=== PATIENT | male | born 1960 | race Caucasian/White ===

== ENCOUNTER 2019-08-24 12:34 | Outpatient (CLI) | payer OTHER, SELFPAY ==
--- NOTE | 2019-08-24 12:30 | XRR_ITS ---
PROCEDURE INFORMATION: Exam: XR Abdomen, 1 View Exam date and time: 08/24/2019 1:02 PM Age: 58 years old Clinical indication: History of urolithiasis TECHNIQUE: Imaging protocol: XR of the abdomen. Views: Frontal supine view of the abdomen. 1 View. COMPARISON: XR ABDOMEN 08/24/2018 12:43 PM XR ABDOMEN 1:58 PM FINDINGS: Gastrointestinal tract: No dilated gas-filled loops of bowel. Organs: No definite radiopaque renal or ureteral calculi. Vasculature: There is a phlebolith in the deep left paramidline pelvis. Atherosclerotic plaque in the iliac arteries bilaterally. Bones/joints: No acute osseous abnormality. XR/XR KUB [id number] IMPRESSION: No radiopaque renal or ureteral calculus.
== END 2019-08-24 12:35 | disposition home or self-care (01) ==
LOC: RAD 12:41
PROVIDERS: Family Provider Internal Medicine; Visit Provider Urology
DX: N20.9 Urinary calculus, unspecified (principal)
CPT/HCPCS: 74018; 81001

== ENCOUNTER 2019-09-22 11:11 | Outpatient (CLI) | payer OTHER, SELFPAY ==
--- NOTE | 2019-09-22 11:18 | CT_ITS ---
WS: [id number] CT scan of the chest with IV contrast, additional two-dimensional coronal and sagittal reconstruction was performed. 09/22/2019 Clinical Data: REQUESTED BY PULMONARY Comparison: CT pulmonary embolus, 04/06/2018. DLP: 922.[address] scans at [facility] use at least one of these dose optimization techniques: automat ed exposure control; mA and/or kV adjustment per patient size (includes targeted exams where dose is matched to clinical indication); or iterative reconstruction. Findings: No nodules, masses or effusions are seen. No pneumonia or pneumothorax is present. The heart size is normal with no pericardial effusion. Coronary artery calcification is present. The pulmonary arterial system and thoracic aorta demonstrate no abnormalities or dilatations. The trachea bifurcates into t he bronchi. There is moderate anterior and middle mediastinal adenopathy unchanged. The upper abdomen shows no abnormalities. Midline sternotomy sutures are seen. CT/CT chest w con* [id number] Impression: Negative for acute cardiopulmonary disease.
[2019-09-22] MEDS: iohexol 300 mg/mL 100 mL Btl IV (11:35)
== END 2019-09-22 11:12 | disposition home or self-care (01) ==
LOC: RADWPI 11:16
PROVIDERS: Family Provider Internal Medicine; PCP Internal Medicine; Visit Provider Internal Medicine
DX: Z01.89 Encounter for other specified special examinations (principal); I25.10 Atherosclerotic heart disease of native coronary artery without angina pectoris; R59.0 Localized enlarged lymph nodes; Z86.711 Personal history of pulmonary embolism
CPT/HCPCS: 71260; Q9967

== ENCOUNTER 2019-11-08 06:24 | Day surgery (SDC) | payer OTHER, SELFPAY ==
[2019-11-04 10:05] VITALS: BMI 26.9
[2019-11-08 06:47] VITALS: BP 108/72; PULSE 97; RESP 20; TEMP 36.6; O2SAT 92
--- NOTE | 2019-11-08 07:00 | P.HP_ITS ---
Same Day Surgery H&P Indication for Procedure/HPI DATE OF PROCEDURE: November 08, 2019 CHIEF COMPLAINT/INDICATIONFOR SURGICAL PROCEDURE: history of colon polyps PREOP DIAGNOSIS: History of colon polyps PLANNED PROCEDRUE: Operation Date: 11/08/19 08:05 Proposed Procedures p Colonoscopy 81228 Z86.010(Not Applicable) - Narciso Christianson MD Medications/Allergies* Home Medications Medication Instructions Recorded Confirmed Type albuterol sulfate 90 mcg/actuation 1 inh INHALATION Q4H 08/24/19 11/04/19 History breath activated powder inhaler,sensor aspirin 81 mg tablet,delayed 81 mg PO DAILY 08/24/19 11/08/19 History release atorvastatin 80 mg tablet 80 mg PO DAILY 08/24/19 11/04/19 History cyclobenzaprine 10 mg tablet 10 mg PO DAILY 08/24/19 11/08/19 History furosemide 20 mg tablet 20 mg PO QAM 08/24/19 11/04/19 History hydrocodone 5 mg-acetaminophen 325 1 tab PO QID PRN 08/24/19 11/04/19 History mg tablet montelukast 10 mg tablet 10 mg PO DAILY 08/24/19 11/08/19 History potassium chloride 10 mEq 10 meq PO DAILY 08/24/19 11/04/19 History capsule,extended release ropinirole 1 mg tablet 1 mg PO DAILY 08/24/19 11/08/19 History sertraline 100 mg tablet 100 mg PO DAILY 08/24/19 11/04/19 History tamsulosin 0.4 mg capsule 0.4 mg PO BID 08/24/19 11/04/19 History tiotropium 2.5 mcg-olodaterol 2.5 2 puff INHALATION DAILY 08/24/19 11/04/19 History mcg/actuation mist for inhalation warfarin 5 mg tablet 5 mg PO DAILY 08/24/19 11/04/19 History pantoprazole 20 mg PO DAILY 11/08/19 11/08/19 History Allergies/Adverse Reactions Allergy/AdvReac Type Severity Reaction Status Date / Time No Known Allergies Allergy Verified 09/13/19 14:51 Pertinent History/Comorbid Conditions* Medical History (Updated 09/14/19 @ 13:00 by Narciso Christianson MD) History of colon polyps HTN (hypertension), benign Hyperlipidemia Hypogonadism in male Lower urinary tract symptoms (LUTS) Peyronie disease Urolithiasis Surgical History (Updated 09/13/19 @ 15:05 by Narciso Christianson MD) H/O decompression of ulnar nerve H/O knee surgery H/O neck surgery H/O vasectomy History of back surgery History of coronary artery stent placement History of surgery on arm Hx of CABG Status post colonoscopy with polypectomy Family History (Updated 08/19/19 @ 08:55 by Destiny Hernandez RN) Father, 66 Mother, 64 Diabetes Mother Father CAD (coronary artery disease) Mother Father Hypertension Mother Father Social History Smoking and tobacco status: current every day smoker Alcohol intake: never Marital status: Current occupational status: retired and disabled History of recent travel: No Pertinent Exam Findings alert and oriented x 3 Recommendations Surgery/Procedure today Coding Level of Care Code Acute Stock 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
[2019-11-08] MEDS: sodium chloride 0.9% 1,000 ML 30 ML IV (07:08)
[2019-11-08 07:23] LABS: INR 1.08 (0.8-1.2)
--- NOTE | 2019-11-08 07:58 | ANES.PREANE2 ---
Pre-Anesthetic Assessment Pre-Anesthetic Assessment: Height/Weight: Height 1.8 m Weight 87.543 kg Temp Pulse Resp BP Pulse Ox 97.8 F 97 20 H 108/72 92 11/08/19 06:47 11/08/19 06:47 11/08/19 06:47 11/08/19 06:47 11/08/19 06:47 Preop Diagnosis: History of colon polyps Proposed Procedure: Operation Date: 11/08/19 08:05 Proposed Procedures p Colonoscopy 93167 Z86.010(Not Applicable) - Narciso Christianson MD Last intake: Intake Last Liquid Date 11/07/19 Last Liquid Time 23:59 Last Solid Date 11/06/19 Last Solid Time 23:59 Social: Social History: Tobacco and No alcohol Exam: Pre-Anes Outpt Exam: alert, oriented x 3, clear to auscultation bilaterally and regular rate & rhythm Airway: Submandibular: WNL Cervical ROM: Other (limited) MP: 2 Dentition: Other (poor dentation) History/ROS: No significant history except as noted Pulmonary: Pulmonary: COPD, HODGE and Sleep apnea CV/HEM: CV/HEM: CAD and HTN Comments: MVR 2019 : : None reported Hepatic: Hepatic: None reported GI: GI: GERD (occ) Metabolic: Metabolic: Hyperlipidemia Musc/skel: Musc/skel: OA/DJD Neuropsych: Neuropsych: Neuropathy (arms and legs) Anesthetic Plan: ASA status: 3 Anesthesia: Anesthesia Evaluation and MAC Risk of > 500 ml blood loss (7ml/kg in children): No Meds/Allergies Current Medications: Current Medications Generic Name Dose Route Start Last Admin Trade Name Freq PRN Reason Stop Dose Admin Sodium Chloride 1,000 mls @ 30 ml s/hr 11/08/19 06:45 11/08/19 07:08 Sodium Chloride 0.9% IV 30 mls/hr .Q24H EUGENE Administration PFSH Anesthesia PFSH: Medical History History of colon polyps HTN (hypertension), benign Hyperlipidemia Hypogonadism in male Lower urinary tract symptoms (LUTS) Peyronie disease Urolithiasis Surgical History H/O decompression of ulnar nerve H/O knee surgery H/O neck surgery H/O vasectomy History of back surgery History of coronary artery stent placement History of surgery on arm Hx of CABG Status post colonoscopy with polypectomy Family History Mother , 64 CAD (coronary artery disease) Diabetes Hypertension Father , 66 Diabetes Hypertension CAD (coronary artery disease) Social History Smoking and tobacco status: current every day smoker Alcohol intake: never Marital status: Current occupational status: retired and disabled History of recent travel: No Data Anesthesia Other Labs: Laboratory Results - last 48 hr 11/08/19 07:04 PT 14.30 H INR 1.08 Cardiac Studies: No Data to Display
[2019-11-08 10:42] VITALS: BP 101/58; PULSE 73; RESP 16; TEMP 36.3; O2SAT 94
[2019-11-08 11:03] VITALS: BP 115/73; PULSE 75; RESP 18; O2SAT 92
== END 2019-11-08 11:16 | disposition home or self-care (01) ==
PROVIDERS: Visit Provider Surgery
PROC: 0DJD8ZZ Inspection of Lower Intestinal Tract, Via Natural or Artificial Opening Endoscopic (ICD-10-PCS; CPT 45378; principal; 2019-11-08 08:00)
DX: Z86.010 Personal history of colon polyps (principal); K64.8 Other hemorrhoids; D12.2 Benign neoplasm of ascending colon; D12.3 Benign neoplasm of transverse colon; D12.5 Benign neoplasm of sigmoid colon; J44.9 Chronic obstructive pulmonary disease, unspecified; I10 Essential (primary) hypertension; K21.9 Gastro-esophageal reflux disease without esophagitis; M19.90 Unspecified osteoarthritis, unspecified site; E78.5 Hyperlipidemia, unspecified; F17.210 Nicotine dependence, cigarettes, uncomplicated; Z82.49 Family history of ischemic heart disease and other diseases of the circulatory system
CPT/HCPCS: 12345; 45380; 45385; 85610; 88305; J2704; J7030

== ENCOUNTER 2020-01-20 14:25 | Outpatient (CLI) | payer OTHER, SELFPAY ==
--- NOTE | 2020-01-20 14:34 | USCV_ITS ---
Kyung Queen Age: 59 Gender: M : 1960 Exam Date: 01/20/2020 14:52 Ordering Phys: Carol Cesar MD Technologist: Santo Steele [place] [facility] [place]: PAD CAD Risk Factors: Smoker Previous Vascular Surgery: CABG RIGHT LEFT BP: 130.0 / 80.00 BP: 130.0/ 80.00 0 0 Waveform Velocity (cm/s) Velocity (cm/s) Waveform Triphasic 92.7 Iliac Prox 119.6 Triphasic Triphasic 123.0 Iliac Mid 107.5 Triphasic Triphasic 105.1 Iliac Distal 80.1 Triphasic Triphasic 94.3 AUTOMOTIVE TIRE TESTING SUPERVISOR 94.0 Triphasic Triphasic 102.7 SFA Prox 101.0 Triphasic Triphasic 107.1 SFA Mid 101.0 Triphasic Triphasic 72.7 SFA Dist 95.2 Triphasic Triphasic 52.7 POP 50.4 Triphasic Triphasic 75.8 DIRECTOR OF MUSIC 66.4 Triphasic Triphasic 75.0 DPA 60.0 N/A SHILA 1.0 1.0 FINDINGS Mild diffuse plaques in the iliac and femoral arteries bilaterally Normal Doppler waveforms and velocities bilaterally Normal resting ABIs bilaterally CONCLUSIONS Mild diffuse plaques in the iliac and femoral arteries bilaterally No significant arterial obstruction based on the above findings Dr Riky Whipple MD [facility] (Electronically Signed) Final Date: 22 January 2020 20:37 S
== END 2020-01-20 14:26 | disposition home or self-care (01) ==
LOC: RAD 14:28
PROVIDERS: Visit Provider Family Medicine
DX: I73.9 Peripheral vascular disease, unspecified (principal); I70.8 Atherosclerosis of other arteries
CPT/HCPCS: 93925

== ENCOUNTER 2020-03-26 09:58 | Outpatient (CLI) | payer OTHER, SELFPAY ==
--- NOTE | 2020-03-26 10:12 | MM_ITS ---
WS: [id number] BILATERAL DIGITAL DIAGNOSTIC MAMMOGRAM MAMMOGRAPHY WITH CAD CLINICAL INFORMATION: LUMP IN BREAST UNDER LEFT NIPPLE COMPARISON: None. TECHNIQUE: Bilateral CC, MLO, and ML views. FINDINGS: Scattered fibroglandular densities bilaterally. Palpable marker upper outer left breast near the areo la. Asymmetric subareolar parenchymal tissue left compared to right likely due to gynecomastia. Ultra sound is pending. ULTRASOUND BREAST LEFT TECHNIQUE: Ultrasound left breast focused area of concern. CLINICAL INFORMATION: LUMP IN BREAST UNDER LEFT NIPPLE COMPARISON: None. FINDINGS: Dense subareolar breast tissue deep to the left nipple in the area of palpable concern. No cystic or solid mass. No lesions to target for biopsy. Similar-appearing subareolar breast tissue right breast. Findings most compatible with gynecomastia. MM/[place] [id number] IMPRESSION: BI-RADS: 2-Benign FOLLOW UP: See Report Additional management of the palpable abnormality should be based on clinical g rounds..
== END 2020-03-26 09:59 | disposition home or self-care (01) ==
LOC: RADSHAW 10:02
PROVIDERS: PCP Family Medicine; Visit Provider Family Medicine
DX: N63.42 Unspecified lump in left breast, subareolar (principal)
CPT/HCPCS: 76642; 77066

== ENCOUNTER → 2020-04-12 08:31 | Outpatient (BNVA) | payer OTHER, SELFPAY | PROVIDERS: PCP Family Medicine; Referring Provider Family Medicine; Visit Provider Anesthesiology Pain Medicine | DX: G89.29 Other chronic pain (principal); M50.20 Other cervical disc displacement, unspecified cervical region; F17.210 Nicotine dependence, cigarettes, uncomplicated; Z79.899 Other long term (current) drug therapy | CPT/HCPCS: 99205 ==

== ENCOUNTER → 2020-04-23 13:40 | Outpatient (BNVA) | payer OTHER, SELFPAY | PROVIDERS: PCP Family Medicine; Visit Provider Anesthesiology Pain Medicine | DX: M54.2 Cervicalgia; F17.210 Nicotine dependence, cigarettes, uncomplicated; Z79.01 Long term (current) use of anticoagulants | CPT/HCPCS: 62321; 85610; J1100 ==

== ENCOUNTER → 2020-05-09 09:54 | Outpatient (BNVA) | payer OTHER, SELFPAY | PROVIDERS: PCP Family Medicine; Visit Provider Surgery | DX: Z11.59 Encounter for screening for other viral diseases (principal); R10.12 Left upper quadrant pain | CPT/HCPCS: 87635 ==

== ENCOUNTER 2020-05-15 09:22 | Day surgery (SDC) | payer OTHER, SELFPAY ==
[2020-05-11 13:27] VITALS: BMI 26.2
--- NOTE | 2020-05-15 07:01 | W.PM.OPSUD ---
Surgery/Procedure H&P Update DATE OF PROCEDURE: May 15, 2020 DATE H&P PERFORMED: 05/01/20 H&P UPDATE INFORMATION: I have reviewed H&P completed within last 30 days, I have examined patient prior to procedure and No changes to prior documentation PREOP DIAGNOSIS: History of colon polyps PLANNED PROCEDURE: Operation Date: 05/15/20 10:30 Proposed Procedures p EGD 69983 R10.12(Not Applicable) - Narciso Christianson MD
[2020-05-15 09:50] VITALS: BP 123/70; PULSE 73; RESP 18; TEMP 36.3; O2SAT 95
--- NOTE | 2020-05-15 10:05 | P.ANESASSM_ITS ---
Pre-Anesthetic Assessment Pre-Anesthetic Assessment: Height/Weight: Height 1.8 m Weight 85.275 kg Temp Pulse Resp BP Pulse Ox 97.4 F L 73 18 123/70 95 05/15/20 09:50 05/15/20 09:50 05/15/20 09:50 05/15/20 09:50 05/15/20 09:50 Preop Diagnosis: LUQ pain Proposed Procedure: Operation Date: 05/15/20 10:30 Proposed Procedures p EGD 57696 R10.12(Not Applicable) - Narciso Christianson MD Familial anesthetic complications: Difficulty waking up after vasectomy in 1991- no problems since Was Beta Guero taken within 24 hours: N/A Last intake: Intake Last Liquid Date 05/14/20 Last Liquid Time 21:00 Last Solid Date 05/14/20 Last Solid Time 21:00 Social: Social History: Tobacco Exam: Pre-Anes Outpt Exam: alert, oriented x 3, clear to auscultation bilaterally and regular rate & rhythm Airway: Cervical ROM: WNL (cervical fusion) MP: 3 Dentition: Other (poor dentition) Additional comments: full dalton Pulmonary: Pulmonary: Asthma, COPD and Sleep apnea (doesn't wear cpap) CV/HEM: CV/HEM: CAD (5 stents (last placed may 08 2018)) Comments: Mitral valve replaced and main aorta re-routed - december 2018 doing ok, still have SOB d/t COPD\ off warfarin for procedure GI: GI: GERD Metabolic: Metabolic: Hyperlipidemia Anesthetic Plan: ASA status: 4 Anesthesia: MAC Risk of > 500 ml blood lo ss (7ml/kg in children): No PFSH Anesthesia PFSH: Medical History Cervical disc disease Cervical disc displacement Gastroesophageal reflux disease History of colon polyps Repeat colonoscopy in 3 years HTN (hypertension), benign Hyperlipidemia Hypogonadism in male Lower urinary tract symptoms (LUTS) Peyronie disease Urolithiasis Surgical History H/O decompression of ulnar nerve H/O knee surgery H/O neck surgery H/O vasectomy History of back surgery History of coronary artery stent placement History of surgery on arm Hx of CABG Status post colonoscopy with polypectomy (11/08/19) Family History Mother , 64 CAD (coronary artery disease) Diabetes Hypertension Father , 66 Diabetes Hypertension CAD (coronary artery disease) Social History Smoking and tobacco status: current every day smoker cigarettes Packs smoked per day: 1.5 Alcohol intake: former Lives independently: Yes Marital status: Current occupational status: retired and disabled History of recent travel: No Data Anesthesia Cardiac Studies: No Data to Display
--- NOTE | 2020-05-15 10:11 | ECG_ITS ---
[facility] Test Date: 2020-05-15 Pat Name: Kyung Queen Department: Room: Gender: Male French Translator: : 1960 Requested By: Tania France Order Number: [id number] Rosalie MD: Alexandria Mederos M.D. Measurements Intervals [place] Rate: 70 P: 65 TX: 216 QRS: 98 QRSD: 99 T: 41 QT: 457 QTc: 493 Interpretive Statements SINUS RHYTHM WITH FIRST DEGREE AV BLOCK BORDERLINE RIGHT AXIS DEVIATION [QRS AXIS > 90] PROLONGED QT INTERVAL Compared to ECG 05/11/2018 05:41:49 First degree AV block now present Prolonged QT interval now present Sinus tachycardia no longer present T-wave abnormality no longer present Electronically Signed On 05-15-2020 21:51:46 [employer] PERSONALITY by Alexandria Mederos M.D. [id number]
[2020-05-15] MEDS: sodium chloride 0.9% 1,000 ML 30 ML IV (11:15)
[2020-05-15 12:11] VITALS: BP 85/52; PULSE 63; RESP 18; TEMP 36.2; O2SAT 95
[2020-05-15 12:27] VITALS: BP 105/58; PULSE 64; RESP 20
--- NOTE | 2020-05-15 14:28 | ANE.PACU2 ---
Inpatient post-anesthesia follow up: Airway intact: Yes Vital signs: Temperature 97.2 F Pulse Rate 64 Respiratory Rate 20 Blood Pressure 105/58 Pulse Oximetry 95 Oxygen Delivery Me thod Nasal Cannula Oxygen Flow Rate 4 Fraction of Inspir ed Oxygen Hydration adequate: Yes Nausea and vomiting: No Pain level: 1 Mental status: Baseline
== END 2020-05-15 12:35 | disposition home or self-care (01) ==
PROVIDERS: PCP Family Medicine; Visit Provider Surgery
PROC: 0DJ08ZZ Inspection of Upper Intestinal Tract, Via Natural or Artificial Opening Endoscopic (ICD-10-PCS; CPT 43235; principal; 2020-05-15 10:30)
DX: R10.12 Left upper quadrant pain (principal); C15.5 Malignant neoplasm of lower third of esophagus; K31.9 Disease of stomach and duodenum, unspecified; F17.210 Nicotine dependence, cigarettes, uncomplicated; J44.9 Chronic obstructive pulmonary disease, unspecified; G47.30 Sleep apnea, unspecified; I25.10 Atherosclerotic heart disease of native coronary artery without angina pectoris; E78.5 Hyperlipidemia, unspecified; Z79.82 Long term (current) use of aspirin; Z79.891 Long term (current) use of opiate analgesic; Z86.010 Personal history of colon polyps; Z95.5 Presence of coronary angioplasty implant and graft; K21.9 Gastro-esophageal reflux disease without esophagitis; I10 Essential (primary) hypertension; Z79.01 Long term (current) use of anticoagulants; Z95.2 Presence of prosthetic heart valve; Z95.1 Presence of aortocoronary bypass graft
CPT/HCPCS: 12345; 43239; 88305; 93005; J2704; J7030

== ENCOUNTER → 2020-05-17 12:41 | Outpatient (BNVA) | payer OTHER, SELFPAY | PROVIDERS: PCP Family Medicine; Visit Provider Anesthesiology Pain Medicine | DX: M50.20 Other cervical disc displacement, unspecified cervical region (principal); M54.12 Radiculopathy, cervical region; M79.604 Pain in right leg; M79.605 Pain in left leg; Z98.1 Arthrodesis status; F17.210 Nicotine dependence, cigarettes, uncomplicated; Z79.891 Long term (current) use of opiate analgesic | CPT/HCPCS: 99214 ==

== ENCOUNTER 2020-06-11 09:26 | Outpatient (CLI) | payer OTHER, SELFPAY ==
[2020-06-11] MEDS: iohexol 300 mg/mL 50 mL Btl PO (10:56)
--- NOTE | 2020-06-11 11:00 | CT_ITS ---
WS: [id number] CT scan of the chest With IV contrast, CT scan of the abdomen and pelvis with IV contrast and oral contrast. Additional two-dimensional coronal and sagittal reconstruction was performed. 06/11/2020 Clinical Data: K22.8 - Other specified diseases of esophagus Comparison: CT chest, 09/22/2019. DLP: 2496.[address] scans at [facility] use at least one of these dose optimization techniques: automat ed exposure control; mA and/or kV adjustment per patient size (includes targeted exams where dose is matched to clinical indication); or iterative reconstruction. Findings: Chest: No nodules, masses or effusions are seen. There is a fine reticular pattern throughout both lungs whi ch has developed since the prior CT scan. This may be related to chronic esophageal disease. The jovan ent has had cardiac surgery with mitral valve replacement. Midline sternotomy sutures are seen. The heart size is normal with no pericardial effusion. The trachea bifurcates normally into the bronc hi. There are coronary artery calcifications. The pulmonary arterial system and thoracic aorta demonstrate no abnormalities or dilatations. There is subcarinal adenopathy. Minimal degenerative change of the thoracic vertebral bodies is seen. Abdomen/pelvis: . The liver, gallbladder, spleen, adrenal glands and pancreas are normal. The kidneys show equal bilateral contrast excretion with no cyst or masses. No hydronephrosis or spencer l calculi are noted. The abdominal aorta is normal in size with moderate calcification in the wall. No appendicitis or diverticulitis is seen. Oral contrast is in the stomach and small bowel and there is no bowel dilatation. No abscess, adenopathy, ascites, mass, obstruction or free air is seen. The bladder is unremarkable. The prostate has calcification within. There is a fat-containing left in guinal hernia. The lumbar spine, pelvis and hips are unremarkable. CT/CT chest abd pel w con* Impression: 1. Development of fine reticular pattern throughout the lungs which could repre sent chronic interstitial lung disease. 2. Cardiac surgery. 3. Subcarinal adenopathy. 4. Negative for acute intra-abdominal or pelvic abnormalities.
[2020-06-11] MEDS: iohexol 300 mg/mL 100 mL Btl IV (11:08)
== END 2020-06-11 09:27 | disposition home or self-care (01) ==
PROVIDERS: PCP Family Medicine; Visit Provider Surgery
DX: K22.8 Other specified diseases of esophagus (principal); R59.0 Localized enlarged lymph nodes; I25.10 Atherosclerotic heart disease of native coronary artery without angina pectoris; Z95.2 Presence of prosthetic heart valve
CPT/HCPCS: 71260; 74177; Q9967

== ENCOUNTER → 2020-06-14 08:23 | Outpatient (BNVA) | payer OTHER, SELFPAY | PROVIDERS: PCP Family Medicine; Visit Provider Anesthesiology Pain Medicine | DX: M54.41 Lumbago with sciatica, right side (principal); M54.12 Radiculopathy, cervical region; M50.20 Other cervical disc displacement, unspecified cervical region; M54.9 Dorsalgia, unspecified; Z98.1 Arthrodesis status; F17.210 Nicotine dependence, cigarettes, uncomplicated | CPT/HCPCS: 99214 ==

== ENCOUNTER 2020-06-19 10:06 | Outpatient (CLI) | payer OTHER, SELFPAY ==
--- NOTE | 2020-06-19 14:56 | ONC CON_ITS ---
Dr. Ryan New Patient Note Patient: Kyung Queen Unit #: [id number]: 1960 Dicatated By: Primitivo Ryan M.D.Date of Visit: Jun 19, 2020 Onc MED New Patient/Consult Referring Physician: Carol Cesar History of Present Illness: Mr. Kyung Queen, is a 59-year-old gentleman with progressive longstanding history of left upper quadrant pain was referred to surgery for evaluation and on May 15, 2020 he underwent EGD which showed couple of areas of suspected Parker's patches with small 1 cm nodule mass which is firm and was biopsied and there was another soft polypoid mass at Z-line which was also biopsied, stomach showed nonerosive gastritis in the antrum and small hiatal hernia seen on retroflexion. Duodenal exam was unremarkable and his pathology report came back distal esophageal mass biopsy confirmed moderately differentiated adenocarcinoma, tumor was CK20 positive and Tyrone-EP4 positive. Patient underwent CT scan of chest abdomen pelvis on June 11, 2020 which showed chronic esophageal disease, fine reticular pattern throughout both lungs., Mild subcarinal lymphadenopathy, mitral valve replacement, no intra-abdominal abnormality. Patient denies any history of dysphagia, denies any history of hemoptysis or hematemesis, denies any history of weight loss, denies any history of jaundice, denies any history of abdominal pain except off and on left epigastric pain. History of 40+ year smoking and still active, about pack a day occasionally alcohol intake. Patient has history of sleep apnea but noncompliant with CPAP machine., History of coronary artery disease status post CABG, underwent colonoscopy in October 2019 with polypectomy. Past Medical History: Mr. Queen's medical history consists of cervical disc disease, cervical disc displacement, gastroesophageal reflux disease, history of colon polyps, hyperlipidemia, hypertension, hypogonadism, Peyronie disease, and Urolithiasis. Past Surgical History: Mr. Queen's surgical/procedural history consists of back surgery, coronary artery bypass, coronary artery stent placement, decompression of ulnar nerve, knee surgery, neck surgery, vasectomy, and colonoscopy in 2020. Medications: Amiodarone HCl 1 Tablet (of 200 mg) Oral b.i.d., Aspirin 1 Tablet (of 81 mg) Tablet, chewable Oral daily, Atorvastatin Calcium 1 Tablet (of 40 mg) Oral daily, Coumadin 1 Tablet (of 2.5 mg) Oral daily on Every Other Day, Cyclobenzaprine HCl 1 Tablet (of 10 mg) Oral b.i.d., dilTIAZem CD 1 Capsule (of 300 mg) Capsule SR 24 HR Oral daily, Ferrous Sulfate 1 Tablet (of 325 (65 fe) mg) Oral daily, Furosemide 1 Tablet (of 40 mg) Oral daily, Gabapentin 1 Capsule (of 300 mg) Oral t.i.d., HYDROcodone-Acetaminophen 1 Tablet (of 5-325 mg) Oral four times a day, Montelukast Sodium 1 Tablet (of 10 mg) Oral daily, Pantoprazole Sodium 1 Tablet (of 40 mg) Tablet, enteric coated Oral daily, Potassium Chloride ER 1 Tablet (of 20 meq) Tablet, controlled release Oral daily, Respaire-30 Capsule Oral, Sertraline HCl 1 Tablet (of 100 mg) Oral daily, Sildenafil Citrate 1 Tablet (of 20 mg) Oral t.i.d., Tamsulosin HCl 1 Capsule (of 0.4 mg) Oral b.i.d. Allergies: No Known Allergies. Social History: Mr. Queen is . He is an occasional smoker who smokes 1.5 packs/day. He is a former drinker. He has indicated exposure to the following products: cigarettes. Pt is a recovering alcoholic. Family History: Mr. Queen's mother at age 64: coronary artery disease, and type II diabetes, and hypertension. Mr. Queen's father at age 66: coronary artery disease, and type II diabetes, and hypertension. Review Of Symptoms: Constitutional - Appetite is good and weight is stable. No fever, night sweats, or hot flashes. Energy is fair, Eyes - , ENMT - No sinus congestion/drainage. No mouth sores. Positive for sore throat and difficulty swallowing, Endocrine - , Hematologic/Lymphatic - No abnormal bruising or bleeding, Respiratory - Positive for shortness of breath. No cough. No pleuritic pain or hemoptysis, Cardiovascular - No angina pain. No palpitations, Gastrointestinal - No nausea or vomiting. No heartburn or acid reflux. No diarrhea or constipation. No blood in the stool or black stools, Genitourinary (M) - No dysuria or hematuria. No urinary frequency. No urgency or incontinence, Musculoskeletal - No joint or bone pain, Neurologic - No headache or dizziness. No numbness or tingling. No other focal neurologic symptoms, Psychiatric - No anxiety or depression. Posiive for insomnia. Vital Signs: Performed on Jun 19, 2020 10:45: 7, 28.15, 2.12 sq.m, 71 in, 94 % (LOW), 89 /min, 16 /min, 101/60 mm(hg), 97.4 F (LOW), and 201.8 lbs (HIGH). Performance Status: 0 - Fully active, able to carry on all predisease activities without restrictions. (ECOG) Physical Examination: ENMT - No mouth sores, no thrush, no jaundice, Respiratory - Poor air entry, mild wheezing bilaterally No supraclavicular lymphadenopathy, Cardiovascular - Regular rate and rhythm of heart, Abdomen - Soft, bowel sounds present, Extremities - No visible edema or rash. Lab/Imaging: Most recent lab results are not available for this patient. Impression: Moderately differentiated adenocarcinoma per EGD done on May 15, 2020 CT scan of chest abdomen pelvis done on June 11, 2020 showed fine reticular and patent throughout lungs could represent chronic interstitial lung disease. Cardiac surgery/mitral valve replacement, mild subcarinal lymphadenopathy No other abnormality seen Coronary artery disease status post CABG status post stenting COPD Sleep apnea, noncompliant with CPAP Longstanding history of smoking, still active e.g. 1 pack/day Plan: Discussed with patient regarding his disease status and treatment options, patient has no history of dysphagia or weight loss and small esophageal nodular lesion was an incidental finding, as EGD was done for history of off and on left upper quadrant pain and indigestion and CT scan of chest abdomen pelvis done on June 11, 2020 did not showed obvious esophageal abnormality except chronic esophageal disease but concern was mild subcarinal lymphadenopathy. As mentioned earlier patient is not symptomatic from newly diagnosed distal esophageal adenocarcinoma,so he may have very early disease but only concern was subcarinal lymphadenopathy with ? Significance, at this point, will consider EUS to assess extent of esophageal lesions depth and local extent and also obtain surgical evaluation regarding the timing of surgery. And if EUS shows significant disease then will consider CT PET scan to complete staging work-up. Patient will return to clinic after EUS and surgical evaluation in [facility]. Patient was advised to quit smoking and was offered any assistance he may need Signed By: Primitivo Ryan M.D. <<Signature on File>>
== END 2020-06-19 10:07 | disposition home or self-care (01) ==
PROVIDERS: PCP Family Medicine; Visit Provider Internal Medicine Hematology & Oncology
DX: C15.5 Malignant neoplasm of lower third of esophagus (principal); F17.210 Nicotine dependence, cigarettes, uncomplicated; F10.21 Alcohol dependence, in remission; J44.9 Chronic obstructive pulmonary disease, unspecified; I25.10 Atherosclerotic heart disease of native coronary artery without angina pectoris; G47.30 Sleep apnea, unspecified; Z95.5 Presence of coronary angioplasty implant and graft; Z91.19 Patient's noncompliance with other medical treatment and regimen
CPT/HCPCS: 99203

== ENCOUNTER → 2020-07-12 10:24 | Outpatient (BNVA) | payer OTHER, SELFPAY | PROVIDERS: PCP Family Medicine; Visit Provider Anesthesiology Pain Medicine | DX: M54.12 Radiculopathy, cervical region (principal); M50.20 Other cervical disc displacement, unspecified cervical region; M54.9 Dorsalgia, unspecified; M25.559 Pain in unspecified hip; M62.830 Muscle spasm of back; F17.210 Nicotine dependence, cigarettes, uncomplicated; Z98.1 Arthrodesis status; Z79.899 Other long term (current) drug therapy | CPT/HCPCS: 99213; 99214 ==

== ENCOUNTER → 2020-08-21 09:41 | Outpatient (BNVA) | payer OTHER, SELFPAY | PROVIDERS: PCP Family Medicine; Visit Provider Anesthesiology Pain Medicine | DX: M54.12 Radiculopathy, cervical region (principal); M50.20 Other cervical disc displacement, unspecified cervical region; M54.9 Dorsalgia, unspecified; M62.830 Muscle spasm of back; F17.210 Nicotine dependence, cigarettes, uncomplicated; Z79.899 Other long term (current) drug therapy; Z98.1 Arthrodesis status; Z79.891 Long term (current) use of opiate analgesic | CPT/HCPCS: 99214 ==

== ENCOUNTER → 2020-09-03 14:19 | Outpatient (BNVA) | payer OTHER, SELFPAY | PROVIDERS: PCP Family Medicine; Visit Provider Surgery | DX: Z01.812 Encounter for preprocedural laboratory examination (principal); Z20.828 Contact with and (suspected) exposure to other viral communicable diseases | CPT/HCPCS: 87635 ==

== ENCOUNTER 2020-09-11 12:20 | Outpatient (CLI) | payer OTHER, SELFPAY ==
--- NOTE | 2020-09-11 17:04 | ONC FU_ITS ---
Dr. Ryan follow up note Patient: Kyung Queen Unit #: [id number]: 1960 Dicatated By: Primitivo Ryan M.D.Date of Visit:Sep 11, 2020 Onc Med Follow-up/Prog Note History of Present Illness: Mr. Kyung Queen, is a 59-year-old gentleman with progressive longstanding history of left upper quadrant pain was referred to surgery for evaluation and on May 15, 2020 he underwent EGD which showed couple of areas of suspected Parker's patches with small 1 cm nodule mass which is firm and was biopsied and there was another soft polypoid mass at Z-line which was also biopsied, stomach showed nonerosive gastritis in the antrum and small hiatal hernia seen on retroflexion. Duodenal exam was unremarkable and his pathology report came back distal esophageal mass biopsy confirmed moderately differentiated adenocarcinoma, tumor was CK20 positive and Tyrone-EP4 positive. Patient underwent CT scan of chest abdomen pelvis on June 11, 2020 which showed chronic esophageal disease, fine reticular pattern throughout both lungs., Mild subcarinal lymphadenopathy, mitral valve replacement, no intra-abdominal abnormality. Patient denies any history of dysphagia, denies any history of hemoptysis or hematemesis, denies any history of weight loss, denies any history of jaundice, denies any history of abdominal pain except off and on left epigastric pain. History of 40+ year smoking and still active, about pack a day occasionally alcohol intake. Patient has history of sleep apnea but noncompliant with CPAP machine., History of coronary artery disease status post CABG, underwent colonoscopy in October 2019 with polypectomy. Patient was referred to Dr. Turk for surgical evaluation, as per patient [facility] took long time to approve his visit to Dr. Turk and then he was referred to Dr. Waller for EUS which was eventually done on August 28, 2020 which confirmed ulcerative mass lesion at the distal esophagus extending from 36 to 39 cm noncircumferential., Periesophageal lymph nodes were noted at 31 cm and 34 cm from incisors and they measured 2.3 cm diameter were malignant in appearance. Esophageal mass itself did not infiltrate beyond the muscularis propria layer. Multiple subcentimeter lymph nodes were noted around the area of celiac trunk. No focal left lobe of liver lesion identified. EUS staging T2 N1 MX 1.2 cm polypoid lesion in the second portion of duodenum atypical appearing major papilla or true polyp. Hiatal hernia. Came for follow-up, patient denies any specific complaints, last time he was seen in May 2020 and it took almost 3 months for him to get surgical evaluation and EUS done, as per patient it took a long to get approval from [place] [employer] systems., Medications: Amiodarone HCl 1 Tablet (of 200 mg) Oral b.i.d., Aspirin 1 Tablet (of 81 mg) Tablet, chewable Oral daily, Atorvastatin Calcium 1 Tablet (of 40 mg) Oral daily, Coumadin 1 Tablet (of 2.5 mg) Oral daily on Every Other Day, Cyclobenzaprine HCl 1 Tablet (of 10 mg) Oral b.i.d., dilTIAZem CD 1 Capsule (of 300 mg) Capsule SR 24 HR Oral daily, Ferrous Sulfate 1 Tablet (of 325 (65 fe) mg) Oral daily, Furosemide 1 Tablet (of 40 mg) Oral daily, Gabapentin 1 Capsule (of 300 mg) Oral t.i.d., HYDROcodone-Acetaminophen 1 Tablet (of 5-325 mg) Oral four times a day, Montelukast Sodium 1 Tablet (of 10 mg) Oral daily, Pantoprazole Sodium 1 Tablet (of 40 mg) Tablet, enteric coated Oral daily, Potassium Chloride ER 1 Tablet (of 20 meq) Tablet, controlled release Oral daily, Respaire-30 Capsule Oral, Sertraline HCl 1 Tablet (of 100 mg) Oral daily, Sildenafil Citrate 1 Tablet (of 20 mg) Oral t.i.d., Tamsulosin HCl 1 Capsule (of 0.4 mg) Oral b.i.d. Allergies: No Known Allergies. Review of Systems: Review of Systems is not available for this patient. Vital Signs: Performed on Sep 11, 2020 12:31 Height - 71.00 in Weight - 198.2 lbs (LOW) BSA - 2.10 sq.m BMI - 27.64 Temperature - 97.8 F (LOW) Pulse - 83 /min Respiration - 17 /min BP - 107/61 mm(hg) O2 Sat - 90 % (LOW) Pain - 0 Performance Status: 0 - Fully active, able to carry on all predisease activities without restrictions. (ECOG) Physical Examination: ENMT - No mouth sores, no thrush, no jaundice, Respiratory - Lungs are clear to auscultation, Cardiovascular - Regular rate and rhythm of heart, Abdomen - Soft, bowel sounds present, Extremities - No visible edema or rash. Lab/Imaging: Most recent lab results are not available for this patient. Impression: Moderately differentiated adenocarcinoma per EGD done on May 15, 2020 CT scan of chest abdomen pelvis done on June 11, 2020 showed fine reticular and patent throughout lungs could represent chronic interstitial lung disease. Cardiac surgery/mitral valve replacement, mild subcarinal lymphadenopathy No other abnormality seen EUS done on August 28, 2020 showed ulcerating mass lesion in the distal esophagus extending from 36 to 39 cm. None circumferential. Also seen periesophageal lymph nodes at 31 cm and 34 cm from the incisors, measuring 2.3 cm diameter. Malignant in appearance. Esophageal mass itself did not infiltrate beyond muscularis propria layer. Multiple subcentimeter lymph nodes were noted around the area of celiac trunk. No focal left lower liver lesion seen. EUS staging T2 N1 MX Coronary artery disease status post CABG status post stenting COPD Sleep apnea, noncompliant with CPAP Longstanding history of smoking, still active e.g. 1 pack/day Plan: EUS findings were discussed with patient and concern was multiple subcentimeter lymph nodes around the area of celiac trunk could be reactive or malignant. So we will consider CT PET scan if it shows involvement, will discuss with radiation oncology regarding extended field radiation therapy concurrent with chemotherapy We will also refer him to radiation oncology for evaluation and if PET scan shows no evidence of regional or distant mets, will consider combined chemoradiation with weekly carboplatin AUC 2 Taxol 50 mg/m??? concurrent with radiation therapy followed by surgical evaluation. Patient already has Port-A-Cath placement, as per patient Dr. Turk suggested him to proceed with combined chemoradiation and he will reevaluate him probably in October 2020. Patient will return to clinic after CT PET scan for further discussion Signed By: Primitivo Ryan M.D. <<Signature on File>>
== END 2020-09-11 12:21 | disposition home or self-care (01) ==
LOC: ONCMED 12:21
PROVIDERS: PCP Family Medicine; Visit Provider Internal Medicine Hematology & Oncology
DX: C15.5 Malignant neoplasm of lower third of esophagus (principal); I25.10 Atherosclerotic heart disease of native coronary artery without angina pectoris; Z95.5 Presence of coronary angioplasty implant and graft; J44.9 Chronic obstructive pulmonary disease, unspecified; G47.33 Obstructive sleep apnea (adult) (pediatric); F17.210 Nicotine dependence, cigarettes, uncomplicated; Z79.899 Other long term (current) drug therapy
CPT/HCPCS: 99215

== ENCOUNTER → 2020-09-18 10:38 | Outpatient (BNVA) | payer OTHER, SELFPAY | PROVIDERS: PCP Family Medicine; Visit Provider Anesthesiology Pain Medicine | DX: M54.12 Radiculopathy, cervical region (principal); M50.90 Cervical disc disorder, unspecified, unspecified cervical region; M50.20 Other cervical disc displacement, unspecified cervical region; M54.9 Dorsalgia, unspecified; M25.511 Pain in right shoulder; M25.512 Pain in left shoulder; M62.830 Muscle spasm of back; F17.210 Nicotine dependence, cigarettes, uncomplicated; Z79.891 Long term (current) use of opiate analgesic; Z98.1 Arthrodesis status | CPT/HCPCS: 99214 ==

== ENCOUNTER 2020-09-20 05:44 | Outpatient (RCR) | payer OTHER, SELFPAY ==
--- NOTE | 2020-09-19 09:50 | N.ONRAD NP_ITS ---
Radiation Oncology Consultation Patient Name: Kyung Queen Date of : 1960 Date of Service: 09/19/2020 Attending Physician: Colt Aldana M.D. Kyung Queen was seen in consultation this morning at the request of Alyssa Ryan M.D. for consideration of esophageal radiotherapy for the management of recently diagnosed distal esophageal carcinoma. He initially medical care for worsening left upper quadrant pain. No other symptoms were present (i.e. emesis, hematemesis, melena, weight loss). An upper endoscopy completed by Narciso Christianson M.D. on May 15, 2020 revealed within the esophagus a 1 cm nodular mass and a polypoid mass at the Z-line in addition to nonerosive gastritis in the antrum. The biopsy from the distal esophageal mass diagnosed a moderately differentiated adenocarcinoma (positive for Tyrone-EP4, CK7, CK20, and p53, negative for CK 5/6 and p63). A thoracoabdominopelvic CT ordered on 2019 identified subcarinal adenopathy. An endoscopic ultrasonography performed by Renato Carlton M.D. at [facility] in [place], [place] on August 28, 2020 (requested from outside hospital and personally reviewed) demonstrated an esophageal mass (36 cm - 39 cm from the central incisors) with infiltration into the muscularis propria, a 2.3 cm periesophageal lymph node (31 cm to 34 cm from the central incisors), and multiple subcentimeter celiac lymph nodes. A referral was made to Piero Turk M.D., also associated with [facility], for surgical evaluation. Neoadjuvant chemoradiotherapy was recommended. A PET/CT obtained on September 15, 2020 (independently visualized in [facility]) revealed the previously described distal thoracic esophageal mass (SUV 4.2), multiple hypermetabolic mediastinal lymph nodes (prevascular, paratracheal, and subcarinal), a retrocrural node characterize and celiac/gastrohepatic lymphadenopathy (less than 6 mm and FDG negative). The patient was evaluated concerning neoadjuvant radiation treatment. I discussed the patient's AJCC stage IIII (T2N2) esophageal cancer and the National Comprehensive Cancer Network Guidelines endorsing preoperative chemoradiation. Recommendations are based upon the CROSS study which compared surgery alone to preoperative chemoradiotherapy significantly improved overall survival (5-year 47% versus 34%) and disease-free survival compared to surgery alone in patients with resectable esophageal or esophagogastric junction cancers. Long-term results of this trial confirmed significant improvement in median overall survival (43 months versus 27 months for patients with adenocarcinoma). The patient's medical treatment was discussed with Alyssa Ryan M.D. I would recommend a 5-week course of radiotherapy. Prior to beginning treatment, I will order labs and a planning CT scan with contrast will be requested to delineate the gross tumor volumes. Potential toxicities of radiation treatment have been reviewed. The patient has verbalized understanding would like to proceed as recommended. Signed by: Dr. Colt Aldana 09/20/2020 10:03:08 AM
[2020-09-19 10:59] LABS: Basophils # 0.1 10^3/uL (0.0-0.1); Basophils % 0.4 %; Eosinophils # 0.1 10^3/uL (0.0-0.8); Eosinophils % 0.7 %; Hematocrit 46.6 % (42.0-52.0); Lymphocytes # 0.9 10^3/uL (0.8-4.8); Mean Corpuscular HGB Conc 32.2 g/dL (30.0-36.0); Mean Corpuscular Hemoglobin 31.7 pg (28.0-34.0); Mean Corpuscular Volume 98.5 fL (80-94); Monocytes # 0.6 10^3/uL (0.2-0.9); Monocytes % 4.9 %; Neutrophils # 10.57 10^3/uL (1.8-7.7); Neutrophils % 86.4 %; Nucleated Red Blood Cells % 0 %; Platelet Count 227 10^3/cmm (130-400); Red Blood Count 4.73 10^6/uL (4.1-5.3); Red Cell Distribution Width 14.3 % (12.1-15.1); White Blood Count 12.2 10^3/uL (4.0-10.0)
[2020-09-19 11:20] LABS: Partial Thromboplastin Time 36.7 SECONDS (23.9-36.7)
[2020-09-19 11:30] LABS: Alanine Aminotransferase 12 U/L (0-41); Albumin Level 3.8 g/dL (3.5-5.2); Alkaline Phosphatase 116 IU/L (40-130); Anion Gap 14.6 (5-19); Aspartate Amino Transferase 17 U/L (0-40); Blood Urea Nitrogen 9 mg/dL (6-20); Calcium 8.7 mg/dL (8.5-10.5); Carbon Dioxide 26 mmol/L (22-29); Chloride 101 mmol/L (98-107); Globulin 4.1 g/dL (1.3-4.6); Glomerular Filtration Rate 98.9 mL/min (90-130); Glucose 97 mg/dL (65-115); Osmolality Calculated 285 mOsm/kg (285-295); Potassium 3.6 mmol/L (3.5-5.1); Sodium 138 mmol/L (136-145); Total Bilirubin 0.4 mg/dL (0.15-1.2); Total Protein 7.9 g/dL (6.6-8.7)
[2020-09-19 11:53] LABS: INR 1.64 (0.8-1.2)
--- NOTE | 2020-09-20 | CT_ITS ---
Radiation Therapy Planning CT images; total exam DLP: 877.89 mGy-cm MTDD
== END 2020-09-26 23:59 | disposition home or self-care (01) ==
LOC: ONCMED 05:44
PROVIDERS: PCP Family Medicine; Visit Provider Radiology Radiation Oncology
DX: Z51.0 Encounter for antineoplastic radiation therapy (principal); C15.5 Malignant neoplasm of lower third of esophagus; Z01.812 Encounter for preprocedural laboratory examination; R59.0 Localized enlarged lymph nodes
CPT/HCPCS: 77300; 77301; 77334; 77338; 77470; 80053; 85025; 85610; 85730; 99215; Q9967

== ENCOUNTER 2020-10-26 05:41 | Outpatient (RCR) | payer OTHER, SELFPAY ==
[2020-09-27 12:57] LABS: Basophils % 0.1 %; Hemoglobin 15.3 g/dL (11.7-16.6); Lymphocytes # 0.4 10^3/uL (0.8-4.8); Lymphocytes % 4.6 %; Mean Corpuscular HGB Conc 32.6 g/dL (30.0-36.0); Mean Corpuscular Hemoglobin 31.5 pg (28.0-34.0); Mean Corpuscular Volume 96.9 fL (80-94); Monocytes % 0.3 %; Neutrophils # 7.26 10^3/uL (1.8-7.7); Neutrophils % 93.7 %; Nucleated Red Blood Cells % 0 %; Platelet Count 227 10^3/cmm (130-400); Red Blood Count 4.85 10^6/uL (4.1-5.3); Red Cell Distribution Width 14.1 % (12.1-15.1); White Blood Count 7.8 10^3/uL (4.0-10.0)
[2020-09-27 13:11] LABS: Alanine Aminotransferase 15 U/L (0-41); Albumin Level 3.9 g/dL (3.5-5.2); Alkaline Phosphatase 116 IU/L (40-130); Anion Gap 18.2 (5-19); Aspartate Amino Transferase 18 U/L (0-40); Blood Urea Nitrogen 19 mg/dL (6-20); Calcium 8.9 mg/dL (8.5-10.5); Carbon Dioxide 20 mmol/L (22-29); Chloride 95 mmol/L (98-107); Globulin 3.6 g/dL (1.3-4.6); Glomerular Filtration Rate 86.4 mL/min (90-130); Glucose 387 mg/dL (65-115); Osmolality Calculated 286 mOsm/kg (285-295); Potassium 4.2 mmol/L (3.5-5.1); Sodium 129 mmol/L (136-145); Total Bilirubin 0.4 mg/dL (0.15-1.2); Total Protein 7.5 g/dL (6.6-8.7)
[2020-09-27] MEDS: famotidine 20 mg/2 mL INJ IVP (14:08)
[2020-09-27] MEDS: diphenhydrAMINE 50 mg/mL SDV 1mL 25 MG IVP (14:10)
[2020-09-27] MEDS: sodium chloride 0.9% 250 ML 75 ML IV (14:10)
[2020-09-27] MEDS: palonosetron 0.25 mg/5 mL SDV IVP (14:12)
--- NOTE | 2020-10-02 14:35 | ONCRAD TMN_ITS ---
Radiation Oncology Treatment Management Note Patient Name: Kyung Queen Date of : 1960 Date of Service: 10/02/2020 Attending Physician: Colt Aldana M.D. 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 39cm from the central incisors). The patient has received 8 Gy of a prescribed 50 Doan with an intensity modulated radiotherapy plan utilizing a step and shoot treatment technique. He has been prescribed carboplatin (AUC 2) and paclitaxel (50 mg/m2) weekly during radiotherapy. Upon review of systems, he denied any complaints related to radiotherapy. On physical examination, the patient weighed 200 lbs. His temperature was 99 ???F with a blood pressure of 108/64 mmHg. His pulse was 84 bpm and the respiratory rate was 20. No erythema within the treatment paredes. Continue esophageal radiotherapy as prescribed. Signed by: Dr. Colt Aldana 10/02/2020 2:34:29 PM
[2020-10-03 14:38] LABS: Basophils # 0.1 10^3/uL (0.0-0.1); Eosinophils # 0.1 10^3/uL (0.0-0.8); Eosinophils % 1.9 %; Hematocrit 43.2 % (42.0-52.0); Hemoglobin 14.2 g/dL (11.7-16.6); Lymphocytes # 0.6 10^3/uL (0.8-4.8); Lymphocytes % 8.4 %; Mean Corpuscular HGB Conc 32.9 g/dL (30.0-36.0); Mean Corpuscular Volume 97.3 fL (80-94); Mean Platelet Volume 10.6 fL (7.4-10.4); Monocytes # 0.2 10^3/uL (0.2-0.9); Monocytes % 2.7 %; Neutrophils # 6.01 10^3/uL (1.8-7.7); Neutrophils % 82.4 %; Nucleated Red Blood Cells % 0 %; Platelet Count 183 10^3/cmm (130-400); Red Blood Count 4.44 10^6/uL (4.1-5.3); Red Cell Distribution Width 14.3 % (12.1-15.1); White Blood Count 7.3 10^3/uL (4.0-10.0)
[2020-10-03 15:14] LABS: Alanine Aminotransferase 22 U/L (0-41); Albumin Level 3.7 g/dL (3.5-5.2); Alkaline Phosphatase 100 IU/L (40-130); Anion Gap 13.7 (5-19); Aspartate Amino Transferase 15 U/L (0-40); Blood Urea Nitrogen 16 mg/dL (6-20); Calcium 8.6 mg/dL (8.5-10.5); Carbon Dioxide 25 mmol/L (22-29); Chloride 99 mmol/L (98-107); Globulin 3.1 g/dL (1.3-4.6); Glomerular Filtration Rate 86.4 mL/min (90-130); Glucose 111 mg/dL (65-115); Osmolality Calculated 280 mOsm/kg (285-295); Potassium 3.7 mmol/L (3.5-5.1); Sodium 134 mmol/L (136-145); Total Bilirubin 0.6 mg/dL (0.15-1.2); Total Protein 6.8 g/dL (6.6-8.7)
[2020-10-04] MEDS: sodium chloride 0.9% 250 ML 75 ML IV (10:30)
[2020-10-04] MEDS: famotidine 20 mg/2 mL INJ IVP (10:35)
[2020-10-04] MEDS: diphenhydrAMINE 50 mg/mL SDV 1mL 25 MG IVP (10:36)
[2020-10-04] MEDS: palonosetron 0.25 mg/5 mL SDV IVP (10:42)
--- NOTE | 2020-10-09 14:33 | ONCRAD TMN_ITS ---
Radiation Oncology Treatment Management Note Patient Name: Kyung Queen Date of : 1960 Date of Service: 10/09/2020 Attending Physician: Colt Aldana M.D. 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 39cm from the central incisors). The patient has received 18 Gy of a prescribed 50 Doan with an intensity modulated radiotherapy plan utilizing a step and shoot treatment technique. He has been prescribed carboplatin (AUC 2) and paclitaxel (50 mg/m2) weekly during radiotherapy. Upon review of systems, he denied any complaints related to radiotherapy. On physical examination, the patient weighed 198 lbs. His temperature was 98.4 ???F with a blood pressure of 101/60 mmHg. His pulse was 86 bpm and the respiratory rate was 18. There was no erythema within the treatment paredes. Continue esophageal radiotherapy as planned. Signed by: Dr. Colt Aldana 10/09/2020 2:32:11 PM
[2020-10-10 14:56] LABS: Basophils % 0.5 %; Eosinophils # 0.1 10^3/uL (0.0-0.8); Eosinophils % 2.3 %; Hemoglobin 13.4 g/dL (11.7-16.6); Lymphocytes # 0.2 10^3/uL (0.8-4.8); Lymphocytes % 10.3 %; Mean Corpuscular HGB Conc 33.5 g/dL (30.0-36.0); Mean Corpuscular Volume 95.5 fL (80-94); Mean Platelet Volume 10.7 fL (7.4-10.4); Monocytes # 0.2 10^3/uL (0.2-0.9); Monocytes % 9.9 %; Neutrophils # 1.59 10^3/uL (1.8-7.7); Neutrophils % 74.7 %; Nucleated Red Blood Cells % 0 %; Platelet Count 146 10^3/cmm (130-400); Red Blood Count 4.19 10^6/uL (4.1-5.3); Red Cell Distribution Width 14.6 % (12.1-15.1); White Blood Count 2.1 10^3/uL (4.0-10.0)
[2020-10-10 15:05] LABS: INR 1.83 (0.8-1.2)
[2020-10-10 15:21] LABS: Alanine Aminotransferase 14 U/L (0-41); Albumin Level 3.3 g/dL (3.5-5.2); Alkaline Phosphatase 73 IU/L (40-130); Anion Gap 12.4 (5-19); Aspartate Amino Transferase 8 U/L (0-40); Blood Urea Nitrogen 15 mg/dL (6-20); Calcium 7.8 mg/dL (8.5-10.5); Carbon Dioxide 26 mmol/L (22-29); Chloride 101 mmol/L (98-107); Globulin 2.5 g/dL (1.3-4.6); Glomerular Filtration Rate 115.4 mL/min (90-130); Glucose 165 mg/dL (65-115); Osmolality Calculated 287 mOsm/kg (285-295); Potassium 3.4 mmol/L (3.5-5.1); Sodium 136 mmol/L (136-145); Total Bilirubin 0.6 mg/dL (0.15-1.2); Total Protein 5.8 g/dL (6.6-8.7)
[2020-10-10 17:04] LABS: Slide Review Slide Review Perform
--- NOTE | 2020-10-11 01:31 | ONC FU_ITS ---
[facility] Patient Note Patient: Kyung Queen Unit #: [id number]: 1960 Dictated By: Jd LynneDate of Visit: Oct 04, 2020 Onc MED Follow-Up/Prog Note Chief Complaint: Esophageal cancer History of Present Illness: Mr. Queen is a 59-year-old gentleman with progressive longstanding history of left upper quadrant pain. He was referred to surgery for evaluation and on May 15, 2020 he underwent an EGD. The EGD showed a couple of areas of suspected Parker's patches with small 1 cm nodule/mass which was firm. The mass was biopsied and there was another soft polypoid mass at Z-line which was also biopsied. The stomach showed nonerosive gastritis in the antrum and small hiatal hernia seen on retroflexion. Duodenal exam was unremarkable. His pathology report on the distal esophageal mass biopsy confirmed moderately differentiated adenocarcinoma. The tumor was CK20 positive and Tyrone-EP4 positive. Mr Queen underwent a CT scan of chest/abdomen/pelvis on June 11, 2020 which showed chronic esophageal disease; fine reticular pattern throughout both lungs; Mild subcarinal lymphadenopathy; mitral valve replacement but no intra-abdominal abnormality. He denies any history of dysphagia, hemoptysis or hematemesis. He denies any history of weight loss, jaundice, or abdominal pain except off and on left epigastric pain. History of 40+ year smoking and still active, about pack a day; occasionally alcohol intake. Patient has history of sleep apnea but noncompliant with CPAP machine. History of coronary artery disease status post CABG, underwent colonoscopy in October 2019 with polypectomy. Mr Queen was referred to Dr. Turk for surgical evaluation, as per patient [facility] took a long time to approve his visit to Dr. Turk. He was referred to Dr. Waller for EUS which was eventually done on August 28, 2020 which confirmed ulcerative mass lesion at the distal esophagus extending from 36 to 39 cm noncircumferential. Periesophageal lymph nodes were noted at 31 cm and 34 cm from incisors and they measured 2.3 cm diameter were malignant in appearance. Esophageal mass itself did not infiltrate beyond the muscularis propria layer. Multiple subcentimeter lymph nodes were noted around the area of celiac trunk. No focal left lobe of liver lesion identified. EUS staging T2 N1 MX 1.2 cm polypoid lesion in the second portion of duodenum atypical appearing major papilla or true polyp. Hiatal hernia. Dr. Ryan did see him back and discussed the EUS findings. There was concern as multiple subcentimeter lymph nodes around the area of the celiac trunk were identified which could be reactive or malignant. A PET CT was requested which was performed on 09/15/2020. At the distal thoracic esophagus there was a 2.7 cm diameter region of activity with an SUV of 4.2, consistent with the known adenocarcinoma at that level. Multiple FDG positive mediastinal nodes represent local metastatic disease. These were noted in the prevascular, subcarinal, right paratracheal (4R and 2R) and subaortic territories. An index prevascular node measured 1.8 x 3.0 cm with an SUV of 5.4. A right retrocrural node measures 7 mm is too small to characterize. Other celiac and gastrohepatic nodes are less than 6 cm in size and are FDG negative. There was no significant head and neck adenopathy. With the PET/CT findings Mr. Queen was referred to [facility] oncology for concurrent therapy with weekly carboplatin AUC two and paclitaxel 50 mg per metered squared. Again his first cycle of chemotherapy on September 27, 2020. He has tolerated it well thus far. He is here today for follow-up. He is due for week two carboplatin paclitaxel. He states he is doing well. He has no new concerns today. He would like to get up and do more activity but is still weak in general. He is able to do his ADLs without assistance. He states that he never did cardiac rehab after he had his bypass surgery and wished that he had a. We discussed extensively the possibility of cancer rehab as that program is available. He is agreeable to that and a referral was made. Is uncertain if the [place] will cover it but we can make the referral and proceed accordingly from there. He denies any nausea or vomiting. He has had no fever or chills. He denies any mouth sores, sore throat or difficulty swallowing. He denies any peripheral neuropathy symptoms. He does have little insomnia occasionally with the premed steroids but states he is tolerating that well. He is eating better. His energy is slowly improving. He denies any lower extremity edema. He is had no new shortness of breath. He denies any orthopnea, chest pain or palpitations. His ECOG is two. Past Medical History: Cervical disc disease Cervical disc displacement Gastroesophageal reflux disease History of colon polyps Hyperlipidemia Hypertension Hypogonadism Peyronie disease Urolithiasis Past Surgical History: Back surgery Coronary artery bypass Coronary artery stent placement Decompression of ulnar nerve Knee surgery Neck surgery Vasectomy Port Placement in 2020 Colonoscopy in 2019 Allergies: No Known Allergies. Medications: Amiodarone HCl 1 Tablet (of 200 mg) Oral b.i.d. Aspirin 1 Tablet (of 81 mg) Tablet, chewable Oral daily Atorvastatin Calcium 1 Tablet (of 40 mg) Oral daily Coumadin 1 Tablet (of 2.5 mg) Oral daily on Every Other Day Cyclobenzaprine HCl 1 Tablet (of 10 mg) Oral b.i.d. dilTIAZem CD 1 Capsule (of 300 mg) Capsule SR 24 HR Oral daily Ferrous Sulfate 1 Tablet (of 325 (65 fe) mg) Oral daily Furosemide 1 Tablet (of 40 mg) Oral daily Gabapentin 1 Capsule (of 300 mg) Oral t.i.d. HYDROcodone-Acetaminophen 1 Tablet (of 5-325 mg) Oral four times a day Montelukast Sodium 1 Tablet (of 10 mg) Oral daily Pantoprazole Sodium 1 Tablet (of 40 mg) Tablet, enteric coated Oral daily Potassium Chloride ER 1 Tablet (of 20 meq) Tablet, controlled release Oral daily Respaire-30 Capsule Oral Sertraline HCl 1 Tablet (of 100 mg) Oral daily Sildenafil Citrate 1 Tablet (of 20 mg) Oral t.i.d. Tamsulosin HCl 1 Capsule (of 0.4 mg) Oral b.i.d. Family History: Mr. Queen's mother at age 64: coronary artery disease, and type II diabetes, and hypertension. Mr. Queen's father at age 66: coronary artery disease, and hypertension, and type II diabetes. Social History: Mr. Queen is . He is an occasional smoker who has smoked 1.5 packs/day for 47 years. He quit drinking 24 years ago. He has indicated exposure to the following products: cigarettes. Drank 1 pint of [place] a day for 21 years. Quit drinking in 1996. Pt is a recovering alcoholic. Review Of Symptoms: see above Vital Signs: Performed on Oct 04, 2020 13:20 Height - 71.00 in Temperature - 98.2 F (LOW) Pulse - 76 /min Respiration - 18 /min BP - 101/51 mm(hg) O2 Sat - 90 % (LOW) Performed on Oct 04, 2020 09:28 Height - 71.00 in Weight - 201 lbs (HIGH) BSA - 2.11 sq.m BMI - 28.03 Temperature - 97.9 F (LOW) Pulse - 90 /min Respiration - 18 /min BP - 102/65 mm(hg) O2 Sat - 91 % (LOW) Pain - 0 Fatigue - 0,1 - No physically strenuous activity, but ambulatory and able to carry out light or sedentary work (e.g. office work, light house work). (ECOG) Physical Examination: Constitutional Alert, oriented, no acute distress. Skin pink, warm and dry. Head Normocephalic; atraumatic. Eyes Conjunctivae and sclerae are clear and without icterus. Pupils are reactive and equal. ENMT No oral exudates, ulcers, masses, thrush or mucositis. Oropharynx clear. Tongue normal. Neck Supple without masses or thyromegaly. No jugular venous distension. Hematologic/Lymphatic No petechiae or purpura. No tender or palpable lymph nodes in the cervical or supraclavicular areas. Respiratory Lungs are clear to auscultation without rhonchi or wheezing. Cardiovascular Regular rate and rhythm of heart without murmurs,clicks, gallops or rubs. Chest Chest is symmetric without chest wall deformities. Back/Spine Non-tender to palpation. Extremities No visible deformities, no cyanosis, clubbing or edema. Musculoskeletal No tenderness or swelling, normal range of motion without obvious weakness. Integumentary No rashes or lesions. Neurologic No sensory or motor deficits, normal cerebellar function, normal gait. Psychiatric Alert and oriented times three. Coherent speech. Verbalizes understanding of our discussions today. Laboratory:Test performed on Oct 04, 2020 09:52 Creatinine 0.9 mg/dL Cr Clearance (Est) 114.87 mL/min Test performed on Sep 27, 2020 12:25 Sodium 129 mmol/L Potassium 4.2 mmol/L Chloride 95 mmol/L CO2 20 mmol/L Anion Gap 18.2 BUN 19 mg/dL eGFR 86.4 mL/min Glucose 387 mg/dL Osmolality - Calculated 286 mOsm/kg Calcium 8.9 mg/dL Protein, Total 7.5 g/dL Albumin 3.9 g/dL Globulin 3.6 g/dL Bilirubin, Total 0.4 mg/dL ALT (SGPT) 15 U/L AST (SGOT) 18 U/L Alkaline Phosphatase 116 IU/L WBC 7.8 10 3/uL RBC 4.85 10 6/uL HGB 15.3 g/dL HCT 47.0 % MCV 96.9 fL MCH 31.5 pg MCHC 32.6 g/dL RDW 14.1 % Platelet Count 227 10 3/cmm MPV 10.0 fL Neutrophils 7.26 10 3/uL Lymphocytes 0.4 10 3/uL Monocytes 0.0 10 3/uL Eosinophils 0.0 10 3/uL Basophils 0.0 10 3/uL Neutrophil % 93.7 % Lymphocyte % 4.6 % Monocyte % 0.3 % Eosinophil % 0.0 % Basophils % 0.1 % NRBC % 0 % Impression: Moderately differentiated adenocarcinoma per EGD done on May 15, 2020 CT scan of chest abdomen pelvis done on June 11, 2020 showed fine reticular and patent throughout lungs could represent chronic interstitial lung disease. Cardiac surgery/mitral valve replacement, mild subcarinal lymphadenopathy No other abnormality seen EUS done on August 28, 2020 showed ulcerating mass lesion in the distal esophagus extending from 36 to 39 cm. None circumferential. Also seen periesophageal lymph nodes at 31 cm and 34 cm from the incisors, measuring 2.3 cm diameter. Malignant in appearance. Esophageal mass itself did not infiltrate beyond muscularis propria layer. Multiple subcentimeter lymph nodes were noted around the area of celiac trunk. No focal left lower liver lesion seen. EUS staging T2 N1 MX Coronary artery disease status post CABG status post stenting COPD Sleep apnea, noncompliant with CPAP Longstanding history of smoking, still active e.g. 1 pack/day Plan: PROBLEMS ADDRESSED TODAY 1. Moderately differentiated adenocarcinoma of the esophagus Dr. Ryan discussed the EUS findings. There was concern as multiple subcentimeter lymph nodes around the area of the celiac trunk were identified which could be reactive or malignant. A PET CT was requested which was performed on 09/15/2020. At the distal thoracic esophagus there was a 2.7 cm diameter region of activity with an SUV of 4.2, consistent with the known adenocarcinoma at that level. Multiple FDG positive mediastinal nodes represent local metastatic disease. These were noted in the prevascular, subcarinal, right paratracheal (4R and 2R) and subaortic territories. An index prevascular node measured 1.8 x 3.0 cm with an SUV of 5.4. A right retrocrural node measures 7 mm is too small to characterize. Other celiac and gastrohepatic nodes are less than 6 cm in size and are FDG negative. There was no significant head and neck adenopathy. With the PET/CT findings Mr. [facility] with weekly carboplatin AUC two and paclitaxel 50 mg per metered squared. Again his first cycle of chemotherapy on September 27, 2020. He has tolerated it well thus far. A. Proceed with week two carboplatin AUC of 2 and paclitaxel at same dosing at 50 mg per metered squared. B. Premed steroid compliance confirmed. C. Labs from October 03, 2020 reviewed in detail and discussed with Mr. Queen and a copy was given to him. WBC 7.3, hemoglobin 14.2, platelets are 83,000 ANC is 6010. Potassium 3.7 creatinine 0.9 random glucose 111 and LFTs are normal. His weight is stable at 201. 2. Follow-up plan A. We will plan to see him back in 1 week with CBC CMP the day before for consideration of week three carboplatin paclitaxel in combination with daily radiation. B. He was reminded to take his premed steroids. C. Mr. Melendez was instructed to contact us in the interim should questions or problems arise. Total time spent in regards to this patient's visit today and review of records and plan of care prior to visit, discussion and reeducation of the plan of care and chemotherapy side effect identification and management as well as answering questions and post visit documentation was 55 minutes. Signed By: Jd Lynne-JJ, AOVIK Ryan MD <<Signature on File>>
[2020-10-11] MEDS: palonosetron 0.25 mg/5 mL SDV IVP (09:34)
[2020-10-11] MEDS: sodium chloride 0.9% 250 ML 75 ML IV (09:34)
[2020-10-11] MEDS: famotidine 20 mg/2 mL INJ IVP (09:35)
[2020-10-11] MEDS: diphenhydrAMINE 50 mg/mL SDV 1mL 25 MG IV (09:37)
[2020-10-13 11:05] VITALS: BP 94/55; PULSE 88; RESP 18; TEMP 36.2; O2SAT 96
[2020-10-15 14:45] LABS: Basophils # 0.1 10^3/uL (0.0-0.1); Basophils % 2.1 %; Eosinophils # 0.1 10^3/uL (0.0-0.8); Eosinophils % 2.4 %; Hematocrit 40.6 % (42.0-52.0); Hemoglobin 13.6 g/dL (11.7-16.6); Lymphocytes # 0.2 10^3/uL (0.8-4.8); Lymphocytes % 7.3 %; Mean Corpuscular HGB Conc 33.5 g/dL (30.0-36.0); Mean Corpuscular Hemoglobin 31.8 pg (28.0-34.0); Mean Corpuscular Volume 94.9 fL (80-94); Mean Platelet Volume 10.7 fL (7.4-10.4); Monocytes # 0.1 10^3/uL (0.2-0.9); Monocytes % 4.5 %; Neutrophils # 2.33 10^3/uL (1.8-7.7); Neutrophils % 81.6 %; Nucleated Red Blood Cells % 0 %; Platelet Count 117 10^3/cmm (130-400); Red Blood Count 4.28 10^6/uL (4.1-5.3); Red Cell Distribution Width 14.8 % (12.1-15.1); White Blood Count 2.9 10^3/uL (4.0-10.0)
[2020-10-15 15:08] LABS: Alanine Aminotransferase 12 U/L (0-41); Albumin Level 3.2 g/dL (3.5-5.2); Alkaline Phosphatase 76 IU/L (40-130); Anion Gap 13.8 (5-19); Aspartate Amino Transferase 8 U/L (0-40); Blood Urea Nitrogen 14 mg/dL (6-20); Calcium 7.8 mg/dL (8.5-10.5); Carbon Dioxide 27 mmol/L (22-29); Chloride 100 mmol/L (98-107); Globulin 2.2 g/dL (1.3-4.6); Glomerular Filtration Rate 137.9 mL/min (90-130); Glucose 149 mg/dL (65-115); Osmolality Calculated 287 mOsm/kg (285-295); Potassium 3.8 mmol/L (3.5-5.1); Sodium 137 mmol/L (136-145); Total Bilirubin 0.6 mg/dL (0.15-1.2); Total Protein 5.4 g/dL (6.6-8.7)
[2020-10-15 16:16] LABS: Slide Review Slide Review Perform
--- NOTE | 2020-10-16 14:38 | ONCRAD TMN_ITS ---
Radiation Oncology Treatment Management Note Patient Name: Kyung Queen Date of : 1960 Date of Service: 10/16/2020 Attending Physician: Colt Aldana M.D. 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 39cm from the central incisors). The patient has received 28 Gy of a prescribed 50 Doan with an intensity modulated radiotherapy plan utilizing a step and shoot treatment technique. He has been prescribed carboplatin (AUC 2) and paclitaxel (50 mg/m2) weekly during radiotherapy. Upon review of systems, he denied any complaints related to radiotherapy. On physical examination, the patient weighed 195 lbs. His temperature was 97.2 ???F with a blood pressure of 94/59 mmHg. His pulse was 90 bpm and the respiratory rate was 18. There was no erythema within the treatment paredes. Mucositis was present upon the palatine arch. Continue esophageal radiotherapy as prescribed. I will prescribe Diflucan for the candidiasis. Signed by: Dr. Colt Aldana 10/16/2020 2:37:30 PM
[2020-10-17] MEDS: famotidine 20 mg/2 mL INJ IVP (09:26)
[2020-10-17] MEDS: diphenhydrAMINE 50 mg/mL SDV 1mL 25 MG IV (09:28)
[2020-10-17] MEDS: sodium chloride 0.9% 500 ML 999 ML IV (09:30)
[2020-10-17] MEDS: palonosetron 0.25 mg/5 mL SDV IV (09:32)
[2020-10-17 09:38] LABS: Hematocrit 40.3 % (42.0-52.0); Hemoglobin 13.6 g/dL (11.7-16.6); Lymphocytes # 0.1 10^3/uL (0.8-4.8); Lymphocytes % 4.6 %; Mean Corpuscular HGB Conc 33.7 g/dL (30.0-36.0); Mean Corpuscular Hemoglobin 31.9 pg (28.0-34.0); Mean Corpuscular Volume 94.4 fL (80-94); Mean Platelet Volume 10.8 fL (7.4-10.4); Monocytes # 0.1 10^3/uL (0.2-0.9); Monocytes % 3.6 %; Neutrophils # 1.74 10^3/uL (1.8-7.7); Neutrophils % 88.8 %; Nucleated Red Blood Cells % 0 %; Platelet Count 135 10^3/cmm (130-400); Red Blood Count 4.27 10^6/uL (4.1-5.3); Red Cell Distribution Width 14.6 % (12.1-15.1)
[2020-10-17 09:48] LABS: INR 1.72 (0.8-1.2)
[2020-10-17 09:59] LABS: Alanine Aminotransferase 16 U/L (0-41); Albumin Level 3.1 g/dL (3.5-5.2); Alkaline Phosphatase 75 IU/L (40-130); Anion Gap 15.3 (5-19); Aspartate Amino Transferase 9 U/L (0-40); Blood Urea Nitrogen 14 mg/dL (6-20); Calcium 8.2 mg/dL (8.5-10.5); Carbon Dioxide 22 mmol/L (22-29); Chloride 96 mmol/L (98-107); Globulin 2.5 g/dL (1.3-4.6); Glomerular Filtration Rate 115.4 mL/min (90-130); Glucose 408 mg/dL (65-115); Osmolality Calculated 286 mOsm/kg (285-295); Potassium 4.3 mmol/L (3.5-5.1); Sodium 129 mmol/L (136-145); Total Bilirubin 0.7 mg/dL (0.15-1.2); Total Protein 5.6 g/dL (6.6-8.7)
[2020-10-17] MEDS: fluconazole premix 100 MG/50 ML PREMIX 50 MG IV (12:03)
[2020-10-19] MEDS: sodium chloride 0.9% 500 ML 999 ML IV (11:00)
--- NOTE | 2020-10-23 14:40 | ONCRAD TMN_ITS ---
Radiation Oncology Treatment Management Note Patient Name: Kyung Queen Date of : 1960 Date of Service: 10/23/2020 Attending Physician: Colt Aldana M.D. 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 39cm from the central incisors). The patient has received 38 Gy of a prescribed 50 Doan with an intensity modulated radiotherapy plan utilizing a step and shoot treatment technique. He has been prescribed carboplatin (AUC 2) and paclitaxel (50 mg/m2) weekly during radiotherapy. Upon review of systems, he denied any complaints related to radiotherapy. On physical examination, the patient weighed 195 lbs. His temperature was 98.4 ???F with a blood pressure of 92/58 mmHg. His pulse was 93 bpm and the respiratory rate was 18. There was no erythema within the treatment paredes. Mucositis has improved. Continue esophageal radiotherapy as planned. He remains on Diflucan as per medical oncology. Signed by: Dr. Colt Aldana 10/23/2020 2:39:51 PM
[2020-10-23 15:28] LABS: Basophils % 0.7 %; Eosinophils % 2.1 %; Hematocrit 34.3 % (42.0-52.0); Hemoglobin 11.6 g/dL (11.7-16.6); Lymphocytes # 0.1 10^3/uL (0.8-4.8); Lymphocytes % 9.2 %; Mean Corpuscular HGB Conc 33.8 g/dL (30.0-36.0); Mean Corpuscular Hemoglobin 31.9 pg (28.0-34.0); Mean Corpuscular Volume 94.2 fL (80-94); Mean Platelet Volume 10.5 fL (7.4-10.4); Monocytes # 0.2 10^3/uL (0.2-0.9); Neutrophils % 69.6 %; Nucleated Red Blood Cells % 0 %; Platelet Count 110 10^3/cmm (130-400); Red Blood Count 3.64 10^6/uL (4.1-5.3); Red Cell Distribution Width 15.1 % (12.1-15.1); White Blood Count 1.4 10^3/uL (4.0-10.0)
[2020-10-23 15:34] LABS: INR 2.84 (0.8-1.2)
[2020-10-23 15:52] LABS: Neutrophils # 0.98 10^3/uL (1.8-7.7)
[2020-10-23 15:53] LABS: Slide Review Slide Review Perform
[2020-10-23 16:27] LABS: Alanine Aminotransferase 14 U/L (0-41); Albumin Level 2.8 g/dL (3.5-5.2); Alkaline Phosphatase 50 IU/L (40-130); Anion Gap 11.9 (5-19); Aspartate Amino Transferase 9 U/L (0-40); Blood Urea Nitrogen 9 mg/dL (6-20); Calcium 7.5 mg/dL (8.5-10.5); Carbon Dioxide 21 mmol/L (22-29); Chloride 102 mmol/L (98-107); Globulin 2.1 g/dL (1.3-4.6); Glomerular Filtration Rate 137.9 mL/min (90-130); Glucose 175 mg/dL (65-115); Osmolality Calculated 275 mOsm/kg (285-295); Potassium 3.9 mmol/L (3.5-5.1); Sodium 131 mmol/L (136-145); Total Bilirubin 0.7 mg/dL (0.15-1.2); Total Protein 4.9 g/dL (6.6-8.7)
[2020-10-24] MEDS: sodium chloride 0.9% 1,000 ML 999 ML IV (14:15)
--- NOTE | 2020-10-25 00:30 | ONC FU_ITS ---
[facility] Patient Note Patient: Kyung Queen Unit #: [id number]: 1960 Dictated By: Jd LynneDate of Visit: Oct 11, 2020 Onc MED Follow-Up/Prog Note Chief Complaint: Esophageal cancer History of Present Illness: Mr. Queen is a 59-year-old gentleman with progressive longstanding history of left upper quadrant pain. He was referred to surgery for evaluation and on May 15, 2020 he underwent an EGD. The EGD showed a couple of areas of suspected Parker's patches with small 1 cm nodule/mass which was firm. The mass was biopsied and there was another soft polypoid mass at Z-line which was also biopsied. The stomach showed nonerosive gastritis in the antrum and small hiatal hernia seen on retroflexion. Duodenal exam was unremarkable. His pathology report on the distal esophageal mass biopsy confirmed moderately differentiated adenocarcinoma. The tumor was CK20 positive and Tyrone-EP4 positive. Mr Queen underwent a CT scan of chest/abdomen/pelvis on June 11, 2020 which showed chronic esophageal disease; fine reticular pattern throughout both lungs; Mild subcarinal lymphadenopathy; mitral valve replacement but no intra-abdominal abnormality. He denies any history of dysphagia, hemoptysis or hematemesis. He denies any history of weight loss, jaundice, or abdominal pain except off and on left epigastric pain. History of 40+ year smoking and still active, about pack a day; occasionally alcohol intake. Patient has history of sleep apnea but noncompliant with CPAP machine. History of coronary artery disease status post CABG, underwent colonoscopy in October 2019 with polypectomy. Mr Queen was referred to Dr. Turk for surgical evaluation, as per patient [facility] took a long time to approve his visit to Dr. Turk. He was referred to Dr. Waller for EUS which was eventually done on August 28, 2020 which confirmed ulcerative mass lesion at the distal esophagus extending from 36 to 39 cm noncircumferential. Periesophageal lymph nodes were noted at 31 cm and 34 cm from incisors and they measured 2.3 cm diameter were malignant in appearance. Esophageal mass itself did not infiltrate beyond the muscularis propria layer. Multiple subcentimeter lymph nodes were noted around the area of celiac trunk. No focal left lobe of liver lesion identified. EUS staging T2 N1 MX 1.2 cm polypoid lesion in the second portion of duodenum atypical appearing major papilla or true polyp. Hiatal hernia. Dr. Ryan did see him back and discussed the EUS findings. There was concern as multiple subcentimeter lymph nodes around the area of the celiac trunk were identified which could be reactive or malignant. A PET CT was requested which was performed on 09/15/2020. At the distal thoracic esophagus there was a 2.7 cm diameter region of activity with an SUV of 4.2, consistent with the known adenocarcinoma at that level. Multiple FDG positive mediastinal nodes represent local metastatic disease. These were noted in the prevascular, subcarinal, right paratracheal (4R and 2R) and subaortic territories. An index prevascular node measured 1.8 x 3.0 cm with an SUV of 5.4. A right retrocrural node measures 7 mm is too small to characterize. Other celiac and gastrohepatic nodes are less than 6 cm in size and are FDG negative. There was no significant head and neck adenopathy. With the PET/CT findings Mr. Queen was referred to [facility] for concurrent therapy with weekly carboplatin AUC two and paclitaxel 50 mg per metered squared. Again his first cycle of chemotherapy on September 27, 2020. He has tolerated it well thus far. He is here today for follow-up. He is due for week three carboplatin paclitaxel. He states he is doing well. He has no new concerns today. He is able to do his ADLs without assistance. He denies any nausea or vomiting. He has had no fever or chills. He denies any mouth sores, sore throat or difficulty swallowing. He denies any peripheral neuropathy symptoms. He denies any gastritis or heartburn. He does have little insomnia occasionally with the premed steroids but states he is otherwise tolerating them well. He is eating better. His energy is fair. He denies any lower extremity edema. He is had no new shortness of breath. He denies any orthopnea, chest pain or palpitations. His ECOG is 1. Past Medical History: Cervical disc disease Cervical disc displacement Gastroesophageal reflux disease History of colon polyps Hyperlipidemia Hypertension Hypogonadism Peyronie disease Urolithiasis Past Surgical History: Back surgery Coronary artery bypass Coronary artery stent placement Decompression of ulnar nerve Knee surgery Neck surgery Vasectomy Covid vaccine #1 in 2020 Port Placement in 2020 Colonoscopy in 2019 Allergies: No Known Allergies. Medications: Amiodarone HCl 1 Tablet (of 200 mg) Oral b.i.d. Aspirin 1 Tablet (of 81 mg) Tablet, chewable Oral daily Atorvastatin Calcium 1 Tablet (of 40 mg) Oral daily Coumadin 1 Tablet (of 2.5 mg) Oral daily on Every Other Day Cyclobenzaprine HCl 1 Tablet (of 10 mg) Oral b.i.d. dilTIAZem CD 1 Capsule (of 300 mg) Capsule SR 24 HR Oral daily Ferrous Sulfate 1 Tablet (of 325 (65 fe) mg) Oral daily Furosemide 1 Tablet (of 40 mg) Oral daily Gabapentin 1 Capsule (of 300 mg) Oral t.i.d. HYDROcodone-Acetaminophen 1 Tablet (of 5-325 mg) Oral four times a day Montelukast Sodium 1 Tablet (of 10 mg) Oral daily Pantoprazole Sodium 1 Tablet (of 40 mg) Tablet, enteric coated Oral daily Potassium Chloride ER 1 Tablet (of 20 meq) Tablet, controlled release Oral daily Respaire-30 Capsule Oral Sertraline HCl 1 Tablet (of 100 mg) Oral daily Sildenafil Citrate 1 Tablet (of 20 mg) Oral t.i.d. Tamsulosin HCl 1 Capsule (of 0.4 mg) Oral b.i.d. Family History: Mr. Queen's mother at age 64: coronary artery disease, and type II diabetes, and hypertension. Mr. Queen's father at age 66: coronary artery disease, and hypertension, and type II diabetes. Social History: Mr. Queen is . He is an occasional smoker who has smoked 1.5 packs/day for 47 years. He quit drinking 24 years ago. He has indicated exposure to the following products: cigarettes. Drank 1 pint of [place] a day for 21 years. Quit drinking in 1996. Pt is a recovering alcoholic. Review Of Symptoms: Vital Signs: Performed on Oct 11, 2020 12:30 Height - 71.00 in Temperature - 97.4 F (LOW) Pulse - 79 /min Respiration - 18 /min BP - 106/66 mm(hg) O2 Sat - 93 % (LOW) Performed on Oct 11, 2020 08:28 Height - 71.00 in Weight - 198.6 lbs (HIGH) BSA - 2.10 sq.m BMI - 27.70 Temperature - 97.1 F (LOW) Pulse - 90 /min Respiration - 18 /min BP - 101/62 mm(hg) O2 Sat - 98 % Pain - 0 Fatigue - 6,1 - No physically strenuous activity, but ambulatory and able to carry out light or sedentary work (e.g. office work, light house work). (ECOG) Physical Examination: Constitutional Alert, oriented, no acute distress. Skin pink, warm and dry. Head Normocephalic; atraumatic. Eyes Conjunctivae and sclerae are clear and without icterus. Pupils are reactive and equal. Neck Supple without masses or thyromegaly. No jugular venous distension. Hematologic/Lymphatic No petechiae or purpura. No tender or palpable lymph nodes in the cervical or supraclavicular areas. Respiratory Lungs are clear to auscultation without rhonchi or wheezing. Cardiovascular Regular rate and rhythm of heart without murmurs,clicks, gallops or rubs. Back/Spine Non-tender to palpation. Extremities No visible deformities, no cyanosis, clubbing or edema. Musculoskeletal No tenderness or swelling, normal range of motion without obvious weakness. Integumentary No rashes or lesions. Neurologic No sensory or motor deficits, normal cerebellar function, normal gait. Psychiatric Alert and oriented times three. Coherent speech. Verbalizes understanding of our discussions today. Laboratory:Test performed on Oct 15, 2020 08:48 Creatinine 0.6 mg/dL Cr Clearance (Est) 172.31 mL/min Test performed on Sep 27, 2020 12:25 Sodium 129 mmol/L Potassium 4.2 mmol/L Chloride 95 mmol/L CO2 20 mmol/L Anion Gap 18.2 BUN 19 mg/dL eGFR 86.4 mL/min Glucose 387 mg/dL Osmolality - Calculated 286 mOsm/kg Calcium 8.9 mg/dL Protein, Total 7.5 g/dL Albumin 3.9 g/dL Globulin 3.6 g/dL Bilirubin, Total 0.4 mg/dL ALT (SGPT) 15 U/L AST (SGOT) 18 U/L Alkaline Phosphatase 116 IU/L WBC 7.8 10 3/uL RBC 4.85 10 6/uL HGB 15.3 g/dL HCT 47.0 % MCV 96.9 fL MCH 31.5 pg MCHC 32.6 g/dL RDW 14.1 % Platelet Count 227 10 3/cmm MPV 10.0 fL Neutrophils 7.26 10 3/uL Lymphocytes 0.4 10 3/uL Monocytes 0.0 10 3/uL Eosinophils 0.0 10 3/uL Basophils 0.0 10 3/uL Neutrophil % 93.7 % Lymphocyte % 4.6 % Monocyte % 0.3 % Eosinophil % 0.0 % Basophils % 0.1 % NRBC % 0 % Impression: Moderately differentiated adenocarcinoma per EGD done on May 15, 2020 CT scan of chest abdomen pelvis done on June 11, 2020 showed fine reticular and patent throughout lungs could represent chronic interstitial lung disease. Cardiac surgery/mitral valve replacement, mild subcarinal lymphadenopathy No other abnormality seen EUS done on August 28, 2020 showed ulcerating mass lesion in the distal esophagus extending from 36 to 39 cm. None circumferential. Also seen periesophageal lymph nodes at 31 cm and 34 cm from the incisors, measuring 2.3 cm diameter. Malignant in appearance. Esophageal mass itself did not infiltrate beyond muscularis propria layer. Multiple subcentimeter lymph nodes were noted around the area of celiac trunk. No focal left lower liver lesion seen. EUS staging T2 N1 MX Coronary artery disease status post CABG status post stenting COPD Sleep apnea, noncompliant with CPAP Longstanding history of smoking, still active e.g. 1 pack/day Plan: PROBLEMS ADDRESSED TODAY 1. Moderately differentiated adenocarcinoma of the esophagus Dr. Ryan discussed the EUS findings. There was concern as multiple subcentimeter lymph nodes around the area of the celiac trunk were identified which could be reactive or malignant. A PET CT was requested which was performed on 09/15/2020. At the distal thoracic esophagus there was a 2.7 cm diameter region of activity with an SUV of 4.2, consistent with the known adenocarcinoma at that level. Multiple FDG positive mediastinal nodes represent local metastatic disease. These were noted in the prevascular, subcarinal, right paratracheal (4R and 2R) and subaortic territories. An index prevascular node measured 1.8 x 3.0 cm with an SUV of 5.4. A right retrocrural node measures 7 mm is too small to characterize. Other celiac and gastrohepatic nodes are less than 6 cm in size and are FDG negative. There was no significant head and neck adenopathy. With the PET/CT findings Mr. Queen was referred to [facility] for concurrent therapy with weekly carboplatin AUC two and paclitaxel 50 mg per metered squared. Again his first cycle of chemotherapy on September 27, 2020. He has tolerated it well thus far. A. Proceed with week 3 carboplatin AUC of 2 and paclitaxel at same dosing at 50 mg per metered squared. B. Premed steroid compliance confirmed. C. He will receive growth factor support for 3 days post chemotherapy. He has a neutrophil count of 1590 today. Last week his ANC was 6000. Due to his extensive disease it was felt that he need to be treated even with the slight risk of utilizing Neupogen while on daily radiation. I discussed this with Mr. Queen and at that he is willing to proceed at this time. D. Labs from October 10, 2020 reviewed in detail and discussed with Mr. Queen and a copy was given to him. WBC 2.1, hemoglobin 13.4, platelets 146,000, ANC is 1590. Potassium 3.4 random glucose 165 creatinine 0.7 and LFTs are normal. His INR to be sent to his Coumadin clinic at [facility] is 1.83. 2. Follow-up plan A. We will plan to see him back in 1 week with CBC CMP the day before for consideration of week 4 carboplatin paclitaxel in combination with daily radiation. B. He was reminded to take his premed steroids. C. Mr. Melendez was instructed to contact us in the interim should questions or problems arise. Signed By: Jd Lynne-, CNJey Ryan MD <<Signature on File>>
--- NOTE | 2020-10-25 00:31 | ONC FU_ITS ---
[facility] Patient Note Patient: Kyung Queen Unit #: [id number]: 1960 Dictated By: Jd LynneDate of Visit: Oct 17, 2020 Onc MED Follow-Up/Prog Note Chief Complaint: Esophageal cancer History of Present Illness: Mr. Queen is a 59-year-old gentleman with progressive longstanding history of left upper quadrant pain. He was referred to surgery for evaluation and on May 15, 2020 he underwent an EGD. The EGD showed a couple of areas of suspected Parker's patches with small 1 cm nodule/mass which was firm. The mass was biopsied and there was another soft polypoid mass at Z-line which was also biopsied. The stomach showed nonerosive gastritis in the antrum and small hiatal hernia seen on retroflexion. Duodenal exam was unremarkable. His pathology report on the distal esophageal mass biopsy confirmed moderately differentiated adenocarcinoma. The tumor was CK20 positive and Tyrone-EP4 positive. Mr Queen underwent a CT scan of chest/abdomen/pelvis on June 11, 2020 which showed chronic esophageal disease; fine reticular pattern throughout both lungs; Mild subcarinal lymphadenopathy; mitral valve replacement but no intra-abdominal abnormality. He denies any history of dysphagia, hemoptysis or hematemesis. He denies any history of weight loss, jaundice, or abdominal pain except off and on left epigastric pain. History of 40+ year smoking and still active, about pack a day; occasionally alcohol intake. Patient has history of sleep apnea but noncompliant with CPAP machine. History of coronary artery disease status post CABG, underwent colonoscopy in October 2019 with polypectomy. Mr Queen was referred to Dr. Turk for surgical evaluation, as per patient [facility] took a long time to approve his visit to Dr. Turk. He was referred to Dr. Waller for EUS which was eventually done on August 28, 2020 which confirmed ulcerative mass lesion at the distal esophagus extending from 36 to 39 cm noncircumferential. Periesophageal lymph nodes were noted at 31 cm and 34 cm from incisors and they measured 2.3 cm diameter were malignant in appearance. Esophageal mass itself did not infiltrate beyond the muscularis propria layer. Multiple subcentimeter lymph nodes were noted around the area of celiac trunk. No focal left lobe of liver lesion identified. EUS staging T2 N1 MX 1.2 cm polypoid lesion in the second portion of duodenum atypical appearing major papilla or true polyp. Hiatal hernia. Dr. Ryan did see him back and discussed the EUS findings. There was concern as multiple subcentimeter lymph nodes around the area of the celiac trunk were identified which could be reactive or malignant. A PET CT was requested which was performed on 09/15/2020. At the distal thoracic esophagus there was a 2.7 cm diameter region of activity with an SUV of 4.2, consistent with the known adenocarcinoma at that level. Multiple FDG positive mediastinal nodes represent local metastatic disease. These were noted in the prevascular, subcarinal, right paratracheal (4R and 2R) and subaortic territories. An index prevascular node measured 1.8 x 3.0 cm with an SUV of 5.4. A right retrocrural node measures 7 mm is too small to characterize. Other celiac and gastrohepatic nodes are less than 6 cm in size and are FDG negative. There was no significant head and neck adenopathy. With the PET/CT findings Mr. Queen was referred to radiation oncology for concurrent therapy with weekly carboplatin AUC two and paclitaxel 50 mg per metered squared. Again his first cycle of chemotherapy on September 27, 2020. He has tolerated it well thus far. He is here today for follow-up. He is due for week 4 carboplatin paclitaxel concurrent with radiation therapy. He has developed mucositis. Dr. Aldana did start some nystatin and Magic mouthwash with him last night. He is required growth factor support with Neupogen. He did receive 3 doses last week after his ANC the day before treatment was 1600 and was 6000 a week prior. He received 2 doses of Neupogen here in the clinic and 1 dose as outpatient in the hospital over the weekend. His ANC Thursday, October 15, 2020 was 2330. He states he has had some more trouble eating due to the mouth irritation. He is able to get liquids down and some foods that seem to be soft. He states overall he does not feel too bad but is having fatigue.. He denies any fever or chills. He has had no actual mouth sores just tenderness and his taste is off. He denies diarrhea or constipation. He denies any nausea or vomiting. He denies any new pain. He denies any neuropathy symptoms. He does verify that he did take his steroids last night. His ECOG is 1. Past Medical History: Cervical disc disease Cervical disc displacement Gastroesophageal reflux disease History of colon polyps Hyperlipidemia Hypertension Hypogonadism Peyronie disease Urolithiasis Past Surgical History: Back surgery Coronary artery bypass Coronary artery stent placement Decompression of ulnar nerve Knee surgery Neck surgery Vasectomy Covid vaccine #1 in 2020 Port Placement in 2020 Colonoscopy in 2019 Allergies: No Known Allergies. Medications: Amiodarone HCl 1 Tablet (of 200 mg) Oral b.i.d. Aspirin 1 Tablet (of 81 mg) Tablet, chewable Oral daily Atorvastatin Calcium 1 Tablet (of 40 mg) Oral daily Coumadin 1 Tablet (of 2.5 mg) Oral daily on Every Other Day Cyclobenzaprine HCl 1 Tablet (of 10 mg) Oral b.i.d. dilTIAZem CD 1 Capsule (of 300 mg) Capsule SR 24 HR Oral daily Ferrous Sulfate 1 Tablet (of 325 (65 fe) mg) Oral daily Furosemide 1 Tablet (of 40 mg) Oral daily Gabapentin 1 Capsule (of 300 mg) Oral t.i.d. HYDROcodone-Acetaminophen 1 Tablet (of 5-325 mg) Oral four times a day Montelukast Sodium 1 Tablet (of 10 mg) Oral daily Pantoprazole Sodium 1 Tablet (of 40 mg) Tablet, enteric coated Oral daily Potassium Chloride ER 1 Tablet (of 20 meq) Tablet, controlled release Oral daily Respaire-30 Capsule Oral Sertraline HCl 1 Tablet (of 100 mg) Oral daily Sildenafil Citrate 1 Tablet (of 20 mg) Oral t.i.d. Tamsulosin HCl 1 Capsule (of 0.4 mg) Oral b.i.d. Family History: Mr. Queen's mother at age 64: coronary artery disease, and type II diabetes, and hypertension. Mr. Queen's father at age 66: coronary artery disease, and hypertension, and type II diabetes. Social History: Mr. Queen is . He is an occasional smoker who has smoked 1.5 packs/day for 47 years. He quit drinking 24 years ago. He has indicated exposure to the following products: cigarettes. Drank 1 pint of Tian[place] a day for 21 years. Quit drinking in 1996. Pt is a recovering alcoholic. Review Of Symptoms: see above Vital Signs: Performed on Oct 17, 2020 13:30 Height - 71.00 in Temperature - 97.2 F (LOW) Pulse - 83 /min Respiration - 18 /min BP - 109/57 mm(hg) O2 Sat - 92 % (LOW) Performed on Oct 17, 2020 08:33 Height - 71.00 in Weight - 195.8 lbs (HIGH) BSA - 2.09 sq.m BMI - 27.31 Temperature - 97.3 F (LOW) Pulse - 95 /min Respiration - 18 /min BP - 92/53 mm(hg) O2 Sat - 95 % (LOW) Pain - 0 Fatigue - 8,1 - No physically strenuous activity, but ambulatory and able to carry out light or sedentary work (e.g. office work, light house work). (ECOG) Physical Examination: Constitutional Alert, oriented, no acute distress. Skin pink, warm and dry. Head Normocephalic; atraumatic. Eyes Conjunctivae and sclerae are clear and without icterus. Pupils are reactive and equal. ENMT No oral exudates, ulcers, masses. Oropharynx-white patchy areas no lesions. Tongue appears to be mostly coated with white exudate. Neck Supple without masses or thyromegaly. No jugular venous distension. Hematologic/Lymphatic No petechiae or purpura. No tender or palpable lymph nodes in the cervical or supraclavicular areas. Respiratory Lungs are clear to auscultation without rhonchi or wheezing. Cardiovascular Regular rate and rhythm of heart without murmurs,clicks, gallops or rubs. Back/Spine Non-tender to palpation. Extremities No visible deformities, no cyanosis, clubbing or edema. Musculoskeletal No tenderness or swelling, normal range of motion without obvious weakness. Integumentary No rashes or lesions. Neurologic No sensory or motor deficits, normal cerebellar function, normal gait. Psychiatric Alert and oriented times three. Coherent speech. Verbalizes understanding of our discussions today. Laboratory:see flow sheet] Impression: Moderately differentiated adenocarcinoma per EGD done on May 15, 2020 CT scan of chest abdomen pelvis done on June 11, 2020 showed fine reticular and patent throughout lungs could represent chronic interstitial lung disease. Cardiac surgery/mitral valve replacement, mild subcarinal lymphadenopathy No other abnormality seen EUS done on August 28, 2020 showed ulcerating mass lesion in the distal esophagus extending from 36 to 39 cm. None circumferential. Also seen periesophageal lymph nodes at 31 cm and 34 cm from the incisors, measuring 2.3 cm diameter. Malignant in appearance. Esophageal mass itself did not infiltrate beyond muscularis propria layer. Multiple subcentimeter lymph nodes were noted around the area of celiac trunk. No focal left lower liver lesion seen. EUS staging T2 N1 MX Coronary artery disease status post CABG status post stenting COPD Sleep apnea, noncompliant with CPAP Longstanding history of smoking, still active e.g. 1 pack/day Plan: PROBLEMS ADDRESSED TODAY 1. Moderately differentiated adenocarcinoma of the esophagus Dr. Ryan discussed the EUS findings. There was concern as multiple subcentimeter lymph nodes around the area of the celiac trunk were identified which could be reactive or malignant. A PET CT was requested which was performed on 09/15/2020. At the distal thoracic esophagus there was a 2.7 cm diameter region of activity with an SUV of 4.2, consistent with the known adenocarcinoma at that level. Multiple FDG positive mediastinal nodes represent local metastatic disease. These were noted in the prevascular, subcarinal, right paratracheal (4R and 2R) and subaortic territories. An index prevascular node measured 1.8 x 3.0 cm with an SUV of 5.4. A right retrocrural node measures 7 mm is too small to characterize. Other celiac and gastrohepatic nodes are less than 6 cm in size and are FDG negative. There was no significant head and neck adenopathy. With the PET/CT findings Mr. Queen was referred to ration oncology for concurrent therapy with weekly carboplatin AUC two and paclitaxel 50 mg per metered squared. Again his first cycle of chemotherapy on September 27, 2020. He has tolerated it well thus far. A. Proceed with week 4 carboplatin AUC of 2 and paclitaxel at same dosing at 50 mg per metered squared. He has extensive disease and needs to proceed with chemo as much as possible. B. Premed steroid compliance confirmed. C. He will receive growth factor support for 3 days post chemotherapy. He has a neutrophil count of 1740 today. Last week his ANC was 2330 24 hours after his 3rd dose of Neupogen. It is now been 4 days since his last dose. Due to his extensive disease it was felt that he need to be treated even with the slight risk of utilizing Neupogen while on daily radiation. I have previously discussed this with Mr. Hayes and we discussed the possibility of radiation pneumonitis which she is having no symptoms at this time. He is advised to let us know of any changes he may notice. D. Labs from October 15, 2020 reviewed in detail and discussed with Mr. Queen and a copy was given to him. WBC 2.9, hemoglobin 13.6, platelets 117,000, ANC is 2320. Potassium 3.8 random glucose 149 creatinine 0.6 and LFTs are normal. I did request a redraw of his CBC today just to know where he is in regards to how much Neupogen he may need after this treatment. His ANC is 1740. He did have repeat pro time/INR at the request of [facility] and this will be faxed to them. His INR was 1.72. His repeat CBC weekly includes a WBC of 2.0, hemoglobin 13.6, platelets 135,000, ANC is 1740. Potassium 4.3 creatinine 0.7 albumin is 3.1 LFTs are normal . 2. Mucositis A. We will give him fluconazole 100 mg IV today. He will then start 100 mg orally daily for 14 days. B. He will also have 500 NS for hydration. C. He can continue with Magic mouthwash. D. He may use baking soda salt water as tolerated. 4. Steroid-induced hyperglycemia A. His random glucose today is reported at 408. B. He will receive sliding scale insulin 12 units of regular Humulin. 5. Chemotherapy-induced neutropenia A. He is ANC today 1740 we will start him on Neupogen 480 mcg daily for 3 days. We will recheck his counts on Thursday to make sure he is recovering. If not he can continue with his injections over the weekend in the inpatient side B. We have talked about neutropenic precautions. He has verbalized information and ask appropriate questions to make me feel confident that he can handle neutropenia precautions and treatment if needed. 6. Follow-up plan A. We will plan to see him back in 1 week with CBC CMP the day before for consideration of week 5 carboplatin paclitaxel in combination with daily radiation. B. He was reminded to take his premed steroids. C. Stop daily Lasix of 40 mg daily unless he is having worsening shortness of breath or lower extremity edema. He is currently seems to be more dehydrated than over hydrated. We did discuss that he could take a Lasix if his feet start swelling or if he is noticing that he is having new shortness of breath especially when he is laying down. D. Continue supportive care with frequent hydrtion and antiemetics if needed. E. Mr. Queen was instructed to contact us in the interim should questions or problems arise. Signed By: Jd Lynne-, AOCNP Primitivo Ryan MD <<Signature on File>>
[2020-10-25] MEDS: sodium chloride 0.9% 1,000 ML 999 ML IV (14:38)
== END 2020-10-26 23:59 | disposition home or self-care (01) ==
LOC: ONCMED 05:41
PROVIDERS: Internal Medicine Hematology & Oncology; Internal Medicine Medical Oncology; Absent Provider Radiology Radiation Oncology; PCP Family Medicine; Visit Provider Nurse Practitioner
DX: Z51.0 Encounter for antineoplastic radiation therapy (principal); Z51.11 Encounter for antineoplastic chemotherapy; C15.5 Malignant neoplasm of lower third of esophagus; I25.10 Atherosclerotic heart disease of native coronary artery without angina pectoris; Z95.5 Presence of coronary angioplasty implant and graft; J44.9 Chronic obstructive pulmonary disease, unspecified; G47.33 Obstructive sleep apnea (adult) (pediatric); F17.210 Nicotine dependence, cigarettes, uncomplicated; Z79.899 Other long term (current) drug therapy
CPT/HCPCS: 36591; 77014; 77336; 77386; 80053; 85025; 85610; 96360; 96361; 96367; 96372; 96375; 96413; 96417; 99214; 99215; J1100; J1200; J1442; J1450; J1815; J2469; J3490; J7030; J7040; J7050; J9045; J9267

== ENCOUNTER 2020-11-06 05:27 | Outpatient (RCR) | payer OTHER, SELFPAY ==
[2020-10-29 11:55] LABS: Basophils % 0.8 %; Eosinophils % 0.2 %; Hemoglobin 11.7 g/dL (11.7-16.6); Lymphocytes # 0.6 10^3/uL (0.8-4.8); Lymphocytes % 13.2 %; Mean Corpuscular HGB Conc 33.4 g/dL (30.0-36.0); Mean Corpuscular Hemoglobin 32.1 pg (28.0-34.0); Mean Corpuscular Volume 96.2 fL (80-94); Mean Platelet Volume 9.9 fL (7.4-10.4); Monocytes # 0.6 10^3/uL (0.2-0.9); Monocytes % 11.7 %; Neutrophils # 3.12 10^3/uL (1.8-7.7); Neutrophils % 66.2 %; Nucleated Red Blood Cells % 0 %; Platelet Count 118 10^3/cmm (130-400); Red Blood Count 3.64 10^6/uL (4.1-5.3); White Blood Count 4.7 10^3/uL (4.0-10.0)
[2020-10-29 12:28] LABS: Alanine Aminotransferase 12 U/L (0-41); Albumin Level 2.6 g/dL (3.5-5.2); Alkaline Phosphatase 76 IU/L (40-130); Anion Gap 13.1 (5-19); Aspartate Amino Transferase 9 U/L (0-40); Blood Urea Nitrogen 7 mg/dL (6-20); Calcium 7.5 mg/dL (8.5-10.5); Carbon Dioxide 21 mmol/L (22-29); Chloride 104 mmol/L (98-107); Globulin 2.5 g/dL (1.3-4.6); Glomerular Filtration Rate 137.9 mL/min (90-130); Glucose 116 mg/dL (65-115); Osmolality Calculated 277 mOsm/kg (285-295); Potassium 4.1 mmol/L (3.5-5.1); Sodium 134 mmol/L (136-145); Total Bilirubin 0.6 mg/dL (0.15-1.2); Total Protein 5.1 g/dL (6.6-8.7)
[2020-10-29 12:46] LABS: Slide Review Slide Review Perform
[2020-10-30] MEDS: famotidine 20 mg/2 mL INJ IVP (10:49)
[2020-10-30] MEDS: sodium chloride 0.9% 250 ML 75 ML IV (10:49)
[2020-10-30] MEDS: diphenhydrAMINE 50 mg/mL SDV 1mL 25 MG IV (10:51)
[2020-10-30] MEDS: palonosetron 0.25 mg/5 mL SDV IV (11:01)
[2020-10-30] MEDS: fosaprepitant 150 MG in sodium chloride 0.9% 150 ML 300 MG IV (11:26)
--- NOTE | 2020-10-30 14:04 | ONCRAD TMN_ITS ---
Radiation Oncology Treatment Management Note Patient Name: Kyung Queen Date of : 1960 Date of Service: 10/30/2020 Attending Physician: Colt Aldana M.D. 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 39cm from the central incisors). The patient has received 48 Gy of a prescribed 50 Doan with an intensity modulated radiotherapy plan utilizing a step and shoot treatment technique. He has been prescribed carboplatin (AUC 2) and Abraxane (40 mg/m2 ??? began with cycle 4) weekly during radiotherapy. Upon review of systems, he described odynophagia. On physical examination, the patient weighed 193 lbs. His temperature was 97.2 ???F with a blood pressure of 109/73 mmHg. His pulse was 94 bpm and the respiratory rate was 18. There was no erythema within the treatment paredes. Continue esophageal radiotherapy as prescribed. Signed by: Dr. Colt Aldana 10/30/2020 2:03:06 PM
[2020-10-31] MEDS: sodium chloride 0.9% 1,000 ML 999 ML IV (13:30)
[2020-11-01] MEDS: sodium chloride 0.9% 1,000 ML 999 ML IV (14:17)
[2020-11-02] MEDS: sodium chloride 0.9% 1,000 ML 999 ML IV (10:07)
--- NOTE | 2020-11-06 01:04 | ONC FU_ITS ---
[facility] Patient Note Patient: Kyung Queen Unit #: [id number]: [id number] Dictated By: Jd LynneDate of Visit: October 29, 2020 Onc MED Follow-Up/Prog Note Chief Complaint: Esophageal cancer History of Present Illness: Mr. Queen is a 59-year-old gentleman with progressive longstanding history of left upper quadrant pain. He was referred to surgery for evaluation and on May 15, 2020 he underwent an EGD. The EGD showed a couple of areas of suspected Parker's patches with small 1 cm nodule/mass which was firm. The mass was biopsied and there was another soft polypoid mass at Z-line which was also biopsied. The stomach showed nonerosive gastritis in the antrum and small hiatal hernia seen on retroflexion. Duodenal exam was unremarkable. His pathology report on the distal esophageal mass biopsy confirmed moderately differentiated adenocarcinoma. The tumor was CK20 positive and Tyrone-EP4 positive. Mr Queen underwent a CT scan of chest/abdomen/pelvis on June 11, 2020 which showed chronic esophageal disease; fine reticular pattern throughout both lungs; Mild subcarinal lymphadenopathy; mitral valve replacement but no intra-abdominal abnormality. He denies any history of dysphagia, hemoptysis or hematemesis. He denies any history of weight loss, jaundice, or abdominal pain except off and on left epigastric pain. History of 40+ year smoking and still active, about pack a day; occasionally alcohol intake. Patient has history of sleep apnea but noncompliant with CPAP machine. History of coronary artery disease status post CABG, underwent colonoscopy in October 2019 with polypectomy. Mr Queen was referred to Dr. Turk for surgical evaluation, as per patient [facility] took a long time to approve his visit to Dr. Turk. He was referred to Dr. Waller for EUS which was eventually done on August 28, 2020 which confirmed ulcerative mass lesion at the distal esophagus extending from 36 to 39 cm noncircumferential. Periesophageal lymph nodes were noted at 31 cm and 34 cm from incisors and they measured 2.3 cm diameter were malignant in appearance. Esophageal mass itself did not infiltrate beyond the muscularis propria layer. Multiple subcentimeter lymph nodes were noted around the area of celiac trunk. No focal left lobe of liver lesion identified. EUS staging T2 N1 MX 1.2 cm polypoid lesion in the second portion of duodenum atypical appearing major papilla or true polyp. Hiatal hernia. Dr. Ryan did see him back and discussed the EUS findings. There was concern as multiple subcentimeter lymph nodes around the area of the celiac trunk were identified which could be reactive or malignant. A PET CT was requested which was performed on 09/15/2020. At the distal thoracic esophagus there was a 2.7 cm diameter region of activity with an SUV of 4.2, consistent with the known adenocarcinoma at that level. Multiple FDG positive mediastinal nodes represent local metastatic disease. These were noted in the prevascular, subcarinal, right paratracheal (4R and 2R) and subaortic territories. An index prevascular node measured 1.8 x 3.0 cm with an SUV of 5.4. A right retrocrural node measures 7 mm is too small to characterize. Other celiac and gastrohepatic nodes are less than 6 cm in size and are FDG negative. There was no significant head and neck adenopathy. With the PET/CT findings Mr. Queen was referred to radiation oncology for concurrent therapy with weekly carboplatin AUC two and paclitaxel 50 mg per metered squared. Again his first cycle of chemotherapy on September 27, 2020. He has tolerated it well thus far. He is here today for follow-up. He is due for week 5 carboplatin paclitaxel concurrent with radiation therapy. This will be1 week delayed as he did develop neutropenia and was held last week. He has developed mucositis. Dr. Aldana did start some nystatin and Magic mouthwash with him last week. He states he has had some more trouble eating due to the mouth irritation. He is able to get liquids down and some foods that seem to be soft. The oral treatment and intermittent IV hydation is helping . He states overall he does not feel too bad but is having worsening fatigue. He denies any fever or chills. He has had no actual mouth sores just tenderness and his taste is off. He denies diarrhea or constipation. He denies any nausea or vomiting. He denies any new pain. He denies any neuropathy symptoms. He does verify that he did take his steroids last night. His ECOG is 2. Past Medical History: Cervical disc disease Cervical disc displacement Gastroesophageal reflux disease History of colon polyps Hyperlipidemia Hypertension Hypogonadism Peyronie disease Urolithiasis Past Surgical History: Back surgery Coronary artery bypass Coronary artery stent placement Decompression of ulnar nerve Knee surgery Neck surgery Vasectomy Covid vaccine #1 in 2020 Port Placement in 2020 Colonoscopy in 2019 Allergies: No Known Allergies. Medications: Amiodarone HCl 1 Tablet (of 200 mg) Oral b.i.d. Aspirin 1 Tablet (of 81 mg) Tablet, chewable Oral daily Atorvastatin Calcium 1 Tablet (of 40 mg) Oral daily Coumadin 1 Tablet (of 2.5 mg) Oral daily on Every Other Day Cyclobenzaprine HCl 1 Tablet (of 10 mg) Oral b.i.d. dilTIAZem CD 1 Capsule (of 300 mg) Capsule SR 24 HR Oral daily Ferrous Sulfate 1 Tablet (of 325 (65 fe) mg) Oral daily Furosemide 1 Tablet (of 40 mg) Oral daily Gabapentin 1 Capsule (of 300 mg) Oral t.i.d. HYDROcodone-Acetaminophen 1 Tablet (of 5-325 mg) Oral four times a day Montelukast Sodium 1 Tablet (of 10 mg) Oral daily Pantoprazole Sodium 1 Tablet (of 40 mg) Tablet, enteric coated Oral daily Potassium Chloride ER 1 Tablet (of 20 meq) Tablet, controlled release Oral daily Respaire-30 Capsule Oral Sertraline HCl 1 Tablet (of 100 mg) Oral daily Sildenafil Citrate 1 Tablet (of 20 mg) Oral t.i.d. Tamsulosin HCl 1 Capsule (of 0.4 mg) Oral b.i.d. Family History: Mr. Queen's mother at age 64: coronary artery disease, and type II diabetes, and hypertension. Mr. Queen's father at age 66: coronary artery disease, and hypertension, and type II diabetes. Social History: Mr. Queen is . He is an occasional smoker who has smoked 1.5 packs/day for 47 years. He quit drinking 24 years ago. He has indicated exposure to the following products: cigarettes. Drank 1 pint of [place] a day for 21 years. Quit drinking in 1996. Pt is a recovering alcoholic. Review Of Symptoms: <See Above> Vital Signs: Performed on October 29, 2020 12:42 Height - 71.00 in Weight - 193.6 lbs (LOW) BSA - 2.08 sq.m BMI - 27.00 Temperature - 97.1 F (LOW) Pulse - 93 /min Respiration - 17 /min BP - 79/42 mm(hg) (LOW) O2 Sat - 93 % (LOW) Pain - 7,1 - No physically strenuous activity, but ambulatory and able to carry out light or sedentary work (e.g. office work, light house work). (ECOG) Physical Examination: Constitutional Alert, oriented, no acute distress. Skin pink, warm and dry. Head Normocephalic; atraumatic. Eyes Conjunctivae and sclerae are clear and without icterus. Pupils are reactive and equal. ENMT No oral exudates, ulcers, masses. Oropharynx-white patchy areas no lesions. Tongue appears to be mostly coated with white exudate. Neck Supple without masses or thyromegaly. No jugular venous distension. Hematologic/Lymphatic No petechiae or purpura. No tender or palpable lymph nodes in the cervical or supraclavicular areas. Respiratory Lungs are clear to auscultation without rhonchi or wheezing. Cardiovascular Regular rate and rhythm of heart without murmurs,clicks, gallops or rubs. Back/Spine Non-tender to palpation. Extremities No visible deformities, no cyanosis, clubbing or edema. Musculoskeletal No tenderness or swelling, normal range of motion without obvious weakness. Integumentary No rashes or lesions. Neurologic No sensory or motor deficits, normal cerebellar function, normal gait. Psychiatric Alert and oriented times three. Coherent speech. Verbalizes understanding of our discussions today. Laboratory:Test performed on October 29, 2020 14:03 Creatinine 0.6 mg/dL Cr Clearance (Est) 164.66 mL/min Test performed on October 29, 2020 11:13 Sodium 134 mmol/L Potassium 4.1 mmol/L Chloride 104 mmol/L CO2 21 mmol/L Anion Gap 13.1 BUN 7 mg/dL eGFR 137.9 mL/min Glucose 116 mg/dL Osmolality - Calculated 277 mOsm/kg Calcium 7.5 mg/dL Protein, Total 5.1 g/dL Albumin 2.6 g/dL Globulin 2.5 g/dL Bilirubin, Total 0.6 mg/dL ALT (SGPT) 12 U/L AST (SGOT) 9 U/L Alkaline Phosphatase 76 IU/L WBC 4.7 10 3/uL RBC 3.64 10 6/uL HGB 11.7 g/dL HCT 35.0 % MCV 96.2 fL MCH 32.1 pg MCHC 33.4 g/dL RDW 17.0 % Platelet Count 118 10 3/cmm MPV 9.9 fL Neutrophils 3.12 10 3/uL Lymphocytes 0.6 10 3/uL Monocytes 0.6 10 3/uL Eosinophils 0.0 10 3/uL Basophils 0.0 10 3/uL Neutrophil % 66.2 % Lymphocyte % 13.2 % Monocyte % 11.7 % Eosinophil % 0.2 % Basophils % 0.8 % NRBC % 0 % CBC Slide Review Slide Review Perform SLIDE REVIEW AGREES WITH AUTOMATED RESULTS Test performed on Oct 17, 2020 09:17 PT 20.80 SECONDS INR 1.72 Impression: Moderately differentiated adenocarcinoma per EGD done on May 15, 2020 CT scan of chest abdomen pelvis done on June 11, 2020 showed fine reticular and patent throughout lungs could represent chronic interstitial lung disease. Cardiac surgery/mitral valve replacement, mild subcarinal lymphadenopathy No other abnormality seen EUS done on August 28, 2020 showed ulcerating mass lesion in the distal esophagus extending from 36 to 39 cm. None circumferential. Also seen periesophageal lymph nodes at 31 cm and 34 cm from the incisors, measuring 2.3 cm diameter. Malignant in appearance. Esophageal mass itself did not infiltrate beyond muscularis propria layer. Multiple subcentimeter lymph nodes were noted around the area of celiac trunk. No focal left lower liver lesion seen. EUS staging T2 N1 MX Coronary artery disease status post CABG status post stenting COPD Sleep apnea, noncompliant with CPAP Longstanding history of smoking, still active e.g. 1 pack/day Plan/Problems Addressed at this Visit: PROBLEMS ADDRESSED TODAY 1. Moderately differentiated adenocarcinoma of the esophagus Dr. Ryan discussed the EUS findings. There was concern as multiple subcentimeter lymph nodes around the area of the celiac trunk were identified which could be reactive or malignant. A PET CT was requested which was performed on 09/15/2020. At the distal thoracic esophagus there was a 2.7 cm diameter region of activity with an SUV of 4.2, consistent with the known adenocarcinoma at that level. Multiple FDG positive mediastinal nodes represent local metastatic disease. These were noted in the prevascular, subcarinal, right paratracheal (4R and 2R) and subaortic territories. An index prevascular node measured 1.8 x 3.0 cm with an SUV of 5.4. A right retrocrural node measures 7 mm is too small to characterize. Other celiac and gastrohepatic nodes are less than 6 cm in size and are FDG negative. There was no significant head and neck adenopathy. With the PET/CT findings Mr. Queen was referred to ration oncology for concurrent therapy with weekly carboplatin AUC two and paclitaxel 50 mg per metered squared. Again his first cycle of chemotherapy on September 27, 2020. He has tolerated it well thus far. A. Proceed with planned week 5 carboplatin AUC of 2 and Abraxane on October 30, 2020. His paclitaxel will be changed to Abraxane as he has had significant steroid-induced hyperglycemia. I have requested a PA for the subsitution of Abraxane for paclitaxel. B. Steroid compliance was NOT confirmed as he did not take steroids last night. This was unintentional but gave us the opportunity to re evaluate his glucose which 116 today and was 408 on cycle 4 after he had taken steroid premed prior to the lab draw. C. Labs from today were reviewed in detail and discussed with Mr. Queen and a copy was given to him. WBC 4.7, hemoglobin 11.7, platelets 118,000, ANC is 3120. Creatinine 0.6, albumin 2.6 LFTs are normal. Potassium 4.1. His INR from last week was 2.84. D. He will proceed with hydration and supportive care daily as needed for at least the next 2 weeks as his oral intake is decreasing. 2. Mucositis A. We will give him fluconazole 100 mg IV today. He will continue 100 mg orally daily for 14 days. B. He will also have NS for hydration. C. He can continue with Magic mouthwash. D. He may use baking soda salt water as tolerated. 4. Follow-up plan A. We will plan to see him back in 1 week with CBC CMP the day before for consideration of week 6 carboplatin Abraxane l in combination with daily radiation. B. He was reminded to NOT take his premed steroids as his is changing to ABraxane. C. Stop daily Lasix of 40 mg daily unless he is having worsening shortness of breath or lower extremity edema. He is currently seems to be more dehydrated than over hydrated. We did discuss that he could take a Lasix if his feet start swelling or if he is noticing that he is having new shortness of breath especially when he is laying down. D. Continue supportive care with frequent hydrtion and antiemetics if needed. E. Mr. Queen was instructed to contact us in the interim should questions or problems arise. Signed By: Jd Lynne-, AOCNP Primitivo Ryan MD <<Signature on File>>
[2020-11-06 09:08] LABS: Basophils % 0.7 %; Eosinophils % 0.3 %; Hematocrit 27.6 % (42.0-52.0); Hemoglobin 9.3 g/dL (11.7-16.6); Lymphocytes # 0.3 10^3/uL (0.8-4.8); Lymphocytes % 11.3 %; Mean Corpuscular HGB Conc 33.7 g/dL (30.0-36.0); Mean Corpuscular Volume 94.8 fL (80-94); Mean Platelet Volume 9.6 fL (7.4-10.4); Monocytes # 0.2 10^3/uL (0.2-0.9); Monocytes % 6.3 %; Neutrophils # 2.43 10^3/uL (1.8-7.7); Neutrophils % 80.4 %; Nucleated Red Blood Cells % 0 %; Platelet Count 121 10^3/cmm (130-400); Red Blood Count 2.91 10^6/uL (4.1-5.3); Red Cell Distribution Width 16.7 % (12.1-15.1)
[2020-11-06 09:29] LABS: Alanine Aminotransferase 13 U/L (0-41); Alkaline Phosphatase 58 IU/L (40-130); Anion Gap 12.5 (5-19); Aspartate Amino Transferase 10 U/L (0-40); Blood Urea Nitrogen 9 mg/dL (6-20); Calcium 7.8 mg/dL (8.5-10.5); Carbon Dioxide 22 mmol/L (22-29); Chloride 102 mmol/L (98-107); Globulin 2.6 g/dL (1.3-4.6); Glomerular Filtration Rate 170.2 mL/min (90-130); Glucose 130 mg/dL (65-115); Osmolality Calculated 276 mOsm/kg (285-295); Potassium 3.5 mmol/L (3.5-5.1); Sodium 133 mmol/L (136-145); Total Bilirubin 0.9 mg/dL (0.15-1.2); Total Protein 5.6 g/dL (6.6-8.7)
[2020-11-06] MEDS: sodium chloride 0.9% 1,000 ML 999 ML IV (11:30)
[2020-11-06] MEDS: acetaminophen 325 mg Tablet 650 MG PO (13:20)
[2020-11-06] MEDS: diphenhydrAMINE 25 mg Capsule PO (13:20)
[2020-11-06 13:25] VITALS: BP 102/53; PULSE 82; RESP 18; TEMP 36.6; O2SAT 90
[2020-11-06 13:40] VITALS: BP 87/50; PULSE 82; PULSE 83; RESP 18; TEMP 36.6; O2SAT 93
[2020-11-06 13:55] VITALS: BP 79/43; PULSE 86; RESP 18; TEMP 36.4; TEMP 36.6; O2SAT 92
[2020-11-06 14:25] VITALS: BP 78/44; PULSE 84; RESP 18; TEMP 36.6; O2SAT 93
[2020-11-06 15:00] VITALS: BP 93/51; PULSE 88; RESP 18; TEMP 36.5; TEMP 36.6; O2SAT 89
--- NOTE | 2020-11-06 17:24 | ONC FU_ITS ---
Dr. Ryan follow up note Patient: Kyung Queen Unit #: [id number]: [id number] Dicatated By: Primitivo Ryan M.D.Date of Visit:November 06, 2020 Onc Med Follow-up/Prog Note History of Present Illness: Mr. Queen is a 59-year-old gentleman with progressive longstanding history of left upper quadrant pain. He was referred to surgery for evaluation and on May 15, 2020 he underwent an EGD. The EGD showed a couple of areas of suspected Parker's patches with small 1 cm nodule/mass which was firm. The mass was biopsied and there was another soft polypoid mass at Z-line which was also biopsied. The stomach showed nonerosive gastritis in the antrum and small hiatal hernia seen on retroflexion. Duodenal exam was unremarkable. His pathology report on the distal esophageal mass biopsy confirmed moderately differentiated adenocarcinoma. The tumor was CK20 positive and Tyrone-EP4 positive. Mr Queen underwent a CT scan of chest/abdomen/pelvis on June 11, 2020 which showed chronic esophageal disease; fine reticular pattern throughout both lungs; Mild subcarinal lymphadenopathy; mitral valve replacement but no intra-abdominal abnormality. He denies any history of dysphagia, hemoptysis or hematemesis. He denies any history of weight loss, jaundice, or abdominal pain except off and on left epigastric pain. History of 40+ year smoking and still active, about pack a day; occasionally alcohol intake. Patient has history of sleep apnea but noncompliant with CPAP machine. History of coronary artery disease status post CABG, underwent colonoscopy in October 2019 with polypectomy. Mr Queen was referred to Dr. Turk for surgical evaluation, as per patient [facility] took a long time to approve his visit to Dr. Turk. He was referred to Dr. Waller for EUS which was eventually done on August 28, 2020 which confirmed ulcerative mass lesion at the distal esophagus extending from 36 to 39 cm noncircumferential. Periesophageal lymph nodes were noted at 31 cm and 34 cm from incisors and they measured 2.3 cm diameter were malignant in appearance. Esophageal mass itself did not infiltrate beyond the muscularis propria layer. Multiple subcentimeter lymph nodes were noted around the area of celiac trunk. No focal left lobe of liver lesion identified. EUS staging T2 N1 MX 1.2 cm polypoid lesion in the second portion of duodenum atypical appearing major papilla or true polyp. Hiatal hernia. discussed the EUS findings. There was concern as multiple subcentimeter lymph nodes around the area of the celiac trunk were identified which could be reactive or malignant. A PET CT was requested which was performed on 09/15/2020. At the distal thoracic esophagus there was a 2.7 cm diameter region of activity with an SUV of 4.2, consistent with the known adenocarcinoma at that level. Multiple FDG positive mediastinal nodes represent local metastatic disease. These were noted in the prevascular, subcarinal, right paratracheal (4R and 2R) and subaortic territories. An index prevascular node measured 1.8 x 3.0 cm with an SUV of 5.4. A right retrocrural node measures 7 mm is too small to characterize. Other celiac and gastrohepatic nodes are less than 6 cm in size and are FDG negative. There was no significant head and neck adenopathy. With the PET/CT findings Mr. Queen was referred to radiation oncology for concurrent therapy with weekly carboplatin AUC two and paclitaxel 50 mg per metered squared. Again his first cycle of chemotherapy on September 27, 2020. And completed on October 30, 2020, during his last weekly dose of chemotherapy concurrent with radiation therapy patient received dose of Abraxane instead of Taxol as he could not tolerate oral steroids. And patient completed radiation therapy on October 31, 2020 Came for follow-up, As per patient since then he had bright red per rectum x2 and the last time was this morning, it was a large amount and since this morning he has been feeling weak and tired at times lightheaded dizzy. As per patient he has history of diverticulosis observed on colonoscopy done last year by Dr. Christianson, so it could be bleeding from there he also has hemorrhoids. And also complaining of off and on indigestion. No abdominal pain, no jaundice, Medications: Amiodarone HCl 1 Tablet (of 200 mg) Oral b.i.d., Aspirin 1 Tablet (of 81 mg) Tablet, chewable Oral daily, Atorvastatin Calcium 1 Tablet (of 40 mg) Oral daily, Coumadin 1 Tablet (of 2.5 mg) Oral daily on Every Other Day, Cyclobenzaprine HCl 1 Tablet (of 10 mg) Oral b.i.d., dilTIAZem CD 1 Capsule (of 300 mg) Capsule SR 24 HR Oral daily, Ferrous Sulfate 1 Tablet (of 325 (65 fe) mg) Oral daily, Furosemide 1 Tablet (of 40 mg) Oral daily, Gabapentin 1 Capsule (of 300 mg) Oral t.i.d., HYDROcodone-Acetaminophen 1 Tablet (of 5-325 mg) Oral four times a day, Montelukast Sodium 1 Tablet (of 10 mg) Oral daily, Pantoprazole Sodium 1 Tablet (of 40 mg) Tablet, enteric coated Oral daily, Potassium Chloride ER 1 Tablet (of 20 meq) Tablet, controlled release Oral daily, Respaire-30 Capsule Oral, Sertraline HCl 1 Tablet (of 100 mg) Oral daily, Sildenafil Citrate 1 Tablet (of 20 mg) Oral t.i.d., Tamsulosin HCl 1 Capsule (of 0.4 mg) Oral b.i.d. Allergies: No Known Allergies. Review of Systems: Review of Systems is not available for this patient. Vital Signs: Performed on November 06, 2020 10:52 Height - 71.00 in Weight - 190.4 lbs (LOW) BSA - 2.07 sq.m BMI - 26.56 Temperature - 96.9 F (LOW) Pulse - 97 /min Respiration - 18 /min BP - 93/60 mm(hg) O2 Sat - 99 % Pain - 7 Fatigue - 9 Performance Status: 2 - Ambulatory/capable of all self-care, unable to perform any work activities. Up and about more than 50% of waking hours. (ECOG) Physical Examination: ENMT - No mouth sores, no thrush, no jaundice, Respiratory - Lungs are clear to auscultation, Cardiovascular - Regular rate and rhythm of heart, Abdomen - Soft, bowel sounds present, Extremities - No visible edema or rash. Lab/Imaging: Test performed on October 29, 2020 14:03 Creatinine 0.6 mg/dL Cr Clearance (Est) 164.66 mL/min Test performed on October 29, 2020 11:13 Sodium 134 mmol/L Potassium 4.1 mmol/L Chloride 104 mmol/L CO2 21 mmol/L Anion Gap 13.1 BUN 7 mg/dL eGFR 137.9 mL/min Glucose 116 mg/dL Osmolality - Calculated 277 mOsm/kg Calcium 7.5 mg/dL Protein, Total 5.1 g/dL Albumin 2.6 g/dL Globulin 2.5 g/dL Bilirubin, Total 0.6 mg/dL ALT (SGPT) 12 U/L AST (SGOT) 9 U/L Alkaline Phosphatase 76 IU/L WBC 4.7 10 3/uL RBC 3.64 10 6/uL HGB 11.7 g/dL HCT 35.0 % MCV 96.2 fL MCH 32.1 pg MCHC 33.4 g/dL RDW 17.0 % Platelet Count 118 10 3/cmm MPV 9.9 fL Neutrophils 3.12 10 3/uL Lymphocytes 0.6 10 3/uL Monocytes 0.6 10 3/uL Eosinophils 0.0 10 3/uL Basophils 0.0 10 3/uL Neutrophil % 66.2 % Lymphocyte % 13.2 % Monocyte % 11.7 % Eosinophil % 0.2 % Basophils % 0.8 % NRBC % 0 % CBC Slide Review Slide Review Perform SLIDE REVIEW AGREES WITH AUTOMATED RESULTS Test performed on Oct 17, 2020 09:17 PT 20.80 SECONDS INR 1.72 Impression: Moderately differentiated adenocarcinoma per EGD done on May 15, 2020 CT scan of chest abdomen pelvis done on June 11, 2020 showed fine reticular and patent throughout lungs could represent chronic interstitial lung disease. Cardiac surgery/mitral valve replacement, mild subcarinal lymphadenopathy No other abnormality seen EUS done on August 28, 2020 showed ulcerating mass lesion in the distal esophagus extending from 36 to 39 cm. None circumferential. Also seen periesophageal lymph nodes at 31 cm and 34 cm from the incisors, measuring 2.3 cm diameter. Malignant in appearance. Esophageal mass itself did not infiltrate beyond muscularis propria layer. Multiple subcentimeter lymph nodes were noted around the area of celiac trunk. No focal left lower liver lesion seen. EUS staging T2 N1 MX Status post combined chemoradiation with a weekly carboplatin/Taxol except last weekly dose of Taxol was substituted with Abraxane due to intolerance to steroids. Completed on October 31, 2020 Coronary artery disease status post CABG status post stenting COPD Sleep apnea, noncompliant with CPAP Longstanding history of smoking, still active e.g. 1 pack/day Plan: Discussed with patient regarding his labs white blood count 3 hemoglobin 9.3 g compared to 11.7 g on October 29, 2020 hematocrit 27.6, platelets 121,000 ANC 2430 CMP within normal limit except sodium 133 Clinically, patient is in mild to moderate distress due to generalized weakness and fatigue and off-and-on lightheadedness probably due to large per rectum bleeding as his follow-up CBC shows significant drop in his hemoglobin now 9.3 g compared to 11.7 g on October 29, 2020, at this point will consider gentle hydration along with 1 unit of packed RBC, planning was to refer him to Dr. Christianson for evaluation but patient said he has follow-up appointment with Dr. Turk in [place] on Thursday, he will discuss with him for possible evaluation if bleeding recurred. And then patient return to clinic in 1 week with CBC to ensure no more worsening of anemia or episode of bleeding. Patient was advised in case he has another episode of large bleeding per rectum, he need to go to hospital for evaluation. Signed By: Primitivo Ryan M.D. <<Signature on File>>
== END 2020-11-08 11:00 | disposition home or self-care (01) ==
LOC: ONCMED 05:27
PROVIDERS: Internal Medicine Hematology & Oncology; Absent Provider Radiology Radiation Oncology; PCP Family Medicine; Visit Provider Nurse Practitioner
DX: Z51.0 Encounter for antineoplastic radiation therapy (principal); Z51.11 Encounter for antineoplastic chemotherapy; C15.5 Malignant neoplasm of lower third of esophagus; F17.210 Nicotine dependence, cigarettes, uncomplicated; G47.33 Obstructive sleep apnea (adult) (pediatric); I25.10 Atherosclerotic heart disease of native coronary artery without angina pectoris; Z95.5 Presence of coronary angioplasty implant and graft; J44.9 Chronic obstructive pulmonary disease, unspecified; Z79.899 Other long term (current) drug therapy
CPT/HCPCS: 36430; 36591; 77336; 77386; 80053; 85025; 86850; 86900; 86920; 96360; 96367; 96375; 96413; 96417; 99215; J1100; J1200; J1453; J2469; J3490; J7030; J7050; J9045; J9264; P9016

== ENCOUNTER 2020-11-08 11:29 | Emergency (ER) | payer OTHER, SELFPAY ==
[2020-11-08 11:57] VITALS: BP 102/64; PULSE 101; RESP 18; TEMP 36.7; O2SAT 98; BMI 26.4
--- NOTE | 2020-11-08 12:46 | XR_ITS ---
WS: [id number] Portable AP upright chest, 11/08/2020 Clinical Data: dyspnea/cough Comparison: Portable chest, 04/06/2018. Findings: No nodules, masses or effusions are seen. There is a probable bulla at the left lateral michael g base. The heart is normal. The pulmonary vascularity is not increased. No pneumonia or pneumothorax is seen. Midline sternotomy sutures are present. The diaphragms are flattened. There is a right inte rnal jugular venous catheter which ends in the superior vena cava. XR/XR chest 1V portable [id number] Impression: Hyperinflation.
[2020-11-08 13:07] VITALS: BP 101/63; PULSE 97; RESP 16; O2SAT 98
--- NOTE | 2020-11-08 13:58 | W.ED.DIZZY ---
HPI - Dizziness General: Chief Complaint: Dizziness Stated Complaint: Low BP for about a week Time Seen by Provider: 11/08/20 13:41 History of Present Illness: HPI Narrative: 59-year-old male who presents emergency room complaining of lightheadedness and dizziness and low blood pressure at home. Is a history of esophageal CA received his last chemo and radiation within the past week. Radiation was last week last chemo was just 2 days ago. He states he actually feels somewhat better today but is not taken any of his medications. Is a history of atrial fibrillation is on amiodarone diltiazem and warfarin. He also has a history of pulmonary hypertension he takes sildenafil. Blood pressure is 105 systolic when he arrives here however as noted above he has not taken any medications today. MD elicited complaint: dizziness and lightheadedness Onset (ago): hour(s) Severity: mild Context: change in medication History of similar symptoms: Yes Exacerbating factors: nothing Relieving factors: nothing Associated symptoms: Denies chest pain, chills, malaise or nasal congestion Associated neuro symptoms: Deny confusion, difficulty speaking, dysphagia, diplopia, extremity weakness, facial numbness, facial weakness, gait changes, numbness in extremities or visual changes Review of Systems Const: Denies: fever(s), chills, body aches, change in appetite, fatigue or malaise ENMT: Denies: throat pain, ear or mastoid pain, nasal discharge or nasal congestion Card: Denies: chest pain, edema, dyspnea on exertion or orthopnea Resp: Denies: dyspnea, productive cough or non-productive cough GI: Denies: dysphagia : Denies: flank pain, dysuria, urinary frequency or urinary urgency Skin/Breast: Denies: rash or pruritus Neuro: Denies: numbness in extremities or confusion PFS ED PFSH: Medical History Adenocarcinoma of esophagus Cervical disc disease Cervical disc displacement Gastroesophageal reflux disease History of colon polyps Repeat colonoscopy in 3 years HTN (hypertension), benign Hyperlipidemia Hypogonadism in male Lower urinary tract symptoms (LUTS) Peyronie disease Urolithiasis Surgical History H/O decompression of ulnar nerve H/O esophagogastroduodenoscopy (05/15/20) H/O knee surgery H/O neck surgery H/O vasectomy History of back surgery History of coronary artery stent placement History of surgery on arm Hx of CABG Status post colonoscopy with polypectomy (11/08/19) Family History Mother , 64 CAD (coronary artery disease) Diabetes Hypertension Father , 66 Diabetes Hypertension CAD (coronary artery disease) Social History Smoking and tobacco status: current every day smoker cigarettes Packs smoked per day: 1.5 Alcohol intake: former Lives independently: Yes Marital status: Current occupational status: retired and disabled History of recent travel: No Physical Exam Const: COMMON NORMALS: no acute distress GENERAL APPEARANCE: cooperative and comfortable ORIENTATION/CONSCIOUSNESS: Yes awake, Yes oriented to person, Yes oriented to place and Yes oriented to time HENMT: COMMON NORMALS: normocephalic, atraumatic and hearing grossly normal bilaterally HEAD & SCALP: normocephalic and atraumatic Neck/C-Spine: COMMON NORMALS: no JVD Lymph: LYMPHATIC: no lymphadenopathy noted and no lymphedema noted Resp: COMMON NORMALS: normal respiratory effort, No retractions, No use of accessory muscles and clear to auscultation bilaterally AUSCULTATION: clear to auscultation bilaterally Cardio: COMMON NORMALS: no JVD, regular rate, regular rhythm and No murmurs present (Cardio) RATE: regular rate RHYTHM: regular rhythm GI: COMMON NORMALS: Soft to palpation and No hepatosplenomegaly present AUSCULTATION: Yes normoactive bowel sounds PALPATION: Yes Soft to palpation, No Tenderness to palpation present (GI), No Guarding due to palpation present (GI) and Yes No hepatosplenomegaly present Extremity: COMMON NORMALS: normal to inspection, capillary refill normal, no clubbing, cyanosis or edema, no calf tenderness and no pedal edema Neuro: SENSORIUM/ORIENTATION: Yes oriented to person, Yes oriented to place and Yes oriented to time Skin: COMMON NORMALS: no rashes or lesions noted GENERAL SKIN EXAM: no rashes or lesions noted Course Vital Signs: Vital signs: Vital Signs Temperature 98.1 F 11/08/20 11:57 Pulse Rate 94 11/08/20 16:34 Respiratory Rate 16 11/08/20 13:07 Blood Pressure 108/67 11/08/20 16:34 Pulse Oximetry 95 11/08/20 16:34 MDM - Dizziness MDM Narrative: Medical decision making narrative: His blood pressure seems to be dropping too low at times. He will need to continue the amiodarone for rate control we will decrease his diltiazem to 180 daily gave him a new prescription and asked him to follow-up with his primary care doctor within 1 week. Lab Data: Labs: Lab Results 11/08/20 11/08/20 11/08/20 Range/Units 14:58 14:58 15:43 WBC 2.6 L (4.0-10.0) 10^3/ uL RBC 3.43 L (4.1-5.3) 10^6/u L Hgb 10.8 L (11.7-16.6) g/dL Hct 32.4 L (42.0-52.0) % MCV 94.5 H (80-94) fL MCH 31.5 (28.0-34.0) pg MCHC 33.3 (30.0-36.0) g/dL RDW 17.5 H (12.1-15.1) % Plt Count 105 L (130-400) 10^3/c mm MPV 9.6 (7.4-10.4) fL Neut % (Auto) 69.4 % Lymph % (Auto) 17.0 % [place] % (Auto) 11.7 % Eos % (Auto) 0.4 % Baso % (Auto) 0.4 % Neut # (Auto) 1.83 (1.8-7.7) 10^3/u L Lymph # (Auto) 0.5 L (0.8-4.8) 10^3/u L [place] # (Auto) 0.3 (0.2-0.9) 10^3/u L Eos # (Auto) 0.0 (0.0-0.8) 10^3/u L Baso # (Auto) 0.0 (0.0-0.1) 10^3/u L Nucleated RBC % (a uto) 0 % Nucleated RBCs # 0.0 /100WBC PT 29.00 H (12.1-14.9) SECO NDS INR 2.68 H (0.8-1.2) Sodium 132 L (136-145) mmol/L Potassium 3.4 L (3.5-5.1) mmol/L Chloride 97 L (98-107) mmol/L Carbon Dioxide 25 (22-29) mmol/L Anion Gap 13.4 (5-19) BUN 7 (6-20) mg/dL Creatinine 0.6 L (0.7-1.2) mg/dL GFR Calculation 137.9 H (90-130) mL/min Glucose 103 (65-115) mg/dL Calculated Osmolal ity 272 L (285-295) mOsm/k g Calcium 8.2 L (8.5-10.5) mg/dL Total Bilirubin 1.3 H (0.15-1.2) mg/dL AST 12 (0-40) U/L ALT 15 (0-41) U/L Alkaline Phosphata se 67 (40-130) IU/L Total Protein 6.2 L (6.6-8.7) g/dL Albumin 3.1 L (3.5-5.2) g/dL Globulin 3.1 (1.3-4.6) g/dL Discharge Plan Discharge Patient Disposition: Home Clinical Impression: Orthostasis, A-fib, Adenocarcinoma of esophagus Condition: Stable Prescriptions: New diltiazem HCl 180 mg capsule,extended release 24 hr 180 mg PO DAILY Qty: 30 RF: 0 Discontinued diltiazem HCl 300 mg capsule,extended release 24 hr 300 mg PO DAILY@0600 RF: 0 No Action tamsulosin 0.4 mg capsule 0.4 mg PO BID@0600,2200 RF: 0 albuterol sulfate 90 mcg/actuation aero powdr breath act w/sensor 1 inh INHALATION Q4H RF: 0 aspirin [Adult Low Dose Aspirin] 81 mg tablet,delayed release (DR/EC) 81 mg PO DAILY@0600 RF: 0 Stiolto Respimat 2.5-2.5 mcg/actuation mist 2 puff INHALATION DAILY@0600 RF: 0 atorvastatin 80 mg tablet 40 mg PO DAILY RF: 0 montelukast 10 mg tablet 10 mg PO DAILY@0600 RF: 0 potassium chloride 10 mEq capsule, extended release 20 meq PO DAILY@0600 RF: 0 furosemide 20 mg tablet 40 mg PO DAILY@0600 RF: 0 sildenafil (pulm.hypertension) 20 mg tablet 20 mg PO TID@,, RF: 0 ferrous sulfate 325 mg (65 mg iron) tablet 325 mg PO DAILY@0600 RF: 0 amiodarone 200 mg tablet 200 mg PO BID@0600,2200 RF: 0 pantoprazole [Protonix] 40 mg tablet,delayed release (DR/EC) 40 mg PO BIDWMEAL 42 Days Qty: 84 RF: 3 sertraline 100 mg Tablet 100 mg PO DAILY@0600 RF: 0 warfarin 5 mg tablet See Rx Instructions .ROUTE .COMPLEX RF: 0 cyclobenzaprine 10 mg tablet 10 mg PO BID@0600,2200 PRN (Reason: muscle spasm) RF: 0 hydrocodone-acetaminophen 5-325 mg tablet 1 tab PO Q6H PRN (Reason: pain) RF: 0 gabapentin 300 mg capsule 300 mg PO TID@,, RF: 0 Discharge Orders: Discharge ED (Routine); Ordered 11/08/20 Ordered By: Chang Solomon Referrals: Carol Cesar MD [Primary Care Provider] - Patient Instructions: Opioid Safety Coding Level of Care Code ED 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
[2020-11-08] MEDS: amiodarone 200 mg Tablet PO (14:49)
[2020-11-08 15:05] LABS: Basophils % 0.4 %; Eosinophils % 0.4 %; Hematocrit 32.4 % (42.0-52.0); Hemoglobin 10.8 g/dL (11.7-16.6); Lymphocytes # 0.5 10^3/uL (0.8-4.8); Mean Corpuscular HGB Conc 33.3 g/dL (30.0-36.0); Mean Corpuscular Hemoglobin 31.5 pg (28.0-34.0); Mean Corpuscular Volume 94.5 fL (80-94); Mean Platelet Volume 9.6 fL (7.4-10.4); Monocytes # 0.3 10^3/uL (0.2-0.9); Monocytes % 11.7 %; Neutrophils # 1.83 10^3/uL (1.8-7.7); Neutrophils % 69.4 %; Nucleated Red Blood Cells % 0 %; Platelet Count 105 10^3/cmm (130-400); Red Blood Count 3.43 10^6/uL (4.1-5.3); Red Cell Distribution Width 17.5 % (12.1-15.1); White Blood Count 2.6 10^3/uL (4.0-10.0)
[2020-11-08 15:24] LABS: Alanine Aminotransferase 15 U/L (0-41); Albumin Level 3.1 g/dL (3.5-5.2); Alkaline Phosphatase 67 IU/L (40-130); Anion Gap 13.4 (5-19); Aspartate Amino Transferase 12 U/L (0-40); Blood Urea Nitrogen 7 mg/dL (6-20); Calcium 8.2 mg/dL (8.5-10.5); Carbon Dioxide 25 mmol/L (22-29); Chloride 97 mmol/L (98-107); Globulin 3.1 g/dL (1.3-4.6); Glomerular Filtration Rate 137.9 mL/min (90-130); Glucose 103 mg/dL (65-115); Osmolality Calculated 272 mOsm/kg (285-295); Potassium 3.4 mmol/L (3.5-5.1); Sodium 132 mmol/L (136-145); Total Bilirubin 1.3 mg/dL (0.15-1.2); Total Protein 6.2 g/dL (6.6-8.7)
[2020-11-08 15:28] VITALS: BP 117/69; BP 58/40; BP 89/63; PULSE 101; PULSE 96
[2020-11-08 15:30] VITALS: BP 117/69; PULSE 96; O2SAT 94
[2020-11-08 15:32] LABS: Creatinine Clr Calc Pharmacy 149.3498
[2020-11-08 16:00] VITALS: BP 99/60; PULSE 96; O2SAT 95
[2020-11-08 16:34] VITALS: BP 108/67; PULSE 94; O2SAT 95
[2020-11-08 16:51] LABS: INR 2.68 (0.8-1.2)
== END 2020-11-08 16:34 | disposition home or self-care (01) ==
PROVIDERS: Emergency Provider Family Medicine; PCP Family Medicine
DX: I95.1 Orthostatic hypotension (principal); I48.91 Unspecified atrial fibrillation; C15.9 Malignant neoplasm of esophagus, unspecified; Z79.82 Long term (current) use of aspirin; Z79.01 Long term (current) use of anticoagulants; I10 Essential (primary) hypertension; E78.5 Hyperlipidemia, unspecified; Z95.1 Presence of aortocoronary bypass graft; F17.210 Nicotine dependence, cigarettes, uncomplicated
CPT/HCPCS: 36415; 71045; 80053; 85025; 85610; 99283

== ENCOUNTER 2020-11-10 18:58 | Inpatient (IN) | payer OTHER, MEDICARE, SELFPAY ==
[2020-11-10] VITALS (9 sets, daily range): BP systolic 53–117; BP diastolic 35–63; PULSE 92–102; RESP 12–23; TEMP 36.8–37.6; O2SAT 90–97; BMI 26.4
--- NOTE | 2020-11-10 19:14 | XRR_ITS ---
PROCEDURE INFORMATION: Exam: XR Chest Exam date and time: 11/10/2020 7:17 PM Age: 59 years old Clinical indication: Other: Syncope TECHNIQUE: Imaging protocol: XR of the chest. Views: 1 view. COMPARISON: CR XR chest 1V portable [id number] 11/08/2020 1:39 PM FINDINGS: No focal pulmonary consolidation is demonstrated on this single frontal image. No significant obscuration of the lateral costophrenic angles is demonstrated. No significant vascular congestion is demonstrated. Visualized cardiac silhouette size appears within normal limits. There are changes from median sternotomy. Similar position of right central venous port. Partly demonstrated is metallic hardware projecting over visualized cervical spine. XR/XR chest 1V portable [id number] IMPRESSION: No acute pulmonary process is demonstrated.
--- NOTE | 2020-11-10 19:14 | CTR_ITS ---
PROCEDURE INFORMATION: Exam: CT Head Without Contrast Exam date and time: 11/10/2020 7:50 PM Age: 59 years old Clinical indication: Syncope and collapse; Patient HX: Syncope w fall hitting back of head; Additional info: Syncope, hit head TECHNIQUE: Imaging protocol: Computed tomography of the head without contrast. Radiation optimization: All CT scans at this facility use at least one of these dose optimization techniques: automated exposure control; mA and/or kV adjustment per patient size (includes targeted exams where dose is matched to clinical indication); or iterative reconstruction. ADDITIONAL STUDY INFORMATION: Total DLP (mGy-cm): 858.44 COMPARISON: No relevant prior studies available. FINDINGS: Examination is limited by artifacts from patient motion. There are moderate intracranial arterial calcifications. Evaluation of the brain demonstrates no other convincing areas of abnormal density when allowing for artifacts from patient motion. There is mild cerebral cortical atrophy. Ventricles do not appear significantly dilated. No definite depressed calvarial fracture is demonstrated. Visualized paranasal sinuses and mastoid air cells demonstrate no significant opacification. CT/CT head wo con* 90544 IMPRESSION: No definite acute intracranial process is demonstrated when allowing for artifacts from patient motion. Radiation Dose CTDIVOL = (mGy): DLP = 858.44 (mGy-cm)
--- NOTE | 2020-11-10 19:15 | ECG_ITS ---
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 Measurements Intervals [place] Rate: 92 P: 73 NV: 192 QRS: 111 QRSD: 110 T: 52 QT: 428 QTc: 530 Interpretive Statements SINUS RHYTHM Compared to ECG 05/15/2020 10:29:19 First degree AV block no longer present Prolonged QT interval no longer present Electronically Signed On 11-11-2020 20:44:17 CDT by Riky Whipple M.D. [email or web address]
[2020-11-10 19:41] LABS: Basophils % 0.4 %; Eosinophils % 0.8 %; Hematocrit 37.1 % (42.0-52.0); Hemoglobin 12.3 g/dL (11.7-16.6); Lymphocytes # 0.4 10^3/uL (0.8-4.8); Lymphocytes % 16.1 %; Mean Corpuscular HGB Conc 33.2 g/dL (30.0-36.0); Mean Corpuscular Hemoglobin 31.4 pg (28.0-34.0); Mean Corpuscular Volume 94.6 fL (80-94); Mean Platelet Volume 9.3 fL (7.4-10.4); Monocytes # 0.3 10^3/uL (0.2-0.9); Neutrophils # 1.79 10^3/uL (1.8-7.7); Neutrophils % 68.6 %; Nucleated Red Blood Cells % 0 %; Platelet Count 116 10^3/cmm (130-400); Red Blood Count 3.92 10^6/uL (4.1-5.3); White Blood Count 2.6 10^3/uL (4.0-10.0)
[2020-11-10] MEDS: sodium chloride 0.9% 1,000 ML 999 ML IV ×2 (19:41→22:13)
--- NOTE | 2020-11-10 19:49 | ED_ITS ---
HPI - Syncope General: Chief Complaint: Syncope Stated Complaint: low bp/fainting Time Seen by Provider: 11/10/20 19:22 History of Present Illness: HPI narrative: 59-year-old patient with a history of esophageal cancer. He presents after 2 episodes of syncope today. He was seen on for similar complaints, and had a low blood pressure at that time he notes that changes were made to his medication, but that his blood pressure has remained low at home. His first episode was 3 or 4:00 this morning, sitting in a chair. He woke up on the floor. His second episode was at 5 PM, when he was walking in the kitchen, passed out, struck his head, likely on the stove, and fell on the floor. He states he was down about 5 to 7 minutes before getting back up. He states he was only unconscious for a short period. He never had any chest pain. He has a history of atrial fibrillation. MD complaint: loss of consciousness and collapsed Onset (ago): hour(s) -: second(s) Prodromal symptoms: none Context: other (While standing) Injuries sustained associated with event: head Associated symptoms: Reports headache(s); Deny abdominal pain, chest pain, fever(s), nausea, short of breath, vertigo or weakness Treatments prior to arrival: none Review of Systems Const: Denies: fever(s) Eyes: Denies: change in vision ENMT: Denies: odynophagia or sinus pain Card: Denies: chest pain Resp: Denies: dyspnea, productive cough, non-productive cough or wheezing GI: Denies: abdominal pain or nausea : Denies: difficulty urinating or dysuria Musc: Reports: back pain Skin/Breast: Denies: rash or erythema Neuro: Reports: headache(s); Denies: vertigo Psych: Denies: anxiety PFSH ED PFSH: Medical History Adenocarcinoma of esophagus Cervical disc disease Cervical disc displacement Gastroesophageal reflux disease History of colon polyps Repeat colonoscopy in 3 years HTN (hypertension), benign Hyperlipidemia Hypogonadism in male Lower urinary tract symptoms (LUTS) Peyronie disease Urolithiasis Surgical History H/O decompression of ulnar nerve H/O esophagogastroduodenoscopy (05/15/20) H/O knee surgery H/O neck surgery H/O vasectomy History of back surgery History of coronary artery stent placement History of surgery on arm Hx of CABG Status post colonoscopy with polypectomy (11/08/19) Family History Mother , 64 CAD (coronary artery disease) Diabetes Hypertension Father , 66 Diabetes Hypertension CAD (coronary artery disease) Social History Smoking and tobacco status: current every day smoker cigarettes Packs smoked per day: 1.5 Alcohol intake: former Lives independently: Yes Marital status: Current occupational status: retired and disabled History of recent travel: No Physical Exam Const: GENERAL APPEARANCE: frail appearing; not ill appearing ORIENTATION/CONSCIOUSNESS: Yes oriented to person, Yes oriented to place and Yes oriented to time HENMT: COMMON NORMALS: normocephalic, external ears normal and Normal external nose present HEAD & SCALP: normocephalic; no scalp tenderness FACE & SINUS: normal facial exam NOSE: Normal external nose present and No nasal discharge present EXTERNAL EAR: Yes external ears normal Eye: COMMON NORMALS: Equal, round and reactive pupils present, EOMs intact bilaterally and conjunctivae normal EYELID: eyelids normal CONJUNCTIVA: Yes conjunctivae normal PUPIL: Yes Equal, round and reactive pupils present Neck/C-Spine: GENERAL: No tracheal deviation Chest: COMMONS NORMALS: normal inspection of the chest CHEST: No tenderness Resp: COMMON NORMALS: clear to auscultation bilaterally EFFORT & INSPECTION: No tachypneic, No respiratory distress, No retractions, No uses accessory muscles and No tracheal deviation AUSCULTATION: clear to auscultation bilaterally, no rhonchi, no wheezes and lung sounds not diminished Cardio: COMMON NORMALS: regular rate and regular rhythm RATE: regular rate RHYTHM: regular rhythm HEART SOUNDS: no murmurs PERIPHERAL PULSES: radial pulses present GI: INSPECTION: No abdominal distension AUSCULTATION: No Hyperactive bowel sounds present and No Hypoactive bowel sounds present PALPATION: No Guarding due to palpation present (GI) and No Rigid due to palpation PERCUSSION: no dullness to percussion and no tympanic to percussion Neuro: SENSORIUM/ORIENTATION: Yes oriented to person, Yes oriented to place and Yes oriented to time Psych: COMMON NORMALS: mental status grossly normal Skin: COMMON NORMALS: no rashes or lesions noted GENERAL SKIN EXAM: no rashes or lesions noted Course Consultations: Consultation #1: Kayla Time: 21:51 Vital Signs: Vital signs: Vital Signs Temperature 99.8 F H 11/11/20 00:00 Pulse Rate 91 11/11/20 00:40 Respiratory Rate 16 11/11/20 00:40 Blood Pressure 95/57 11/11/20 00:00 Pulse Oximetry 93 11/11/20 00:40 MDM - Syncope 2 MDM Narrative: Medical decision making narrative: White blood cell count 2.6. Hemoglobin 12.3. Potassium 3.4. Sodium 133. The patient's received a liter of fluid even after that liter, orthostatics were completed. Beginning blood pressure 95 systolic lying, sitting 78 systolic, standing 53 systolic. Obviously positive orthostasis. He will be observed for orthostatic hypotension with syncope. His head CT is negative despite his INR being 3.8. His chest x- ray is negative Lab Data: Labs: Lab Results 11/10/20 11/10/20 11/10/20 Range/Units 19:31 19:31 19:31 WBC 2.6 L (4.0-10.0) 10^3/ uL RBC 3.92 L (4.1-5.3) 10^6/u L Hgb 12.3 (11.7-16.6) g/dL Hct 37.1 L (42.0-52.0) % MCV 94.6 H (80-94) fL MCH 31.4 (28.0-34.0) pg MCHC 33.2 (30.0-36.0) g/dL RDW 19.0 H (12.1-15.1) % Plt Count 116 L (130-400) 10^3/c mm MPV 9.3 (7.4-10.4) fL Neut % (Auto) 68.6 % Lymph % (Auto) 16.1 % [place] % (Auto) 13.0 % Eos % (Auto) 0.8 % Baso % (Auto) 0.4 % Neut # (Auto) 1.79 L (1.8-7.7) 10^3/u L Lymph # (Auto) 0.4 L (0.8-4.8) 10^3/u L [place] # (Auto) 0.3 (0.2-0.9) 10^3/u L Eos # (Auto) 0.0 (0.0-0.8) 10^3/u L Baso # (Auto) 0.0 (0.0-0.1) 10^3/u L Nucleated RBC % (a uto) 0 % Nucleated RBCs # 0.0 /100WBC PT 38.40 H (12.1-14.9) SECO NDS INR 3.85 H (0.8-1.2) Sodium 133 L (136-145) mmol/L Potassium 3.4 L (3.5-5.1) mmol/L Chloride 96 L (98-107) mmol/L Carbon Dioxide 24 (22-29) mmol/L Anion Gap 16.4 (5-19) BUN 9 (6-20) mg/dL Creatinine 0.9 (0.7-1.2) mg/dL GFR Calculation 86.4 L (90-130) mL/min Glucose 133 H (65-115) mg/dL Calculated Osmolal ity 277 L (285-295) mOsm/k g Lactate (0.5-2.2) mmol/L Calcium 8.2 L (8.5-10.5) mg/dL Total Bilirubin 0.8 (0.15-1.2) mg/dL AST 15 (0-40) U/L ALT 21 (0-41) U/L Alkaline Phosphata se 74 (40-130) IU/L Troponin T Baselin e (0-15) ng/L Troponin T 120 Min kaushal (0-15) ng/L Delta Troponin T (0-10) ABS# C-Reactive Protein 59.0 H (0.0-4.9) mg/L Total Protein 6.4 L (6.6-8.7) g/dL Albumin 3.2 L (3.5-5.2) g/dL Globulin 3.2 (1.3-4.6) g/dL 11/10/20 11/10/20 11/10/20 Range/Units 19:31 19:31 21:20 WBC (4.0-10.0) 10^3/ uL RBC (4.1-5.3) 10^6/u L Hgb (11.7-16.6) g/dL Hct (42.0-52.0) % MCV (80-94) fL MCH (28.0-34.0) pg MCHC (30.0-36.0) g/dL RDW (12.1-15.1) % Plt Count (130-400) 10^3/c mm MPV (7.4-10.4) fL Neut % (Auto) % Lymph % (Auto) % [place] % (Auto) % Eos % (Auto) % Baso % (Auto) % Neut # (Auto) (1.8-7.7) 10^3/u L Lymph # (Auto) (0.8-4.8) 10^3/u L [place] # (Auto) (0.2-0.9) 10^3/u L Eos # (Auto) (0.0-0.8) 10^3/u L Baso # (Auto) (0.0-0.1) 10^3/u L Nucleated RBC % (a uto) % Nucleated RBCs # /100WBC PT (12.1-14.9) SECO NDS INR (0.8-1.2) Sodium (136-145) mmol/L Potassium (3.5-5.1) mmol/L Chloride (98-107) mmol/L Carbon Dioxide (22-29) mmol/L Anion Gap (5-19) BUN (6-20) mg/dL Creatinine (0.7-1.2) mg/dL GFR Calculation (90-130) mL/min Glucose (65-115) mg/dL Calculated Osmolal ity (285-295) mOsm/k g Lactate 1.2 (0.5-2.2) mmol/L Calcium (8.5-10.5) mg/dL Total Bilirubin (0.15-1.2) mg/dL AST (0-40) U/L ALT (0-41) U/L Alkaline Phosphata se (40-130) IU/L Troponin T Baselin e 16 H (0-15) ng/L Troponin T 120 Min kaushal 15.36 H (0-15) ng/L Delta Troponin T -0.64 L (0-10) ABS# C-Reactive Protein (0.0-4.9) mg/L Total Protein (6.6-8.7) g/dL Albumin (3.5-5.2) g/dL Globulin (1.3-4.6) g/dL Discharge Plan Discharge Patient Disposition: Placed in Observation Admit Provider: Burke Garza Clinical Impression: Syncope due to orthostatic hypotension Coding Level of Care Code ED 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
[2020-11-10 19:57] LABS: Lactate (Lactic Acid level) 1.2 mmol/L (0.5-2.2)
[2020-11-10 19:59] LABS: Troponin(5th) Baseline 16 ng/L (0-15)
[2020-11-10 20:00] LABS: Alanine Aminotransferase 21 U/L (0-41); Albumin Level 3.2 g/dL (3.5-5.2); Alkaline Phosphatase 74 IU/L (40-130); Anion Gap 16.4 (5-19); Aspartate Amino Transferase 15 U/L (0-40); Blood Urea Nitrogen 9 mg/dL (6-20); Calcium 8.2 mg/dL (8.5-10.5); Carbon Dioxide 24 mmol/L (22-29); Chloride 96 mmol/L (98-107); Globulin 3.2 g/dL (1.3-4.6); Glomerular Filtration Rate 86.4 mL/min (90-130); Glucose 133 mg/dL (65-115); Osmolality Calculated 277 mOsm/kg (285-295); Potassium 3.4 mmol/L (3.5-5.1); Sodium 133 mmol/L (136-145); Total Bilirubin 0.8 mg/dL (0.15-1.2); Total Protein 6.4 g/dL (6.6-8.7)
[2020-11-10 20:01] LABS: INR 3.85 (0.8-1.2)
--- NOTE | 2020-11-10 21:15 | ECG_ITS ---
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 Measurements Intervals [place] Rate: 94 P: 165 MT: 128 QRS: 106 QRSD: 104 T: 68 QT: 418 QTc: 524 Interpretive Statements ECTOPIC ATRIAL RHYTHM RIGHT AXIS DEVIATION [QRS AXIS > 100] PROLONGED QT INTERVAL Compared to ECG 11/10/2020 19:35:46 Ectopic atrial rhythm now present Right-axis deviation now present Prolonged QT interval now present Sinus rhythm no longer present Electronically Signed On 11-11-2020 20:50:08 CDT by Riky Whipple M.D. [id number]
[2020-11-10 21:41] LABS: Troponin 5 2HR 15.36 ng/L (0-15)
[2020-11-10 21:43] LABS: Troponin 5 2HR Delta -0.64 ABS# (0-10)
--- NOTE | 2020-11-10 23:24 | P.HP_ITS ---
Providers/Chief Complaint Admitting Physician: Burke Garza MD Primary Care Provider: Carol Cesar MD Chief Complaint: low bp/fainting History of Present Illness Kyung Queen is a 59 year old male with pmh of esophageal cancer presented to ER with 2 episodes of syncope. reports poor PO intake. He states eh has nausea. Recently had some diarrhea also. Reports fall with head trauma. Denies head or joint pain currently . In the ER he was noted to be hypotensive. Improved with fluids. K slightly low. He is on diuretics and takes K at home. denies fevers, chills, cp, or sob Review of Systems General: Reports: 10 or more systems reviewed and unremarkable except in HPI and below Const: Denies: fever(s) or chills Eyes: Denies: change in vision ENMT: Denies: throat pain Card: Denies: chest pain or palpitations Resp: Denies: dyspnea or productive cough GI: Reports: nausea; Denies: abdominal pain : Denies: flank pain Musc: Denies: neck pain Skin/Breast: Denies: rash Neuro: Denies: headache(s) or numbness in extremities Psych: Denies: anxiety Medications/Allergies Home Medications Medication Instructions Recorded Confirmed Last Taken Type albuterol sulfate 90 mcg/actuation 1 inh INHALATION Q4H 08/24/19 11/08/20 11/07/20 History breath activated powder inhaler,sensor aspirin 81 mg tablet,delayed 81 mg PO DAILY@0600 08/24/19 11/08/20 11/07/20 History release atorvastatin 80 mg tablet 40 mg PO DAILY 08/24/19 11/08/20 11/07/20 History montelukast 10 mg tablet 10 mg PO DAILY@0600 08/24/19 11/08/20 11/07/20 History tamsulosin 0.4 mg capsule 0.4 mg PO BID@0600,219908/24/19 11/08/20 11/07/20 History tiotropium 2.5 mcg-olodaterol 2.5 2 puff INHALATION DAILY@0600 08/24/19 11/08/20 11/07/20 History mcg/actuation mist for inhalation amiodarone 200 mg tablet 200 mg PO BID@0600,2200 04/12/20 11/08/20 11/07/20 History ferrous sulfate 325 mg (65 mg 325 mg PO DAILY@0600 04/12/20 11/08/20 11/07/20 History iron) tablet furosemide 20 mg tablet 40 mg PO DAILY@0600 tab 04/12/20 11/08/20 11/07/20 History potassium chloride 10 mEq 20 meq PO DAILY@0600 cap 04/12/20 11/08/20 11/07/20 History capsule,extended release sildenafil (pulm.hypertension) 20 20 mg PO TID@,,04/12/20 11/08/20 11/07/20 History mg tablet pantoprazole [Protonix] 40 mg PO BIDWMEAL 42 Days #84 tab 05/15/20 11/08/20 11/07/20 Rx cyclobenzaprine 10 mg PO BID@0600,2200 PRN 11/08/20 11/08/20 11/07/20 History diltiazem HCl 180 mg PO DAILY #30 cap 11/08/20 Unknown Rx gabapentin 300 mg PO TID@,,11/08/20 11/08/20 11/07/20 History hydrocodone-acetaminophen 1 tab PO Q6H PRN 11/08/20 11/08/20 11/07/20 History sertraline 100 mg PO DAILY@0600 11/08/20 11/08/20 11/07/20 History warfarin See Rx Instructions .ROUTE .COMPLEX 11/08/20 11/08/20 11/07/20 History Allergies Allergy/AdvReac Type Severity Reaction Status Date / Time No Known Allergies Allergy Verified 11/08/20 12:02 PFSH Acute PFSH: Medical History Adenocarcinoma of esophagus Cervical disc disease Cervical disc displacement Gastroesophageal reflux disease History of colon polyps Repeat colonoscopy in 3 years HTN (hypertension), benign Hyperlipidemia Hypogonadism in male Lower urinary tract symptoms (LUTS) Peyronie disease Urolithiasis Surgical History H/O decompression of ulnar nerve H/O esophagogastroduodenoscopy (05/15/20) H/O knee surgery H/O neck surgery H/O vasectomy History of back surgery History of coronary artery stent placement History of surgery on arm Hx of CABG Status post colonoscopy with polypectomy (11/08/19) Family History Mother , 64 CAD (coronary artery disease) Diabetes Hypertension Father , 66 Diabetes Hypertension CAD (coronary artery disease) Social History Smoking and tobacco status: current every day smoker cigarettes Packs smoked per day: 1.5 Alcohol intake: former Lives independently: Yes Marital status: Current occupational status: retired and disabled History of recent travel: No Vitals/I&O/Wt Last Vital Signs Temp 98.2 F 11/10/20 19:04 Pulse 92 11/10/20 23:03 Resp 17 11/10/20 23:03 BP 99/61 11/10/20 23:03 Pulse Ox 96 11/10/20 23:03 11/10/20 11/10/20 11/11/20 14:59 22:59 06:59 Intake Total 1000 / 1000 1000 / 2000 Balance 1000 / 1000 1000 / 2000 Weight last 48 hrs Weight 190 lb Physical Exam Const: COMMON NORMALS: no acute distress Resp: COMMON NORMALS: normal respiratory effort and No retractions Cardio: COMMON NORMALS: no JVD and regular rate GI: OTHER: distended, non tender Extremity: COMMON NORMALS: normal to inspection and full ROM Data : 11/10/20 19:31 11/10/20 19:31 Other data: Head CT IMPRESSION: No definite acute intracranial process is demonstrated when allowing for artifacts from patient motion. A&P Assessment and plan (1) Orthostasis: Status: Acute (2) Adenocarcinoma of esophagus: Status: Acute (3) Syncope due to orthostatic hypotension: Status: Acute (4) Hypokalemia: Status: Acute (5) A-fib: Status: Acute (6) Neutropenia: Status: Acute Additional A&P Information --admit for observation --IVF --repeat labs --replace K --check ECHO, Carotid US Attestations Medical Necessity Statement*: Kyung Queen is being changed to inpatient status as stay will now exceed 2 midnights. 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
[2020-11-10] MEDS: sodium chloride 0.9% 1,000 ML 75 ML IV (23:37)
[2020-11-11] VITALS (20 sets, daily range): BP systolic 65–106; BP diastolic 33–67; PULSE 81–98; RESP 15–20; TEMP 36.6–37.7; O2SAT 86–96
[2020-11-11] MEDS: albuterol 8 gm MDI 1 PUFF INHALATION ×6 (03:00→23:23)
[2020-11-11] MEDS: gabapentin 300 mg Capsule PO (05:26)
[2020-11-11] MEDS: amiodarone 200 mg Tablet PO ×2 (05:26→22:04)
[2020-11-11] MEDS: montelukast sodium 10 mg Tablet PO (05:26)
[2020-11-11] MEDS: tamsulosin 0.4 mg Capsule PO (05:26)
[2020-11-11] MEDS: sertraline 100 mg Tablet PO (05:26)
[2020-11-11] MEDS: potassium chloride ER 20 mEq Tablet PO (05:26)
[2020-11-11 05:54] LABS: Alanine Aminotransferase 13 U/L (0-41); Albumin Level 2.6 g/dL (3.5-5.2); Alkaline Phosphatase 55 IU/L (40-130); Anion Gap 11.3 (5-19); Aspartate Amino Transferase 9 U/L (0-40); Blood Urea Nitrogen 8 mg/dL (6-20); Calcium 7.4 mg/dL (8.5-10.5); Carbon Dioxide 23 mmol/L (22-29); Chloride 102 mmol/L (98-107); Creatinine Clr Calc Pharmacy 149.3498; Globulin 2.3 g/dL (1.3-4.6); Glomerular Filtration Rate 137.9 mL/min (90-130); Glucose 100 mg/dL (65-115); Osmolality Calculated 274 mOsm/kg (285-295); Potassium 3.3 mmol/L (3.5-5.1); Sodium 133 mmol/L (136-145); Total Bilirubin 0.8 mg/dL (0.15-1.2); Total Protein 4.9 g/dL (6.6-8.7)
[2020-11-11] MEDS: pantoprazole DR 40 mg Tablet PO ×2 (08:56→17:45)
[2020-11-11] MEDS: dilTIAZem ER (24HR) 180 mg Capsule PO (08:56)
[2020-11-11] MEDS: HYDROcodone-acetaminophen 5-325 mg Tablet 1 TAB PO ×2 (09:00→20:12)
[2020-11-11 09:01] LABS: Cortisol Random 22.92 ug/dL (2.47-19.5)
[2020-11-11] MEDS: sodium chloride 0.9% 1,000 ML 75 ML IV (12:16)
--- NOTE | 2020-11-11 14:07 | P.PN_ITS ---
Subjective Subjective: Interval history: Denies pain or discomfort. Overall feeling and getting up and made a short trip to the restroom. Did not get lightheaded/presyncopal, but came right back to bed. Appetite has not been good recently. Some burning when eating at times lower chest/epigastrium with radiation therapy. Denies pain in his mouth or on swallowing. No shortness of breath. No chest pain. No headache. No other complaints. Vitals/I&O/Wt Last Vital Signs Temp 98.7 F 11/11/20 12:00 Pulse 84 11/11/20 13:16 Resp 18 11/11/20 12:00 BP 91/54 11/11/20 13:16 Pulse Ox 92 11/11/20 12:00 11/10/20 11/11/20 11/11/20 22:59 06:59 14:59 Intake Total 1000 / 1000 1120 / 2120 1188.75 / 1188.75 Balance 1000 / 1000 1120 / 2120 1188.75 / 1188.75 Weight last 48 hrs Weight 86.183 kg Physical Exam Narrative: EXAM NARRATIVE: Accompanied in the room by his daughter. Const: COMMON NORMALS: no acute distress and patient oriented x3 GENERAL APPEARANCE: frail appearing HENMT: COMMON NORMALS: oropharynx normal Neck/C-Spine: COMMON NORMALS: no JVD Resp: COMMON NORMALS: normal respiratory effort and clear to auscultation bilaterally AUSCULTATION: clear to auscultation bilaterally Cardio: COMMON NORMALS: no JVD, regular rhythm, S1 normal heart sound present, S2 normal heart sound present and No murmurs present (Cardio) RHYTHM: regular rhythm HEART SOUNDS: S1 normal heart sound present and S2 normal heart sound present GI: COMMON NORMALS: Normal to inspection, nondistended, normoactive bowel sounds present, Soft to palpation and non-tender PALPATION: Yes Soft to palpation Extremity: COMMON NORMALS: no joint enlargement and no pedal edema Neuro: COMMON NORMALS: patient oriented x3 and moves all extremities Skin: COMMON NORMALS: no rashes or lesions noted GENERAL SKIN EXAM: no rashes or lesions noted Data : 11/10/20 19:31 11/11/20 05:19 A&P Assessment and plan (1) Orthostasis: Very significant orthostasis significant orthostasis with blood pressure that is already at rest. Yesterday afternoon noted blood pressure as low as 53/35 with standing. Today little bit better, and he made a short trip to the restroom, however, on reassessment still laying 95/54, sitting 73/42, and standing 65/33. Poor oral intake recently. Continue IV hydration. We are holding also his g abapentin, tamsulosin. For now he was continued on amiodarone, Cardizem, however, appears to be may have to cut back on the Cardizem dose. Added midodrine as well. Has a prosthetic valve. He is not aware that it is a mechanical valve. He is on warfarin, but believes it is a pig valve . He is not aware of other reason for being on warfarin. Does not remember having atrial fibrillation. Serum cortisol appears to show decent response. Assess TTE. Status: Acute (2) Adenocarcinoma of esophagus: Receiving chemotherapy, radiation. Follows with Dr. Ryan. Status: Acute (3) Syncope due to orthostatic hypotension: Fall at home. Orthostatic PT assessment. Encourage safety awareness. Carotid ultrasound with some plaque, not likely responsible for his symptoms. Status: Acute (4) Hypokalemia: Being replaced. Status: Acute (5) A-fib: Recorded in the chart, although he does not remember having it. Monitor on telemetry. Status: Acute (6) Neutropenia: Following chemotherapy. Afebrile. Or fever. Denies dysphagia. Status: Acute Additional A&P Information Prosthetic heart valve Chronic anticoagulation Pulmonary hypertension? COPD not in exacerbation, not using CPAP Longstanding smoking Attestations Medical Necessity Statement*: Admission of over 2 midnights is needed for asse ssment management of severe orthostatic hypotension, syncopal episode in a gentleman with prosthetic heart valve, requiring optimization of a number of medications which may contribute including his cardiac medications, with underlying cancer undergoing chemoradiotherapy, with neutropenia. 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
[2020-11-11 15:30] LABS: Add Urine Culture? No; Bacteria Urine TRACE /hpf; Bilirubin Urine 1+ (Negative); Blood Urine Neg (Negative); Glucose Urine UA Norm (Normal); Ketones Urine Negative (Negative); Leukocyte Esterase Urine Negative (Negative); Mucus Urine 1+ /hpf; Nitrate Urine Negative (Negative); Protein Urine Neg (Negative); Urine Appearance Clear (CLEAR); Urine Color Amber (Yellow); Urobilinogen Urine 4+ mg/dL (Negative); WBC Urine RARE /hpf (0-5); pH Urine 5 (5-7)
[2020-11-11] MEDS: midodrine 5 mg TABLET PO ×2 (16:37→20:12)
--- NOTE | 2020-11-11 23:31 | USR_ITS ---
Arterial ultrasound of the extracerebral carotid and vertebral arteries Clinical indication: Syncope Technique: Real-time ultrasound with cervantes scale, duplex Doppler, and color flow imaging was performed to evaluate the extracerebral carotid and vertebral arteries. No prior vascular imaging studies are available for correlation at the time of dictation. Findings: Asymmetric echogenic plaque formation is identified in the visualized carotid arteries, left greater than right. There is normal antegrade flow within the vertebral arteries bilaterally. The peak systolic velocity measurements within the right and left internal carotid arteries are 87 and 121 cm per second respectively. The right systolic velocity ratio is 1.46, while the left systolic velocity ratio is 1.55. These values are well within normal limits. When correlating with NASCET index criteria, no hemodynamically significant stenosis is present. US/CV carotid duplex BI* [id number] Impression: 1. Asymmetric echogenic plaque formation within the carotid arteries, without hemodynamically significant ICA stensosis. 2. Normal antegradew flow within the vertebral arteries.
--- NOTE | 2020-11-11 23:31 | USCV_ITS ---
Kyung Queen Age: 59 Gender: M : 1960 Exam Date: 11/11/2020 09:10 Ordering Phys: Burke Garza MD Technologist: Breanna Agarwal [place] [facility] [place]: SYNC[place] BP: 96 / 56 HR: 86 Rhythm: Sinus Technical Quality: Adequate MEASUREMENTS (Male / Female) Normal Values 2D ECHO LV Diastolic Diameter PLAX 4.7 cm 4.2 - 5.9 / 3.9 - 5.3 cm LV Systolic Diameter PLAX 3.0 cm LV Chamber Size 4.2 cm IVS Diastolic Thickness 1.4 cm 0.6 - 1.0 / 0.6 - 0.9 cm IVS Systolic Thickness 2.1 cm LVPW Diastolic Thickness 1.8 cm 0.6 - 1.0 / 0.6 - 0.9 cm LVPW Systolic Thickness 1.7 cm RV Chamber Size 2.8 cm LVOT Diameter 2.1 cm LV Ejection Fraction 2D Teich 66.9 % LV Ejection Fraction MOD 2C 50.6 % LV Ejection Fraction 2C AL 52.4 % LA Diameter 3.8 cm LA Width 4.3 cm LA Height 5.1 cm RA Width 2.9 cm RA Height 5.2 cm Aorta at Sinotubular Diameter 2.7 cm M-MODE LV Diastolic Diameter MM 5.3 cm 4.2 - 5.9 / 3.9 - 5.3 cm LV Systolic Diameter MM 3.6 cm LV Ejection Fraction MM Teich 59.2 % IVS Diastolic Thickness MM 1.4 cm 0.6 - 1.0 / 0.6 - 0.9 cm IVS Systolic Thickness MM 1.7 cm LVPW Diastolic Thickness MM 1.3 cm 0.6 - 1.0 / 0.6 - 0.9 cm LVPW Systolic Thickness MM 1.4 cm RV Diastolic Diameter MM 1.8 cm Aortic Annulus Diameter 3.4 cm LA Ao Ratio MM 1.3 DOPPLER AV Peak Velocity 151.0 cm/s LVOT Peak Velocity 142.0 cm/s AV Area Cont Eq vti 3.3 cm squared AV Area Cont Eq pk 3.3 cm squared MV Peak Velocity 161.0 cm/s MV Area PHT 3.5 cm squared Mitral E to A Ratio 1.2 MV E' Velocity 84.5 cm/s Mitral E to MV E' Ratio 13.7 Mitral E to LV E' Lateral Ratio 10.1 Mitral E to LV E' Septal Ratio 21.1 TV Peak E Velocity 72.0 cm/s Right Atrial Pressure 3.0 mmHg PV Peak Velocity 74.0 cm/s RV Acceleration Time 0.0 s RV Ejection Time 0.3 s RV AcT/ET 0.2 FINDINGS Left Ventricle Normal LV size with a slightly diminished ejection fraction of 50%. Mild diffuse hypokinesia of the septum and anteroseptal segments. Slightly dyskinetic basal inferior wall segment.Grade III/IV diastolic dysfunction (restrictive filling pattern), severely elevated filling pressures. Right Ventricle The right ventricle is normal in size and function. Right Atrium The right atrium is normal in size. Left Atrium Mildly increased left atrial size. Mitral Valve The bioprosthetic valve in the mitral position appears to be well-seated. The mitral leaflet appears to be somewhat thickened. The peak velocity across the mitral valve was 1.6 m/s with a peak gradient of 10 and a mean gradient of 5 mmHg. Mitral valve area ulated to be 3.53 cm squared, based on the pressure half-time Aortic Valve Thickened aortic valve. No significant stenosis Tricuspid Valve Normal no gross abnormalities noted Pulmonic Valve Trace pulmonary valve regurgitation. Pericardium Normal pericardium without effusion. Aorta Normal ascending aorta dimension. Normal aortic annulus size. CONCLUSIONS Normal LV size with a slightly diminished ejection fraction of 50%. Mild diffuse hypokinesia of the septum and anteroseptal segments. Slightly dyskinetic basal inferior wall segment.Grade III/IV diastolic dysfunction (restrictive filling pattern), severely elevated filling pressures. The bioprosthetic valve in the mitral position appears to be well-seated. The mitral leaflet appears to be somewhat thickened. The peak velocity across the mitral valve was 1.6 m/s with a peak gradient of 10 and a mean gradient of 5 mmHg. Mitral valve area ulated to be 3.53 cm squared, based on the pressure half-time Thickened aortic and mitral valves. Mildly increased left atrial size. Normal pericardium without effusion. Trace of pulmonic regurgitatioin Estimated pulmonaryartery peak systolic pressure was not calculated. Compared to the study from 04/07/2018, there is replacement of the mitral valve. Dr Riky Whipple MD FAC (Electronically Signed) Final Date: 11 Nov 2020 17:42 S
[2020-11-12] VITALS (16 sets, daily range): BP systolic 93–120; BP diastolic 57–70; PULSE 82–93; RESP 14–18; TEMP 36.4–36.9; O2SAT 82–94
[2020-11-12] MEDS: sodium chloride 0.9% 1,000 ML 75 ML IV (01:26)
[2020-11-12] MEDS: albuterol 8 gm MDI 1 PUFF INHALATION ×2 (03:34→07:52)
[2020-11-12] MEDS: sertraline 100 mg Tablet PO (05:32)
[2020-11-12] MEDS: potassium chloride ER 20 mEq Tablet PO (05:33)
[2020-11-12] MEDS: amiodarone 200 mg Tablet PO (05:33)
[2020-11-12] MEDS: montelukast sodium 10 mg Tablet PO (05:33)
[2020-11-12 06:03] LABS: Basophils % 0.6 %; Eosinophils % 1.7 %; Hemoglobin 9.4 g/dL (11.7-16.6); Lymphocytes # 0.3 10^3/uL (0.8-4.8); Lymphocytes % 18.4 %; Mean Corpuscular HGB Conc 32.4 g/dL (30.0-36.0); Mean Corpuscular Hemoglobin 31.3 pg (28.0-34.0); Mean Corpuscular Volume 96.7 fL (80-94); Mean Platelet Volume 9.8 fL (7.4-10.4); Monocytes # 0.3 10^3/uL (0.2-0.9); Monocytes % 15.6 %; Neutrophils # 1.12 10^3/uL (1.8-7.7); Neutrophils % 62.6 %; Nucleated Red Blood Cells % 0 %; Platelet Count 104 10^3/cmm (130-400); Red Cell Distribution Width 18.9 % (12.1-15.1); White Blood Count 1.8 10^3/uL (4.0-10.0)
[2020-11-12 06:08] LABS: Alanine Aminotransferase 12 U/L (0-41); Albumin Level 2.5 g/dL (3.5-5.2); Alkaline Phosphatase 60 IU/L (40-130); Anion Gap 10.4 (5-19); Aspartate Amino Transferase 9 U/L (0-40); Blood Urea Nitrogen 5 mg/dL (6-20); Calcium 7.5 mg/dL (8.5-10.5); Carbon Dioxide 23 mmol/L (22-29); Chloride 104 mmol/L (98-107); Globulin 2.5 g/dL (1.3-4.6); Glomerular Filtration Rate 220.2 mL/min (90-130); Glucose 90 mg/dL (65-115); Magnesium 1.6 mg/dL (1.7-2.3); Osmolality Calculated 275 mOsm/kg (285-295); Potassium 3.4 mmol/L (3.5-5.1); Sodium 134 mmol/L (136-145); Total Bilirubin 0.7 mg/dL (0.15-1.2)
[2020-11-12 06:19] LABS: Slide Review Slide Review Perform
[2020-11-12] MEDS: pantoprazole DR 40 mg Tablet PO (08:34)
[2020-11-12] MEDS: dilTIAZem ER (24HR) 120 mg Capsule PO (08:36)
[2020-11-12] MEDS: midodrine 5 mg TABLET PO ×2 (08:36→14:46)
[2020-11-12] MEDS: HYDROcodone-acetaminophen 5-325 mg Tablet 1 TAB PO (08:40)
--- NOTE | 2020-11-12 11:01 | PC.RESP ---
Smoking Cessation information sent to patient.
[2020-11-12] MEDS: albuterol 8 gm MDI 2 PUFF INHALATION ×2 (11:52→15:39)
--- NOTE | 2020-11-12 14:10 | PM.DCS ---
Discharge Providers Date of Admission: 11/11/20 08:24 Date of Discharge: November 12, 2020 Attending Provider at Admission: Burke Garza MD Attending Provider at Discharge: Prasanna Coon MD Primary Care Provider: Carol Cesar MD Diagnoses at Discharge Discharge Diagnosis (1) Orthostasis: Status: Acute (2) Adenocarcinoma of esophagus: Status: Acute (3) Syncope due to orthostatic hypotension: Status: Acute (4) Hypokalemia: Status: Acute (5) A-fib: Status: Acute (6) Neutropenia: Status: Acute Reason for Visit Reason for Visit: low bp/fainting Hospital Course Hospital Course Kyung Queen is a 59 year old male with pmh of esophageal cancer, hypertension, pulmonary hypertension, hyperlipidemia but has chemotherapy on October presents to the ER after having 2 episodes of syncope and blacking out while at home. During evaluation in the ER is found to be orthostatic positive. He was started on IV hydration. Patient continued to remain significantly orthostatic for which she was started on midodrine. He responded well to treatment and his symptoms resolved. Patient has been discharged hemodynamically stable condition and his dose of sildenafil which he takes for pulmonary hypertension have been decreased along with Lasix being changed to as needed. He is also started on midodrine 5 mg 3 times a day. Patient is to check his blood pressures at least twice daily at home for next 1 week and follow-up with his primary care provider. During hospitalization he was also found to be leukopenic/neutropenic though he did not have any fevers. Patient states he last received Neulasta post his chemotherapy on . Patient is to follow-up with his oncologist on coming Thursday(today is Thursday). The above plan has been discussed in detail with patient and her son at bedside and all the questions were answered. Physical Exam Narrative: EXAM NARRATIVE: Accompanied in the room by his son. Const: COMMON NORMALS: no acute distress and patient oriented x3 GENERAL APPEARANCE: frail appearing HENMT: COMMON NORMALS: oropharynx normal Neck/C-Spine: COMMON NORMALS: no JVD Resp: COMMON NORMALS: normal respiratory effort, No retractions and clear to auscultation bilaterally AUSCULTATION: clear to auscultation bilaterally Cardio: COMMON NORMALS: no JVD, regular rate, regular rhythm, S1 normal heart sound present, S2 normal heart sound present and No murmurs present (Cardio) RATE: regular rate RHYTHM: regular rhythm HEART SOUNDS: S1 normal heart sound present and S2 normal heart sound present GI: COMMON NORMALS: Normal to inspection, nondistended, normoactive bowel sounds present, Soft to palpation and non-tender PALPATION: Yes Soft to palpation OTHER: distended, non tender Extremity: COMMON NORMALS: normal to inspection, full ROM, no joint enlargement and no pedal edema Neuro: COMMON NORMALS: patient oriented x3 and moves all extremities Skin: COMMON NORMALS: no rashes or lesions noted GENERAL SKIN EXAM: no rashes or lesions noted Discharge Data Data Completed and Pending: Completed Studies During Hospitalization Category Date Time Status CT head wo con* [id number] Urgent Cat Scan 11/10/20 19:14 Completed XR chest 1V jassi ble [id number] Urgent Exams 11/10/20 19:14 Completed CV carotid duplex BI* [id number] Routine Ultrasound 11/11/20 23:31 Completed CV echo complete* [id number] Routine Ultrasound 11/11/20 23:31 Completed Pending at discharge Category Date Time Status Complete Blood Co unt w/Auto AM LABS Lab 11/13/20 04:00 Ordered Complete Blood Co unt w/Auto AM LABS Lab 11/14/20 04:00 Ordered Comprehensive Met abolic Panel AM LA BS Lab 11/13/20 04:00 Ordered Comprehensive Met abolic Panel AM LA BS Lab 11/14/20 04:00 Ordered Labs from last 24 hours 11/12/20 11/12/20 11/11/20 04:58 04:50 12:10 WBC 1.8 L RBC 3.00 L Hgb 9.4 L Hct 29.0 L MCV 96.7 H MCH 31.3 MCHC 32.4 RDW 18.9 H Plt Count 104 L MPV 9.8 Neut % (Auto) 62.6 Lymph % (Auto) 18.4 [place] % (Auto) 15.6 Eos % (Auto) 1.7 Baso % (Auto) 0.6 Neut # (Auto) 1.12 L Lymph # (Auto) 0.3 L [place] # (Auto) 0.3 Eos # (Auto) 0.0 Baso # (Auto) 0.0 Nucleated RBC % (a uto) 0 Nucleated RBCs # 0.0 Sodium 134 L Potassium 3.4 L Chloride 104 Carbon Dioxide 23 Anion Gap 10.4 BUN 5 L Creatinine 0.4 L GFR Calculation 220.2 H Glucose 90 Calculated Osmolal ity 275 L Calcium 7.5 L Magnesium 1.6 L Total Bilirubin 0.7 AST 9 ALT 12 Alkaline Phosphata se 60 Total Protein 5.0 L Albumin 2.5 L Globulin 2.5 Urine Color Abi Urine Appearance Clear Urine pH 5 Ur Specific Gravit y 1.020 Urine Protein Neg Urine Glucose (UA) Norm Urine Ketones Negative Urine Blood Neg Urine Nitrate Negative Urine Bilirubin 1+ H Urine Urobilinogen 4+ H Ur Leukocyte Leatha ase Negative Urine RBC None Urine WBC Rare Ur Squamous Epith Cells None Amorphous Sediment Not Reportable Urine Bacteria Trace Urine Mucus 1+ Addt'l Data from Hospital Stay: Laboratory Results WBC 1.8 10^3/uL (4.0- 10.0) L 11/12/20 04:58 RBC 3.00 10^6/uL (4.1 -5.3) L 11/12/20 04:58 Hgb 9.4 g/dL (11.7-16 .6) L 11/12/20 04:58 Hct 29.0 % (42.0-52.0 ) L 11/12/20 04:58 MCV 96.7 fL (80-94) H 11/12/20 04:58 MCH 31.3 pg (28.0-34. 0) 11/12/20 04:58 MCHC 32.4 g/dL (30.0-3 6.0) 11/12/20 04:58 RDW 18.9 % (12.1-15.1 ) H 11/12/20 04:58 Plt Count 104 10^3/cmm (130 -400) L 11/12/20 04:58 MPV 9.8 fL (7.4-10.4) 11/12/20 04:58 Neut % (Auto) 62.6 % 11/12/20 04:58 Lymph % (Auto) 18.4 % 11/12/20 04:58 [place] % (Auto) 15.6 % 11/12/20 04:58 Eos % (Auto) 1.7 % 11/12/20 04:58 Baso % (Auto) 0.6 % 11/12/20 04:58 Neut # (Auto) 1.12 10^3/uL (1.8 -7.7) L 11/12/20 04:58 Lymph # (Auto) 0.3 10^3/uL (0.8- 4.8) L 11/12/20 04:58 [place] # (Auto) 0.3 10^3/uL (0.2- 0.9) 11/12/20 04:58 Eos # (Auto) 0.0 10^3/uL (0.0- 0.8) 11/12/20 04:58 Baso # (Auto) 0.0 10^3/uL (0.0- 0.1) 11/12/20 04:58 Nucleated RBC % (a uto) 0 % 11/12/20 04:58 Nucleated RBCs # 0.0 /100WBC 11/12/20 04:58 PT 38.40 SECONDS (12 .1-14.9) H 11/10/20 19:31 INR 3.85 (0.8-1.2) H 11/10/20 19:31 Sodium 134 mmol/L (136-1 45) L 11/12/20 04:50 Potassium 3.4 mmol/L (3.5-5 .1) L 11/12/20 04:50 Chloride 104 mmol/L (98-10 7) 11/12/20 04:50 Carbon Dioxide 23 mmol/L (22-29) 11/12/20 04:50 Anion Gap 10.4 (5-19) 11/12/20 04:50 BUN 5 mg/dL (6-20) L 11/12/20 04:50 Creatinine 0.4 mg/dL (0.7-1. 2) L 11/12/20 04:50 GFR Calculation 220.2 mL/min (90- 130) H 11/12/20 04:50 Glucose 90 mg/dL (65-115) 11/12/20 04:50 Calculated Osmolal ity 275 mOsm/kg (285- 295) L 11/12/20 04:50 Lactate 1.2 mmol/L (0.5-2 .2) 11/10/20 19:31 Calcium 7.5 mg/dL (8.5-10 .5) L 11/12/20 04:50 Magnesium 1.6 mg/dL (1.7-2. 3) L 11/12/20 04:50 Total Bilirubin 0.7 mg/dL (0.15-1 .2) 11/12/20 04:50 AST 9 U/L (0-40) 11/12/20 04:50 ALT 12 U/L (0-41) 11/12/20 04:50 Alkaline Phosphata se 60 IU/L (40-130) 11/12/20 04:50 Troponin T Baselin e 16 ng/L (0-15) H 11/10/20 19:31 Troponin T 120 Min kaushal 15.36 ng/L (0-15) H 11/10/20 21:20 Delta Troponin T -0.64 ABS# (0-10) L 11/10/20 21:20 C-Reactive Protein 59.0 mg/L (0.0-4. 9) H 11/10/20 19:31 Total Protein 5.0 g/dL (6.6-8.7 ) L 11/12/20 04:50 Albumin 2.5 g/dL (3.5-5.2 ) L 11/12/20 04:50 Globulin 2.5 g/dL (1.3-4.6 ) 11/12/20 04:50 Random Cortisol 22.92 ug/dL (2.47 -19.5) H 11/10/20 19:31 Urine Color Abi (Yellow) 11/11/20 12:10 Urine Appearance Clear (CLEAR) 11/11/20 12:10 Urine pH 5 (5-7) 11/11/20 12:10 Ur Specific Gravit y 1.020 (1.005-1.0 30) 11/11/20 12:10 Urine Protein Neg (Negative) 11/11/20 12:10 Urine Glucose (UA) Norm (Normal) 11/11/20 12:10 Urine Ketones Negative (Negati ve) 11/11/20 12:10 Urine Blood Neg (Negative) 11/11/20 12:10 Urine Nitrate Negative (Negati ve) 11/11/20 12:10 Urine Bilirubin 1+ (Negative) H 11/11/20 12:10 Urine Urobilinogen 4+ mg/dL (Negativ e) H 11/11/20 12:10 Ur Leukocyte Leatha ase Negative (Negati ve) 11/11/20 12:10 Urine RBC None /hpf (0-2) 11/11/20 12:10 Urine WBC Rare /hpf (0-5) 11/11/20 12:10 Ur Squamous Epith Cells None /hpf (0-5) 11/11/20 12:10 Amorphous Sediment Not Reportable 11/11/20 12:10 Urine Bacteria Trace /hpf (NONE) 11/11/20 12:10 Urine Mucus 1+ /hpf 11/11/20 12:10 Impressions Chest X-Ray 11/10/20 19:14 IMPRESSION: No acute pulmonary process is demonstrated. Head CT 11/10/20 19:14 IMPRESSION: No definite acute intracranial process is demonstrated when allowing for artifacts from patient motion. Radiation Dose CTDIVOL = (mGy): DLP = 858.44 (mGy-cm) Carotid Doppler Study 11/11/20 23:31 Impression: 1. Asymmetric echogenic plaque formation within the carotid arteries, without hemodynamically significant ICA stensosis. 2. Normal antegradew flow within the vertebral arteries. Vitals: Last Vital Signs Temp 97.6 F 11/12/20 11:51 Pulse 85 11/12/20 11:55 Resp 18 11/12/20 11:52 BP 114/67 11/12/20 11:51 Pulse Ox 94 11/12/20 11:52 Discharge Plan Discharge Patient Disposition: Home Condition: Stable Prescriptions: New midodrine 5 mg Tablet 5 mg PO TID 30 Days Qty: 90 RF: 0 levofloxacin 500 mg tablet 500 mg PO DAILY 7 Days RF: 0 Continued tamsulosin 0.4 mg capsule 0.4 mg PO BID@0600,2200 RF: 0 albuterol sulfate 90 mcg/actuation aero powdr breath act w/sensor 1 inh INHALATION Q4H RF: 0 aspirin [Adult Low Dose Aspirin] 81 mg tablet,delayed release (DR/EC) 81 mg PO DAILY@0600 RF: 0 Stiolto Respimat 2.5-2.5 mcg/actuation mist 2 puff INHALATION DAILY@0600 RF: 0 atorvastatin 80 mg tablet 40 mg PO DAILY RF: 0 montelukast 10 mg tablet 10 mg PO DAILY@0600 RF: 0 potassium chloride 10 mEq capsule, extended release 20 meq PO DAILY@0600 RF: 0 ferrous sulfate 325 mg (65 mg iron) tablet 325 mg PO DAILY@0600 RF: 0 amiodarone 200 mg tablet 200 mg PO BID@0600,2200 RF: 0 pantoprazole [Protonix] 40 mg tablet,delayed release (DR/EC) 40 mg PO BIDWMEAL 42 Days Qty: 84 RF: 3 sertraline 100 mg Tablet 100 mg PO DAILY@0600 RF: 0 warfarin 5 mg tablet See Rx Instructions .ROUTE .COMPLEX RF: 0 cyclobenzaprine 10 mg tablet 10 mg PO BID@0600,2200 PRN (Reason: muscle spasm) RF: 0 hydrocodone-acetaminophen 5-325 mg tablet 1 tab PO Q6H PRN (Reason: pain) RF: 0 gabapentin 300 mg capsule 300 mg PO TID@,, RF: 0 diltiazem HCl 180 mg capsule,extended release 24 hr 180 mg PO DAILY Qty: 30 RF: 0 Changed sildenafil (pulm.hypertension) 20 mg tablet 10 mg PO TID@, Qty: 0 RF: 0 furosemide 20 mg tablet 20 mg PO DAILY@0600 PRN (Reason: swelling, weight gain of more than 5 lbs) Qty: 0 RF: 0 Discharge Orders: Discharge Order (Routine); Ordered 11/12/20 Ordered By: Prasanna Coon Referrals: Carol Cesar MD [Primary Care Provider] - 1 week Primitivo Ryan MD [Staff Physician] - 11/14/20 Discharge Diet: Regular Discharge Activity: Resume usual activity Patient Instructions: Opioid Safety Activity Restrictions/Additional Instructions: Please make sure that you maintain your hydration as discussed in detail. Please take 2 L of fluid every day. Continue wearing compression stockings at home. Your dose of sildenafil has been decreased to 10 mg 3 times a day. Take Lasix only if your body weight is increased by 5 pounds to your baseline. Please follow-up with your primary care provider within next 7 days with blood pressure chart. Check orthostatics once daily for next 7 days. Please change positions from lying down to sitting, sitting to standing gradually after waiting for 30 seconds in 1 position. Discharge Attestations Time Spent in Discharge Care*: greater than 30 min Specific Discharge Activities: educating patient, educating and/or supporting family/caregiver, discussing with pcp/other providers, discussing with case checker/social workers/dc planners, documenting/other paperwork and evaluating patient/reviewing data Status at Discharge: Cognitive status at discharge: cognitively intact, Behavioral status at discharge: cooperative, Functional status at discharge: independent ambulation Overall status at discharge: patient is back to baseline Quality Metrics Clinical Quality Measures During this hospital stay, did patient experience: None Coding Level of Care Code Acute g [facility] note Diagnoses Orthostasis I95.1 Adenocarcinoma of esophagus C15.9 Syncope due to orthostatic hypotension I95.1 Hypokalemia E87.6 A-fib I48.91 Neutropenia D70.9
--- NOTE | 2020-11-12 15:16 | PC.NURSE ---
patient refused IVF due to pending discharge
== END 2020-11-12 18:00 | disposition home or self-care (01) | DRG 312 ==
LOC: ER 22:19 → MEDSURG 23:01
PROVIDERS: Internal Medicine; Admitting Provider Internal Medicine; Emergency Provider Emergency Medicine; PCP Family Medicine; Visit Provider Student in an Organized Health Care Education/Training Program
DX: I95.1 Orthostatic hypotension (principal); C15.9 Malignant neoplasm of esophagus, unspecified; K21.9 Gastro-esophageal reflux disease without esophagitis; Z86.010 Personal history of colon polyps; I10 Essential (primary) hypertension; E78.5 Hyperlipidemia, unspecified; N48.6 Induration penis plastica; Z87.442 Personal history of urinary calculi; I25.10 Atherosclerotic heart disease of native coronary artery without angina pectoris; Z95.5 Presence of coronary angioplasty implant and graft; Z95.1 Presence of aortocoronary bypass graft; F17.210 Nicotine dependence, cigarettes, uncomplicated; E87.6 Hypokalemia; I48.91 Unspecified atrial fibrillation; D70.1 Agranulocytosis secondary to cancer chemotherapy; T45.1X5A Adverse effect of antineoplastic and immunosuppressive drugs, initial encounter; Z95.2 Presence of prosthetic heart valve; J44.9 Chronic obstructive pulmonary disease, unspecified; I27.20 Pulmonary hypertension, unspecified; Z79.01 Long term (current) use of anticoagulants; Z79.891 Long term (current) use of opiate analgesic; Z79.51 Long term (current) use of inhaled steroids; Z79.82 Long term (current) use of aspirin
CPT/HCPCS: 36415; 70450; 71045; 80053; 81001; 82533; 83605; 83735; 84484; 85025; 85610; 86140; 93005; 93306; 93880; 94640; 96360; 96361; 99291; G0378; J3535; J7030

== ENCOUNTER 2020-11-23 05:32 | Outpatient (RCR) | payer OTHER, SELFPAY ==
[2020-11-14] MEDS: sodium chloride 0.9% 1,000 ML 999 ML IV (14:10)
[2020-11-14 15:00] LABS: Basophils % 0.6 %; Eosinophils % 0.6 %; Hematocrit 30.3 % (42.0-52.0); Lymphocytes # 0.5 10^3/uL (0.8-4.8); Lymphocytes % 16.9 %; Mean Corpuscular Hemoglobin 32.2 pg (28.0-34.0); Mean Corpuscular Volume 97.4 fL (80-94); Mean Platelet Volume 9.7 fL (7.4-10.4); Monocytes # 0.3 10^3/uL (0.2-0.9); Monocytes % 9.7 %; Neutrophils # 2.27 10^3/uL (1.8-7.7); Neutrophils % 71.3 %; Nucleated Red Blood Cells % 0 %; Platelet Count 151 10^3/cmm (130-400); Red Blood Count 3.11 10^6/uL (4.1-5.3); Red Cell Distribution Width 19.6 % (12.1-15.1); White Blood Count 3.2 10^3/uL (4.0-10.0)
[2020-11-14 15:41] LABS: Slide Review Slide Review Perform
[2020-11-14 21:49] LABS: Iron 51 ug/dL (59-158); Percent Saturation 26.5 % (20-50); Total Iron Binding Capacity 192 mcg/dl; Unsaturated Iron Binding 141 ug/dL (112-347)
[2020-11-14 21:52] LABS: Ferritin > 1387 ng/mL (30-400)
[2020-11-15] MEDS: sodium chloride 0.9% 1,000 ML 999 ML IV (08:56)
--- NOTE | 2020-11-15 09:01 | ONC FU_ITS ---
Dr. Ryan follow up note Patient: Kyung Queen Unit #: [id number]: [id number] Dicatated By: Primitivo Ryan M.D.Date of Visit:November 15, 2020 Onc Med Follow-up/Prog Note History of Present Illness: Mr. Queen is a 59-year-old gentleman with progressive longstanding history of left upper quadrant pain. He was referred to surgery for evaluation and on May 15, 2020 he underwent an EGD. The EGD showed a couple of areas of suspected Parker's patches with small 1 cm nodule/mass which was firm. The mass was biopsied and there was another soft polypoid mass at Z-line which was also biopsied. The stomach showed nonerosive gastritis in the antrum and small hiatal hernia seen on retroflexion. Duodenal exam was unremarkable. His pathology report on the distal esophageal mass biopsy confirmed moderately differentiated adenocarcinoma. The tumor was CK20 positive and Tyrone-EP4 positive. Mr Queen underwent a CT scan of chest/abdomen/pelvis on June 11, 2020 which showed chronic esophageal disease; fine reticular pattern throughout both lungs; Mild subcarinal lymphadenopathy; mitral valve replacement but no intra-abdominal abnormality. He denies any history of dysphagia, hemoptysis or hematemesis. He denies any history of weight loss, jaundice, or abdominal pain except off and on left epigastric pain. History of 40+ year smoking and still active, about pack a day; occasionally alcohol intake. Patient has history of sleep apnea but noncompliant with CPAP machine. History of coronary artery disease status post CABG, underwent colonoscopy in October 2019 with polypectomy. Mr Queen was referred to Dr. Turk for surgical evaluation, as per patient [facility] took a long time to approve his visit to Dr. Turk. He was referred to Dr. Carlton for EUS which was eventually done on August 28, 2020 which confirmed ulcerative mass lesion at the distal esophagus extending from 36 to 39 cm noncircumferential. Periesophageal lymph nodes were noted at 31 cm and 34 cm from incisors and they measured 2.3 cm diameter were malignant in appearance. Esophageal mass itself did not infiltrate beyond the muscularis propria layer. Multiple subcentimeter lymph nodes were noted around the area of celiac trunk. No focal left lobe of liver lesion identified. EUS staging T2 N1 MX 1.2 cm polypoid lesion in the second portion of duodenum atypical appearing major papilla or true polyp. Hiatal hernia. discussed the EUS findings. There was concern as multiple subcentimeter lymph nodes around the area of the celiac trunk were identified which could be reactive or malignant. A PET CT was requested which was performed on 09/15/2020. At the distal thoracic esophagus there was a 2.7 cm diameter region of activity with an SUV of 4.2, consistent with the known adenocarcinoma at that level. Multiple FDG positive mediastinal nodes represent local metastatic disease. These were noted in the prevascular, subcarinal, right paratracheal (4R and 2R) and subaortic territories. An index prevascular node measured 1.8 x 3.0 cm with an SUV of 5.4. A right retrocrural node measures 7 mm is too small to characterize. Other celiac and gastrohepatic nodes are less than 6 cm in size and are FDG negative. There was no significant head and neck adenopathy. With the PET/CT findings Mr. Queen was referred to radiation oncology for concurrent therapy with weekly carboplatin AUC two and paclitaxel 50 mg per metered squared. Again his first cycle of chemotherapy on September 27, 2020. And completed on October 30, 2020, during his last weekly dose of chemotherapy concurrent with radiation therapy patient received dose of Abraxane instead of Taxol as he could not tolerate oral steroids. And patient completed radiation therapy on October 31, 2020 Came for follow-up, complaining of generalized weakness and fatigue as per patient he was admitted to the hospital on November 11, 2020 with near syncopal attack and diagnosed with orthostasis due to dehydration, patient was hydrated with that his symptoms improved and was discharged home on November 12, 2020 while in the hospital he had extensive work-up done including CT scan of the head which showed no acute intracranial process. Carotid Doppler study showed asymmetric echogenic plaque formation with the carotid arteries without hemodynamically significant ICA stenosis normal flow within the vertebral arteries. Chest x-ray showed no acute infiltrates and echocardiogram shows slightly diminished ejection fraction of 50% slightly dyskinetic basal inferior wall segment. Bio prosthetic valve in the mitral position appears to be well-seated Patient is complaining of poor oral intake because of discomfort and pain in the substernal area but denies any hematemesis denies any hemoptysis denies any more episode of rectal bleeding. Patient was supposed to see Dr. Turk for evaluation for esophagectomy on November 12, 2020 but because of being inpatient it was canceled and now patient will call in for follow-up appointment Medications: Amiodarone HCl 1 Tablet (of 200 mg) Oral b.i.d., Aspirin 1 Tablet (of 81 mg) Tablet, chewable Oral daily, Atorvastatin Calcium 1 Tablet (of 40 mg) Oral daily, Coumadin 1 Tablet (of 2.5 mg) Oral daily on Every Other Day, Cyclobenzaprine HCl 1 Tablet (of 10 mg) Oral b.i.d., dilTIAZem CD 1 Capsule (of 300 mg) Capsule SR 24 HR Oral daily, Ferrous Sulfate 1 Tablet (of 325 (65 fe) mg) Oral daily, Furosemide 1 Tablet (of 40 mg) Oral daily, Gabapentin 1 Capsule (of 300 mg) Oral t.i.d., HYDROcodone-Acetaminophen 1 Tablet (of 5-325 mg) Oral four times a day, Levaquin 1 Tablet (of 750 mg) Oral daily for 7 days, Midodrine HCl 1 Tablet (of 5 mg) Oral, Montelukast Sodium 1 Tablet (of 10 mg) Oral daily, Pantoprazole Sodium 1 Tablet (of 40 mg) Tablet, enteric coated Oral daily, Potassium Chloride ER 1 Tablet (of 20 meq) Tablet, controlled release Oral daily, Respaire-30 Capsule Oral, Sertraline HCl 1 Tablet (of 100 mg) Oral daily, Sildenafil Citrate 1 Tablet (of 20 mg) Oral t.i.d., Tamsulosin HCl 1 Capsule (of 0.4 mg) Oral b.i.d. Allergies: No Known Allergies. Review of Systems: Review of Systems is not available for this patient. Vital Signs: Performed on November 15, 2020 08:16 Height - 71.00 in Weight - 181.0 lbs (LOW) BSA - 2.02 sq.m BMI - 25.24 Temperature - 97.4 F (LOW) Pulse - 103 /min (HIGH) Respiration - 18 /min BP - 86/55 mm(hg) (LOW) O2 Sat - 96 % Pain - 6 Performance Status: 2 - Ambulatory/capable of all self-care, unable to perform any work activities. Up and about more than 50% of waking hours. (ECOG) Physical Examination: ENMT - No mouth sores, no thrush, no jaundice but dry oral mucosa, Respiratory - Lungs are clear to auscultation, Cardiovascular - Regular rate and rhythm of heart, Abdomen - Soft, bowel sounds present, Extremities - No visible edema. Lab/Imaging: Test performed on October 29, 2020 14:03 Creatinine 0.6 mg/dL Cr Clearance (Est) 164.66 mL/min Test performed on October 29, 2020 11:13 Sodium 134 mmol/L Potassium 4.1 mmol/L Chloride 104 mmol/L CO2 21 mmol/L Anion Gap 13.1 BUN 7 mg/dL eGFR 137.9 mL/min Glucose 116 mg/dL Osmolality - Calculated 277 mOsm/kg Calcium 7.5 mg/dL Protein, Total 5.1 g/dL Albumin 2.6 g/dL Globulin 2.5 g/dL Bilirubin, Total 0.6 mg/dL ALT (SGPT) 12 U/L AST (SGOT) 9 U/L Alkaline Phosphatase 76 IU/L WBC 4.7 10 3/uL RBC 3.64 10 6/uL HGB 11.7 g/dL HCT 35.0 % MCV 96.2 fL MCH 32.1 pg MCHC 33.4 g/dL RDW 17.0 % Platelet Count 118 10 3/cmm MPV 9.9 fL Neutrophils 3.12 10 3/uL Lymphocytes 0.6 10 3/uL Monocytes 0.6 10 3/uL Eosinophils 0.0 10 3/uL Basophils 0.0 10 3/uL Neutrophil % 66.2 % Lymphocyte % 13.2 % Monocyte % 11.7 % Eosinophil % 0.2 % Basophils % 0.8 % NRBC % 0 % CBC Slide Review Slide Review Perform SLIDE REVIEW AGREES WITH AUTOMATED RESULTS Test performed on Oct 17, 2020 09:17 PT 20.80 SECONDS INR 1.72 Impression: Moderately differentiated adenocarcinoma per EGD done on May 15, 2020 CT scan of chest abdomen pelvis done on June 11, 2020 showed fine reticular and patent throughout lungs could represent chronic interstitial lung disease. Cardiac surgery/mitral valve replacement, mild subcarinal lymphadenopathy No other abnormality seen EUS done on August 28, 2020 showed ulcerating mass lesion in the distal esophagus extending from 36 to 39 cm. None circumferential. Also seen periesophageal lymph nodes at 31 cm and 34 cm from the incisors, measuring 2.3 cm diameter. Malignant in appearance. Esophageal mass itself did not infiltrate beyond muscularis propria layer. Multiple subcentimeter lymph nodes were noted around the area of celiac trunk. No focal left lower liver lesion seen. EUS staging T2 N1 MX Status post combined chemoradiation with a weekly carboplatin/Taxol except last weekly dose of Taxol was substituted with Abraxane due to intolerance to steroids. Completed on October 31, 2020 Coronary artery disease status post CABG status post stenting COPD Sleep apnea, noncompliant with CPAP Longstanding history of smoking, still active e.g. 1 pack/day Plan: Discussed with patient regarding his labs white blood count 3.2 hemoglobin 10 g compared to 9.3 g previously since then patient received 1 unit of packed RBC, hematocrit 30.3 platelets 151,000 compared to 121,000 previously ANC 2270 Clinically, patient is doing reasonably well except generalized weakness and fatigue which is due to poor oral intake due to chemo radiation-induced esophagitis., Patient was admitted to hospital with severe dehydration responded well to IV fluids. At this point we will maintain his hydration as outpatient, will proceed with normal saline 1000 cc daily and then consider every other day until patient is chemo radiation-induced esophagitis improves and is oral intake improves. Patient was also advised to try Ensure for nutrition Patient was advised to talk to Dr. Turk's office for follow-up appointment for evaluation regarding possible esophagectomy. Patient return to clinic in 1 week with CBC CMP, as his follow-up CBC shows persistent anemia although there is no more episode of rectal bleeding and anemia work-up is inconclusive and mild leukopenia persist and still improving. Signed By: Primitivo Ryan M.D. <<Signature on File>>
[2020-11-19] MEDS: sodium chloride 0.9% 1,000 ML 999 ML IV (13:55)
[2020-11-21] MEDS: sodium chloride 0.9% 1,000 ML 999 ML IV (11:30)
[2020-11-21 12:10] LABS: Basophils % 0.2 %; Eosinophils % 0.2 %; Hemoglobin 9.2 g/dL (11.7-16.6); Lymphocytes # 0.7 10^3/uL (0.8-4.8); Lymphocytes % 15.8 %; Mean Corpuscular HGB Conc 32.9 g/dL (30.0-36.0); Mean Corpuscular Hemoglobin 32.5 pg (28.0-34.0); Mean Corpuscular Volume 98.9 fL (80-94); Mean Platelet Volume 9.1 fL (7.4-10.4); Monocytes # 0.4 10^3/uL (0.2-0.9); Monocytes % 8.3 %; Neutrophils # 3.18 10^3/uL (1.8-7.7); Nucleated Red Blood Cells % 0 %; Platelet Count 196 10^3/cmm (130-400); Red Blood Count 2.83 10^6/uL (4.1-5.3); Red Cell Distribution Width 20.5 % (12.1-15.1); White Blood Count 4.2 10^3/uL (4.0-10.0)
[2020-11-21 12:40] LABS: Alanine Aminotransferase 9 U/L (0-41); Alkaline Phosphatase 73 IU/L (40-130); Anion Gap 11.7 (5-19); Aspartate Amino Transferase 9 U/L (0-40); Blood Urea Nitrogen 8 mg/dL (6-20); Carbon Dioxide 24 mmol/L (22-29); Chloride 99 mmol/L (98-107); Globulin 3.1 g/dL (1.3-4.6); Glomerular Filtration Rate 170.2 mL/min (90-130); Glucose 125 mg/dL (65-115); Osmolality Calculated 272 mOsm/kg (285-295); Potassium 3.7 mmol/L (3.5-5.1); Sodium 131 mmol/L (136-145); Total Bilirubin 0.7 mg/dL (0.15-1.2); Total Protein 6.1 g/dL (6.6-8.7)
[2020-11-23] MEDS: sodium chloride 0.9% 1,000 ML 999 ML IV (09:00)
--- NOTE | 2020-11-23 10:50 | ONC FU_ITS ---
Dr. Ryan follow up note Patient: Kyung Queen Unit #: [id number]: [id number] Dicatated By: Primitivo Ryan M.D.Date of Visit:November 23, 2020 Onc Med Follow-up/Prog Note History of Present Illness: Mr. Queen is a 59-year-old gentleman with progressive longstanding history of left upper quadrant pain. He was referred to surgery for evaluation and on May 15, 2020 he underwent an EGD. The EGD showed a couple of areas of suspected Parker's patches with small 1 cm nodule/mass which was firm. The mass was biopsied and there was another soft polypoid mass at Z-line which was also biopsied. The stomach showed nonerosive gastritis in the antrum and small hiatal hernia seen on retroflexion. Duodenal exam was unremarkable. His pathology report on the distal esophageal mass biopsy confirmed moderately differentiated adenocarcinoma. The tumor was CK20 positive and Tyrone-EP4 positive. Mr Queen underwent a CT scan of chest/abdomen/pelvis on June 11, 2020 which showed chronic esophageal disease; fine reticular pattern throughout both lungs; Mild subcarinal lymphadenopathy; mitral valve replacement but no intra-abdominal abnormality. He denies any history of dysphagia, hemoptysis or hematemesis. He denies any history of weight loss, jaundice, or abdominal pain except off and on left epigastric pain. History of 40+ year smoking and still active, about pack a day; occasionally alcohol intake. Patient has history of sleep apnea but noncompliant with CPAP machine. History of coronary artery disease status post CABG, underwent colonoscopy in October 2019 with polypectomy. Mr Queen was referred to Dr. Turk for surgical evaluation, as per patient [facility] took a long time to approve his visit to Dr. Turk. He was referred to Dr. Carlton for EUS which was eventually done on August 28, 2020 which confirmed ulcerative mass lesion at the distal esophagus extending from 36 to 39 cm noncircumferential. Periesophageal lymph nodes were noted at 31 cm and 34 cm from incisors and they measured 2.3 cm diameter were malignant in appearance. Esophageal mass itself did not infiltrate beyond the muscularis propria layer. Multiple subcentimeter lymph nodes were noted around the area of celiac trunk. No focal left lobe of liver lesion identified. EUS staging T2 N1 MX 1.2 cm polypoid lesion in the second portion of duodenum atypical appearing major papilla or true polyp. Hiatal hernia. discussed the EUS findings. There was concern as multiple subcentimeter lymph nodes around the area of the celiac trunk were identified which could be reactive or malignant. A PET CT was requested which was performed on 09/15/2020. At the distal thoracic esophagus there was a 2.7 cm diameter region of activity with an SUV of 4.2, consistent with the known adenocarcinoma at that level. Multiple FDG positive mediastinal nodes represent local metastatic disease. These were noted in the prevascular, subcarinal, right paratracheal (4R and 2R) and subaortic territories. An index prevascular node measured 1.8 x 3.0 cm with an SUV of 5.4. A right retrocrural node measures 7 mm is too small to characterize. Other celiac and gastrohepatic nodes are less than 6 cm in size and are FDG negative. There was no significant head and neck adenopathy. With the PET/CT findings Mr. Queen was referred to radiation oncology for concurrent therapy with weekly carboplatin AUC two and paclitaxel 50 mg per metered squared. Again his first cycle of chemotherapy on September 27, 2020. And completed on October 30, 2020, during his last weekly dose of chemotherapy concurrent with radiation therapy patient received dose of Abraxane instead of Taxol as he could not tolerate oral steroids. And patient completed radiation therapy on October 31, 2020 t he was admitted to the hospital on November 11, 2020 with near syncopal attack and diagnosed with orthostasis due to dehydration, patient was hydrated with that his symptoms improved and was discharged home on November 12, 2020 while in the hospital he had extensive work-up done including CT scan of the head which showed no acute intracranial process. Carotid Doppler study showed asymmetric echogenic plaque formation with the carotid arteries without hemodynamically significant ICA stenosis normal flow within the vertebral arteries. Chest x-ray showed no acute infiltrates and echocardiogram shows slightly diminished ejection fraction of 50% slightly dyskinetic basal inferior wall segment. Bio prosthetic valve in the mitral position appears to be well-seated Came for follow-up, denies any specific complaint except generalized weakness and fatigue, as per patient he is scheduled see Dr. Turk on December 05, 2020, at that time, he will probably undergo a CT scan of chest and abdomen and possible EGD for preop evaluation, still complaining of mild to moderate dysphagia especially burning sensation in the lower esophagus patient completed combined chemoradiation the last week of October, denies any hemoptysis or hematemesis, denies any shortness of breath at rest, patient use home oxygen, denies any melena or hematochezia, denies any abdominal pain, denies any jaundice, Patient said scheduled IV hydration is helping him a lot and wants to continue until start tolerating orally, this way he will stay out of hospital. Medications: Amiodarone HCl 1 Tablet (of 200 mg) Oral b.i.d., Aspirin 1 Tablet (of 81 mg) Tablet, chewable Oral daily, Atorvastatin Calcium 1 Tablet (of 40 mg) Oral daily, Coumadin 1 Tablet (of 2.5 mg) Oral daily on Every Other Day, Cyclobenzaprine HCl 1 Tablet (of 10 mg) Oral b.i.d., dilTIAZem CD 1 Capsule (of 300 mg) Capsule SR 24 HR Oral daily, Ferrous Sulfate 1 Tablet (of 325 (65 fe) mg) Oral daily, Furosemide 1 Tablet (of 40 mg) Oral daily, Gabapentin 1 Capsule (of 300 mg) Oral t.i.d., HYDROcodone-Acetaminophen 1 Tablet (of 5-325 mg) Oral four times a day, Levaquin 1 Tablet (of 750 mg) Oral daily for 7 days, Midodrine HCl 1 Tablet (of 5 mg) Oral, Montelukast Sodium 1 Tablet (of 10 mg) Oral daily, Pantoprazole Sodium 1 Tablet (of 40 mg) Tablet, enteric coated Oral daily, Respaire-30 Capsule Oral, Sertraline HCl 1 Tablet (of 100 mg) Oral daily, Sildenafil Citrate 1 Tablet (of 20 mg) Oral t.i.d., Tamsulosin HCl 1 Capsule (of 0.4 mg) Oral b.i.d. Allergies: No Known Allergies. Review of Systems: Review of Systems is not available for this patient. Vital Signs: Performed on November 23, 2020 08:15 Height - 71.00 in Weight - 181.0 lbs BSA - 2.02 sq.m BMI - 25.24 Temperature - 97.7 F (LOW) Pulse - 93 /min Respiration - 18 /min BP - 86/56 mm(hg) (LOW) O2 Sat - 96 % Pain - 6 Performance Status: 1 - No physically strenuous activity, but ambulatory and able to carry out light or sedentary work (e.g. office work, light house work). (ECOG) Physical Examination: ENMT - Dry oral mucosa, no mouth sores, no jaundice, Respiratory - Lungs are clear to auscultation, Cardiovascular - Regular rate and rhythm of heart, Abdomen - Soft, bowel sounds present, Extremities - No visible edema or rash. Lab/Imaging: Test performed on October 29, 2020 14:03 Creatinine 0.6 mg/dL Cr Clearance (Est) 164.66 mL/min Test performed on October 29, 2020 11:13 Sodium 134 mmol/L Potassium 4.1 mmol/L Chloride 104 mmol/L CO2 21 mmol/L Anion Gap 13.1 BUN 7 mg/dL eGFR 137.9 mL/min Glucose 116 mg/dL Osmolality - Calculated 277 mOsm/kg Calcium 7.5 mg/dL Protein, Total 5.1 g/dL Albumin 2.6 g/dL Globulin 2.5 g/dL Bilirubin, Total 0.6 mg/dL ALT (SGPT) 12 U/L AST (SGOT) 9 U/L Alkaline Phosphatase 76 IU/L WBC 4.7 10 3/uL RBC 3.64 10 6/uL HGB 11.7 g/dL HCT 35.0 % MCV 96.2 fL MCH 32.1 pg MCHC 33.4 g/dL RDW 17.0 % Platelet Count 118 10 3/cmm MPV 9.9 fL Neutrophils 3.12 10 3/uL Lymphocytes 0.6 10 3/uL Monocytes 0.6 10 3/uL Eosinophils 0.0 10 3/uL Basophils 0.0 10 3/uL Neutrophil % 66.2 % Lymphocyte % 13.2 % Monocyte % 11.7 % Eosinophil % 0.2 % Basophils % 0.8 % NRBC % 0 % CBC Slide Review Slide Review Perform SLIDE REVIEW AGREES WITH AUTOMATED RESULTS Test performed on Oct 17, 2020 09:17 PT 20.80 SECONDS INR 1.72 Impression: Moderately differentiated adenocarcinoma per EGD done on May 15, 2020 CT scan of chest abdomen pelvis done on June 11, 2020 showed fine reticular and patent throughout lungs could represent chronic interstitial lung disease. Cardiac surgery/mitral valve replacement, mild subcarinal lymphadenopathy No other abnormality seen EUS done on August 28, 2020 showed ulcerating mass lesion in the distal esophagus extending from 36 to 39 cm. None circumferential. Also seen periesophageal lymph nodes at 31 cm and 34 cm from the incisors, measuring 2.3 cm diameter. Malignant in appearance. Esophageal mass itself did not infiltrate beyond muscularis propria layer. Multiple subcentimeter lymph nodes were noted around the area of celiac trunk. No focal left lower liver lesion seen. EUS staging T2 N1 MX Status post combined chemoradiation with a weekly carboplatin/Taxol except last weekly dose of Taxol was substituted with Abraxane due to intolerance to steroids. Completed on October 31, 2020 Coronary artery disease status post CABG status post stenting COPD Sleep apnea, noncompliant with CPAP Longstanding history of smoking, still active e.g. 1 pack/day Plan: Discussed with patient regarding his labs white blood count 4.1 hemoglobin 9.2 hematocrit 28 platelets 196,000 CMP within normal limits except sodium 131 Clinically, patient doing reasonably well with no new signs symptom except persistent distal esophageal discomfort and mild to moderate dysphagia probably due to combined chemoradiation induced esophagitis, patient is scheduled see Dr. Turk on December 05, 2020, as per patient he was told he will undergo a CT scan of chest and abdomen and probably EGD as preop work-up. In the meantime as patient is not tolerating orally well, will continue with IV hydration to keep him out of hospital because of dehydration so we will proceed with IV fluids today and then patient will return to clinic on Thursday or on as-needed basis in the meantime we will continue with monthly port maintenance As far as mild leukopenia is concerned, today's labs shows resolution and white blood count is in normal range but he has persistent moderate anemia and his anemia work-up was inconclusive so other possibility could be underlying myelodysplasia or anemia of chronic disease. We will monitor him and if there is no improvement may consider bone marrow evaluation. Patient return to clinic in 1 month with CBC CMP unless he undergo esophagectomy then we will see him 2 weeks after the surgery again with CBC and CMP. Signed By: Primitivo Ryan M.D. <<Signature on File>>
== END 2020-11-26 23:59 | disposition home or self-care (01) ==
LOC: ONCMED 05:32
PROVIDERS: Absent Provider Radiology Radiation Oncology; PCP Family Medicine; Visit Provider Internal Medicine Hematology & Oncology
DX: C15.5 Malignant neoplasm of lower third of esophagus (principal); D50.9 Iron deficiency anemia, unspecified; I25.10 Atherosclerotic heart disease of native coronary artery without angina pectoris; Z95.5 Presence of coronary angioplasty implant and graft; J44.9 Chronic obstructive pulmonary disease, unspecified; G47.33 Obstructive sleep apnea (adult) (pediatric); F17.210 Nicotine dependence, cigarettes, uncomplicated; Z79.899 Other long term (current) drug therapy
CPT/HCPCS: 80053; 82728; 83540; 83550; 85025; 96360; 99215; J7030

== ENCOUNTER → 2020-12-24 15:32 | Outpatient (BNVA) | payer OTHER, SELFPAY | PROVIDERS: PCP Family Medicine; Visit Provider Surgery | DX: Z01.812 Encounter for preprocedural laboratory examination (principal); Z20.822 Contact with and (suspected) exposure to COVID-19 | CPT/HCPCS: 87635 ==

== ENCOUNTER 2020-12-25 05:32 | Outpatient (RCR) | payer OTHER, SELFPAY ==
[2020-11-28] MEDS: sodium chloride 0.9% 1,000 ML 999 ML IV (08:13)
[2020-11-30] MEDS: sodium chloride 0.9% 1,000 ML 999 ML IV (08:10)
--- NOTE | 2020-11-30 10:03 | ONCRAD EPV_ITS ---
Radiation Oncology Follow-Up Note Patient Name: Kyung Queen Date of : 1960 Date of Service: 11/30/2020 Attending Physician: Colt Aldana M.D. Kyung Queen has completed esophageal radiotherapy for the management of a clinical stage IIIB (T2N2) moderately differentiated adenocarcinoma of the distal esophagus (36cm ??? 39cm from the central incisors). Daily radiotherapy was administered between the dates of September 27, 2020 through October 31, 2020. A prescribed dose of 50 Gy was delivered in 25 fractions encompassing 35 elapsed days. ???On review of systems, he described persistent odynophagia. On physical examination, the patient weighed 179 pounds. His temperature was 97.5 ???F with a blood pressure of 97/56 mmHg. The pulse was 91 bpm and his respiratory rate was 20 breaths per minute. In summary, Mr. Queen returned for a routine post radiotherapy follow-up. He has a surgical consultation next week. Signed by: Dr. Colt Aldana 11/30/2020 10:02:12 AM
[2020-12-03] MEDS: ondansetron 2 mg/ML SDV 2 mL 8 MG IVP (15:28)
[2020-12-03] MEDS: sodium chloride 0.9% 1,000 ML 999 ML IV (15:30)
[2020-12-07] MEDS: sodium chloride 0.9% 1,000 ML 999 ML IV (08:30)
[2020-12-13] MEDS: sodium chloride 0.9% 1,000 ML 999 ML IV (14:50)
[2020-12-13] MEDS: ondansetron 2 mg/ML SDV 2 mL 8 MG IVP (14:50)
[2020-12-18] MEDS: sodium chloride 0.9% 1,000 ML 999 ML IV (14:40)
[2020-12-20] MEDS: HYDROcodone-acetaminophen 10-325 mg Tablet 1 TAB PO (15:10)
[2020-12-20] MEDS: sodium chloride 0.9% 1,000 ML 999 ML IV (15:10)
[2020-12-20] MEDS: ondansetron 2 mg/ML SDV 2 mL 8 MG IVP (15:10)
[2020-12-25] MEDS: sodium chloride 0.9% 1,000 ML 999 ML IV (14:55)
[2020-12-25 15:05] LABS: Basophils % 0.2 %; Eosinophils % 0.5 %; Hematocrit 28.9 % (42.0-52.0); Hemoglobin 9.1 g/dL (11.7-16.6); Lymphocytes # 0.5 10^3/uL (0.8-4.8); Lymphocytes % 9.5 %; Mean Corpuscular HGB Conc 31.5 g/dL (30.0-36.0); Mean Corpuscular Hemoglobin 31.8 pg (28.0-34.0); Mean Platelet Volume 9.1 fL (7.4-10.4); Monocytes # 0.5 10^3/uL (0.2-0.9); Monocytes % 8.3 %; Neutrophils % 80.8 %; Nucleated Red Blood Cells % 0 %; Platelet Count 205 10^3/cmm (130-400); Red Blood Count 2.86 10^6/uL (4.1-5.3); Red Cell Distribution Width 16.4 % (12.1-15.1); White Blood Count 5.7 10^3/uL (4.0-10.0)
[2020-12-25 15:30] LABS: Alanine Aminotransferase 23 U/L (0-41); Albumin Level 2.6 g/dL (3.5-5.2); Alkaline Phosphatase 98 IU/L (40-130); Anion Gap 14.1 (5-19); Aspartate Amino Transferase 26 U/L (0-40); Blood Urea Nitrogen 7 mg/dL (8-23); Carbon Dioxide 24 mmol/L (22-29); Chloride 101 mmol/L (98-107); Globulin 3.1 g/dL (1.3-4.6); Glomerular Filtration Rate 219.4 mL/min (90-130); Glucose 108 mg/dL (65-115); Osmolality Calculated 281 mOsm/kg (285-295); Potassium 3.1 mmol/L (3.5-5.1); Sodium 136 mmol/L (136-145); Total Bilirubin 0.7 mg/dL (0.15-1.2); Total Protein 5.7 g/dL (6.6-8.7)
--- NOTE | 2020-12-25 16:32 | ONC FU_ITS ---
Dr. Ryan follow up note Patient: Kyung Queen Unit #: [id number]: 1960 Dicatated By: Primitivo Ryan M.D.Date of Visit:Dec 25, 2020 Onc Med Follow-up/Prog Note History of Present Illness: Mr. Queen is a 60 -year-old gentleman with progressive longstanding history of left upper quadrant pain. He was referred to surgery for evaluation and on May 15, 2020 he underwent an EGD. The EGD showed a couple of areas of suspected Parker's patches with small 1 cm nodule/mass which was firm. The mass was biopsied and there was another soft polypoid mass at Z-line which was also biopsied. The stomach showed nonerosive gastritis in the antrum and small hiatal hernia seen on retroflexion. Duodenal exam was unremarkable. His pathology report on the distal esophageal mass biopsy confirmed moderately differentiated adenocarcinoma. The tumor was CK20 positive and Tyrone-EP4 positive. Mr Queen underwent a CT scan of chest/abdomen/pelvis on June 11, 2020 which showed chronic esophageal disease; fine reticular pattern throughout both lungs; Mild subcarinal lymphadenopathy; mitral valve replacement but no intra-abdominal abnormality. He denies any history of dysphagia, hemoptysis or hematemesis. He denies any history of weight loss, jaundice, or abdominal pain except off and on left epigastric pain. History of 40+ year smoking and still active, about pack a day; occasionally alcohol intake. Patient has history of sleep apnea but noncompliant with CPAP machine. History of coronary artery disease status post CABG, underwent colonoscopy in October 2019 with polypectomy. Mr Queen was referred to Dr. Turk for surgical evaluation, as per patient [facility] took a long time to approve his visit to Dr. Turk. He was referred to Dr. Carlton for EUS which was eventually done on August 28, 2020 which confirmed ulcerative mass lesion at the distal esophagus extending from 36 to 39 cm noncircumferential. Periesophageal lymph nodes were noted at 31 cm and 34 cm from incisors and they measured 2.3 cm diameter were malignant in appearance. Esophageal mass itself did not infiltrate beyond the muscularis propria layer. Multiple subcentimeter lymph nodes were noted around the area of celiac trunk. No focal left lobe of liver lesion identified. EUS staging T2 N1 MX 1.2 cm polypoid lesion in the second portion of duodenum atypical appearing major papilla or true polyp. Hiatal hernia. discussed the EUS findings. There was concern as multiple subcentimeter lymph nodes around the area of the celiac trunk were identified which could be reactive or malignant. A PET CT was requested which was performed on 09/15/2020. At the distal thoracic esophagus there was a 2.7 cm diameter region of activity with an SUV of 4.2, consistent with the known adenocarcinoma at that level. Multiple FDG positive mediastinal nodes represent local metastatic disease. These were noted in the prevascular, subcarinal, right paratracheal (4R and 2R) and subaortic territories. An index prevascular node measured 1.8 x 3.0 cm with an SUV of 5.4. A right retrocrural node measures 7 mm is too small to characterize. Other celiac and gastrohepatic nodes are less than 6 cm in size and are FDG negative. There was no significant head and neck adenopathy. With the PET/CT findings Mr. Queen was referred to radiation oncology for concurrent therapy with weekly carboplatin AUC two and paclitaxel 50 mg per metered squared. Again his first cycle of chemotherapy on September 27, 2020. And completed on October 30, 2020, during his last weekly dose of chemotherapy concurrent with radiation therapy patient received dose of Abraxane instead of Taxol as he could not tolerate oral steroids. And patient completed radiation therapy on October 31, 2020 t he was admitted to the hospital on November 11, 2020 with near syncopal attack and diagnosed with orthostasis due to dehydration, patient was hydrated with that his symptoms improved and was discharged home on November 12, 2020 while in the hospital he had extensive work-up done including CT scan of the head which showed no acute intracranial process. Carotid Doppler study showed asymmetric echogenic plaque formation with the carotid arteries without hemodynamically significant ICA stenosis normal flow within the vertebral arteries. Chest x-ray showed no acute infiltrates and echocardiogram shows slightly diminished ejection fraction of 50% slightly dyskinetic basal inferior wall segment. Bio prosthetic valve in the mitral position appears to be well-seated Came for follow-up, complaining of generalized weakness and fatigue, painful swallowing, but no nausea or vomiting, no diarrhea or constipation, as per patient since his recent hospitalization in October 2020, his Lasix and potassium supplement were discontinued and he was also put on home oxygen, prior to that never used oxygen. He is still smoking about pack a day. Patient was recently seen by Dr. Turk in [place] for evaluation for esophagectomy but because of patient is on home oxygen, as per patient he was told that he is not a candidate for esophagectomy. Patient is scheduled for follow-up EGD on coming . As per patient he is having difficulty pulling oxygen tank with him and requesting if he can have portable oxygen, patient has never seen driving instructor Medications: Amiodarone HCl 1 Tablet (of 200 mg) Tablet Oral b.i.d., Aspirin 1 Tablet (of 81 mg) Tablet, chewable Oral daily, Atorvastatin Calcium 1 Tablet (of 40 mg) Oral daily, Coumadin 1 Tablet (of 2.5 mg) Oral daily on Every Other Day, Cyclobenzaprine HCl 1 Tablet (of 10 mg) Oral b.i.d., dilTIAZem CD 1 Capsule (of 300 mg) Capsule SR 24 HR Oral daily, Ferrous Sulfate 1 Tablet (of 325 (65 fe) mg) Oral daily, Furosemide 1 Tablet (of 40 mg) Oral daily, Gabapentin 1 Capsule (of 300 mg) Oral t.i.d., HYDROcodone-Acetaminophen 1 Tablet (of 5-325 mg) Oral four times a day, Midodrine HCl 1 Tablet (of 5 mg) Oral, Montelukast Sodium 1 Tablet (of 10 mg) Oral daily, Pantoprazole Sodium 1 Tablet (of 40 mg) Tablet, enteric coated Oral daily, Respaire-30 Capsule Oral, Sertraline HCl 1 Tablet (of 100 mg) Oral daily, Sildenafil Citrate 1 Tablet (of 20 mg) Oral t.i.d., Tamsulosin HCl 1 Capsule (of 0.4 mg) Oral b.i.d. Allergies: No Known Allergies. Review of Systems: Review of Systems is not available for this patient. Vital Signs: Performed on Dec 25, 2020 16:04 Height - 71.00 in Weight - 165.6 lbs (LOW) BSA - 1.95 sq.m BMI - 23.10 Temperature - 97.4 F (LOW) Pulse - 102 /min (HIGH) Respiration - 18 /min BP - 93/55 mm(hg) O2 Sat - 96 % Pain - 8 Fatigue - 4 Performance Status: 1 - No physically strenuous activity, but ambulatory and able to carry out light or sedentary work (e.g. office work, light house work). (ECOG) Physical Examination: ENMT - No mouth sores, no thrush, no jaundice, Respiratory - Poor air entry otherwise clear, Cardiovascular - Regular rate and rhythm of heart, Abdomen - Soft, bowel sounds present, Extremities - 1+ edema bilaterally. Lab/Imaging: Test performed on October 29, 2020 14:03 Creatinine 0.6 mg/dL Cr Clearance (Est) 164.66 mL/min Test performed on October 29, 2020 11:13 Sodium 134 mmol/L Potassium 4.1 mmol/L Chloride 104 mmol/L CO2 21 mmol/L Anion Gap 13.1 BUN 7 mg/dL eGFR 137.9 mL/min Glucose 116 mg/dL Osmolality - Calculated 277 mOsm/kg Calcium 7.5 mg/dL Protein, Total 5.1 g/dL Albumin 2.6 g/dL Globulin 2.5 g/dL Bilirubin, Total 0.6 mg/dL ALT (SGPT) 12 U/L AST (SGOT) 9 U/L Alkaline Phosphatase 76 IU/L WBC 4.7 10 3/uL RBC 3.64 10 6/uL HGB 11.7 g/dL HCT 35.0 % MCV 96.2 fL MCH 32.1 pg MCHC 33.4 g/dL RDW 17.0 % Platelet Count 118 10 3/cmm MPV 9.9 fL Neutrophils 3.12 10 3/uL Lymphocytes 0.6 10 3/uL Monocytes 0.6 10 3/uL Eosinophils 0.0 10 3/uL Basophils 0.0 10 3/uL Neutrophil % 66.2 % Lymphocyte % 13.2 % Monocyte % 11.7 % Eosinophil % 0.2 % Basophils % 0.8 % NRBC % 0 % CBC Slide Review Slide Review Perform SLIDE REVIEW AGREES WITH AUTOMATED RESULTS Test performed on Oct 17, 2020 09:17 PT 20.80 SECONDS INR 1.72 Impression: Moderately differentiated adenocarcinoma per EGD done on May 15, 2020 CT scan of chest abdomen pelvis done on June 11, 2020 showed fine reticular and patent throughout lungs could represent chronic interstitial lung disease. Cardiac surgery/mitral valve replacement, mild subcarinal lymphadenopathy No other abnormality seen EUS done on August 28, 2020 showed ulcerating mass lesion in the distal esophagus extending from 36 to 39 cm. None circumferential. Also seen periesophageal lymph nodes at 31 cm and 34 cm from the incisors, measuring 2.3 cm diameter. Malignant in appearance. Esophageal mass itself did not infiltrate beyond muscularis propria layer. Multiple subcentimeter lymph nodes were noted around the area of celiac trunk. No focal left lower liver lesion seen. EUS staging T2 N1 MX Status post combined chemoradiation with a weekly carboplatin/Taxol except last weekly dose of Taxol was substituted with Abraxane due to intolerance to steroids. Completed on October 31, 2020 Coronary artery disease status post CABG status post stenting COPD Sleep apnea, noncompliant with CPAP Longstanding history of smoking, still active e.g. 1 pack/day Anemia, macrocytic etiology unclear, probably multifactorial, anemia work-up inconclusive, on home oxygen since hospitalization in October 2020, etiology unclear questionable pneumonitis Plan: Discussed with patient regarding his labs white blood count 5.7 hemoglobin 9.1 hematocrit 28.9 platelets 205,000 CMP within normal limit except potassium 3.1, Clinically, patient doing reasonably well, now in mild to moderate distress due to home oxygen as well as due to heavy oxygen tank, requesting portable oxygen tank. His follow-up CBC shows persistent moderate anemia macrocytic but anemia work-up was unremarkable so it could be due to underlying myelodysplasia or anemia of chronic disease., We will continue to monitor if there is a further drop in his hemoglobin, will consider blood transfusion if is less than 8 g and also consider bone marrow evaluation once his pulmonary or esophageal issues are taken care of Dysphagia/odynophagia probably due to persistent esophagitis or disease or superimposed fungal infection, patient is scheduled for EGD on coming with Dr. Turk in [place]. As far as home oxygen concern, etiology unclear, patient has never seen driving instructor so we will refer him to pulmonology for evaluation, if patient has radiation-induced pneumonitis causing hypoxia, and if confirmed, he may benefit from steroid-based therapy, in the meantime, we will order portable oxygen tank for patient, Mild hypokalemia, patient has potassium supplements at home, he was advised to take 20 mg daily for 3 days then as needed Return to clinic in 1 month with CBC CMP Signed By: Primitivo Ryan M.D. <<Signature on File>>
== END 2020-12-26 23:59 | disposition home or self-care (01) ==
LOC: ONCMED 05:32
PROVIDERS: Absent Provider Radiology Radiation Oncology; PCP Family Medicine; Visit Provider Internal Medicine Hematology & Oncology
DX: C15.5 Malignant neoplasm of lower third of esophagus (principal); I25.10 Atherosclerotic heart disease of native coronary artery without angina pectoris; Z95.5 Presence of coronary angioplasty implant and graft; J44.9 Chronic obstructive pulmonary disease, unspecified; G47.33 Obstructive sleep apnea (adult) (pediatric); F17.210 Nicotine dependence, cigarettes, uncomplicated; D64.9 Anemia, unspecified; Z99.81 Dependence on supplemental oxygen; R13.10 Dysphagia, unspecified; K22.2 Esophageal obstruction; Z79.899 Other long term (current) drug therapy; Z92.21 Personal history of antineoplastic chemotherapy
CPT/HCPCS: 36415; 36591; 80053; 85025; 87635; 90471; 96360; 96361; 96374; 99024; 99214; 99215; J2405; J7030

== ENCOUNTER → 2021-01-01 10:02 | Outpatient (BNVA) | payer OTHER, SELFPAY | PROVIDERS: PCP Family Medicine; Visit Provider Anesthesiology Pain Medicine | DX: G89.29 Other chronic pain (principal); M50.20 Other cervical disc displacement, unspecified cervical region; M54.9 Dorsalgia, unspecified; C15.9 Malignant neoplasm of esophagus, unspecified; M62.830 Muscle spasm of back; F17.210 Nicotine dependence, cigarettes, uncomplicated; Z98.1 Arthrodesis status; Z79.891 Long term (current) use of opiate analgesic | CPT/HCPCS: 99214 ==

== ENCOUNTER 2021-01-16 16:11 | Emergency (ER) | payer OTHER, SELFPAY ==
[2021-01-16 16:24] VITALS: BP 115/68; PULSE 117; RESP 18; TEMP 37.6; O2SAT 90; BMI 20.9
[2021-01-16 16:52] VITALS: BP 109/58; PULSE 106; RESP 15; O2SAT 96
[2021-01-16 16:55] VITALS: O2SAT 94
--- NOTE | 2021-01-16 17:54 | CTR_ITS ---
PROCEDURE INFORMATION: Exam: CTA Chest With Contrast Exam date and time: 01/16/2021 5:54 PM Age: 60 years old Clinical indication: Other: Hemoptysis; Prior surgery; Surgery type: Port, cabg, egd, coronary stents; Additional info: Hemoptysis, esophageal cancer TECHNIQUE: Imaging protocol: Computed tomographic angiography of the chest with contrast. 3D rendering (Not supervised by radiologist): MIP and/or 3D reconstructed images were created by the technologist. Radiation optimization: All CT scans at this facility use at least one of these dose optimization techniques: automated exposure control; mA and/or kV adjustment per patient size (includes targeted exams where dose is matched to clinical indication); or iterative reconstruction. Contrast material: OMNI 350; Contrast volume: 95 ml; Contrast route: INTRAVENOUS (IV); COMPARISON: CTA Chest-Pulmonary Emb [id number] 04/06/2018 5:45 PM RADIATION DOSE METRICS: Total DLP (mGy-cm): 817.3 FINDINGS: Pulmonary arteries: Normal. No pulmonary emboli. Aorta: Unremarkable. No aortic aneurysm. No aortic dissection. Lungs: Severe emphysematous changes. Patchy bilateral dependent airspace opacities likely reflecting pneumonic infiltrates. Pleural spaces: Unremarkable. No pneumothorax. No pleural effusion. Heart: Unremarkable. No cardiomegaly. No pericardial effusion. Lymph nodes: Prominent mediastinal lymph nodes measuring up to 11 mm, nonspecific. Gallbladder and bile ducts: Biliary sludge versus vicarious secretion contrast in the gallbladder. Bones/joints: Sternotomy wires. Several chronic right rib fractures appear healed. L1 vertebral body compression fracture without retropulsion of bony fragments, new compared to prior exam. Soft tissues: Unremarkable. Right-sided Port-A-Cath. CT/CT angio chest [id number] IMPRESSION: 1. Negative for pulmonary embolus. 2. Prominent mediastinal lymph nodes measuring up to 11 mm, nonspecific. 3. Biliary sludge versus vicarious secretion contrast in the gallbladder. 4. Patchy bilateral dependent airspace opacities likely reflecting pneumonic infiltrates. 5. L1 vertebral body compression fracture without retropulsion of bony fragments, new compared to prior exam. Radiation Dose CTDIVOL = (mGy): DLP = 817.3 (mGy-cm)
--- NOTE | 2021-01-16 19:09 | PC.NURSE ---
Report from PAUL De Jesus
[2021-01-16] MEDS: iohexol 350 mg/mL 100 mL Btl IV (19:34)
[2021-01-16 19:35] LABS: Basophils % 0.3 %; Eosinophils % 0.1 %; Hematocrit 29.3 % (42.0-52.0); Hemoglobin 8.9 g/dL (11.7-16.6); Lymphocytes # 0.4 10^3/uL (0.8-4.8); Lymphocytes % 6.2 %; Mean Corpuscular HGB Conc 30.4 g/dL (30.0-36.0); Mean Corpuscular Hemoglobin 30.2 pg (28.0-34.0); Mean Corpuscular Volume 99.3 fL (80-94); Mean Platelet Volume 9.8 fL (7.4-10.4); Monocytes # 0.6 10^3/uL (0.2-0.9); Monocytes % 8.4 %; Neutrophils # 5.68 10^3/uL (1.8-7.7); Neutrophils % 84.1 %; Nucleated Red Blood Cells % 0 %; Platelet Count 193 10^3/cmm (130-400); Red Blood Count 2.95 10^6/uL (4.1-5.3); Red Cell Distribution Width 15.1 % (12.1-15.1); White Blood Count 6.8 10^3/uL (4.0-10.0)
[2021-01-16 20:25] LABS: Chloride 100 mmol/L (98-107); Lipase 34 U/L (13-60); Potassium 3.9 mmol/L (3.5-5.1)
[2021-01-16 20:31] LABS: Alanine Aminotransferase 40 U/L (0-41); Albumin Level 2.4 g/dL (3.5-5.2); Alkaline Phosphatase 199 IU/L (40-130); Anion Gap 13.9 (5-19); Aspartate Amino Transferase 67 U/L (0-40); Blood Urea Nitrogen 8 mg/dL (8-23); C Reactive Protein 94.7 mg/L (0.0-4.9); Calcium 7.3 mg/dL (8.5-10.5); Carbon Dioxide 24 mmol/L (22-29); Globulin 2.2 g/dL (1.3-4.6); Glomerular Filtration Rate 305.8 mL/min (90-130); Glucose 103 mg/dL (65-115); Osmolality Calculated 277 mOsm/kg (285-295); Sodium 134 mmol/L (136-145); Total Bilirubin 1.1 mg/dL (0.15-1.2); Total Protein 4.6 g/dL (6.6-8.7)
[2021-01-16 20:45] VITALS: BP 99/55; PULSE 103; RESP 20; O2SAT 99
--- NOTE | 2021-01-16 21:09 | W.ED.GIBLEED ---
HPI - GI Bleed General: Chief complaint: GI Bleed Stated complaint: Spitting Up Blood/Diarrhea/Cancer Pt Source: patient and RN notes reviewed Mode of arrival: ambulatory Limitations: no limitations History of Present Illness: HPI Narrative: Patient is a 60-year-old male with esophageal cancer status post chemotherapy and radiation therapy. He presents to the emergency department with a 5-day history of hemoptysis. He states that it started 5 days ago and it was bright red blood when he first started, right now it appears to be altered blood. He feels it is getting a little better but he wanted to be evaluated in the emergency department. He denies shortness of breath, abdominal pain, nausea or vomiting. He denies any fever. He denies any sick contacts. MD complaint: other (hemoptysis) Onset (ago): day(s) (5) Pain Consistency: intermittent Severity: mild Relieving factors: none Exacerbating factors: none Associated symptoms: Denies abdominal pain, chills, easy bruising, epistaxis, fever(s), headache(s), malaise, nausea, other bleeding, poor appetite, rash, syncope, vomiting or weakness Review of Systems General: Reports: 10 or more systems reviewed and unremarkable except in HPI and below Const: Denies: fever(s), chills or malaise ENMT: Denies: epistaxis Card: Denies: syncope GI: Denies: abdominal pain, nausea or vomiting Skin/Breast: Denies: rash Neuro: Denies: headache(s) Sampson/Lymph: Denies: easy bruising PFSH ED PFSH: Medical History Adenocarcinoma of esophagus Cervical disc disease Cervical disc displacement Gastroesophageal reflux disease History of colon polyps Repeat colonoscopy in 3 years HTN (hypertension), benign Hyperlipidemia Hypogonadism in male Lower urinary tract symptoms (LUTS) Peyronie disease Urolithiasis Surgical History H/O decompression of ulnar nerve H/O esophagogastroduodenoscopy (05/15/20) H/O knee surgery H/O neck surgery H/O vasectomy History of back surgery History of coronary artery stent placement History of surgery on arm Hx of CABG Status post colonoscopy with polypectomy (11/08/19) Family History Mother , 64 CAD (coronary artery disease) Diabetes Hypertension Father , 66 Diabetes Hypertension CAD (coronary artery disease) Social History Smoking and tobacco status: current every day smoker cigarettes Packs smoked per day: 1.5 Alcohol intake: former Lives independently: Yes Marital status: Current occupational status: retired and disabled History of recent travel: No Physical Exam Const: COMMON NORMALS: no acute distress, average body habitus, patient oriented x3, no limitations, healthy appearing, alert and well nourished HENMT: COMMON NORMALS: normocephalic, atraumatic and moist oral mucous membranes HEAD & SCALP: normocephalic and atraumatic Eye: COMMON NORMALS: Equal, round and reactive pupils present, EOMs intact bilaterally, conjunctivae normal and no scleral icterus CONJUNCTIVA: Yes conjunctivae normal PUPIL: Yes Equal, round and reactive pupils present Neck/C-Spine: COMMON NORMALS: no meningeal signs and no JVD Resp: COMMON NORMALS: normal respiratory effort, No retractions, No use of accessory muscles, clear to auscultation bilaterally and percussion normal AUSCULTATION: clear to auscultation bilaterally PERCUSSION: percussion normal Cardio: COMMON NORMALS: no JVD, regular rate, regular rhythm, S1 normal heart sound present, S2 normal heart sound present, No gallops present (Cardio), No clicks present (Cardio), No murmurs present (Cardio), No rub (Cardio) and Peripheral pulses 2+ throughout RATE: regular rate RHYTHM: regular rhythm HEART SOUNDS: S1 normal heart sound present and S2 normal heart sound present PERIPHERAL PULSES: Peripheral pulses 2+ throughout GI: COMMON NORMALS: Normal to inspection, nondistended, normoactive bowel sounds present, Soft to palpation, non-tender, No hepatosplenomegaly present, no masses and no bruits PALPATION: Yes Soft to palpation and Yes No hepatosplenomegaly present Extremity: COMMON NORMALS: normal to inspection, full ROM, capillary refill normal, no calf tenderness and no pedal edema Neuro: COMMON NORMALS: patient oriented x3 SENSORIUM/ORIENTATION: Yes alert MENINGEAL SIGNS: Yes no meningeal signs Skin: COMMON NORMALS: no rashes or lesions noted, no wounds, turgor normal, no jaundice, no petechiae and no mottling GENERAL SKIN EXAM: no rashes or lesions noted and turgor normal Course Reevaluation(s): Reevaluation #1: Discussed his lab and imaging findings with the patient and his son. Explained that CT scan shows pneumonia and no obvious cause for hemoptysis other than that. We will discharge him home with a prescription for antibiotics. He voiced understanding and is in agreement with the plan. Time: 21:09 Vital Signs: Vital signs: Vital Signs Temperature 99.6 F 01/16/21 16:24 Pulse Rate 101 H 01/16/21 21:28 Respiratory Rate 19 H 01/16/21 21:28 Blood Pressure 96/54 01/16/21 21:28 Pulse Oximetry 99 01/16/21 21:28 MDM - GI Bleed MDM Narrative: Medical decision making narrative: 60-year-old male with esophageal cancer who presents to the emergency department with hemoptysis. Evaluation in the emergency department shows anemia with a hemoglobin of 8.9 but no marked reduction in his hemoglobin when compared to 1 month ago which was 9.1. CTA was done to evaluate the source of his bleeding. CTA was only positive for bilateral pneumonia. He was given a dose of intravenous ceftriaxone in the emergency department and discharged home with a prescription for amoxicillin and azithromycin. He is to follow-up with his primary care provider. Medical Records: Attestation: I reviewed the patient's medical records. Lab Data: Attestation: I reviewed the patient's lab results. Labs: Lab Results 01/16/21 01/16/21 01/16/21 Range/Units 19:20 19:20 19:20 WBC 6.8 (4.0-10.0) 10^3/ uL RBC 2.95 L (4.1-5.3) 10^6/u L Hgb 8.9 L (11.7-16.6) g/dL Hct 29.3 L (42.0-52.0) % MCV 99.3 H (80-94) fL MCH 30.2 (28.0-34.0) pg MCHC 30.4 (30.0-36.0) g/dL RDW 15.1 (12.1-15.1) % Plt Count 193 (130-400) 10^3/c mm MPV 9.8 (7.4-10.4) fL Neut % (Auto) 84.1 % Lymph % (Auto) 6.2 % Davie % (Auto) 8.4 % Eos % (Auto) 0.1 % Baso % (Auto) 0.3 % Neut # (Auto) 5.68 (1.8-7.7) 10^3/u L Lymph # (Auto) 0.4 L (0.8-4.8) 10^3/u L Davie # (Auto) 0.6 (0.2-0.9) 10^3/u L Eos # (Auto) 0.0 (0.0-0.8) 10^3/u L Baso # (Auto) 0.0 (0.0-0.1) 10^3/u L Nucleated RBC % (a uto) 0 % Nucleated RBCs # 0.0 /100WBC Sodium 134 L (136-145) mmol/L Potassium 3.9 (3.5-5.1) mmol/L Chloride 100 (98-107) mmol/L Carbon Dioxide 24 (22-29) mmol/L Anion Gap 13.9 (5-19) BUN 8 (8-23) mg/dL Creatinine 0.3 L (0.7-1.2) mg/dL GFR Calculation 305.8 H (90-130) mL/min Glucose 103 (65-115) mg/dL Calculated Osmolal ity 277 L (285-295) mOsm/k g Lactate 1.0 (0.5-2.2) mmol/L Calcium 7.3 L (8.5-10.5) mg/dL Total Bilirubin 1.1 (0.15-1.2) mg/dL AST 67 H (0-40) U/L ALT 40 (0-41) U/L Alkaline Phosphata se 199 H (40-130) IU/L C-Reactive Protein 94.7 H (0.0-4.9) mg/L Total Protein 4.6 L (6.6-8.7) g/dL Albumin 2.4 L (3.5-5.2) g/dL Globulin 2.2 (1.3-4.6) g/dL Lipase 34 (13-60) U/L Blood Type Rho(D) Type Antibody Screen 01/16/21 Range/Units 19:20 WBC (4.0-10.0) 10^3/ uL RBC (4.1-5.3) 10^6/u L Hgb (11.7-16.6) g/dL Hct (42.0-52.0) % MCV (80-94) fL MCH (28.0-34.0) pg MCHC (30.0-36.0) g/dL RDW (12.1-15.1) % Plt Count (130-400) 10^3/c mm MPV (7.4-10.4) fL Neut % (Auto) % Lymph % (Auto) % Davie % (Auto) % Eos % (Auto) % Baso % (Auto) % Neut # (Auto) (1.8-7.7) 10^3/u L Lymph # (Auto) (0.8-4.8) 10^3/u L Davie # (Auto) (0.2-0.9) 10^3/u L Eos # (Auto) (0.0-0.8) 10^3/u L Baso # (Auto) (0.0-0.1) 10^3/u L Nucleated RBC % (a uto) % Nucleated RBCs # /100WBC Sodium (136-145) mmol/L Potassium (3.5-5.1) mmol/L Chloride (98-107) mmol/L Carbon Dioxide (22-29) mmol/L Anion Gap (5-19) BUN (8-23) mg/dL Creatinine (0.7-1.2) mg/dL GFR Calculation (90-130) mL/min Glucose (65-115) mg/dL Calculated Osmolal ity (285-295) mOsm/k g Lactate (0.5-2.2) mmol/L Calcium (8.5-10.5) mg/dL Total Bilirubin (0.15-1.2) mg/dL AST (0-40) U/L ALT (0-41) U/L Alkaline Phosphata se (40-130) IU/L C-Reactive Protein (0.0-4.9) mg/L Total Protein (6.6-8.7) g/dL Albumin (3.5-5.2) g/dL Globulin (1.3-4.6) g/dL Lipase (13-60) U/L Blood Type O Negative Rho(D) Type Negative / 0 Antibody Screen Negative Imaging Data^: CTA Chest: Attestation: I personally reviewed and interpreted this imaging study as follows: Radiologist's impression: [address] [id number] Scan ReportSigned Patient: Kyung Queenit #: [id number]: 1960cct#:[id number]/Sex: 60 / MADM Date: 01/16/21Loc: ERRoom/Bed:Attending Dr: Ordering Provider/Ordering MD: Lynda Trammell MD, [facility] [place] Date of Service: 01/16/21 Procedure(s): CT angio chest [id number] Accession Number(s): [id number] Report Number: [id number] PROCEDURE INFORMATION: Exam: CTA Chest With Contrast Exam date and time: 01/16/2021 5:54 PM Age: 60 years old Clinical indication: Other: Hemoptysis; Prior surgery; Surgery type: Port, cabg, egd, coronary stents; Additional info: Hemoptysis, esophageal cancer TECHNIQUE: Imaging protocol: Computed tomographic angiography of the chest with contrast. 3D rendering (Not supervised by radiologist): MIP and/or 3D reconstructed images were created by the technologist. Radiation optimization: All CT scans at this facility use at least one of these dose optimization techniques: automated exposure control; mA and/or kV adjustment per patient size (includes targeted exams where dose is matched to clinical indication); or iterative reconstruction. Contrast material: OMNI 350; Contrast volume: 95 ml; Contrast route: INTRAVENOUS (IV); COMPARISON: CTA Chest-Pulmonary Emb [id number] 04/06/2018 5:45 PM RADIATION DOSE METRICS: Total DLP (mGy-cm): 817.3 FINDINGS: Pulmonary arteries: Normal. No pulmonary emboli. Aorta: Unremarkable. No aortic aneurysm. No aortic dissection. Lungs: Severe emphysematous changes. Patchy bilateral dependent airspace opacities likely reflecting pneumonic infiltrates. Pleural spaces: Unremarkable. No pneumothorax. No pleural effusion. Heart: Unremarkable. No cardiomegaly. No pericardial effusion. Lymph nodes: Prominent mediastinal lymph nodes measuring up to 11 mm, nonspecific. Gallbladder and bile ducts: Biliary sludge versus vicarious secretion contrast in the gallbladder. Bones/joints: Sternotomy wires. Several chronic right rib fractures appear healed. L1 vertebral body compression fracture without retropulsion of bony fragments, new compared to prior exam. Soft tissues: Unremarkable. Right-sided Port-A-Cath. CT/CT angio chest [id number] IMPRESSION: 1. Negative for pulmonary embolus. 2. Prominent mediastinal lymph nodes measuring up to 11 mm, nonspecific. 3. Biliary sludge versus vicarious secretion contrast in the gallbladder. 4. Patchy bilateral dependent airspace opacities likely reflecting pneumonic infiltrates. 5. L1 vertebral body compression fracture without retropulsion of bony fragments, new compared to prior exam. Radiation Dose CTDIVOL = (mGy): DLP = 817.3 (mGy-cm) Dictated By:Brandyn Landry MDSigned By:Brandyn Landry MDSigned Date/Time:01/16/212013DD/ 11 Discharge Plan Discharge Patient Disposition: Home Clinical Impression: Hemoptysis Pneumonia Qualifiers: Pneumonia type: due to unspecified organism Laterality: bilateral Lung location: lower lobe of lung Qualified Code(s): J18.9 - Pneumonia, unspecified organism Anemia Qualifiers: Anemia type: unspecified type Qualified Code(s): D64.9 - Anemia, unspecified Closed compression fracture of L1 vertebra Qualifiers: Encounter type: initial encounter Qualified Code(s): S32.010A - Wedge compression fracture of first lumbar vertebra, initial encounter for closed fracture Condition: Stable Prescriptions: New azithromycin 250 mg tablet See Rx Instructions .ROUTE .COMPLEX Qty: 6 RF: 0 amoxicillin 500 mg tablet 1,000 mg PO Q8H 7 Days Qty: 42 RF: 0 Continued tamsulosin 0.4 mg capsule 0.4 mg PO BID@0600,2200 RF: 0 albuterol sulfate 90 mcg/actuation aero powdr breath act w/sensor 1 inh INHALATION Q4H RF: 0 aspirin [Adult Low Dose Aspirin] 81 mg tablet,delayed release (DR/EC) 81 mg PO DAILY@0600 RF: 0 Stiolto Respimat 2.5-2.5 mcg/actuation mist 2 puff INHALATION DAILY@0600 RF: 0 atorvastatin 80 mg tablet 40 mg PO DAILY RF: 0 montelukast 10 mg tablet 10 mg PO DAILY@0600 RF: 0 potassium chloride 10 mEq capsule, extended release 20 meq PO DAILY@0600 RF: 0 cyclobenzaprine 10 mg tablet 10 mg PO TID PRN (Reason: muscle spasm) Qty: 60 RF: 0 gabapentin 300 mg capsule 300 mg PO TID Qty: 90 RF: 0 duloxetine [Cymbalta] 30 mg capsule,delayed release(DR/EC) 30 mg PO DAILY Qty: 30 RF: 0 ferrous sulfate 325 mg (65 mg iron) tablet 325 mg PO DAILY@0600 RF: 0 amiodarone 200 mg tablet 200 mg PO BID@0600,2200 RF: 0 midodrine 5 mg tablet 5 mg PO TID RF: 0 hydrocodone-acetaminophen 10-325 mg tablet 1 tab PO Q6H PRN (Reason: pain) 30 Days Qty: 120 RF: 0 dronabinol [Marinol] 5 mg capsule 5 mg PO BID Qty: 90 RF: 0 pantoprazole [Protonix] 40 mg tablet,delayed release (DR/EC) 40 mg PO BIDWMEAL 42 Days Qty: 84 RF: 3 sertraline 100 mg Tablet 100 mg PO DAILY@0600 RF: 0 warfarin 5 mg tablet See Rx Instructions .ROUTE .COMPLEX RF: 0 cyclobenzaprine 10 mg tablet 10 mg PO BID@0600,2200 PRN (Reason: muscle spasm) RF: 0 hydrocodone-acetaminophen 5-325 mg tablet 1 tab PO Q6H PRN (Reason: pain) RF: 0 gabapentin 300 mg capsule 300 mg PO TID@,, RF: 0 diltiazem HCl 180 mg capsule,extended release 24 hr 180 mg PO DAILY Qty: 30 RF: 0 sildenafil (pulm.hypertension) 20 mg tablet 10 mg PO TID@,, Qty: 0 RF: 0 furosemide 20 mg tablet 20 mg PO DAILY@0600 PRN (Reason: swelling, weight gain of more than 5 lbs) Qty: 0 RF: 0 Discharge Orders: Discharge ED (Routine); Ordered 01/16/21 Ordered By: Lynda Trammell Referrals: Carol Cesar MD [Primary Care Provider] - 1-3 days Discharge Diet: Usual diet Discharge Activity: Increase activity as tolerated Patient Instructions: Acute Hemoptysis (ED), Community-acquired Pneumonia (ED), Anemia (ED) Activity Restrictions/Additional Instructions: Return for any new or worsening symptoms. Follow-up with your primary care provider within 3 days. Take the antibiotics as prescribed. 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
[2021-01-16] MEDS: cefTRIAXone 1,000 MG in sodium chloride 0.9% (plus) 50 ML 100 MG IV (21:25)
[2021-01-16 21:28] VITALS: BP 96/54; PULSE 101; RESP 19; O2SAT 99
== END 2021-01-16 21:52 | disposition home or self-care (01) ==
PROVIDERS: Emergency Provider Family Medicine; PCP Family Medicine
DX: J18.9 Pneumonia, unspecified organism (principal); R04.2 Hemoptysis; C15.9 Malignant neoplasm of esophagus, unspecified; I10 Essential (primary) hypertension; E78.5 Hyperlipidemia, unspecified; D64.9 Anemia, unspecified; S32.010A Wedge compression fracture of first lumbar vertebra, initial encounter for closed fracture; F17.210 Nicotine dependence, cigarettes, uncomplicated; X58.XXXA Exposure to other specified factors, initial encounter
CPT/HCPCS: 71275; 80053; 83605; 83690; 85025; 86140; 86850; 86900; 96365; 99284; J0696; Q9967

== ENCOUNTER 2021-01-23 07:55 | Outpatient (RCR) | payer OTHER, SELFPAY ==
[2021-01-22] MEDS: sodium chloride 0.9% 1,000 ML 999 ML IV (14:13)
[2021-01-22] MEDS: ondansetron 2 mg/ML SDV 2 mL 8 MG IVP (14:14)
[2021-01-22 14:53] LABS: Basophils % 0.3 %; Eosinophils % 0.1 %; Hematocrit 29.9 % (42.0-52.0); Hemoglobin 9.1 g/dL (11.7-16.6); Lymphocytes # 0.5 10^3/uL (0.8-4.8); Lymphocytes % 7.1 %; Mean Corpuscular HGB Conc 30.4 g/dL (30.0-36.0); Mean Corpuscular Hemoglobin 29.4 pg (28.0-34.0); Mean Corpuscular Volume 96.8 fL (80-94); Mean Platelet Volume 10.3 fL (7.4-10.4); Monocytes # 0.6 10^3/uL (0.2-0.9); Monocytes % 8.7 %; Neutrophils # 5.83 10^3/uL (1.8-7.7); Neutrophils % 82.9 %; Nucleated Red Blood Cells % 0.3 %; Platelet Count 238 10^3/cmm (130-400); Red Blood Count 3.09 10^6/uL (4.1-5.3); Red Cell Distribution Width 15.1 % (12.1-15.1)
[2021-01-22 15:14] LABS: Alanine Aminotransferase 28 U/L (0-41); Albumin Level 2.8 g/dL (3.5-5.2); Alkaline Phosphatase 170 IU/L (40-130); Anion Gap 16.8 (5-19); Aspartate Amino Transferase 40 U/L (0-40); Blood Urea Nitrogen 11 mg/dL (8-23); Calcium 8.2 mg/dL (8.5-10.5); Carbon Dioxide 25 mmol/L (22-29); Chloride 93 mmol/L (98-107); Globulin 2.9 g/dL (1.3-4.6); Glomerular Filtration Rate 305.8 mL/min (90-130); Glucose 142 mg/dL (65-115); Osmolality Calculated 274 mOsm/kg (285-295); Potassium 3.8 mmol/L (3.5-5.1); Sodium 131 mmol/L (136-145); Total Bilirubin 0.8 mg/dL (0.15-1.2); Total Protein 5.7 g/dL (6.6-8.7)
--- NOTE | 2021-01-22 17:03 | ONC FU_ITS ---
Dr. Ryan follow up note Patient: Kyung Queen Unit #: [id number]: 1960 Dicatated By: Primitivo Ryan M.D.Date of Visit:Jan 22, 2021 Onc Med Follow-up/Prog Note History of Present Illness: Mr. Queen is a 60 -year-old gentleman with progressive longstanding history of left upper quadrant pain. He was referred to surgery for evaluation and on May 15, 2020 he underwent an EGD. The EGD showed a couple of areas of suspected Parker's patches with small 1 cm nodule/mass which was firm. The mass was biopsied and there was another soft polypoid mass at Z-line which was also biopsied. The stomach showed nonerosive gastritis in the antrum and small hiatal hernia seen on retroflexion. Duodenal exam was unremarkable. His pathology report on the distal esophageal mass biopsy confirmed moderately differentiated adenocarcinoma. The tumor was CK20 positive and Tyrone-EP4 positive. Mr Queen underwent a CT scan of chest/abdomen/pelvis on June 11, 2020 which showed chronic esophageal disease; fine reticular pattern throughout both lungs; Mild subcarinal lymphadenopathy; mitral valve replacement but no intra-abdominal abnormality. He denies any history of dysphagia, hemoptysis or hematemesis. He denies any history of weight loss, jaundice, or abdominal pain except off and on left epigastric pain. History of 40+ year smoking and still active, about pack a day; occasionally alcohol intake. Patient has history of sleep apnea but noncompliant with CPAP machine. History of coronary artery disease status post CABG, underwent colonoscopy in October 2019 with polypectomy. Mr Queen was referred to Dr. Turk for surgical evaluation, as per patient [facility] took a long time to approve his visit to Dr. Turk. He was referred to Dr. Carlton for EUS which was eventually done on August 28, 2020 which confirmed ulcerative mass lesion at the distal esophagus extending from 36 to 39 cm noncircumferential. Periesophageal lymph nodes were noted at 31 cm and 34 cm from incisors and they measured 2.3 cm diameter were malignant in appearance. Esophageal mass itself did not infiltrate beyond the muscularis propria layer. Multiple subcentimeter lymph nodes were noted around the area of celiac trunk. No focal left lobe of liver lesion identified. EUS staging T2 N1 MX 1.2 cm polypoid lesion in the second portion of duodenum atypical appearing major papilla or true polyp. Hiatal hernia. discussed the EUS findings. There was concern as multiple subcentimeter lymph nodes around the area of the celiac trunk were identified which could be reactive or malignant. A PET CT was requested which was performed on 09/15/2020. At the distal thoracic esophagus there was a 2.7 cm diameter region of activity with an SUV of 4.2, consistent with the known adenocarcinoma at that level. Multiple FDG positive mediastinal nodes represent local metastatic disease. These were noted in the prevascular, subcarinal, right paratracheal (4R and 2R) and subaortic territories. An index prevascular node measured 1.8 x 3.0 cm with an SUV of 5.4. A right retrocrural node measures 7 mm is too small to characterize. Other celiac and gastrohepatic nodes are less than 6 cm in size and are FDG negative. There was no significant head and neck adenopathy. With the PET/CT findings Mr. Queen was referred to radiation oncology for concurrent therapy with weekly carboplatin AUC two and paclitaxel 50 mg per metered squared. Again his first cycle of chemotherapy on September 27, 2020. And completed on October 30, 2020, during his last weekly dose of chemotherapy concurrent with radiation therapy patient received dose of Abraxane instead of Taxol as he could not tolerate oral steroids. And patient completed radiation therapy on October 31, 2020 t he was admitted to the hospital on November 11, 2020 with near syncopal attack and diagnosed with orthostasis due to dehydration, patient was hydrated with that his symptoms improved and was discharged home on November 12, 2020 while in the hospital he had extensive work-up done including CT scan of the head which showed no acute intracranial process. Carotid Doppler study showed asymmetric echogenic plaque formation with the carotid arteries without hemodynamically significant ICA stenosis normal flow within the vertebral arteries. Chest x-ray showed no acute infiltrates and echocardiogram shows slightly diminished ejection fraction of 50% slightly dyskinetic basal inferior wall segment. Bio prosthetic valve in the mitral position appears to be well-seated Came for follow-up, complaining of poor oral intake due to progressive dysphagia and now with significant weight loss, as per patient he was recently admitted to hospital with bilateral pneumonia probably due to aspiration as per patient he was seen by Dr. Turk for possible esophagectomy and on December 27, 2020 he underwent EGD in [place], as per son they were told there is no evidence of recurrence of disease, esophagectomy was not considered because of declining overall performance status and patient was on home oxygen. Patient denies any fever chills but vomiting with oral intake and overall generalized weakness and significant weight loss and muscle wasting due to unable to eat due to progressive dysphagia Medications: Amiodarone HCl 1 Tablet (of 200 mg) Tablet Oral b.i.d., Aspirin 1 Tablet (of 81 mg) Tablet, chewable Oral daily, Atorvastatin Calcium 1 Tablet (of 40 mg) Oral daily, Coumadin 1 Tablet (of 2.5 mg) Oral daily on Every Other Day, Cyclobenzaprine HCl 1 Tablet (of 10 mg) Oral b.i.d., dilTIAZem CD 1 Capsule (of 300 mg) Capsule SR 24 HR Oral daily, Ferrous Sulfate 1 Tablet (of 325 (65 fe) mg) Oral daily, Furosemide 1 Tablet (of 40 mg) Oral daily, Gabapentin 1 Capsule (of 300 mg) Oral t.i.d., HYDROcodone-Acetaminophen 1 Tablet (of 5-325 mg) Oral four times a day, Midodrine HCl 1 Tablet (of 5 mg) Oral, Montelukast Sodium 1 Tablet (of 10 mg) Oral daily, Pantoprazole Sodium 1 Tablet (of 40 mg) Tablet, enteric coated Oral daily, Respaire-30 Capsule Oral, Sertraline HCl 1 Tablet (of 100 mg) Oral daily, Sildenafil Citrate 1 Tablet (of 20 mg) Oral t.i.d., Tamsulosin HCl 1 Capsule (of 0.4 mg) Oral b.i.d. Allergies: No Known Allergies. Review of Systems: Review of Systems is not available for this patient. Vital Signs: Performed on Jan 22, 2021 14:44 Height - 71.00 in Temperature - 97.1 F (LOW) Pulse - 109 /min (HIGH) Respiration - 18 /min BP - 74/46 mm(hg) (LOW) O2 Sat - 98 % Pain - 6 Fatigue - 10 Performance Status: 3 - Capable of only limited self-care, confined to bed or chair more than 50% of waking hours. (ECOG) Physical Examination: ENMT - No mouth sores, no thrush but dry oral mucosa, no jaundice, Respiratory - Lungs are clear to auscultation, Cardiovascular - Regular rate and rhythm of heart, Abdomen - Soft, bowel sounds present, Extremities - No visible edema but muscle wasting. Lab/Imaging: Test performed on October 29, 2020 14:03 Creatinine 0.6 mg/dL Cr Clearance (Est) 164.66 mL/min Test performed on October 29, 2020 11:13 Sodium 134 mmol/L Potassium 4.1 mmol/L Chloride 104 mmol/L CO2 21 mmol/L Anion Gap 13.1 BUN 7 mg/dL eGFR 137.9 mL/min Glucose 116 mg/dL Osmolality - Calculated 277 mOsm/kg Calcium 7.5 mg/dL Protein, Total 5.1 g/dL Albumin 2.6 g/dL Globulin 2.5 g/dL Bilirubin, Total 0.6 mg/dL ALT (SGPT) 12 U/L AST (SGOT) 9 U/L Alkaline Phosphatase 76 IU/L WBC 4.7 10 3/uL RBC 3.64 10 6/uL HGB 11.7 g/dL HCT 35.0 % MCV 96.2 fL MCH 32.1 pg MCHC 33.4 g/dL RDW 17.0 % Platelet Count 118 10 3/cmm MPV 9.9 fL Neutrophils 3.12 10 3/uL Lymphocytes 0.6 10 3/uL Monocytes 0.6 10 3/uL Eosinophils 0.0 10 3/uL Basophils 0.0 10 3/uL Neutrophil % 66.2 % Lymphocyte % 13.2 % Monocyte % 11.7 % Eosinophil % 0.2 % Basophils % 0.8 % NRBC % 0 % CBC Slide Review Slide Review Perform SLIDE REVIEW AGREES WITH AUTOMATED RESULTS Test performed on Oct 17, 2020 09:17 PT 20.80 SECONDS INR 1.72 Impression: Moderately differentiated adenocarcinoma per EGD done on May 15, 2020 CT scan of chest abdomen pelvis done on June 11, 2020 showed fine reticular and patent throughout lungs could represent chronic interstitial lung disease. Cardiac surgery/mitral valve replacement, mild subcarinal lymphadenopathy No other abnormality seen EUS done on August 28, 2020 showed ulcerating mass lesion in the distal esophagus extending from 36 to 39 cm. None circumferential. Also seen periesophageal lymph nodes at 31 cm and 34 cm from the incisors, measuring 2.3 cm diameter. Malignant in appearance. Esophageal mass itself did not infiltrate beyond muscularis propria layer. Multiple subcentimeter lymph nodes were noted around the area of celiac trunk. No focal left lower liver lesion seen. EUS staging T2 N1 MX Status post combined chemoradiation with a weekly carboplatin/Taxol except last weekly dose of Taxol was substituted with Abraxane due to intolerance to steroids. Completed on October 31, 2020 Coronary artery disease status post CABG status post stenting COPD Sleep apnea, noncompliant with CPAP Longstanding history of smoking, still active e.g. 1 pack/day Anemia, macrocytic etiology unclear, probably multifactorial, anemia work-up inconclusive, on home oxygen since hospitalization in October 2020, etiology unclear questionable pneumonitis Progressive dysphagia probably due to esophageal stricture as patient recently underwent EGD on December 27, [address] [facility], as per patient and his son they were told no evidence of recurrence of disease Plan: Discussed with patient regarding his labs white blood count 7 hemoglobin 9.1 hematocrit 29.9 platelets 238,000 Clinically, patient is not doing too well due to progressive dysphagia and unable to maintain oral intake, clinically appears dehydrated and emaciated due to progressive dysphagia, patient was seen by Dr. Turk for evaluation for esophagectomy but because of his declining performance status and being on home oxygen, esophagectomy was not considered, patient underwent EGD on December 27, 2020 in [place], as per patient and his son they were told there is no evidence of recurrence of disease. As per patient for the last couple of weeks he could not keep anything down because of progressive dysphagia and may have aspirated. He was treated with antibiotics. Due to progressive dysphagia, case was discussed with Dr. Slater, who will see him tomorrow for evaluation regarding possible esophageal dilation and J-tube placement. In the meantime we will continue hydration as outpatient and also check for Covid as preparation for possible EGD with esophageal dilation or J-tube placement Patient return to clinic in 1 week with CBC CMP, will continue to monitor his anemia and if there is a drop in hemoglobin below 8 g, will consider blood transfusion in the meantime we will consider anemia work-up. Signed By: Primitivo Ryan M.D. <<Signature on File>>
[2021-01-23] MEDS: ondansetron 2 mg/ML SDV 2 mL 8 MG IVP (08:20)
[2021-01-23] MEDS: sodium chloride 0.9% 1,000 ML 999 ML IV (08:25)
[2021-01-23 14:19] LABS: Coronavirus Test Green County Not Detected
== END 2021-01-26 23:59 | disposition home or self-care (01) ==
LOC: ONCMED 07:55
PROVIDERS: Absent Provider Radiology Radiation Oncology; PCP Family Medicine; Visit Provider Internal Medicine Hematology & Oncology
DX: C15.5 Malignant neoplasm of lower third of esophagus (principal); I25.10 Atherosclerotic heart disease of native coronary artery without angina pectoris; Z95.5 Presence of coronary angioplasty implant and graft; J44.9 Chronic obstructive pulmonary disease, unspecified; G47.33 Obstructive sleep apnea (adult) (pediatric); F17.210 Nicotine dependence, cigarettes, uncomplicated; D64.9 Anemia, unspecified; Z99.81 Dependence on supplemental oxygen; R13.10 Dysphagia, unspecified; K22.2 Esophageal obstruction; Z79.899 Other long term (current) drug therapy; Z79.2 Long term (current) use of antibiotics; Z92.21 Personal history of antineoplastic chemotherapy; Z92.3 Personal history of irradiation
CPT/HCPCS: 80053; 85025; 87635; 96361; 96374; 99215; J2405; J7030

== ENCOUNTER 2021-01-24 06:48 | Day surgery (SDC) | payer OTHER, MEDICARE, SELFPAY ==
[2021-01-24 07:10] VITALS: BMI 20.9
[2021-01-24 07:24] VITALS: BP 133/70; PULSE 100; RESP 18; TEMP 36.6; O2SAT 93
[2021-01-24] MEDS: sodium chloride 0.9% 1,000 ML 30 ML IV (07:35)
--- NOTE | 2021-01-24 07:37 | ANES.PREANE2 ---
Pre-Anesthetic Assessment Pre-Anesthetic Assessment: Height/Weight: Height 1.8 m Weight 68.039 kg Temp Pulse Resp BP Pulse Ox 97.8 F 100 18 133/70 93 01/24/21 07:24 01/24/21 07:24 01/24/21 07:24 01/24/21 07:24 01/24/21 07:24 Preop Diagnosis: Difficulty in Swallowing Proposed Procedure: Operation Date: 01/24/21 08:30 Proposed Procedures p EGD 22858 C50.9(Not Applicable) - Anton Slater MD Familial anesthetic complications: none Was Beta Guero taken within 24 hours: N/A Was Clonidine taken within 24 hours: N/A Last intake: Intake Last Liquid Date 01/24/21 Last Liquid Time 03:00 Last Solid Date 12/20/20 Last Solid Time 15:00 Last Intake: 03:00 Social: Social History: Tobacco and No alcohol (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) Packs per day: 1-2 Pack years: 46 Comment: quit a month ago Exam: Pre-Anes Outpt Exam: alert, oriented x 3, clear to auscultation bilaterally and regular rate & rhythm Additional Exam Findings (including area of procedure): BOUNDING HEART SOUNDS Airway: Submandibular: WNL Cervical ROM: WNL MP: 3 Dentition: Caps Pulmonary: Pulmonary: Asthma, COPD, Cough, HODGE, Sleep apnea and SOB Comments: home O2 2L per min continuously pneumonia currently prescribed CPAP, does not use CV/HEM: CV/HEM: CAD Comments: CABG 2019 ARTIFICIAL VALVE 5 STENTS 2018 : : None reported Hepatic: Hepatic: None reported GI: GI: GERD Comments: ESOPHAGEAL TUMOR HAD CHEMO AND RADIATION Metabolic: Metabolic: None reported Musc/skel: Musc/skel: OA/DJD and Weakness Neuropsych: Neuropsych: Anxiety and Depression Anesthetic Plan: ASA status: 4 Anesthesia: MAC Risk of > 500 ml blood loss (7ml/kg in children): No Meds/Allergies Current Medications: Current Medications Generic Name Dose Route Start Last Admin Trade Name Freq PRN Reason Stop Dose Admin Sodium Chloride 1,000 mls @ 30 ml s/hr 01/24/21 07:00 01/24/21 07:35 Sodium Chloride 0.9% IV 30 mls/hr .Q24H EUGENE Administration PFSH Anesthesia PFSH: Medical History Adenocarcinoma of esophagus Cervical disc disease Cervical disc displacement Gastroesophageal reflux disease History of colon polyps Repeat colonoscopy in 3 years HTN (hypertension), benign Hyperlipidemia Hypogonadism in male Lower urinary tract symptoms (LUTS) Peyronie disease Urolithiasis Surgical History H/O decompression of ulnar nerve H/O esophagogastroduodenoscopy (05/15/20) H/O knee surgery H/O neck surgery H/O vasectomy History of back surgery History of coronary artery stent placement History of surgery on arm Hx of CABG Status post colonoscopy with polypectomy (11/08/19) Family History Mother , 64 CAD (coronary artery disease) Diabetes Hypertension Father , 66 Diabetes Hypertension CAD (coronary artery disease) Social History Smoking and tobacco status: former smoker Alcohol intake: former Lives independently: Yes Marital status: Current occupational status: retired and disabled History of recent travel: No Data Anesthesia Cardiac Studies: No Data to Display
--- NOTE | 2021-01-24 08:17 | W.PM.OPSUD ---
Surgery/Procedure H&P Update DATE OF PROCEDURE: January 24, 2021 DATE H&P PERFORMED: 01/23/21 H&P UPDATE INFORMATION: I have reviewed H&P completed within last 30 days, I have examined patient prior to procedure and No changes to prior documentation PREOP DIAGNOSIS: Difficulty in Swallowing PRIMARY INDICATION FOR PROCEDURE: THE SAME PLANNED PROCEDURE: Operation Date: 01/24/21 08:30 Proposed Procedures p EGD 06141 C50.9(Not Applicable) - Anton Slater MD
[2021-01-24 08:37] VITALS: BP 87/43; PULSE 84; RESP 20; TEMP 36.3; O2SAT 100
[2021-01-24 08:56] VITALS: BP 103/56; PULSE 88; RESP 20; O2SAT 97
--- NOTE | 2021-01-24 14:58 | ANE.PACU2 ---
Inpatient post-anesthesia follow up: Airway intact: Yes Vital signs: Temperature 97.3 F Pulse Rate 88 Respiratory Rate 20 Blood Pressure 103/56 Pulse Oximetry 97 Oxygen Delivery Me thod Simple Mask Oxygen Flow Rate 2 Fraction of Inspir ed Oxygen Hydration adequate: Yes Nausea and vomiting: No Pain level: 1 Mental status: Baseline
== END 2021-01-24 09:19 | disposition home or self-care (01) ==
PROVIDERS: PCP Family Medicine; Visit Provider Surgery
PROC: 0DJ08ZZ Inspection of Upper Intestinal Tract, Via Natural or Artificial Opening Endoscopic (ICD-10-PCS; CPT 43235; principal; 2021-01-24 08:30)
DX: R13.10 Dysphagia, unspecified (principal); C15.9 Malignant neoplasm of esophagus, unspecified; K21.00 Gastro-esophageal reflux disease with esophagitis, without bleeding; K44.9 Diaphragmatic hernia without obstruction or gangrene; K29.70 Gastritis, unspecified, without bleeding; J44.9 Chronic obstructive pulmonary disease, unspecified; G47.30 Sleep apnea, unspecified; Z99.81 Dependence on supplemental oxygen; I25.10 Atherosclerotic heart disease of native coronary artery without angina pectoris; Z95.1 Presence of aortocoronary bypass graft; I10 Essential (primary) hypertension; E78.5 Hyperlipidemia, unspecified; Z83.3 Family history of diabetes mellitus; Z82.49 Family history of ischemic heart disease and other diseases of the circulatory system; Z87.891 Personal history of nicotine dependence
CPT/HCPCS: 43235; 96360; J2704; J7030

== ENCOUNTER 2021-01-28 12:08 | Inpatient (IN) | payer OTHER, SELFPAY ==
[2021-01-28] VITALS (37 sets, daily range): BP systolic 92–125; BP diastolic 45–61; PULSE 63–109; RESP 15–33; TEMP 36.4–37.3; O2SAT 15–100; BMI 20.9
--- NOTE | 2021-01-28 12:23 | XRR_ITS ---
PROCEDURE INFORMATION: Exam: XR Chest Exam date and time: 01/28/2021 12:23 PM Age: 60 years old Clinical indication: Cough and dyspnea; Additional info: Dyspnea/cough TECHNIQUE: Imaging protocol: XR of the chest. Views: 1 view. COMPARISON: CR XR chest 1V portable [id number] 11/10/2020 7:33 PM FINDINGS: Tubes, catheters and devices: Stable positioning of med port catheter. Lungs: COPD, interstitial disease, and newly developed airspace disease. Pleural spaces: No significant pleural effusion. Heart/Mediastinum: Epicardial fat accentuates the cardiac silhouette. Bones/joints: Median sternotomy. Cervical spine fusion. Degenerative change. XR/XR chest 1V portable [id number] IMPRESSION: COPD, interstitial disease, and newly developed airspace disease.
--- NOTE | 2021-01-28 12:24 | ECG_ITS ---
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 Measurements Intervals [place] Rate: 101 P: 86 IN: 175 QRS: 105 QRSD: 114 T: -16 QT: 430 QTc: 558 Interpretive Statements SINUS TACHYCARDIA MARKED RIGHT AXIS DEVIATION [QRS AXIS > 100] POSSIBLE INFERIOR MYOCARDIAL INFARCTION [30 ms Q WAVE IN II/aVF], OF INDETERMINATE AGE ST DEVIATION AND MARKED T-WAVE ABNORMALITY, CONSIDER ANTEROLATERAL ISCHEMIA [-0.5+ mV T WAVE IN I/aVL/V3-V6] Compared to ECG 11/10/2020 20:57:11 Myocardial infarct finding now present T-wave abnormality now present Possible ischemia now present Ectopic atrial rhythm no longer present Prolonged QT interval no longer present Electronically Signed On 01-31-2021 9:55:24 CDT by Alexandria Mederos M.D. [email or web address]
--- NOTE | 2021-01-28 13:09 | ED_ITS ---
HPI - Weakness General: Chief complaint: Weakness Stated complaint: GENERAL WEAKNESS, CANCER Time Seen by Provider: 01/28/21 12:13 History of Present Illness: HPI Narrative: 60-year-old male presents emergency room with complaints of generalized weakness. Patient is a known history of esophageal cancer is completed treatment he also has a history of heart disease. He has not had any chest pain or shortness of breath he just been progressively getting weaker to the point where he can barely stand or walk or do anything anymore he has been vaccinated for Covid. He denies any myalgias fever sweats or chills. No diarrhea, but he has had a lot of vomiting he has been able to eat or drink well. [facility] ED PFSH: Medical History Adenocarcinoma of esophagus Cervical disc disease Cervical disc displacement Gastroesophageal reflux disease History of colon polyps Repeat colonoscopy in 3 years HTN (hypertension), benign Hyperlipidemia Hypogonadism in male Lower urinary tract symptoms (LUTS) Peyronie disease Urolithiasis Surgical History H/O decompression of ulnar nerve H/O esophagogastroduodenoscopy (05/15/20) H/O knee surgery H/O neck surgery H/O vasectomy History of back surgery History of coronary artery stent placement History of surgery on arm Hx of CABG Status post colonoscopy with polypectomy (11/08/19) Family History Mother , 64 CAD (coronary artery disease) Diabetes Hypertension Father , 66 Diabetes Hypertension CAD (coronary artery disease) Social History Smoking and tobacco status: former smoker Alcohol intake: former Lives independently: Yes Marital status: Current occupational status: retired and disabled History of recent travel: No Physical Exam Const: ORIENTATION/CONSCIOUSNESS: Yes awake HENMT: COMMON NORMALS: normocephalic, atraumatic and hearing grossly normal bilaterally HEAD & SCALP: normocephalic and atraumatic Neck/C-Spine: COMMON NORMALS: no JVD Resp: COMMON NORMALS: normal respiratory effort, No retractions and No use of accessory muscles AUSCULTATION: crackles and wheezes Cardio: COMMON NORMALS: no JVD, regular rhythm and No murmurs present (Cardio) RATE: tachycardic RHYTHM: regular rhythm GI: COMMON NORMALS: Soft to palpation and No hepatosplenomegaly present AUSCULTATION: Yes normoactive bowel sounds PALPATION: Yes Soft to palpation, No Tenderness to palpation present (GI), No Guarding due to palpation present (GI) and Yes No hepatosplenomegaly present Extremity: COMMON NORMALS: normal to inspection, capillary refill normal, no clubbing, cyanosis or edema, no calf tenderness and no pedal edema Skin: COMMON NORMALS: no rashes or lesions noted GENERAL SKIN EXAM: no rashes or lesions noted Course Vital Signs: Vital signs: Vital Signs Temperature 97.9 F 01/30/21 11:30 Pulse Rate 88 01/30/21 13:45 Respiratory Rate 37 H 01/30/21 11:30 Blood Pressure 87/50 01/30/21 11:30 Pulse Oximetry 92 01/30/21 11:30 MDM - Weakness MDM Narrative: Medical decision making narrative: Acute anemia with respiratory failure. Over anticoagulation. We will go ahead and admit discussed with hospitalist orders written. Lab Data: Labs: Lab Results 01/28/21 01/28/21 01/28/21 Range/Units 13:10 13:10 13:10 WBC 7.8 (4.0-10.0) 10^3/ uL RBC 2.44 L (4.1-5.3) 10^6/u L Hgb 7.1 L (11.7-16.6) g/dL Hct 23.5 L (42.0-52.0) % MCV 96.3 H (80-94) fL MCH 29.1 (28.0-34.0) pg MCHC 30.2 (30.0-36.0) g/dL RDW 16.4 H (12.1-15.1) % Plt Count 191 (130-400) 10^3/c mm MPV 9.7 (7.4-10.4) fL Neut % (Auto) 88.2 % Lymph % (Auto) 2.2 % [place] % (Auto) 8.9 % Eos % (Auto) 0.0 % Baso % (Auto) 0.1 % Reticulocyte % (Au to) (0.5-2.0) % Neut # (Auto) 6.85 (1.8-7.7) 10^3/u L Lymph # (Auto) 0.2 L (0.8-4.8) 10^3/u L [place] # (Auto) 0.7 (0.2-0.9) 10^3/u L Eos # (Auto) 0.0 (0.0-0.8) 10^3/u L Baso # (Auto) 0.0 (0.0-0.1) 10^3/u L Nucleated RBC % (a uto) 0 % Nucleated RBCs # 0.0 /100WBC Retic Production I ndex Haptoglobin (30-200) mg/L PT (12.1-14.9) SECO NDS INR (0.8-1.2) Sodium 131 L (136-145) mmol/L Potassium 3.4 L (3.5-5.1) mmol/L Chloride 94 L (98-107) mmol/L Carbon Dioxide 24 (22-29) mmol/L Anion Gap 16.4 (5-19) BUN 12 (8-23) mg/dL Creatinine 0.3 L (0.7-1.2) mg/dL GFR Calculation 305.8 H (90-130) mL/min Glucose 104 (65-115) mg/dL Estimat Average Gl ucose Hemoglobin A1c (4.0-6.0) % Calculated Osmolal ity 272 L (285-295) mOsm/k g Lactic Acid 1.0 (0.5-2.2) mmol/L Calcium 8.0 L (8.5-10.5) mg/dL Iron (59-158) ug/dL TIBC mcg/dl % Saturation (20-50) % Unsat Iron Binding (112-347) ug/dL Ferritin (30-400) ng/mL Total Bilirubin 1.3 H (0.15-1.2) mg/dL Direct Bilirubin (0.00-0.30) mg/d L AST 25 (0-40) U/L ALT 17 (0-41) U/L Alkaline Phosphata se 126 (40-130) IU/L Lactate Dehydrogen ase (135-225) U/L Troponin T Baselin e (0-15) ng/L Troponin T 120 Min mechoopda (0-15) ng/L Delta Troponin T (0-10) ABS# Total Protein 5.0 L (6.6-8.7) g/dL Albumin 2.2 L (3.5-5.2) g/dL Globulin 2.8 (1.3-4.6) g/dL Vitamin B12 (232-1245) pg/mL Folate (4.5-32.2) ng/mL Nasal/Oral COVID-1 9 PCR SARS-CoV-2 Ag (Rap id) (Negative) Blood Type Rho(D) Type Antibody Screen Crossmatch 01/28/21 01/28/21 01/28/21 Range/Units 13:10 13:10 13:10 WBC (4.0-10.0) 10^3/ uL RBC (4.1-5.3) 10^6/u L Hgb (11.7-16.6) g/dL Hct (42.0-52.0) % MCV (80-94) fL MCH (28.0-34.0) pg MCHC (30.0-36.0) g/dL RDW (12.1-15.1) % Plt Count (130-400) 10^3/c mm MPV (7.4-10.4) fL Neut % (Auto) % Lymph % (Auto) % [place] % (Auto) % Eos % (Auto) % Baso % (Auto) % Reticulocyte % (Au to) (0.5-2.0) % Neut # (Auto) (1.8-7.7) 10^3/u L Lymph # (Auto) (0.8-4.8) 10^3/u L [place] # (Auto) (0.2-0.9) 10^3/u L Eos # (Auto) (0.0-0.8) 10^3/u L Baso # (Auto) (0.0-0.1) 10^3/u L Nucleated RBC % (a uto) % Nucleated RBCs # /100WBC Retic Production I ndex Haptoglobin (30-200) mg/L PT 60.70 H (12.1-14.9) SECO NDS INR 6.95 H* (0.8-1.2) Sodium (136-145) mmol/L Potassium (3.5-5.1) mmol/L Chloride (98-107) mmol/L Carbon Dioxide (22-29) mmol/L Anion Gap (5-19) BUN (8-23) mg/dL Creatinine (0.7-1.2) mg/dL GFR Calculation (90-130) mL/min Glucose (65-115) mg/dL Estimat Average Gl ucose Hemoglobin A1c (4.0-6.0) % Calculated Osmolal ity (285-295) mOsm/k g Lactic Acid (0.5-2.2) mmol/L Calcium (8.5-10.5) mg/dL Iron (59-158) ug/dL TIBC mcg/dl % Saturation (20-50) % Unsat Iron Binding (112-347) ug/dL Ferritin (30-400) ng/mL Total Bilirubin (0.15-1.2) mg/dL Direct Bilirubin (0.00-0.30) mg/d L AST (0-40) U/L ALT (0-41) U/L Alkaline Phosphata se (40-130) IU/L Lactate Dehydrogen ase (135-225) U/L Troponin T Baselin e 17 H (0-15) ng/L Troponin T 120 Min mechoopda (0-15) ng/L Delta Troponin T (0-10) ABS# Total Protein (6.6-8.7) g/dL Albumin (3.5-5.2) g/dL Globulin (1.3-4.6) g/dL Vitamin B12 (232-1245) pg/mL Folate (4.5-32.2) ng/mL Nasal/Oral COVID-1 9 PCR SARS-CoV-2 Ag (Rap id) (Negative) Blood Type O Negative Rho(D) Type Negative / 0 Antibody Screen Negative Crossmatch See Detail 01/28/21 01/28/21 01/28/21 Range/Units 13:10 13:10 13:10 WBC (4.0-10.0) 10^3/ uL RBC (4.1-5.3) 10^6/u L Hgb (11.7-16.6) g/dL Hct 24.0 L (42.0-52.0) % MCV (80-94) fL MCH (28.0-34.0) pg MCHC (30.0-36.0) g/dL RDW (12.1-15.1) % Plt Count (130-400) 10^3/c mm MPV (7.4-10.4) fL Neut % (Auto) % Lymph % (Auto) % [place] % (Auto) % Eos % (Auto) % Baso % (Auto) % Reticulocyte % (Au to) 6.2 H (0.5-2.0) % Neut # (Auto) (1.8-7.7) 10^3/u L Lymph # (Auto) (0.8-4.8) 10^3/u L [place] # (Auto) (0.2-0.9) 10^3/u L Eos # (Auto) (0.0-0.8) 10^3/u L Baso # (Auto) (0.0-0.1) 10^3/u L Nucleated RBC % (a uto) % Nucleated RBCs # /100WBC Retic Production I ndex 3.72 Haptoglobin (30-200) mg/L PT (12.1-14.9) SECO NDS INR (0.8-1.2) Sodium (136-145) mmol/L Potassium (3.5-5.1) mmol/L Chloride (98-107) mmol/L Carbon Dioxide (22-29) mmol/L Anion Gap (5-19) BUN (8-23) mg/dL Creatinine (0.7-1.2) mg/dL GFR Calculation (90-130) mL/min Glucose (65-115) mg/dL Estimat Average Gl ucose 91 Hemoglobin A1c 4.8 (4.0-6.0) % Calculated Osmolal ity (285-295) mOsm/k g Lactic Acid (0.5-2.2) mmol/L Calcium (8.5-10.5) mg/dL Iron (59-158) ug/dL TIBC mcg/dl % Saturation (20-50) % Unsat Iron Binding (112-347) ug/dL Ferritin (30-400) ng/mL Total Bilirubin (0.15-1.2) mg/dL Direct Bilirubin 0.90 H (0.00-0.30) mg/d L AST (0-40) U/L ALT (0-41) U/L Alkaline Phosphata se (40-130) IU/L Lactate Dehydrogen ase (135-225) U/L Troponin T Baselin e (0-15) ng/L Troponin T 120 Min mechoopda (0-15) ng/L Delta Troponin T (0-10) ABS# Total Protein (6.6-8.7) g/dL Albumin (3.5-5.2) g/dL Globulin (1.3-4.6) g/dL Vitamin B12 (232-1245) pg/mL Folate (4.5-32.2) ng/mL Nasal/Oral COVID-1 9 PCR SARS-CoV-2 Ag (Rap id) (Negative) Blood Type Rho(D) Type Antibody Screen Crossmatch 01/28/21 01/28/21 01/28/21 Range/Units 13:10 13:10 14:45 WBC (4.0-10.0) 10^3/ uL RBC (4.1-5.3) 10^6/u L Hgb (11.7-16.6) g/dL Hct (42.0-52.0) % MCV (80-94) fL MCH (28.0-34.0) pg MCHC (30.0-36.0) g/dL RDW (12.1-15.1) % Plt Count (130-400) 10^3/c mm MPV (7.4-10.4) fL Neut % (Auto) % Lymph % (Auto) % [place] % (Auto) % Eos % (Auto) % Baso % (Auto) % Reticulocyte % (Au to) (0.5-2.0) % Neut # (Auto) (1.8-7.7) 10^3/u L Lymph # (Auto) (0.8-4.8) 10^3/u L [place] # (Auto) (0.2-0.9) 10^3/u L Eos # (Auto) (0.0-0.8) 10^3/u L Baso # (Auto) (0.0-0.1) 10^3/u L Nucleated RBC % (a uto) % Nucleated RBCs # /100WBC Retic Production I ndex Haptoglobin 263.0 H (30-200) mg/L PT (12.1-14.9) SECO NDS INR (0.8-1.2) Sodium (136-145) mmol/L Potassium (3.5-5.1) mmol/L Chloride (98-107) mmol/L Carbon Dioxide (22-29) mmol/L Anion Gap (5-19) BUN (8-23) mg/dL Creatinine (0.7-1.2) mg/dL GFR Calculation (90-130) mL/min Glucose (65-115) mg/dL Estimat Average Gl ucose Hemoglobin A1c (4.0-6.0) % Calculated Osmolal ity (285-295) mOsm/k g Lactic Acid (0.5-2.2) mmol/L Calcium (8.5-10.5) mg/dL Iron 36 L (59-158) ug/dL TIBC 139 mcg/dl % Saturation 25.8 (20-50) % Unsat Iron Binding 103 L (112-347) ug/dL Ferritin 2365 H (30-400) ng/mL Total Bilirubin (0.15-1.2) mg/dL Direct Bilirubin (0.00-0.30) mg/d L AST (0-40) U/L ALT (0-41) U/L Alkaline Phosphata se (40-130) IU/L Lactate Dehydrogen ase 306 H (135-225) U/L Troponin T Baselin e (0-15) ng/L Troponin T 120 Min mechoopda 17.23 H (0-15) ng/L Delta Troponin T 0.23 (0-10) ABS# Total Protein (6.6-8.7) g/dL Albumin (3.5-5.2) g/dL Globulin (1.3-4.6) g/dL Vitamin B12 1218 (232-1245) pg/mL Folate 2.6 L (4.5-32.2) ng/mL Nasal/Oral COVID-1 9 PCR SARS-CoV-2 Ag (Rap id) (Negative) Blood Type Rho(D) Type Antibody Screen Crossmatch 01/28/21 01/28/21 Range/Units 14:45 15:20 WBC (4.0-10.0) 10^3/ uL RBC (4.1-5.3) 10^6/u L Hgb (11.7-16.6) g/dL Hct (42.0-52.0) % MCV (80-94) fL MCH (28.0-34.0) pg MCHC (30.0-36.0) g/dL RDW (12.1-15.1) % Plt Count (130-400) 10^3/c mm MPV (7.4-10.4) fL Neut % (Auto) % Lymph % (Auto) % [place] % (Auto) % Eos % (Auto) % Baso % (Auto) % Reticulocyte % (Au to) (0.5-2.0) % Neut # (Auto) (1.8-7.7) 10^3/u L Lymph # (Auto) (0.8-4.8) 10^3/u L [place] # (Auto) (0.2-0.9) 10^3/u L Eos # (Auto) (0.0-0.8) 10^3/u L Baso # (Auto) (0.0-0.1) 10^3/u L Nucleated RBC % (a uto) % Nucleated RBCs # /100WBC Retic Production I ndex Haptoglobin (30-200) mg/L PT (12.1-14.9) SECO NDS INR (0.8-1.2) Sodium (136-145) mmol/L Potassium (3.5-5.1) mmol/L Chloride (98-107) mmol/L Carbon Dioxide (22-29) mmol/L Anion Gap (5-19) BUN (8-23) mg/dL Creatinine (0.7-1.2) mg/dL GFR Calculation (90-130) mL/min Glucose (65-115) mg/dL Estimat Average Gl ucose Hemoglobin A1c (4.0-6.0) % Calculated Osmolal ity (285-295) mOsm/k g Lactic Acid (0.5-2.2) mmol/L Calcium (8.5-10.5) mg/dL Iron (59-158) ug/dL TIBC mcg/dl % Saturation (20-50) % Unsat Iron Binding (112-347) ug/dL Ferritin (30-400) ng/mL Total Bilirubin (0.15-1.2) mg/dL Direct Bilirubin (0.00-0.30) mg/d L AST (0-40) U/L ALT (0-41) U/L Alkaline Phosphata se (40-130) IU/L Lactate Dehydrogen ase (135-225) U/L Troponin T Baselin e (0-15) ng/L Troponin T 120 Min mechoopda (0-15) ng/L Delta Troponin T (0-10) ABS# Total Protein (6.6-8.7) g/dL Albumin (3.5-5.2) g/dL Globulin (1.3-4.6) g/dL Vitamin B12 (232-1245) pg/mL Folate (4.5-32.2) ng/mL Nasal/Oral COVID-1 9 PCR Not detected SARS-CoV-2 Ag (Rap id) Negative (Negative) Blood Type Rho(D) Type Antibody Screen Crossmatch Discharge Plan Discharge Patient Disposition: Admitted As Inpatient Admit Provider: Darrin Bertrand Clinical Impression: Acute anemia, Supratherapeutic INR, Acute exacerbation of chronic obstructive pulmonary disease, Adenosquamous carcinoma of esophagus Condition: Stable Coding Level of Care Code ED Gis Administrator for Agueda Lacey
[2021-01-28 13:29] LABS: Basophils % 0.1 %; Hematocrit 23.5 % (42.0-52.0); Hemoglobin 7.1 g/dL (11.7-16.6); Lymphocytes # 0.2 10^3/uL (0.8-4.8); Lymphocytes % 2.2 %; Mean Corpuscular HGB Conc 30.2 g/dL (30.0-36.0); Mean Corpuscular Hemoglobin 29.1 pg (28.0-34.0); Mean Corpuscular Volume 96.3 fL (80-94); Mean Platelet Volume 9.7 fL (7.4-10.4); Monocytes # 0.7 10^3/uL (0.2-0.9); Monocytes % 8.9 %; Neutrophils # 6.85 10^3/uL (1.8-7.7); Neutrophils % 88.2 %; Nucleated Red Blood Cells % 0 %; Platelet Count 191 10^3/cmm (130-400); Red Blood Count 2.44 10^6/uL (4.1-5.3); Red Cell Distribution Width 16.4 % (12.1-15.1); White Blood Count 7.8 10^3/uL (4.0-10.0)
--- NOTE | 2021-01-28 13:37 | PC.NURSE ---
ice chips given per patient request
[2021-01-28 13:48] LABS: Troponin(5th) Baseline 17 ng/L (0-15)
[2021-01-28 14:10] LABS: Alanine Aminotransferase 17 U/L (0-41); Albumin Level 2.2 g/dL (3.5-5.2); Alkaline Phosphatase 126 IU/L (40-130); Anion Gap 16.4 (5-19); Aspartate Amino Transferase 25 U/L (0-40); Blood Urea Nitrogen 12 mg/dL (8-23); Carbon Dioxide 24 mmol/L (22-29); Chloride 94 mmol/L (98-107); Globulin 2.8 g/dL (1.3-4.6); Glomerular Filtration Rate 305.8 mL/min (90-130); Glucose 104 mg/dL (65-115); Osmolality Calculated 272 mOsm/kg (285-295); Potassium 3.4 mmol/L (3.5-5.1); Sodium 131 mmol/L (136-145); Total Bilirubin 1.3 mg/dL (0.15-1.2)
--- NOTE | 2021-01-28 14:21 | CTR_ITS ---
PROCEDURE INFORMATION: Exam: CTA Chest With Contrast Exam date and time: 01/28/2021 2:21 PM Age: 60 years old Clinical indication: Abdominal pain; Chest pressure; Prior surgery; Additional info: Hypoxia/abd pain TECHNIQUE: Imaging protocol: Computed tomographic angiography of the chest with contrast. 3D rendering (Not supervised by radiologist): MIP and/or 3D reconstructed images were created by the technologist. Radiation optimization: All CT scans at this facility use at least one of these dose optimization techniques: automated exposure control; mA and/or kV adjustment per patient size (includes targeted exams where dose is matched to clinical indication); or iterative reconstruction. Contrast material: OMNI 350; Contrast volume: 95 ml; Contrast route: INTRAVENOUS (IV); COMPARISON: CT angio chest [id number] 01/16/2021 7:30 PM RADIATION DOSE METRICS: Total DLP (mGy-cm): 1192.8 FINDINGS: Tubes, catheters and devices: Termination of med port catheter at the cavoatrial junction. Pulmonary arteries: No pulmonary embolus in the opacified pulmonary arteries. Aorta: Atherosclerotic plaque and calcification in the ectatic thoracic aorta. Lungs: Severe COPD with bronchial dilatation. Interstitial disease, chronic granulomatous disease, and bilateral airspace disease. Pleural spaces: Mild pleural thickening. Heart: Coronary artery calcification. Mitral valve prosthesis. Mediastinal space: Mild wall thickening and fluid in the distal esophagus. Lymph nodes: Mildly enlarged lymph nodes including 2.0 by 1.2 by 1.1 cm AP window, 2.7 by 1.2 by 1.0 cm right paratracheal, and 2.3 by 1.8 by 3.0 cm subcarinal lymph nodes. Bones/joints: Osteopenia and chronic T12 compression fracture. Old rib fractures. Degenerative change. Soft tissues: Gynecomastia. IMPRESSION: 1. No pulmonary embolus in the opacified pulmonary arteries. 2. Severe COPD with bronchial dilatation. Interstitial disease, chronic granulomatous disease, and bilateral airspace disease. 3. Additional findings as described above. PROCEDURE INFORMATION: Exam: CT Abdomen And Pelvis With Contrast Exam date and time: 01/28/2021 2:21 PM Age: 60 years old Clinical indication: Abdominal pain; Chest pressure; Prior surgery; Additional info: Hypoxia/abd pain TECHNIQUE: Imaging protocol: Computed tomography of the abdomen and pelvis with contrast. Radiation optimization: All CT scans at this facility use at least one of these dose optimization techniques: automated exposure control; mA and/or kV adjustment per patient size (includes targeted exams where dose is matched to clinical indication); or iterative reconstruction. Contrast material: OMNI 350; Contrast volume: 95 ml; Contrast route: INTRAVENOUS (IV); COMPARISON: None RADIATION DOSE METRICS: Total DLP (mGy-cm): 1192.8 FINDINGS: Liver: No focal hepatic mass. Gallbladder and bile ducts: High attenuation bile in the gallbladder. No biliary ductal dilatation. Pancreas: No pancreatic mass or ductal dilatation. Spleen: Mildly enlarged spleen measuring 12.5 cm in length. Adrenal glands: Unremarkable adrenals. Kidneys and ureters: Normal renal morphology. No hydronephrosis. Stomach and bowel: Mild bowel dilatation without a transition zone. Prominent stool. Sigmoid colon wall thickening without infiltration of pericolonic fat. Scattered diverticula. Appendix: No acute appendicitis. Intraperitoneal space: No free fluid. No free fluid. Vasculature: Vascular calcification. No abdominal aortic aneurysm. Lymph nodes: Subcentimeter lymph nodes. Urinary bladder: Bladder dilatation. Reproductive: Prostate calcification. Bones/joints: Osteopenia. Old right lumbar spine transverse process fractures. Degenerative change. CT/CT angio chest w abd pel w con IMPRESSION: 1. No acute inflammatory process in the abdomen or pelvis. 2. Additional findings as described above. Radiation Dose CTDIVOL = (mGy): DLP = 1192.8~1192.8 (mGy-cm)
[2021-01-28] MEDS: iohexol 350 mg/mL 100 mL Btl IV (15:03)
[2021-01-28 15:26] LABS: Troponin 5 2HR 17.23 ng/L (0-15); Troponin 5 2HR Delta 0.23 ABS# (0-10)
[2021-01-28 15:38] LABS: SARS Covid-2 Antigen Negative (Negative)
[2021-01-28 15:46] LABS: INR 6.95 (0.8-1.2)
--- NOTE | 2021-01-28 16:17 | PC.NURSE ---
To ICU at 1640, AAOx4, no pain, VSS on 15L NRB. Patient transferred self from stretcher to bed. Oriented to room, policies, call light, visitor restrictions, and isolation.
--- NOTE | 2021-01-28 16:36 | PM.HP ---
Providers/Chief Complaint Admitting Physician: Darrin Bertrand Primary Care Provider: Carol Cesar MD Chief Complaint: GENERAL WEAKNESS, CANCER History of Present Illness Pleasant 60-year-old gentleman with history of esophageal cancer, following Dr. Ryan, history of mitral valve replacement with bioprosthetic valve in 2019, on chronic anticoagulation with warfarin which he states is due to that, history of pulmonary hypertension for which he takes sildenafil, and states has been diagnosed at the same time, also takes amiodarone since 2019, although is not entirely sure why, but relates it to surgery as well, recently with poor oral intake over the last month or so, with nausea, vomiting after eating. Had had a recent EGD with Dr. Slater, per report with findings of reflux esophagitis, prepyloric moderate gastritis, and has been continued on pantoprazole, sucralfate. Comes in for evaluation due to worsening generalized weakness, orthostatic symptoms, getting lightheaded with standing up, being unable to ambulate due to severity of symptoms. His son got him over to ER for evaluation. With history of pulmonary hypertension, emphysema, COPD, he usually uses 2 L of oxygen [id number]. In ER he is noted requiring 15 L by nonrebreather mask. Incidentally noted acutely anemic, hemoglobin down to 7.1 from prior 9.1. INR checked, supratherapeutic at 6.95. Noted mild elevation of T bili at 1.3. He denies chest pain, troponin XVII-XVII 0.23. Checked after EKG with some concern regarding possible ST depression in V3-V6. He denies any chest pain. CT angiogram chest without PE, noted severe COPD with bronchial dilation, interstitial disease, chronic granulomatous disease, bilateral airspace disease. Mildly enlarged paratracheal lymph nodes. No acute inflammatory process in abdomen or pelvis. Rapid COVID-19 antigen negative. PCR is requested. He reports he is currently on antibiotic on which she was recently discharged from ER due to concern for acute pneumonia. He states he has been bothered by diarrhea sometimes up to 12-14 times per day. Nonbloody, nonmelanotic. Denies any pain on swallowing. Review of Systems Const: Reports: change in appetite and fatigue; Denies: fever(s), chills, body aches or malaise Eyes: Denies: change in vision or eye redness ENMT: Denies: throat pain, oral sores or ear or mastoid pain Card: Denies: chest pain, edema, pre-syncope or dyspnea on exertion Resp: Reports: productive cough; Denies: dyspnea, change in phlegm color or hemoptysis GI: Reports: nausea and vomiting; Denies: abdominal pain, diarrhea, constipation, hematochezia or melena : Denies: flank pain, difficulty urinating, urinary frequency or hematuria Musc: Denies: back pain, joint swelling or joint redness Skin/Breast: Denies: rash, sores or new lesions Neuro: Denies: headache(s), numbness in extremities, weakness in extremities, dizziness, confusion or seizure-like activity Endo: Denies: polyuria or polydipsia Sampson/Lymph: Denies: easy bleeding or purpura All/Imm: Denies: urticaria, throat swelling or tongue swelling Medications/Allergies Home Medications Medication Instructions Recorded Confirmed Last Taken Type albuterol sulfate 90 mcg/actuation 1 inh INHALATION Q4H 08/24/19 01/28/21 01/23/21 History breath activated powder inhaler,sensor aspirin 81 mg tablet,delayed 81 mg PO DAILY@0600 08/24/19 01/28/21 01/27/21 History release atorvastatin 80 mg tablet 40 mg PO DAILY 08/24/19 01/28/21 01/27/21 History montelukast 10 mg tablet 10 mg PO DAILY@2100 08/24/19 01/28/21 01/27/21 History tamsulosin 0.4 mg capsule 0.4 mg PO BID@0600,2200 08/24/19 01/28/21 01/27/21 History tiotropium 2.5 mcg-olodaterol 2.5 2 puff INHALATION DAILY@0600 08/24/19 01/28/21 01/27/21 History mcg/actuation mist for inhalation amiodarone 200 mg tablet 200 mg PO BID@0600,2200 04/12/20 01/28/21 01/27/21 History ferrous sulfate 325 mg (65 mg 325 mg PO DAILY@0600 04/12/20 01/28/21 01/27/21 History iron) tablet diltiazem HCl 180 mg PO DAILY #30 cap 11/08/20 01/28/21 01/27/21 Rx gabapentin 300 mg PO TID@,,11/08/20 01/28/21 01/27/21 History warfarin See Rx Instructions .ROUTE .COMPLEX 11/08/20 01/28/21 01/27/21 History 5 mg sildenafil (pulm.hypertension) 10 mg PO TID@,, #0 tab 11/12/20 01/28/21 01/27/21 Rx cyclobenzaprine 10 mg tablet 10 mg PO TID PRN #60 tab 12/03/20 01/28/21 01/27/21 Rx duloxetine 30 mg capsule,delayed 30 mg PO DAILY #30 cap 12/03/20 01/28/21 01/27/21 Rx release midodrine 5 mg tablet 5 mg PO TID 01/01/21 01/28/21 01/27/21 History hydrocodone 10 mg-acetaminophen 1 tab PO Q6H PRN 30 Days #120 tab 01/03/21 01/28/21 01/23/21 Rx 325 mg tablet lidocaine HCl [Lidocaine Viscous] 1 applic MUCOUS MEMBRANE Q8H PRN 01/24/21 01/28/21 01/27/21 Rx #100 ml sucralfate 1 gram tablet 1 g PO TID 30 Days #90 tab 01/25/21 01/28/21 01/27/21 Rx amoxicillin 1,000 mg PO Q8H MDD see pharmacy 01/28/21 01/28/21 01/27/21 History comment 1000 mg bupropion HCl 150 mg PO DAILY 01/28/21 01/28/21 01/27/21 History pantoprazole 20 mg PO DAILY 01/28/21 01/28/21 01/27/21 History Allergies Allergy/AdvReac Type Severity Reaction Status Date / Time No Known Allergies Allergy Verified 01/24/21 07:19 PFSH Acute PFSH: Medical History Adenocarcinoma of esophagus Cervical disc disease Cervical disc displacement Gastroesophageal reflux disease History of colon polyps Repeat colonoscopy in 3 years HTN (hypertension), benign Hyperlipidemia Hypogonadism in male Lower urinary tract symptoms (LUTS) Peyronie disease Urolithiasis Surgical History H/O decompression of ulnar nerve H/O esophagogastroduodenoscopy (05/15/20) H/O knee surgery H/O neck surgery H/O vasectomy History of back surgery History of coronary artery stent placement History of surgery on arm Hx of CABG Status post colonoscopy with polypectomy (11/08/19) Family History Mother , 64 CAD (coronary artery disease) Diabetes Hypertension Father , 66 Diabetes Hypertension CAD (coronary artery disease) Social History Smoking and tobacco status: former smoker Alcohol intake: former Lives independently: Yes Marital status: Current occupational status: retired and disabled History of recent travel: No Vitals/I&O/Wt Last Vital Signs Temp 97.9 F 01/28/21 12:36 Pulse 103 H 01/28/21 16:22 Resp 33 H 01/28/21 16:22 BP 125/50 01/28/21 16:22 Pulse Ox 97 01/28/21 16:22 Weight last 48 hrs Weight 68.039 kg Physical Exam Const: COMMON NORMALS: no acute distress, patient oriented x3 and alert GENERAL APPEARANCE: cooperative and frail appearing NUTRITIONAL APPEARANCE: thin ORIENTATION/CONSCIOUSNESS: Yes awake HENMT: COMMON NORMALS: oropharynx normal Neck/C-Spine: COMMON NORMALS: no JVD Resp: COMMON NORMALS: normal respiratory effort AUSCULTATION: diminished lung sounds Cardio: COMMON NORMALS: no JVD, regular rhythm, S1 normal heart sound present, S2 normal heart sound present and No murmurs present (Cardio) RHYTHM: regular rhythm HEART SOUNDS: S1 normal heart sound present and S2 normal heart sound present GI: COMMON NORMALS: Normal to inspection, nondistended, normoactive bowel sounds present, Soft to palpation and non-tender PALPATION: Yes Soft to palpation Extremity: COMMON NORMALS: no joint enlargement and no pedal edema Neuro: COMMON NORMALS: patient oriented x3 and moves all extremities Skin: COMMON NORMALS: no rashes or lesions noted GENERAL SKIN EXAM: no rashes or lesions noted Data : 01/28/21 13:10 01/28/21 13:10 A&P Assessment and plan (1) Acute anemia: Supratherapeutic INR. Hold warfarin. Received vitamin K. Recheck INR in the morning. Symptomatic anemia with generalized weakness, orthostatic symptoms. 1 unit. BC transfusion. Check Hemoccult. Macrocytic anemia. Recurrent nausea, vomiting, poor oral intake. Check vitamin B12, folic acid. TSH. Iron studies. Is on iron supplement. T bili with elevation, check fractional bilirubin. LDH, haptoglobin, reticulocyte count. Status: Acute (2) Acute respiratory failure with hypoxia: Appears to be multifactorial, for 1 with COPD exacerbation with productive cough, dyspnea, fatigue on exertion. Appears also symptoms secondary to symptomatic anemia as above, hemoglobin acutely decreased to 7.1. Concern also for possible development or progression of interstitial lung disease. Findings may be secondary to multiple episodes of vomiting recently with pneumonitis related to that. Discussed with him possibility also of interstitial lung disease, possibly secondary to amiodarone. He is agreeable for now to hold the medication. Continue Cardizem. Follow-up with cardiology. For now empirically Levaquin, steroids, nebs for COPD exacerbation. Sputum culture requested. Urine bacterial antigens. Urine histoplasma antigen. PGP PCR. Fungitell. Rapid COVID-19 negative. PCR COVID-19 pending, but as discussed with him current doubt COVID-19 given multiple recent negative test, also history of vaccination. Status: Acute (3) Supratherapeutic INR: Hold warfarin. Recheck INR. Received vitamin K. Status: Acute (4) Total bilirubin, elevated: Check fractional bilirubin. No right upper quadrant pain. Suspect perhaps due to mild dehydration with poor oral intake. Unremarkable CT abdomen pelvis. Status: Acute (5) ST segment depression: Noted on EKG. No chest pain. Troponin without rise. Not suspecting acute AL, although may have underlying CAD, possibly symptomatic secondary to hypoxic respiratory failure with symptomatic anemia. PBC transfusion as above. Treat hypoxic respiratory failure as above. Limited TTE assessment. Would benefit from follow-up risk stratification with stress testing once more stable. Status: Acute (6) Interstitial lung disease: As above. Discussed with him consideration of possible ILD. Has history of emphysema, COPD. Used to follow with pulmonology in [place] at the time of diagnosis of pulmonary hypertension. This was diagnosed at the same time as valve replacement. Is on sildenafil. Says has not followed up since that time, however. As above possibility of pneumonitis secondary to multiple episodes of vomiting recently. Discussed with him possibility of amiodarone associated interstitial lung disease. Would benefit from PFT. He intends to also follow-up again with pulmonology. Status: Acute (7) Nausea, vomiting and diarrhea: Recurrent episodes of nausea, vomiting, also reports persistent diarrhea. Very poor oral intake in the last month. States food does not stay long in his stomach. Previously some pain after eating, but not recently. Had EGD with noted esophagitis, gastritis just recently on 01/24. Continue PPI, increase to twice daily. Continue sucralfate. He does report history of diabetes in the past, does report peripheral neuropathy as well. Check A1c. Consider additional assessment by gastric emptying study once he is more stable. Denies any odynophagia. Continues follow-up with Dr. Ryan for history of esophageal cancer. Status: Acute Additional A&P Information Reports history of diabetes, previously treated. Check A1c. Reports peripheral neuropathy. Esophageal cancer: Continue follow-up with Dr. Ryan Reported history of CAD with history of CABG, bioprosthetic mitral valve Chronic anticoagulation with warfarin Attestations Medical Necessity Statement*: Admission of over 2 midnights is going to be needed for assessment of management of acute hypoxic respiratory failure, COPD exacerbation, symptomatic anemia, in the setting of supratherapeutic INR with anticoagulation, and gentleman with possible ILD, with underlying CAD, bioprosthetic mitral valve, history of esophageal cancer. Coding Level of Care Code Acute [employer] Law Clerk for Chg Fwd Diagnoses Acute anemia D64.9 Acute respiratory failure with hypoxia J96.01 Supratherapeutic INR R79.1 Total bilirubin, elevated R17 ST segment depression R94.31 Interstitial lung disease J84.9 Nausea, vomiting and diarrhea R11.2; R19.7
[2021-01-28] MEDS: phytonadione (ADULT) 10 MG in sodium chloride 0.9% 50 ML 153 MG IV (18:30)
[2021-01-28] MEDS: pantoprazole 40 mg SDV IVP (18:31)
[2021-01-28] MEDS: metoclopramide 10 mg Tablet 5 MG PO ×2 (18:31→21:06)
[2021-01-28] MEDS: gabapentin 300 mg Capsule PO ×2 (18:32→21:05)
[2021-01-28 18:43] LABS: Retic Production Index 3.72; Reticulocyte % 6.2 % (0.5-2.0)
[2021-01-28 19:52] LABS: Folate Level 2.6 ng/mL (4.5-32.2)
[2021-01-28 19:57] LABS: Iron 36 ug/dL (59-158); Percent Saturation 25.8 % (20-50); Total Iron Binding Capacity 139 mcg/dl; Unsaturated Iron Binding 103 ug/dL (112-347); Vitamin B12 1218 pg/mL (232-1245)
[2021-01-28 20:02] LABS: Ferritin 2365 ng/mL (30-400); Lactate Dehydrogenase 306 U/L (135-225)
[2021-01-28] MEDS: HYDROcodone-acetaminophen 10-325 mg Tablet 1 TAB PO (20:15)
[2021-01-28 20:16] LABS: Estmated Average Glucose 91; Hemoglobin A1C 4.8 % (4.0-6.0)
[2021-01-28 20:38] LABS: Troponin 5 6HR 15.34 ng/L (0-15)
[2021-01-28 20:42] LABS: Troponin 5 6HR Delta -1.66 ng/L (0-12)
[2021-01-28] MEDS: midodrine 5 mg TABLET PO (21:05)
[2021-01-28] MEDS: montelukast sodium 10 mg Tablet PO (21:05)
[2021-01-28] MEDS: tamsulosin 0.4 mg Capsule PO (21:05)
[2021-01-28] MEDS: sucralfate 1 gm Tablet PO (21:05)
[2021-01-28] MEDS: ipratropium-albuterol 3 mL Neb INHALATION (21:43)
[2021-01-28] MEDS: sodium chloride 0.9% (100 ml) 100 ML 10 ML (21:43)
[2021-01-28] MEDS: NON-FORMULARY MEDICATION (Sildenafil (Pulm.Hypertension) 20 mg tablet) 10 EACH PO (23:56)
[2021-01-29] VITALS (77 sets, daily range): BP systolic 73–114; BP diastolic 44–63; PULSE 79–120; RESP 17–38; TEMP 36.2–36.7; O2SAT 71–100
[2021-01-29] MEDS: ipratropium-albuterol 3 mL Neb INHALATION ×3 (02:14→20:21)
[2021-01-29] MEDS: pantoprazole 40 mg SDV IVP ×2 (04:04→16:16)
[2021-01-29] MEDS: FUROsemide 10 mg/mL SDV 2mL 20 MG IVP (04:44)
[2021-01-29] MEDS: sodium chloride 0.9% (100 ml) 100 ML 10 ML (04:45)
[2021-01-29] MEDS: NON-FORMULARY MEDICATION (Sildenafil (Pulm.Hypertension) 20 mg tablet) 10 EACH PO ×3 (05:23→21:00)
[2021-01-29] MEDS: tamsulosin 0.4 mg Capsule PO ×2 (05:28→20:56)
[2021-01-29] MEDS: gabapentin 300 mg Capsule PO ×3 (05:28→20:56)
[2021-01-29] MEDS: levoFLOXacin 750 mg Tablet PO (05:28)
[2021-01-29] MEDS: aspirin 81 mg EC Tablet PO (05:28)
[2021-01-29] MEDS: ferrous sulfate EC 325 mg Tablet PO (05:28)
--- NOTE | 2021-01-29 06:00 | USCV_ITS ---
Bernice Kyung Age: 60 Gender: M : 1960 Exam Date: 01/29/2021 06:22 Ordering Phys: Darrin Bertrand MD Technologist: Koki Petty [place] [facility] [place]: Hypoxia BP: 106 / 59 HR: 91 Rhythm: Sinus Technical Quality: Adequate MEASUREMENTS (Male / Female) Normal Values 2D ECHO LV Diastolic Diameter PLAX 5.1 cm 4.2 - 5.9 / 3.9 - 5.3 cm LV Systolic Diameter PLAX 3.7 cm IVS Diastolic Thickness 1.2 cm 0.6 - 1.0 / 0.6 - 0.9 cm IVS Systolic Thickness 1.1 cm LVPW Diastolic Thickness 1.1 cm 0.6 - 1.0 / 0.6 - 0.9 cm LVPW Systolic Thickness 1.4 cm RV Chamber Size 3.6 cm LVOT Diameter 2.0 cm LV Ejection Fraction 2D Teich 52.3 % LV Ejection Fraction MOD 2C 53.5 % LV Ejection Fraction 2C AL 56.3 % LA Diameter 3.4 cm LA Width 3.5 cm LA Height 4.2 cm RA Width 3.6 cm RA Height 4.4 cm Aorta at Sinotubular Diameter 2.7 cm M-MODE Aortic Annulus Diameter 3.2 cm LA Ao Ratio MM 1.1 FINDINGS Left Ventricle Normal left ventricular cavity size and wall thickness. Low normal left ventricular systolic function. Left ventricular ejection fraction is estimated at 50-55 %. Mild hypokinesis of septum and basal inferior sandy. Right Ventricle Normal right ventricular size and systolic function. Right Atrium Normal right atrial size. Left Atrium Mildly increased left atrial size. Mitral Valve Bioprosthetic valve well-seated and normally functioning. Thickened mitral valve. Aortic Valve Mildly thickened trileaflet aortic valve. Tricuspid Valve Structurally normal tricuspid valve. Pulmonic Valve Structurally normal pulmonic valve. Pericardium No pericardial effusion. Aorta Normal-sized aortic root. CONCLUSIONS 1. This is a limited echocardiogram. 2. Normal left ventricular cavity size and wall thickness. Low normal left ventricular systolic function. Left ventricular ejection fraction is estimated at 50-55 %. Mild hypokinesis of septum and basal inferior sandy. 3. Normal right ventricular size and systolic function. 4. When compared to previous echocardiogram dated 11/11/2020, there may not have any significant change. Alexandria Mederos MD (Electronically Signed) Final Date: 29 January 2021 12:41 S
[2021-01-29] MEDS: metoclopramide 10 mg Tablet 5 MG PO ×4 (06:31→20:54)
[2021-01-29 08:22] LABS: Hematocrit 29.6 % (42.0-52.0); Hemoglobin 8.9 g/dL (11.7-16.6); Lymphocytes # 0.1 10^3/uL (0.8-4.8); Lymphocytes % 3.5 %; Mean Corpuscular HGB Conc 30.1 g/dL (30.0-36.0); Mean Corpuscular Hemoglobin 29.5 pg (28.0-34.0); Mean Platelet Volume 9.9 fL (7.4-10.4); Monocytes # 0.3 10^3/uL (0.2-0.9); Monocytes % 6.3 %; Neutrophils # 3.55 10^3/uL (1.8-7.7); Neutrophils % 89.4 %; Nucleated Red Blood Cells % 0 %; Platelet Count 187 10^3/cmm (130-400); Red Blood Count 3.02 10^6/uL (4.1-5.3); Red Cell Distribution Width 16.9 % (12.1-15.1)
[2021-01-29] MEDS: sucralfate 1 gm Tablet PO ×3 (08:34→20:55)
[2021-01-29] MEDS: buPROPion XL (24 HR) 150 mg Tablet PO (08:34)
[2021-01-29] MEDS: dilTIAZem ER (24HR) 180 mg Capsule PO (08:34)
[2021-01-29] MEDS: duloxetine 30 mg Capsule PO (08:34)
[2021-01-29] MEDS: midodrine 5 mg TABLET PO ×2 (08:34→15:09)
[2021-01-29 08:47] LABS: Alanine Aminotransferase 22 U/L (0-41); Albumin Level 2.7 g/dL (3.5-5.2); Alkaline Phosphatase 129 IU/L (40-130); Aspartate Amino Transferase 25 U/L (0-40); Blood Urea Nitrogen 14 mg/dL (8-23); Calcium 7.9 mg/dL (8.5-10.5); Carbon Dioxide 23 mmol/L (22-29); Chloride 91 mmol/L (98-107); Globulin 2.3 g/dL (1.3-4.6); Glomerular Filtration Rate 488.3 mL/min (90-130); Glucose 240 mg/dL (65-115); Osmolality Calculated 280 mOsm/kg (285-295); Sodium 131 mmol/L (136-145); Total Bilirubin 2.8 mg/dL (0.15-1.2)
[2021-01-29 08:55] LABS: Anion Gap 20.7 (5-19); Potassium 3.7 mmol/L (3.5-5.1); Thyroid Stimulating Hormone 0.01 uIU/mL (0.27-4.20)
--- NOTE | 2021-01-29 09:33 | PC.CHAP ---
Pastoral Care Encounter/Spiritual Assessment Type of Contact [] Declined web interface developer visit [] Patient/Family/Request visit [] Outpatient visit [] Follow-up visit [] Physician referral [] Code/Alert [x] Routine visit [] Staff referral [] Actively dying [] Patient sleeping [] Family support [] [] Out of room [] Palliative care [] [] Receiving care in room [] Pre-surgical visit [] Trauma [] Long length of stay [x] ICU visit [x] Other: setting up in chair... Relational/Emotional Strength [] Patient feels connected with others/family/visitors/staff [] Distress [] Loneliness/isolation [] Abandonment Spirituality of Patient [] Person of Tiffanie [] Attends Caodaism of their Tiffanie [] Believes in Prayer [] Reads Bible or Worship materials [] There are Spiritual issues to be addressed Explosive Ordnance Specialist Interventions [x] Prayer [] Active listening [] Non-anxious presence [] Spiritual/emotional support [] Crisis/trauma care [] Spiritual counseling [] Bereavement support [] Provided bereavement packet [] Provided Bible/devotional materials [] Provided toy/stuffed animal, coloring book to patient or family member [] Provided Communion [] Anointing/[place] [] Salvation [x] Completed spiritual assessment [] Other: Impact on Illness or Injury [] Angry [] Fearful [] Anxious [] Often cries [] Exhaustion [] Unable to work [] Unable to attend presybeterian [] Unable to walk/stand [] Unable to read [] Unable to drive [] Unable to eat/drink [] Unable to sleep [] Unable to be with family [] Patient intubated [] Other: Summary Time spent with patient
--- NOTE | 2021-01-29 10:54 | PC.NURSE ---
0700 Report received. Pt resting in bed with NRB in place. AAOx4, makes all needs known. Denies any pain or SOB. PRBC's infusing per order. Minimal amount of urine noted in urinal at bedside. 0800 Labs drawn after blood infused. Urine obtained for sample. Pt assisted to chair. Tolerates fair, requires moderate assist with movement. 1100 O2 at 6LNC in use. pt desatting slightly. Oximask put in place at 12L. Will monitor.
--- NOTE | 2021-01-29 11:56 | ECG_ITS ---
[facility] Test Date: 2021-01-29 Pat Name: Kyung Queen Department: Room: ICU01 Gender: Male Paper Supervisor: : 1960 Requested By: [employer] Vivian Order Number: [id number] Reading MD: PURA CORDERO Measurements Intervals Munith Rate: 104 P: 199 MA: 77 QRS: 103 QRSD: 120 T: 11 QT: 405 QTc: 533 Interpretive Statements SINUS TACHYCARDIA WITH SHORT MA INTERVAL MARKED RIGHT AXIS DEVIATION [QRS AXIS > 100] ST DEVIATION AND MARKED T-WAVE ABNORMALITY, CONSIDER ANTERIOR ISCHEMIA [-0.5+ mV T WAVE IN V3/V4] Compared to ECG 01/28/2021 13:00:54 Short MA interval now present Myocardial infarct finding no longer present T-wave abnormality still present Possible ischemia still present Electronically Signed On 01-29-2021 22:32:01 CDT by PURA CORDERO [email or web address]
[2021-01-29 12:46] LABS: Free T4 Free Thyroxine 7.44 ng/dL (0.82-1.77); T3 Free 3.4 PG/ML (2.0-4.4)
--- NOTE | 2021-01-29 12:47 | PM.CONSULT ---
Providers/Reason For Consult Consulting Physician/Specialty*: Pulmonary critical care medicine Reason for Consult*: Acute hypoxic respiratory failure Attending Physician: Darrin Bertrand Primary Care Provider: Carol Cesar MD History of Present Illness History of Present Illness Kyung Queen is a 60 year old male with an extensive past medical history. 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 As a part of staging work-up he underwent CT scan of the chest abdomen and pelvis in May 2020. The CT scan of the chest at this time revealed centrilobular emphysema predominantly in bilateral upper lobes. There is very minimal reticulation in bilateral lower lobes. After that the patient underwent endoscopic ultrasound evaluation of the esophageal mass and was diagnosed with T2N1 disease. A PET scan revealed FDG avidity in the known esophageal cancer. In addition, the patient also had subcarinal, right paratracheal and subaortic lymph nodes that were FDG avid. He was diagnosed with stage IIIb disease. The patient was not considered a surgical candidate. He was treated with chemo and radiation therapy. His first cycle was in September which she had completed in October. The patient received concurrent chemoradiation therapy. His radiation therapy started on September 27 and continue till October 31. The patient presented to the emergency department on January 16 with hemoptysis and underwent CT scan of his chest. The CT scan revealed bilateral reticulation in the lower lobes. And upper GI endoscopy on January 24 revealed grade 1 erosion in the distal third of the esophagus. There is no bleeding associated with esophagitis. The patient presented to the hospital yesterday with generalized weakness. During evaluation he was found to be coagulopathic with elevated PT/INR. He was anemic. He also underwent CT scan of the chest abdomen and pelvis. CT scan of the chest revealed no pulmonary embolism. The emphysema was redemonstrated and the patient had evidence of interstitial lung disease in bilateral lower lobes. The abdomen pelvis CT scan did not reveal any acute inflammatory processes. The patient has spleno megaly. No abnormalities in the bile duct. I do not have any previous pulmonary function tests available. The patient has a history of mitral valve replacement with a bioprosthetic valve. He likely also had atrial fibrillation and had been on amiodarone since 2018 when the surgery was performed. An echocardiogram in October 2020 revealed an ejection fraction of 50%. The patient had grade 3 diastolic dysfunction at that time. Mild diffuse hypokinesis of the septum and anteroseptal segments were noted. No significant valvular abnormalities in the mitral valve was noted. The patient had a limited echocardiogram today. It did not reveal any significant new abnormalities compared to the echocardiogram performed in October 2020. The patient was seen and examined in the ICU. He was resting comfortably in bed however he complained of shortness of breath with minimal exertion. He complains of chronic productive cough and severe exertional shortness of breath. Laboratory work-up showed anemia. The iron profile is consistent with anemia of chronic disease. The patient has mild elevation of the bilirubin. No significant LFT abnormalities. 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 Review of Systems Narrative: General: No fevers chills night sweats, the patient reports fatigue Skin: No rash HEENT: No nasal congestion, rhinitis, sinusitis, sneezing, hoarseness of voice Neck: There is no neck swelling, mass or swollen glands Respiratory: Please see my HPI. Cardiovascular: No chest pain, shortness of breath, orthopnea, paroxysmal nocturnal dyspnea, palpitation or lower extremity edema. Gastrointestinal: Significant diarrhea, nausea and vomiting Musculoskeletal: No joint pain or swelling Neurological: Patient is awake alert and oriented x3, no paralysis, gross motor function is normal. Psychiatric: No anxiety or depression. Meds/Allergies Home Medications and Allergies Home Medications Medication Instructions Recorded Confirmed Last Taken Type albuterol sulfate 90 mcg/actuation 1 inh INHALATION Q4H 08/24/19 01/28/21 01/23/21 History breath activated powder inhaler,sensor aspirin 81 mg tablet,delayed 81 mg PO DAILY@0600 08/24/19 01/28/21 01/27/21 History release atorvastatin 80 mg tablet 40 mg PO DAILY 08/24/19 01/28/21 01/27/21 History montelukast 10 mg tablet 10 mg PO DAILY@2100 08/24/19 01/28/21 01/27/21 History tamsulosin 0.4 mg capsule 0.4 mg PO BID@0600,2200 08/24/19 01/28/21 01/27/21 History tiotropium 2.5 mcg-olodaterol 2.5 2 puff INHALATION DAILY@0600 08/24/19 01/28/21 01/27/21 History mcg/actuation mist for inhalation amiodarone 200 mg tablet 200 mg PO BID@0600,2200 04/12/20 01/28/21 01/27/21 History ferrous sulfate 325 mg (65 mg 325 mg PO DAILY@0600 04/12/20 01/28/21 01/27/21 History iron) tablet diltiazem HCl 180 mg PO DAILY #30 cap 11/08/20 01/28/21 01/27/21 Rx gabapentin 300 mg PO TID@,,11/08/20 01/28/21 01/27/21 History warfarin See Rx Instructions .ROUTE .COMPLEX 11/08/20 01/28/21 01/27/21 History 5 mg sildenafil (pulm.hypertension) 10 mg PO TID@,, #0 tab 11/12/20 01/28/21 01/27/21 Rx cyclobenzaprine 10 mg tablet 10 mg PO TID PRN #60 tab 12/03/20 01/28/21 01/27/21 Rx duloxetine 30 mg capsule,delayed 30 mg PO DAILY #30 cap 12/03/20 01/28/21 01/27/21 Rx release midodrine 5 mg tablet 5 mg PO TID 01/01/21 01/28/21 01/27/21 History hydrocodone 10 mg-acetaminophen 1 tab PO Q6H PRN 30 Days #120 tab 01/03/21 01/28/21 01/23/21 Rx 325 mg tablet lidocaine HCl [Lidocaine Viscous] 1 applic MUCOUS MEMBRANE Q8H PRN 01/24/21 01/28/21 01/27/21 Rx #100 ml sucralfate 1 gram tablet 1 g PO TID 30 Days #90 tab 01/25/21 01/28/21 01/27/21 Rx amoxicillin 1,000 mg PO Q8H MDD see pharmacy 01/28/21 01/28/21 01/27/21 History comment 1000 mg bupropion HCl 150 mg PO DAILY 01/28/21 01/28/21 01/27/21 History pantoprazole 20 mg PO DAILY 01/28/21 01/28/21 01/27/21 History Allergies Allergy/AdvReac Type Severity Reaction Status Date / Time No Known Allergies Allergy Verified 01/24/21 07:19 Current Medications Current Medications Generic Name Dose Route Start Last Admin Trade Name Freq PRN Reason Stop Dose Admin Hydrocodone Bitart/Acetaminophen 1 tab 01/28/21 16:52 01/28/21 20:15 Hydrocodone-Acetaminophen 10-325 Mg Tablet PO 1 tab Q6H PRN Administration pain Albuterol/Ipratropium 3 ml 01/28/21 21:00 01/29/21 09:08 Ipratropium-Albuterol 3 Ml Neb INHALATION 3 ml Q6H.RESPIRATORY EUGENE Administration Aspirin 81 mg 01/29/21 06:00 01/29/21 05:28 Aspirin 81 Mg Ec Tablet PO 81 mg DAILY@0600 EUGENE Administration Bupropion HCl 150 mg 01/29/21 09:00 01/29/21 08:34 Bupropion Xl (24 Hr) 150 Mg Tablet PO 150 mg DAILY EUGENE Administration Diltiazem HCl 180 mg 01/29/21 09:00 01/29/21 08:34 Diltiazem Er (24hr) 180 Mg Capsule PO 180 mg DAILY EUGENE Administration Duloxetine HCl 30 mg 01/29/21 09:00 01/29/21 08:34 Duloxetine 30 Mg Capsule PO 30 mg DAILY EUGENE Administration Ferrous Sulfate 325 mg 01/29/21 06:00 01/29/21 05:28 Ferrous Sulfate Ec 325 Mg Tablet PO 325 mg DAILY@0600 EUGENE Administration Gabapentin 300 mg 01/28/21 17:00 01/29/21 05:28 Gabapentin 300 Mg Capsule PO 300 mg TID@ EUGENE Administration Levofloxacin 750 mg 01/29/21 06:00 01/29/21 05:28 Levofloxacin 750 Mg Tablet PO 750 mg DAILY@0600 EUGENE Administration Protocol Metoclopramide HCl 5 mg 01/28/21 17:00 01/29/21 10:19 Metoclopramide 10 Mg Tablet PO 5 mg AC&BEDTIME EUGENE Administration Midodrine 5 mg 01/28/21 21:00 01/29/21 08:34 Midodrine 5 Mg Tablet PO 5 mg TID EUGENE Administration Montelukast Sodium 10 mg 01/28/21 21:00 01/28/21 21:05 Montelukast Sodium 10 Mg Tablet PO 10 mg DAILY@2100 EUGENE Administration Non-Formulary Medication 10 mg 01/28/21 17:00 01/29/21 05:23 Sildenafil (Pulm.Hypertension) PO 10 mg TID@06,17,22 EUGENE Administration Pantoprazole Sodium 40 mg 01/28/21 17:00 01/29/21 04:04 Pantoprazole 40 Mg Sdv IVP 40 mg Q12H EUGENE Administration Sucralfate 1 gm 01/28/21 21:00 01/29/21 08:34 Sucralfate 1 Gm Tablet PO 1 gm TID EUGENE Administration Tamsulosin HCl 0.4 mg 01/28/21 22:00 01/29/21 05:28 Tamsulosin 0.4 Mg Capsule PO 0.4 mg BID@0600,2200 EUGENE Administration PFSH Acute PFSH: Medical History Adenocarcinoma of esophagus Cervical disc disease Cervical disc displacement Gastroesophageal reflux disease History of colon polyps Repeat colonoscopy in 3 years HTN (hypertension), benign Hyperlipidemia Hypogonadism in male Lower urinary tract symptoms (LUTS) Peyronie disease Urolithiasis Surgical History H/O decompression of ulnar nerve H/O esophagogastroduodenoscopy (05/15/20) H/O knee surgery H/O neck surgery H/O vasectomy History of back surgery History of coronary artery stent placement History of surgery on arm Hx of CABG Status post colonoscopy with polypectomy (11/08/19) Family History Mother , 64 CAD (coronary artery disease) Diabetes Hypertension Father , 66 Diabetes Hypertension CAD (coronary artery disease) Social History Smoking and tobacco status: former smoker Alcohol intake: former Lives independently: Yes Marital status: Current occupational status: retired and disabled History of recent travel: No Vitals/I&O/Wt Last Vital Signs Temp 97.7 F 01/29/21 12:00 Pulse 120 H 01/29/21 12:30 Resp 32 H 01/29/21 12:30 BP 98/58 01/29/21 12:30 Pulse Ox 85 L 01/29/21 12:30 01/28/21 01/29/21 01/29/21 22:59 06:59 14:59 Intake Total 521 / 521 729 / 1250 930 / 930 Output Total 0 / 0 150 / 150 Balance 521 / 521 729 / 1250 780 / 780 Weight last 48 hrs Weight 150 lb Physical Exam Narrative: EXAM NARRATIVE: General: Patient is awake alert and oriented, resting comfortably, in no distress Neck: No JVD Respiratory: Auscultation: Reduced breath sound bilaterally, crackles at bilateral lung bases, no wheezing or rhonchi Cardiovascular: Tachycardia, regular rate and rhythm, S1-S2 present, no murmur, no peripheral edema. Abdomen: Soft, nontender, nondistended, positive bowel sound Musculoskeletal: No obvious joint deformity Skin: No rash Neuro: Mental status is normal, no gross cranial nerve deficit, normal motor and coordination. A&P Assessment and plan (1) Acute respiratory failure with hypoxia: This is a 60-year-old gentleman who is presenting with acute hypoxic respiratory failure. CT scan of the chest revealed significant centrilobular emphysema. In addition, the patient has evidence of reticulation involving bilateral lower lobes. Given the temporal relationship, I believe the patient has radiation pneumonitis. The involved lung is in the field of radiation therapy that the patient had received in the past for stage IIIb esophageal cancer. At this point, I am going to treat him with 60 mg of prednisone daily. The patient will continue with IV antibiotics.. We are also obtaining additional microbiologic work-up for fungal diseases and PCP pneumonia. Status: Acute (2) Interstitial lung disease: Patient has evidence of interstitial lung disease in addition to emphysema. He has an extensive history of smoking and had been smoking for about 40 years a pack a day. The patient is a current smoker as well. The differential diagnoses include radiation pneumonitis, desquamative interstitial pneumonia, atypical pneumonia, PCP pneumonia, amiodarone induced lung toxicity However, the temporal relationship seems to be consistent with radiation pneumonitis. We will start the patient on 60 mg of prednisone and then evaluate him as outpatient. 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 The patient has low TSH, high T4 and a normal T3. Amiodarone prevents conversion of T4-T3 which would likely explain the normal T3 level. The patient has been suffering from chronic diarrhea likely secondary to hypothyroidism. We are in the process of obtaining microbiologic work-up for diarrhea. The patient also likely has rate controlled supraventricular tachycardia. I am going to obtain an EKG and evaluate for optimization of his drug regimen. The patient is off of amiodarone. Currently he is on Cardizem. The treatment for the amiodarone induced hyperthyroidism is going to be prednisone as well. I do not know of any history of ventricular arrhythmia for this patient. I am unsure whether the patient was on amiodarone but I am assuming this was due to atrial arrhythmia. Status: Acute (5) Anemia of chronic disease: The patient's anemia is likely from multifactorial causes. His iron profile is consistent with anemia of chronic disease. His B12 level is normal however he has folic acid deficiency. I am going to replete. Status: Acute (6) Adenocarcinoma of esophagus: The patient has stage IIIb cancer of the esophagus. He has completed his chemoradiation therapy and following up with Dr. Ryan and Dr. Aldana. Status: Acute (7) Supratherapeutic INR: Going to obtain an INR now and tomorrow morning. The patient received 1 dose of vitamin K. We will reinitiate Coumadin when appropriate. Status: Acute (8) History of mitral valve replacement with bioprosthetic valve: The patient has history of mitral valve replacement with bioprosthetic valve. I do not have any previous record. The echocardiogram did not reveal any significant worsening compared to October 2020. The patient does not seem to be volume overloaded at this time. 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
[2021-01-29 14:10] LABS: INR 1.31 (0.8-1.2)
--- NOTE | 2021-01-29 15:45 | PC.NURSE ---
Pt switched to HFNC 60L/85%. Tolerating well. VSS. Will monitor
[2021-01-29 16:13] LABS: Coronavirus Test Green County Not Detected
[2021-01-29] MEDS: folic acid 1 mg Tablet PO (16:15)
--- NOTE | 2021-01-29 17:48 | PC.NURSE ---
Shift Note Frequent safety and comfort rounds continue. Orders and/or nursing care completed as indicated. Patient monitored for response to intervention and treatment(s). Education provided includes gil care and placement reasoning. Patient verbalizes understanding. HFNC in use. Will continue to monitor.
--- NOTE | 2021-01-29 19:53 | P.PN_ITS ---
Subjective Subjective: Interval history: Discussed with him findings so far. Hypoxia appears to be gradually giving way. Discussed concern regarding radiation- induced pneumonitis. His diarrhea so far is better, and he has not had any further stools here in the hospital to provide a sample. Discussed with him concern regarding amiodarone induced hyperthyroidism. He denies any chest pain. Overall better, but still feels generally weak. Was feeling weak to stand up. He would consider going to senior care facility for rehabilitation prior to returning home. Vitals/I&O/Wt Last Vital Signs Temp 97.9 F 01/29/21 16:00 Pulse 97 01/29/21 16:00 Resp 26 H 01/29/21 16:00 BP 89/55 01/29/21 16:00 Pulse Ox 100 01/29/21 16:00 01/29/21 01/29/21 01/29/21 06:59 14:59 22:59 Intake Total 729 / 1250 1030 / 1030 Output Total 0 / 0 150 / 150 1200 / 1350 Balance 729 / 1250 880 / 880 -1200 / -320 Weight last 48 hrs Weight 68.039 kg Physical Exam Const: COMMON NORMALS: no acute distress, patient oriented x3 and alert GENERAL APPEARANCE: cooperative and frail appearing NUTRITIONAL APPEARANCE: thin ORIENTATION/CONSCIOUSNESS: Yes awake HENMT: COMMON NORMALS: oropharynx normal Neck/C-Spine: COMMON NORMALS: no JVD Resp: COMMON NORMALS: normal respiratory effort and clear to auscultation bilaterally AUSCULTATION: clear to auscultation bilaterally Cardio: COMMON NORMALS: no JVD, regular rhythm, S1 normal heart sound present, S2 normal heart sound present and No murmurs present (Cardio) RHYTHM: regular rhythm HEART SOUNDS: S1 normal heart sound present and S2 normal heart sound present GI: COMMON NORMALS: Normal to inspection, nondistended, normoactive bowel sounds present, Soft to palpation and non-tender PALPATION: Yes Soft to palpation Extremity: COMMON NORMALS: no joint enlargement and no pedal edema Neuro: COMMON NORMALS: patient oriented x3 and moves all extremities SENSORIUM/ORIENTATION: Yes alert Skin: COMMON NORMALS: no rashes or lesions noted GENERAL SKIN EXAM: no rashes or lesions noted Urinary Catheter Management^: Valles: Cath Placed During This Visit: yes Reason for Continuing Indwelling Catheter: Acute Urinary Retention or Obstruction Urinary Catheter Date of Insertion: 01/29/21 Urinary Catheter Time of Insertion: 17:10 Data : 01/29/21 08:05 01/29/21 08:05 A&P Assessment and plan (1) Acute respiratory failure with hypoxia: Persistent hypoxia overnight. Today appears to be showing improvement. Continue steroids at this time. Concern as per discussion with pulmonology specialist, patient is regarding radiation-induced pneumonitis, though possible infection at the moment cannot yet be excluded, superimposed on chronic lung disease with emphysema, possibly additional interstitial lung disease. Would benefit from additional follow-up. Continue steroid, antibiotic. Wean down oxygen as tolerating. COVID-19 PCR negative. Sputum culture so far uncollected. Pending additional fungal studies. Sputum culture requested. Urine bacterial antigens. Urine histoplasma antigen. PGP PCR. Fungitell. Status: Acute (2) Acute anemia: Responded well to PRBC transfusion. Recheck hemoglobin. Plasmic score low for TTP. Appears to have some hypoproliferation based on reticulocyte index. Noted folic acid deficiency. Started on replacement. Check Hemoccult. Macrocytic anemia. Status: Acute (3) Total bilirubin, elevated: Mild indirect bilirubin elevation. Study is overall not suggestive of hemolysis. Plasmic score low for TTP. Suspect possible mild indirect evaluation secondary to dehydration, poor oral intake. Unremarkable CT abdomen pelvis. Status: Acute (4) ST segment depression: No chest pain. Troponin series without suggestion of acute MT. Not suspecting acute MT, although may have underlying CAD, possibly symptomatic secondary to hypoxic respiratory failure with symptomatic anemia. PBC transfusion as above. Treat hypoxic respiratory failure as above. Limited TTE assessment with noted regional wall motion abnormality, but unchanged from prior echo in October. Would benefit from follow-up risk stratification with stress testing once more stable. Status: Acute (5) Interstitial lung disease: As above. Appears to overall have more acute process, however, cannot exclude also underlying ILD. Pulmonology assessment appreciated. Will need additional follow-up. Has history of emphysema, COPD. Used to follow with pulmonology in [place] at the time of diagnosis of pulmonary hypertension. This was diagnosed at the same time as valve replacement. Is on sildenafil. Says has not followed up since that time, however. Status: Acute (6) Nausea, vomiting and diarrhea: This appears may be multifactorial. In addition to known esophagitis, gastritis, GERD, for which he is continued on a PPI at this time, additionally may be having diarrhea possibly secondary to hyperthyroidism. Diarrhea so far has let up. We have not been able to collect stool sample for requested studies. Recurrent episodes of nausea, vomiting, also reports persistent diarrhea. Very poor oral intake in the last month. States food does not stay long in his stomach. Previously some pain after eating, but not recently. Had EGD with noted esophagitis, gastritis just recently on 01/24. Continue PPI twice daily. Continue sucralfate. He does report history of diabetes in the past, does report peripheral neuropathy as well. A1c is 4.8. Consider additional assessment by gastric emptying study once he is more stable. Denies any odynophagia. Continues follow-up with Dr. Ryan for history of esophageal cancer. Status: Acute (7) Supratherapeutic INR: Was reversed on admission. Anticoagulation on hold. Status: Acute Additional A&P Information Hypothyroidism: TSH noted almost suppressed. Free T4 7.44. 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 Ultrasound requested, pending. Given additional concerns, including possible interstitial lung disease would be safer to discontinue amiodarone. Continue steroid. Reports history of diabetes, previously treated. A1c 4.8. Reports peripheral neuropathy. Esophageal cancer: Continue follow-up with Dr. Ryan Reported history of CAD with history of CABG, bioprosthetic mitral valve Chronic anticoagulation with warfarin Attestations Medical Necessity Statement*: Continue admission for assessment management of hypoxic respiratory failure. Coding Level of Care Code Acute [employer] Machine [facility] Diagnoses Acute respiratory failure with hypoxia J96.01 Acute anemia D64.9 Total bilirubin, elevated R17 ST segment depression R94.31 Interstitial lung disease J84.9 Nausea, vomiting and diarrhea R11.2; R19.7 Supratherapeutic INR R79.1
[2021-01-29] MEDS: montelukast sodium 10 mg Tablet PO (20:55)
[2021-01-30] VITALS (24 sets, daily range): BP systolic 82–93; BP diastolic 43–51; PULSE 76–104; RESP 14–37; TEMP 36.4–37; O2SAT 90–100; BMI 19.0
[2021-01-30] MEDS: HYDROcodone-acetaminophen 10-325 mg Tablet 1 TAB PO ×4 (01:40→20:49)
[2021-01-30] MEDS: ipratropium-albuterol 3 mL Neb INHALATION ×3 (02:35→21:00)
[2021-01-30] MEDS: pantoprazole 40 mg SDV IVP ×2 (05:22→17:11)
[2021-01-30] MEDS: aspirin 81 mg EC Tablet PO (05:22)
[2021-01-30] MEDS: ferrous sulfate EC 325 mg Tablet PO (05:22)
[2021-01-30] MEDS: tamsulosin 0.4 mg Capsule PO ×2 (05:22→21:42)
[2021-01-30] MEDS: gabapentin 300 mg Capsule PO ×3 (05:23→21:42)
[2021-01-30] MEDS: levoFLOXacin 750 mg Tablet PO (05:23)
[2021-01-30] MEDS: NON-FORMULARY MEDICATION (Sildenafil (Pulm.Hypertension) 20 mg tablet) 10 EACH PO ×3 (05:23→21:43)
--- NOTE | 2021-01-30 05:57 | PC.NURSE ---
Shift Summary Patient had an uneventful evening. He remains on heated high flow NC at 60 liters and 76% FiO2. No infusions running at this time, right subclavian vein port remains saline locked. Valles catheter drained 720 mls of clear dark rimma urine out all evening and patient had one smear BM noted. Patient is alert and oriented x4 at this time and had one complaint of pain all evening, which PRN Hydrocodone was administered. No wounds or skin issues noted at this time.
[2021-01-30 05:58] LABS: T4 Total 19.4 mcg/dL (4.9-10.5)
[2021-01-30 06:43] LABS: Hematocrit 25.6 % (42.0-52.0); Hemoglobin 7.7 g/dL (11.7-16.6); Lymphocytes # 0.1 10^3/uL (0.8-4.8); Lymphocytes % 1.5 %; Mean Corpuscular HGB Conc 30.1 g/dL (30.0-36.0); Mean Corpuscular Hemoglobin 29.5 pg (28.0-34.0); Mean Corpuscular Volume 98.1 fL (80-94); Mean Platelet Volume 10.3 fL (7.4-10.4); Monocytes # 0.4 10^3/uL (0.2-0.9); Monocytes % 5.8 %; Neutrophils # 6.32 10^3/uL (1.8-7.7); Neutrophils % 92.1 %; Nucleated Red Blood Cells % 0 %; Platelet Count 162 10^3/cmm (130-400); Red Blood Count 2.61 10^6/uL (4.1-5.3); Red Cell Distribution Width 17.6 % (12.1-15.1); White Blood Count 6.9 10^3/uL (4.0-10.0)
[2021-01-30] MEDS: enoxaparin 60 mg/0.6 mL Syringe SUBCUT (06:49)
[2021-01-30] MEDS: metoclopramide 10 mg Tablet 5 MG PO ×4 (06:49→20:48)
[2021-01-30 06:57] LABS: INR 1.13 (0.8-1.2)
[2021-01-30 07:02] LABS: Alanine Aminotransferase 18 U/L (0-41); Albumin Level 2.2 g/dL (3.5-5.2); Alkaline Phosphatase 112 IU/L (40-130); Anion Gap 11.2 (5-19); Aspartate Amino Transferase 27 U/L (0-40); Blood Urea Nitrogen 16 mg/dL (8-23); Calcium 7.8 mg/dL (8.5-10.5); Carbon Dioxide 28 mmol/L (22-29); Chloride 92 mmol/L (98-107); Globulin 2.6 g/dL (1.3-4.6); Glomerular Filtration Rate 305.8 mL/min (90-130); Glucose 190 mg/dL (65-115); Osmolality Calculated 272 mOsm/kg (285-295); Potassium 3.2 mmol/L (3.5-5.1); Sodium 128 mmol/L (136-145); Total Bilirubin 1.3 mg/dL (0.15-1.2); Total Protein 4.8 g/dL (6.6-8.7)
--- NOTE | 2021-01-30 08:25 | PM.PN ---
Subjective Subjective: Interval history: The patient was seen and examined. Overall he had done well. He continues to require high flow nasal cannula with an FiO2 around 70%. His blood pressure has been soft however he had excellent urine output yesterday. His blood work is consistent with hyperthyroidism which is likely responsible for his diarrhea and sinus tachycardia and possibly weight loss. He has developed mild hyponatremia likely secondary to SIADH. His INR today is 1.1. Medications: Reviewed: Yes Vitals/I&O/Wt Last Vital Signs Temp 97.9 F 01/30/21 04:00 Pulse 96 01/30/21 08:00 Resp 22 H 01/30/21 08:00 BP 93/51 01/30/21 08:00 Pulse Ox 90 01/30/21 08:00 01/29/21 01/30/21 01/30/21 22:59 06:59 14:59 Intake Total 480 / 1510 Output Total 1200 / 1350 720 / 2070 Balance -1200 / -320 -240 / -560 Weight last 48 hrs Weight 136 lb 6 oz Weight 150 lb Physical Exam Narrative: EXAM NARRATIVE: General: Patient is awake alert and oriented, resting comfortably, in no distress Neck: No JVD Respiratory: Auscultation: Reduced breath sound bilaterally, crackles at bilateral lung bases, no wheezing or rhonchi Cardiovascular: Normal rate and rhythm, S1-S2 present, no murmur, no peripheral edema. Abdomen: Soft, nontender, nondistended, positive bowel sound Musculoskeletal: No obvious joint deformity Skin: No rash Neuro: Mental status is normal, no gross cranial nerve deficit, normal motor and coordination. Urinary Catheter Management^: Valles: Cath Placed During This Visit: yes Reason for Continuing Indwelling Catheter: Accurate Measurement of Urinary Output in Critically Ill Patients Urinary Catheter Date of Insertion: 01/29/21 Urinary Catheter Time of Insertion: 17:10 Data : 01/30/21 05:20 01/30/21 05:20 Attestation for Other Data: I personally reviewed and interpreted the following: Other data: I have reviewed his laboratory, microbiologic and radiologic data. The patient has hypokalemia and hyponatremia. A&P Assessment and plan (1) Acute respiratory failure with hypoxia: This is a 60-year-old gentleman who is presenting with acute hypoxic respiratory failure. CT scan of the chest revealed significant centrilobular emphysema. In addition, the patient has evidence of reticulation involving bilateral lower lobes. Given the temporal relationship, I believe the patient has radiation pneumonitis. The involved lung is in the field of radiation therapy that the patient had received in the past for stage IIIb esophageal cancer. The patient is on 60 mg of prednisone and Levaquin. If the hypoxia continues to persist and does not improve in the next 48 to 72 hours, the patient will need bronchoscopic evaluation. Status: Acute (2) Interstitial lung disease: Patient has evidence of interstitial lung disease in addition to emphysema. He has an extensive history of smoking and had been smoking for about 40 years a pack a day. The patient is a current smoker as well. The differential diagnoses include radiation pneumonitis, desquamative interstitial pneumonia, atypical pneumonia, PCP pneumonia, amiodarone induced lung toxicity However, the temporal relationship seems to be consistent with radiation pneumonitis. We will assess his response to therapy. 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 The patient has low TSH, high T4 and a normal T3. Amiodarone prevents conversion of T4-T3 which would likely explain the normal T3 level. The patient has been suffering from chronic diarrhea likely secondary to hypothyroidism. We are in the process of obtaining microbiologic work-up for diarrhea. I am going to switch him to a beta-patsy instead of a calcium channel patsy which is recommended for hyperthyroidism. This will help him with his sinus tachycardia as well as other sympathetic manifestations of hyperthyroidism. I have ordered an ultrasound of the thyroid to make sure the patient does not have multinodular goiter. Status: Acute (5) Supratherapeutic INR: His INR this morning is 1.1. I am starting the patient on therapeutic dose Lovenox. This will be bridged with warfarin. I am starting him on half dose of his regular warfarin dose as the patient is on Levaquin. Status: Acute (6) Anemia of chronic disease: The patient's anemia is likely from multifactorial causes. His iron profile is consistent with anemia of chronic disease. His B12 level is normal however he has folic acid deficiency. He is on folic acid supplementation. Status: Acute (7) Adenocarcinoma of esophagus: The patient has stage IIIb cancer of the esophagus. He has completed his chemoradiation therapy and following up with Dr. Ryan and Dr. Aldana. Status: Acute (8) History of mitral valve replacement with bioprosthetic valve: The patient has history of mitral valve replacement with bioprosthetic valve. I do not have any previous record. The echocardiogram did not reveal any significant worsening compared to October 2020. The patient does not seem to be volume overloaded at this time. Status: Acute (9) Hyponatremia: The patient has developed mild hyponatremia likely secondary to SIADH. I am going to obtain urine sodium and osmolality. I am starting him on salt tablets. I have increased his dose of midodrine. Status: Acute Additional A&P Information The patient is ready for transfer to [facility] unit. 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
[2021-01-30] MEDS: potassium chloride oral liq 20 mEq/15 mL UDC 60 MEQ PO (09:01)
[2021-01-30] MEDS: sodium chloride 1 gm Tablet 2 GM PO ×2 (09:04→17:13)
[2021-01-30] MEDS: sucralfate 1 gm Tablet PO ×3 (09:05→20:48)
[2021-01-30] MEDS: buPROPion XL (24 HR) 150 mg Tablet PO (09:05)
[2021-01-30] MEDS: predniSONE 20 mg Tablet 60 MG PO (09:06)
[2021-01-30] MEDS: folic acid 1 mg Tablet PO ×2 (09:07→17:12)
[2021-01-30] MEDS: metoprolol tartrate 25 mg Tablet PO ×2 (09:18→20:49)
[2021-01-30] MEDS: duloxetine 30 mg Capsule PO (09:19)
--- NOTE | 2021-01-30 09:23 | PC.NURSE ---
called pharmacy about midodrine
--- NOTE | 2021-01-30 09:33 | P.PN_ITS ---
Subjective Subjective: Interval history: He states he is overall doing okay. Denies chest pain or pressure. Breathing comfortable on current oxygen. Yesterday she had an accident and had to be cleaned up of diarrhea. So far no further bowel movement. Vitals/I&O/Wt Last Vital Signs Temp 97.9 F 01/30/21 04:00 Pulse 101 H 01/30/21 09:31 Resp 19 H 01/30/21 09:31 BP 93/51 01/30/21 08:00 Pulse Ox 94 01/30/21 09:31 01/29/21 01/30/21 01/30/21 22:59 06:59 14:59 Intake Total 480 / 1510 Output Total 1200 / 1350 720 / 2070 Balance -1200 / -320 -240 / -560 Weight last 48 hrs Weight 61.859 kg Weight 68.039 kg Physical Exam Const: COMMON NORMALS: no acute distress, patient oriented x3 and alert GENERAL APPEARANCE: cooperative and frail appearing NUTRITIONAL APPEARANCE: thin ORIENTATION/CONSCIOUSNESS: Yes awake HENMT: COMMON NORMALS: oropharynx normal Neck/C-Spine: COMMON NORMALS: no JVD Resp: COMMON NORMALS: normal respiratory effort and clear to auscultation bilaterally AUSCULTATION: clear to auscultation bilaterally Cardio: COMMON NORMALS: no JVD, regular rhythm, S1 normal heart sound present, S2 normal heart sound present and No murmurs present (Cardio) RHYTHM: regular rhythm HEART SOUNDS: S1 normal heart sound present and S2 normal heart sound present GI: COMMON NORMALS: Normal to inspection, nondistended, normoactive bowel sounds present, Soft to palpation and non-tender PALPATION: Yes Soft to palpation Extremity: COMMON NORMALS: no joint enlargement and no pedal edema Neuro: COMMON NORMALS: patient oriented x3 and moves all extremities SENSORIUM/ORIENTATION: Yes alert Skin: COMMON NORMALS: no rashes or lesions noted GENERAL SKIN EXAM: no rashes or lesions noted Urinary Catheter Management^: Valles: Cath Placed During This Visit: yes Reason for Continuing Indwelling Catheter: Accurate Measurement of Urinary Output in Critically Ill Patients Urinary Catheter Date of Insertion: 01/29/21 Urinary Catheter Time of Insertion: 17:10 Data : 01/30/21 05:20 01/30/21 05:20 A&P Assessment and plan (1) Acute respiratory failure with hypoxia: Currently he is doing well on heated high flow cannula. Continue to wean down as tolerating. Continue steroid, continue empiric antibiotic. Follow-up pending microbiologic studies. Persistent hypoxia overnight. Today appears to be showing improvement. Continue steroids at this time. Concern as per discussion with pulmonology specialist, patient is regarding radiation-induced pneumonitis, though possible infection at the moment cannot yet be excluded, superimposed on chronic lung disease with emphysema, possibly additional interstitial lung disease. Would benefit from additional follow-up. Continue steroid, antibiotic. Wean down oxygen as tolerating. COVID-19 PCR negative. Sputum culture so far uncollected. Pending additional fungal studies. Sputum culture requested. Urine bacterial antigens. Urine histoplasma antigen. PJP PCR. Fungitell. Status: Acute (2) Acute anemia: Hemoglobin down to 7.7. INR is normalized. Stool studies pending including Hemoccult. Responded well to PRBC transfusion. Recheck hemoglobin. Plasmic score low for TTP. Appears to have some hypoproliferation based on reticulocyte index. Noted folic acid deficiency. Started on replacement. Status: Acute (3) Total bilirubin, elevated: Mild indirect bilirubin elevation. Study is overall not suggestive of hemolysis. Plasmic score low for TTP. Suspect possible mild indirect evaluation secondary to dehydration, poor oral intake. Unremarkable CT abdomen pelvis. Status: Acute (4) ST segment depression: No chest pain. Troponin series without suggestion of acute NE. Not suspecting acute NE, although may have underlying CAD, possibly symptomatic secondary to hypoxic respiratory failure with symptomatic anemia. PBC transfusion as above. Treat hypoxic respiratory failure as above. Limited TTE assessment with noted regional wall motion abnormality, but unchanged from prior echo in October. Would benefit from follow-up risk stratification with stress testing once more stable. Status: Acute (5) Interstitial lung disease: As above. Appears to overall have more acute process, however, cannot exclude also underlying ILD. Pulmonology assessment appreciated. Will need additional follow-up. Has history of emphysema, COPD. Used to follow with pulmonology in [place] at the time of diagnosis of pulmonary hypertension. This was diagnosed at the same time as valve replacement. Is on sildenafil. Says has not followed up since that time, however. Status: Acute (6) Nausea, vomiting and diarrhea: This appears may be multifactorial. In addition to known esophagitis, g astritis, GERD, for which he is continued on a PPI at this time, additionally may be having diarrhea possibly secondary to hyperthyroidism. Diarrhea additional episode last night, but could not be collected for samples. Pending collection of stool sample for requested studies. Recurrent episodes of nausea, vomiting, also reports persistent diarrhea. Very poor oral intake in the last month. States food does not stay long in his stomach. Previously some pain after eating, but not recently. Had EGD with noted esophagitis, gastritis just recently on 01/24. Continue PPI twice daily. Continue sucralfate. He does report history of diabetes in the past, does report peripheral neuropathy as well. A1c is 4.8. Consider additional assessment by gastric emptying study once he is more stable. Denies any odynophagia. Continues follow-up with Dr. Ryan for history of esophageal cancer. Status: Acute (7) Supratherapeutic INR: Was reversed on admission. Trial of ventilation been resumed with Lovenox, low-dose warfarin. Status: Acute Additional A&P Information Hypothyroidism: TSH noted almost suppressed. Free T4 7.44. 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 Ultrasound requested, pending. Given additional concerns, including possible interstitial lung disease would be safer to discontinue amiodarone. Continue steroid. Reports history of diabetes, previously treated. A1c 4.8. Reports peripheral neuropathy. Esophageal cancer: Continue follow-up with Dr. Ryan Reported history of CAD with history of CABG, bioprosthetic mitral valve Chronic anticoagulation with warfarin Attestations Medical Necessity Statement*: Continue admission for assessment management of hypoxic respiratory failure, radiation pneumonitis, with acute on chronic anemia, amiodarone induced thyrotoxicosis. 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
[2021-01-30] MEDS: midodrine 5 mg TABLET 10 MG PO ×3 (09:37→20:48)
--- NOTE | 2021-01-30 09:41 | PC.CHAP ---
Pastoral Care Encounter/Spiritual Assessment Type of Contact [] Declined rail maintenance worker visit [] Patient/Family/Request visit [] Outpatient visit [] Follow-up visit [] Physician referral [] Code/Alert [x] Routine visit [] Staff referral [] Actively dying [] Patient sleeping [] Family support [] [] Out of room [] Palliative care [] [] Receiving care in room [] Pre-surgical visit [] Trauma [] Long length of stay [x] ICU visit [] Other: Relational/Emotional Strength [] Patient feels connected with others/family/visitors/staff [] Distress [] Loneliness/isolation [] Abandonment Spirituality of Patient [] Person of Tiffanie [] Attends Temple of their Tiffanie [] Believes in Prayer [] Reads Bible or Taoist materials [] There are Spiritual issues to be addressed Acrobatic Rigger Interventions [x] Prayer [x] Active listening x[] Non-anxious presence [x] Spiritual/emotional support [] Crisis/trauma care [] Spiritual counseling [] Bereavement support [] Provided bereavement packet [] Provided Bible/devotional materials [] Provided toy/stuffed animal, coloring book to patient or family member [] Provided Communion [] Anointing/[place] [] Salvation [x] Completed spiritual assessment [] Other: Impact on Illness or Injury [] Angry [] Fearful [] Anxious [] Often cries [] Exhaustion [] Unable to work [] Unable to attend sikh [] Unable to walk/stand [] Unable to read [] Unable to drive [] Unable to eat/drink [] Unable to sleep [] Unable to be with family [] Patient intubated [] Other: Summary patient feeling better... non believer , but we prayed Time spent with patient 5 min
--- NOTE | 2021-01-30 10:22 | PC.NURSE ---
1000; scd's reapplied at this time.
--- NOTE | 2021-01-30 10:52 | PC.RESP ---
Pulmonary Rehab information sent to patient.
--- NOTE | 2021-01-30 11:11 | PC.NURSE ---
ultrasound in room at this time.
--- NOTE | 2021-01-30 11:31 | PC.NURSE ---
physical therapy removed scds. pt states they are hurting him. 'that and they get pretty hot.'
--- NOTE | 2021-01-30 11:33 | PC.NURSE ---
pt states he takes 10-325 at home. he wants to know if his son can bring in his pain meds from home to take i between ours. I informed pt that we do not allow home meds like that and we order them here. I assured pt I would ask physician about breakthrough pain meds.
[2021-01-30 12:39] LABS: Urine Random Sodium 10 mmol/L
--- NOTE | 2021-01-30 13:17 | US_ITS ---
WS: [id number] THYROID ULTRASOUND HISTORY: Hyperthyroidism COMPARISON: None available. Right lobe: 1.1 cm x 2.3 cm x 5.1 cm (w x ap x l). Volume: 6.5 cm3. Mildly enlarged heterogeneous gland. Coarsened echotexture with no nodule or increased vascularity. Left lobe: 1.5 cm x 1.7 cm x 4.5 cm (w x ap x l). Volume: 6.0 cm3. Mildly enlarged heterogeneous gland. Coarse echotexture with no nodule or increased vascularity. Isthmus: 0.5 cm. US/US thyroid 60809 IMPRESSION: Mild thyromegaly with coarsened echotexture but no mass or nodule.
[2021-01-30] MEDS: warfarin 2.5 mg Tablet PO (14:18)
--- NOTE | 2021-01-30 14:59 | PC.NURSE ---
clarified with pt and pt son that no pain meds were brought into facility by son.
--- NOTE | 2021-01-30 15:16 | PC.NURSE ---
when giving pt his pain meds explained to pt what his scds are for. pt acknowledged understanding and allowed me to put them back on.
[2021-01-30] MEDS: lanolin oint 7 gm 1 APPLIC TOPICAL (17:03)
--- NOTE | 2021-01-30 18:20 | PC.NUTR ---
Nutrition assessment for weight loss and decreased appetite. Have added chocolate Ensure to diet per pt preference, with verbal order from MD. Reports tolerating clear liquids and interested in diet advancement. Recommend advance diet as tolerated, per MD discretion. However, also note poor po intakes per chart--25% X only 2 meals since admission, other 4 meals missing from EMR. Recommend clarification of intakes. Also recommend consideration of PAINT TECHNICIAN eval, given pt report of swallowing difficulty at times. See full RD assessment for further details.
--- NOTE | 2021-01-30 19:03 | PC.NURSE ---
Patient taken to 263-1 via bed, on 15L NRB, belongings with patient, meds to charge nurse. No questions.
--- NOTE | 2021-01-30 19:43 | PC.NURSE ---
Oriented. Pt arrived on and was oriented to room and equipment. Pt watching tv when introduced to shiftman nurse. No c/o pain.
[2021-01-30] MEDS: montelukast sodium 10 mg Tablet PO (20:48)
[2021-01-31] VITALS (19 sets, daily range): BP systolic 71–102; BP diastolic 30–56; PULSE 71–88; RESP 15–20; TEMP 36.4–37.3; O2SAT 86–97
[2021-01-31] MEDS: pantoprazole 40 mg SDV IVP ×2 (05:09→17:03)
[2021-01-31 05:40] LABS: Basophils % 0.2 %; Hematocrit 25.4 % (42.0-52.0); Hemoglobin 7.6 g/dL (11.7-16.6); Lymphocytes # 0.2 10^3/uL (0.8-4.8); Mean Corpuscular HGB Conc 29.9 g/dL (30.0-36.0); Mean Corpuscular Hemoglobin 29.3 pg (28.0-34.0); Mean Corpuscular Volume 98.1 fL (80-94); Mean Platelet Volume 10.4 fL (7.4-10.4); Monocytes # 0.4 10^3/uL (0.2-0.9); Monocytes % 5.5 %; Neutrophils # 5.73 10^3/uL (1.8-7.7); Neutrophils % 90.7 %; Nucleated Red Blood Cells % 0 %; Platelet Count 148 10^3/cmm (130-400); Red Blood Count 2.59 10^6/uL (4.1-5.3); Red Cell Distribution Width 17.3 % (12.1-15.1); White Blood Count 6.3 10^3/uL (4.0-10.0)
--- NOTE | 2021-01-31 05:53 | PC.NURSE ---
shift note patient rested this shift. difficulty breathing when positioning or turning, continue on high flow for oxygenation, no c/o SOB.
[2021-01-31] MEDS: tamsulosin 0.4 mg Capsule PO (06:03)
[2021-01-31] MEDS: aspirin 81 mg EC Tablet PO (06:03)
[2021-01-31] MEDS: metoclopramide 10 mg Tablet 5 MG PO ×4 (06:03→20:45)
[2021-01-31] MEDS: levoFLOXacin 750 mg Tablet PO (06:03)
[2021-01-31] MEDS: gabapentin 300 mg Capsule PO (06:03)
[2021-01-31] MEDS: ferrous sulfate EC 325 mg Tablet PO (06:04)
[2021-01-31] MEDS: NON-FORMULARY MEDICATION (Sildenafil (Pulm.Hypertension) 20 mg tablet) 10 EACH PO ×3 (06:05→23:00)
[2021-01-31] MEDS: enoxaparin 60 mg/0.6 mL Syringe SUBCUT ×2 (06:06→18:06)
[2021-01-31] MEDS: artificial tears Op Soln 15 mL Btl 1 DROP EYE-BOTH ×4 (06:09→20:44)
[2021-01-31 06:16] LABS: Alanine Aminotransferase 21 U/L (0-41); Albumin Level 2.3 g/dL (3.5-5.2); Alkaline Phosphatase 108 IU/L (40-130); Anion Gap 10.4 (5-19); Aspartate Amino Transferase 28 U/L (0-40); Blood Urea Nitrogen 12 mg/dL (8-23); Calcium 7.9 mg/dL (8.5-10.5); Carbon Dioxide 29 mmol/L (22-29); Chloride 95 mmol/L (98-107); Cortisol Random 1.83 ug/dL (2.47-19.5); Globulin 2.3 g/dL (1.3-4.6); Glomerular Filtration Rate 488.3 mL/min (90-130); Glucose 136 mg/dL (65-115); Osmolality Calculated 272 mOsm/kg (285-295); Potassium 4.4 mmol/L (3.5-5.1); Sodium 130 mmol/L (136-145); Total Bilirubin 1.2 mg/dL (0.15-1.2); Total Protein 4.6 g/dL (6.6-8.7)
[2021-01-31] MEDS: ipratropium-albuterol 3 mL Neb INHALATION ×3 (08:22→21:30)
[2021-01-31] MEDS: predniSONE 20 mg Tablet 60 MG PO (09:25)
[2021-01-31] MEDS: midodrine 5 mg TABLET 10 MG PO (09:25)
[2021-01-31] MEDS: sucralfate 1 gm Tablet PO ×3 (09:25→20:45)
[2021-01-31] MEDS: duloxetine 30 mg Capsule PO (09:25)
[2021-01-31] MEDS: sodium chloride 1 gm Tablet 2 GM PO ×2 (09:26→18:06)
[2021-01-31] MEDS: buPROPion XL (24 HR) 150 mg Tablet PO (09:26)
[2021-01-31] MEDS: folic acid 1 mg Tablet PO ×2 (09:26→17:03)
[2021-01-31] MEDS: HYDROcodone-acetaminophen 10-325 mg Tablet 1 TAB PO ×3 (09:31→20:53)
--- NOTE | 2021-01-31 11:30 | P.PN_ITS ---
Subjective Subjective: Interval history: States he is doing all right. Having some erythema/pruritus of medial surfaces of his palms. No rash elsewhere. No conjunctival changes. No mouth lesions. No odynophagia. Noticed dry skin of his legs. Later in the day when sit up in the chair noted to be more hypotensive. Vitals/I&O/Wt Last Vital Signs Temp 99.1 F 01/31/21 07:52 Pulse 77 01/31/21 08:33 Resp 18 01/31/21 08:25 BP 94/52 01/31/21 07:52 Pulse Ox 93 01/31/21 08:25 01/30/21 01/31/21 01/31/21 22:59 06:59 14:59 Intake Total 1200 / 1200 Output Total 600 / 600 750 / 1350 Balance -600 / -600 -750 / -1350 1180 / 1180 Weight last 48 hrs Weight 61.689 kg Weight 61.859 kg Physical Exam Const: COMMON NORMALS: no acute distress, patient oriented x3 and alert GENERAL APPEARANCE: cooperative and frail appearing NUTRITIONAL APPEARANCE: thin ORIENTATION/CONSCIOUSNESS: Yes awake HENMT: COMMON NORMALS: oropharynx normal Neck/C-Spine: COMMON NORMALS: no JVD Resp: COMMON NORMALS: normal respiratory effort and clear to auscultation bilaterally AUSCULTATION: clear to auscultation bilaterally Cardio: COMMON NORMALS: no JVD, regular rhythm, S1 normal heart sound present, S2 normal heart sound present and No murmurs present (Cardio) RHYTHM: regular rhythm HEART SOUNDS: S1 normal heart sound present and S2 normal heart sound present GI: COMMON NORMALS: Normal to inspection, nondistended, normoactive bowel sounds present, Soft to palpation and non-tender PALPATION: Yes Soft to palpation Extremity: COMMON NORMALS: no joint enlargement and no pedal edema Neuro: COMMON NORMALS: patient oriented x3 and moves all extremities SENSORIUM/ORIENTATION: Yes alert Skin: GENERAL SKIN EXAM: erythema (palms -hypothenar and thenar eminence bilaterally, no skin breakdown, no dr) OTHER: Dry skin on the legs. Otherwise no rash. No oral lesions. No conjunctival changes. Urinary Catheter Management^: Valles: Cath Placed During This Visit: yes Reason for Continuing Indwelling Catheter: Acute Urinary Retention or Obstruction Urinary Catheter Date of Insertion: 01/29/21 Urinary Catheter Time of Insertion: 17:10 Data : 01/31/21 05:17 01/31/21 05:17 Micro: Microbiology 01/31/21 10:00 Occult Blood (FIT) - Final Stool Routine Collection 01/31/21 10:00 Stool Lactoferrin - Final Stool - Stool Aspirate A&P Assessment and plan (1) Hypotension: Noted hypotensive sitting up in the chair, systolic blood pressure noted as low as in the 60s. Requested to place supine. 500 mL LR bolus. Hold gabapentin. He is on midodrine, however, does not appear to be effective, and is also having some palmar pruritus so likely will hold further midodrine from here on out. He is on prednisone. Morning serum cortisol low, although may be suppressed secondary to steroid. Difficult to interpret. Does not appear to have been affected by prednisone. Continue steroids at this time. Does not appear to have adrenal hemorrhage on CT. Status: Acute (2) Acute respiratory failure with hypoxia: Currently he is doing well on heated high flow cannula. Continues to require 70% FiO2. Continue to wean down as tolerating. Continue steroid, continue empiric antibiotic. Follow-up pending microbiologic studies. Persistent hypoxia overnight. Today appears to be showing improvement. Continue steroids at this time. Concern as per discussion with pulmonology specialist, patient is regarding radiation-induced pneumonitis, though possible infection at the moment cannot yet be excluded, superimposed on chronic lung disease with emphysema, possibly additional interstitial lung disease. Would benefit from additional follow-up. Continue steroid, antibiotic. Wean down oxygen as tolerating. COVID-19 PCR negative. Sputum culture so far uncollected. Pending additional fungal studies. Sputum culture requested. Urine bacterial antigens. Urine histoplasma antigen. PJP PCR. Fungitell. Status: Acute (3) Acute anemia: Hemoglobin down to 7.6. INR is normalized. Hemoccult negative. So far received 1 unit PBC transfusion at presentation. Plasmic score low for TTP. Appears to have some hypoproliferation based on reticulocyte index. Noted folic acid deficiency. Started on replacement. Status: Acute (4) Total bilirubin, elevated: Resolving. Mild indirect bilirubin elevation. Study is overall not suggestive of hemolysis. Plasmic score low for TTP. Suspect possible mild indirect evaluation secondary to dehydration, poor oral intake. Unremarkable CT abdomen pelvis. Status: Acute (5) ST segment depression: No chest pain. Troponin series without suggestion of acute PA. Not suspecting acute PA, although may have underlying CAD, possibly symptomatic secondary to hypoxic respiratory failure with symptomatic anemia. PBC transfusion as above. Treat hypoxic respiratory failure as above. Limited TTE assessment with noted regional wall motion abnormality, but unchanged from prior echo in October. Would benefit from follow-up risk stratification with stress testing once more stable. Status: Acute (6) Interstitial lung disease: As above. Appears to overall have more acute process, however, cannot exclude also underlying ILD. Pulmonology assessment appreciated. Will need additional follow-up. Has history of emphysema, COPD. Used to follow with pulmonology in [place] at the time of diagnosis of pulmonary hypertension. This was diagnosed at the same time as valve replacement. Is on sildenafil. Says has not followed up since that time, however. Status: Acute (7) Nausea, vomiting and diarrhea: Vomiting so far has resolved. Diarrhea yesterday. Appears samples collected. Lactoferrin positive. Hemoccult negative. Pending other studies. This appears may be multifactorial. In addition to known esophagitis, gastritis, GERD, for which he is continued on a PPI at this time, additionally may be having diarrhea possibly also secondary to hyperthyroidism. Recurrent episodes of nausea, vomiting, also reports persistent diarrhea. Very poor oral intake in the last month. States food does not stay long in his stomach. Previously some pain after eating, but not recently. Had EGD with noted esophagitis, gastritis just recently on 01/24. Continue PPI twice daily. Continue sucralfate. He does report history of diabetes in the past, does report peripheral neuropathy as well. A1c is 4.8. Consider additional assessment by gastric emptying study once he is more stable. Denies any odynophagia. Continues follow-up with Dr. Ryan for history of esophageal cancer. Status: Acute (8) Supratherapeutic INR: Was reversed on admission. Trial of ventilation been resumed with Lovenox, low-dose warfarin. Recheck INR. Status: Acute (9) Palmar erythema: Noted pulmonary edema, some soreness/itching. No rash elsewhere. No conjunctival or oral lesions. He is on midodrine which does not appear to be working. We will hold medication for now as it can cause pruritus. Also hold bupropion. Hold gabapentin. He reports some dry scaly skin on his legs. Sta carisa saw some fluid leak out from under dry skin patch, although cannot tell me if had a blister. Does not appear to have blisters currently. Monitor. Status: Acute Additional A&P Information Hypothyroidism: TSH noted almost suppressed. Free T4 7.44. 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 Ultrasound without nodules or mass. Mild thyromegaly. Coarsened echotexture. Given additional concerns, including possible interstitial lung disease would be safer to discontinue ami odarone. Continue steroid. Reports history of diabetes, previously treated. A1c 4.8. Reports peripheral neuropathy. Esophageal cancer: Continue follow-up with Dr. Ryan Reported history of CAD with history of CABG, bioprosthetic mitral valve Chronic anticoagulation with warfarin Attestations Medical Necessity Statement*: Continue admission for assessment of management of hypotension, hypoxic respiratory failure, diarrhea, and gentleman with radiation pneumonitis, amiodarone thyrotoxicosis. 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
[2021-01-31 11:50] LABS: C Reactive Protein 59.2 mg/L (0.0-4.9)
[2021-01-31] MEDS: lactated ringers 500 ML 999 ML IV (11:55)
[2021-01-31 14:09] LABS: Erythrocyte Sedimentation Rate 60 mm/hr (0-10)
[2021-01-31] MEDS: warfarin 2.5 mg Tablet PO (14:31)
--- NOTE | 2021-01-31 20:12 | PC.NURSE ---
Shift Note Frequent safety and comfort rounds continue. Orders and/or nursing care completed as indicated. Patient monitored for response to intervention and treatment for low blood pressure. Education provided includes Albumin[]. Patient states understanding of intervention. Will continue to monitor.
[2021-01-31] MEDS: montelukast sodium 10 mg Tablet PO (20:45)
[2021-01-31] MEDS: cyclobenzaprine 10 mg Tablet PO (20:53)
[2021-02-01] VITALS (16 sets, daily range): BP systolic 87–101; BP diastolic 44–59; PULSE 80–102; RESP 14–22; TEMP 36.6–37.2; O2SAT 87–97
[2021-02-01] MEDS: ipratropium-albuterol 3 mL Neb INHALATION ×4 (05:10→21:24)
[2021-02-01 05:44] LABS: Hematocrit 23.4 % (42.0-52.0); Hemoglobin 7.1 g/dL (11.7-16.6); Lymphocytes # 0.2 10^3/uL (0.8-4.8); Lymphocytes % 3.3 %; Mean Corpuscular HGB Conc 30.3 g/dL (30.0-36.0); Mean Corpuscular Volume 98.7 fL (80-94); Mean Platelet Volume 10.2 fL (7.4-10.4); Monocytes # 0.3 10^3/uL (0.2-0.9); Monocytes % 4.5 %; Neutrophils # 6.03 10^3/uL (1.8-7.7); Neutrophils % 91.4 %; Nucleated Red Blood Cells % 0 %; Platelet Count 120 10^3/cmm (130-400); Red Blood Count 2.37 10^6/uL (4.1-5.3); Red Cell Distribution Width 16.7 % (12.1-15.1); White Blood Count 6.6 10^3/uL (4.0-10.0)
[2021-02-01 05:50] LABS: INR 1.62 (0.8-1.2)
[2021-02-01 06:00] LABS: Alanine Aminotransferase 25 U/L (0-41); Albumin Level 2.3 g/dL (3.5-5.2); Alkaline Phosphatase 97 IU/L (40-130); Anion Gap 12.1 (5-19); Aspartate Amino Transferase 24 U/L (0-40); Blood Urea Nitrogen 10 mg/dL (8-23); Carbon Dioxide 28 mmol/L (22-29); Chloride 97 mmol/L (98-107); Globulin 2.3 g/dL (1.3-4.6); Glomerular Filtration Rate 169.6 mL/min (90-130); Glucose 95 mg/dL (65-115); Osmolality Calculated 275 mOsm/kg (285-295); Potassium 4.1 mmol/L (3.5-5.1); Sodium 133 mmol/L (136-145); Total Bilirubin 1.2 mg/dL (0.15-1.2); Total Protein 4.6 g/dL (6.6-8.7)
[2021-02-01] MEDS: cyclobenzaprine 10 mg Tablet PO ×2 (06:10→12:03)
[2021-02-01] MEDS: HYDROcodone-acetaminophen 10-325 mg Tablet 1 TAB PO (06:10)
[2021-02-01] MEDS: levoFLOXacin 750 mg Tablet PO (06:11)
[2021-02-01] MEDS: ferrous sulfate EC 325 mg Tablet PO (06:11)
[2021-02-01] MEDS: aspirin 81 mg EC Tablet PO (06:12)
[2021-02-01] MEDS: NON-FORMULARY MEDICATION (Sildenafil (Pulm.Hypertension) 20 mg tablet) 10 EACH PO (06:12)
[2021-02-01] MEDS: artificial tears Op Soln 15 mL Btl 1 DROP EYE-BOTH ×2 (06:12→14:37)
[2021-02-01] MEDS: enoxaparin 60 mg/0.6 mL Syringe SUBCUT ×2 (06:14→18:26)
[2021-02-01] MEDS: metoclopramide 10 mg Tablet 5 MG PO ×4 (06:14→21:13)
[2021-02-01] MEDS: pantoprazole 40 mg SDV IVP ×2 (06:31→18:26)
[2021-02-01] MEDS: predniSONE 20 mg Tablet 60 MG PO (08:51)
[2021-02-01] MEDS: folic acid 1 mg Tablet PO ×2 (08:51→18:26)
[2021-02-01] MEDS: duloxetine 30 mg Capsule PO (08:51)
[2021-02-01] MEDS: sucralfate 1 gm Tablet PO ×3 (08:51→21:13)
[2021-02-01] MEDS: sodium chloride 1 gm Tablet 2 GM PO ×2 (08:53→18:26)
[2021-02-01] MEDS: ondansetron 2 mg/ML SDV 2 mL 4 MG IVP (09:25)
[2021-02-01 09:41] LABS: LAB Peripheral Smear Sent for Review
[2021-02-01 09:51] LABS: Lactate Dehydrogenase 228 U/L (135-225)
--- NOTE | 2021-02-01 10:29 | PM.PN ---
Subjective Subjective: Interval history: This morning she is feeling nauseated. An episode of vomiting. Currently better. Denies abdominal pain. Currently breathing is comfortable. Has not had loose stool anymore so far. Discussed with him stool studies. Negative Hemoccult. Discussed anemia. He states been aware of anemia. Etiology has not been clear. His financial sales assistant/oncologist has been following this. Denies any further progression or worsening of the palmar erythema. Not bothering him today. Denies any new rash elsewhere. Discussed with him regarding low blood pressures. States that this has been a problem for a while. Vitals/I&O/Wt Last Vital Signs Temp 97.9 F 02/01/21 08:00 Pulse 91 02/01/21 08:00 Resp 16 02/01/21 08:00 BP 88/45 02/01/21 08:00 Pulse Ox 96 02/01/21 08:00 01/31/21 02/01/21 02/01/21 22:59 06:59 14:59 Intake Total 220 / 2400 480 / 480 Output Total 300 / 320 650 / 970 Balance -80 / 2080 -650 / 1430 480 / 480 Weight last 48 hrs Weight 61.598 kg Weight 61.689 kg Physical Exam Const: COMMON NORMALS: no acute distress, patient oriented x3 and alert GENERAL APPEARANCE: cooperative and frail appearing NUTRITIONAL APPEARANCE: thin ORIENTATION/CONSCIOUSNESS: Yes awake HENMT: COMMON NORMALS: oropharynx normal Neck/C-Spine: COMMON NORMALS: no JVD Resp: COMMON NORMALS: normal respiratory effort and clear to auscultation bilaterally AUSCULTATION: clear to auscultation bilaterally Cardio: COMMON NORMALS: no JVD, regular rhythm, S1 normal heart sound present, S2 normal heart sound present and No murmurs present (Cardio) RHYTHM: regular rhythm HEART SOUNDS: S1 normal heart sound present and S2 normal heart sound present GI: COMMON NORMALS: Normal to inspection, nondistended, normoactive bowel sounds present, Soft to palpation and non-tender PALPATION: Yes Soft to palpation Extremity: COMMON NORMALS: no joint enlargement and no pedal edema Neuro: COMMON NORMALS: patient oriented x3 and moves all extremities SENSORIUM/ORIENTATION: Yes alert Skin: COMMON NORMALS: no rashes or lesions noted GENERAL SKIN EXAM: no rashes or lesions noted OTHER: Dry skin on the legs. Otherwise no rash. No oral lesions. No conjunctival changes. Urinary Catheter Management^: Valles: Cath Placed During This Visit: yes Reason for Continuing Indwelling Catheter: Other Urinary Catheter Date of Insertion: 01/29/21 Urinary Catheter Time of Insertion: 17:10 Data : 02/01/21 05:27 02/01/21 05:27 Micro: Microbiology 01/31/21 10:00 Enteric Pathogens (PCR) - Final Stool - Stool Aspirate 01/31/21 10:00 C.difficile Toxin B Gene (PCR) - Final Stool 01/31/21 10:52 Bacterial Antigens - Final Urine,Clean Catch 01/31/21 10:52 Legionella Urinary Antigen - Final Urine Catheterized 01/31/21 10:00 Occult Blood (FIT) - Final Stool Routine Collection 01/31/21 10:00 Stool Lactoferrin - Final Stool - Stool Aspirate A&P Assessment and plan (1) Hypotension: Blood pressure still soft last night, received 25 g 25% albumin. Tamsulosin, gabapentin, metoprolol held. Discussed with him. Today blood pressure still soft. Discussed with nursing staff to maintain mean arterial pressure above 60 or above. We will try to restart midodrine again. Discussed to monitor for any pruritus or other change in symptoms. With concern regarding adrenal insufficiency, poor response to midodrine we will add fludrocortisone 0.1 mg every other day for now. Continue prednisone. Discussed with him morning serum cortisol low, although may be suppressed secondary to steroid. Difficult to interpret. Does not appear to have been affected by prednisone. Continue steroids at this time. Does not appear to have adrenal hemorrhage on CT. Status: Acute (2) Acute respiratory failure with hypoxia: Gradual improvement in hypoxia. Continue steroid. Continue empiric Levaquin. Continue nebs. Singulair. Continue treatment for radiation pneumonitis. Continue oxygen support, wean off as tolerating. Urine bacterial antigens unremarkable. COVID-19 PCR negative. Sputum culture so far uncollected. Pending additional fungal studies. Urine histoplasma antigen. PJP PCR. Fungitell. Status: Acute (3) Acute anemia: Further decrease in hemoglobin down to 7.1. Somewhat may be dilutional following small bolus on 01/31. Discussed with him Hemoccult is negative. Continue folic acid replacement. Etiology of anemia unclear as per his financial sales assistant/oncologist office visit as well. Today also noted mild thrombocytopenia. Requested peripheral smear. Repeat haptoglobin, LDH. INR is normalized after supratherapeutic value on presentation. Currently slow rise after restarting warfarin. Received 1 unit PBC transfusion at presentation. Plasmic score low for TTP. Appears to have some hypoproliferation based on reticulocyte index. Noted folic acid deficiency. Started on replacement. Status: Acute (4) Total bilirubin, elevated: Resolving. Mild indirect bilirubin elevation. Study is overall not suggestive of hemolysis. Plasmic score low for TTP. Suspect possible mild indirect evaluation secondary to dehydration, poor oral intake. Unremarkable CT abdomen pelvis. Status: Acute (5) ST segment depression: No chest pain. Troponin series without suggestion of acute PA. Not suspecting acute PA, although may have underlying CAD, possibly symptomatic secondary to hypoxic respiratory failure with symptomatic anemia. PBC transfusion as above. Treat hypoxic respiratory failure as above. Limited TTE assessment with noted regional wall motion abnormality, but unchanged from prior echo in October. Would benefit from follow-up risk stratification with stress testing once more stable. Status: Acute (6) Interstitial lung disease: As above. Appears to overall have more acute process, however, cannot exclude also underlying ILD. Pulmonology assessment appreciated. Will need additional follow-up. Has history of emphysema, COPD. Used to follow with pulmonology in [place] at the time of diagnosis of pulmonary hypertension. This was diagnosed at the same time as valve replacement. Is on sildenafil. Says has not followed up since that time, however. Status: Acute (7) Nausea, vomiting and diarrhea: Again vomiting episode today. Continue PPI twice daily. Sucralfate due to esophagitis, gastritis, possibly exacerbated by steroids currently. Zofran as needed. Diarrhea so far appears to have resolved. Stool studies unremarkable on infectious panel. Known esophagitis, gastritis, GERD, for which he is continued on a PPI at this time, additionally may be having diarrhea possibly also secondary to hyperthyroidism. Had EGD with noted esophagitis, gastritis just recently on 01/24. He does report history of diabetes in the past, does report peripheral neuropathy as well. A1c is 4.8. Consider additional assessment by gastric emptying study once he is more stable. Denies any odynophagia. Continues follow-up with Dr. Ryan for history of esophageal cancer. Status: Acute (8) Supratherapeutic INR: Was reversed on admission. Trial of ventilation been resumed with Lovenox, low-dose warfarin. Gradually rising INR. Status: Acute (9) Palmar erythema: Appears to be about the same or better today. Not bothering him. Not clear etiology of this. Midodrine was transiently held. Due to low blood pressures today, resuming again, however, if recurrence of symptoms, discontinue indefinitely. Also hold bupropion. Hold gabapentin. He reports some dry scaly skin on his legs. States saw some fluid leak out from under dry skin patch, although cannot tell me if had a blister. Does not appear to have blisters currently. Monitor. Status: Acute Additional A&P Information Amiodarone induced thyrotoxicosis, type II. Ultrasound without nodules or mass. Mild thyromegaly. Coarsened echotexture. Given additional concerns, including possible interstitial lung disease would be safer to discontinue amiodarone. Continue steroid. Reports history of diabetes, previously treated. A1c 4.8. Reports peripheral neuropathy. Esophageal cancer: Continue follow-up with Dr. Ryan Reported history of CAD with history of CABG, bioprosthetic mitral valve Chronic anticoagulation with warfarin Attestations Medical Necessity Statement*: Continue admission for assessment management of hypotensive episodes, hypoxic respiratory failure, anemia. 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
[2021-02-01] MEDS: fludrocortisone 0.1 mg Tablet PO (11:05)
[2021-02-01] MEDS: midodrine 5 mg TABLET 10 MG PO ×2 (11:07→21:13)
[2021-02-01] MEDS: warfarin 2.5 mg Tablet PO (14:36)
[2021-02-01 15:16] LABS: Osmolality Urine 647 mOsm/kg (50-1200)
[2021-02-01] MEDS: HYDROcodone-acetaminophen 5-325 mg Tablet 1 TAB PO (16:08)
[2021-02-01] MEDS: lidocaine 5% Patch 1 PATCH TOPICAL (21:11)
[2021-02-01] MEDS: montelukast sodium 10 mg Tablet PO (21:13)
[2021-02-01 23:41] LABS: ABG PCO2 36.4 mmHg (35-45); ABG PH Result 7.51 (7.35-7.45); Base Excess ABG 5.2 mmol/L (-2.0-2.0); HCO3 ABG 28.7 mmol/L (22-26); Oxygen Saturation ABG 85.3; PO2 ABG 48.4 mmHg (80.0-100.0)
[2021-02-01 23:44] LABS: Arterial Blood Gas Hematocrit 21.7 % (42-52)
[2021-02-01 23:45] LABS: Carboxyhemoglobin 1.9 %THgb (0.4-20.1); HGB O2 Sat 83.2 % (95-100); Methemoglobin 0.6 % (0.4-1.5); Total Hemoglobin 7.1 g/dL (14-18)
[2021-02-02] VITALS (12 sets, daily range): BP systolic 93–112; BP diastolic 53–70; PULSE 99–118; RESP 12–26; TEMP 36.3–36.6; O2SAT 78–100
[2021-02-02 00:24] LABS: Blood Gas Allen Test Pos; Blood Gas Sample Type Arterial; Ionized Calcium Level - ABG 1.2 mmol/L (1.1-1.4)
[2021-02-02 00:25] LABS: Alveolar-Arterial Oxygen Gradi 55.4 mmHg (5-10); Blood Gas Sample Site Radial, left; Oxygen Device NC
[2021-02-02] MEDS: HYDROcodone-acetaminophen 10-325 mg Tablet 1 TAB PO ×2 (01:53→08:00)
[2021-02-02] MEDS: ipratropium-albuterol 3 mL Neb INHALATION ×5 (04:50→20:28)
[2021-02-02] MEDS: aspirin 81 mg EC Tablet PO (05:38)
[2021-02-02] MEDS: pantoprazole 40 mg SDV IVP ×2 (05:38→18:06)
[2021-02-02] MEDS: enoxaparin 60 mg/0.6 mL Syringe SUBCUT ×2 (05:38→18:23)
[2021-02-02] MEDS: metoclopramide 10 mg Tablet 5 MG PO ×4 (05:38→20:39)
[2021-02-02] MEDS: levoFLOXacin 750 mg Tablet PO (05:39)
[2021-02-02] MEDS: ferrous sulfate EC 325 mg Tablet PO (05:39)
[2021-02-02 06:49] LABS: Basophils % 0.1 %; Eosinophils % 0.1 %; Hematocrit 25.1 % (42.0-52.0); Hemoglobin 7.5 g/dL (11.7-16.6); Lymphocytes # 0.4 10^3/uL (0.8-4.8); Lymphocytes % 3.7 %; Mean Corpuscular HGB Conc 29.9 g/dL (30.0-36.0); Mean Corpuscular Volume 100.4 fL (80-94); Mean Platelet Volume 10.8 fL (7.4-10.4); Monocytes # 0.5 10^3/uL (0.2-0.9); Monocytes % 4.7 %; Neutrophils # 9.61 10^3/uL (1.8-7.7); Neutrophils % 90.8 %; Nucleated Red Blood Cells % 0 %; Platelet Count 127 10^3/cmm (130-400); Red Cell Distribution Width 16.8 % (12.1-15.1); White Blood Count 10.6 10^3/uL (4.0-10.0)
[2021-02-02 06:50] LABS: INR 1.51 (0.8-1.2)
--- NOTE | 2021-02-02 06:53 | PC.RESP ---
RT Shift Note Frequent safety and respiratory rounds continue. Orders completed as indicated. Patient monitored pre and post treatments throughout shift. Patient tolerated treatments appropriately. Condition had slight improvement. Patient and/or sales representative facility services educated on respiratory treatment and medications. Patient and/or sales representative facility services verbalized understanding. Will continue to monitor patient progress.
[2021-02-02 07:04] LABS: Alanine Aminotransferase 33 U/L (0-41); Albumin Level 2.7 g/dL (3.5-5.2); Alkaline Phosphatase 106 IU/L (40-130); Anion Gap 10.9 (5-19); Aspartate Amino Transferase 27 U/L (0-40); Blood Urea Nitrogen 9 mg/dL (8-23); Carbon Dioxide 27 mmol/L (22-29); Chloride 98 mmol/L (98-107); Globulin 2.1 g/dL (1.3-4.6); Glucose 84 mg/dL (65-115); Osmolality Calculated 272 mOsm/kg (285-295); Potassium 3.9 mmol/L (3.5-5.1); Sodium 132 mmol/L (136-145); Total Bilirubin 1.7 mg/dL (0.15-1.2); Total Protein 4.8 g/dL (6.6-8.7)
[2021-02-02 07:10] LABS: Glomerular Filtration Rate 1086.6 mL/min (90-130)
[2021-02-02] MEDS: sodium chloride 1 gm Tablet 2 GM PO (07:59)
[2021-02-02] MEDS: fludrocortisone 0.1 mg Tablet PO (07:59)
[2021-02-02] MEDS: sucralfate 1 gm Tablet PO ×3 (07:59→20:42)
[2021-02-02] MEDS: duloxetine 30 mg Capsule PO (07:59)
[2021-02-02] MEDS: folic acid 1 mg Tablet PO ×2 (08:00→18:06)
[2021-02-02] MEDS: cyclobenzaprine 10 mg Tablet PO (08:00)
[2021-02-02] MEDS: predniSONE 20 mg Tablet 60 MG PO (08:00)
[2021-02-02] MEDS: lidocaine 5% Patch 1 PATCH TOPICAL (08:03)
[2021-02-02] MEDS: midodrine 5 mg TABLET 10 MG PO ×3 (08:03→20:40)
[2021-02-02] MEDS: NON-FORMULARY MEDICATION (Sildenafil (Pulm.Hypertension) 20 mg tablet) 10 EACH PO ×2 (08:07→18:06)
--- NOTE | 2021-02-02 08:42 | XRR_ITS ---
PROCEDURE INFORMATION: Exam: XR Chest Exam date and time: 02/02/2021 8:42 AM Age: 60 years old Clinical indication: Shortness of breath; Prior surgery; Surgery type: Port; Additional info: Hypoxia TECHNIQUE: Imaging protocol: XR of the chest. Views: 1 view. COMPARISON: CR XR chest 1V portable [id number] 01/28/2021 1:01 PM FINDINGS: Tubes, catheters and devices: Stable positioning of med port catheter. Lungs: COPD and interstitial/airspace disease. Pleural spaces: No significant pleural effusion. Heart/Mediastinum: No cardiomegaly. Bones/joints: Osteopenia, degenerative change, and cervical spine fusion. Median sternotomy. XR/XR chest 1V portable [id number] IMPRESSION: COPD and interstitial/airspace disease.
--- NOTE | 2021-02-02 10:38 | PM.PN ---
Subjective Subjective: Interval history: Had a difficult night. Became short of breath, requiring 100% FiO2. Is not having a lot of cough. Denies chest pain. Yesterday had an episode of vomiting in the afternoon, but says did not vomit since then. Denies abdominal pain. Vitals/I&O/Wt Last Vital Signs Temp 97.4 F L 02/02/21 08:00 Pulse 102 H 02/02/21 09:06 Resp 20 H 02/02/21 09:06 BP 94/57 02/02/21 08:00 Pulse Ox 100 02/02/21 09:06 02/01/21 02/02/21 02/02/21 22:59 06:59 14:59 Intake Total 480 / 1060 480 / 480 Output Total 300 / 650 480 / 1130 175 / 175 Balance -300 / -70 0 / -70 305 / 305 Weight last 48 hrs Weight 61.371 kg Weight 61.598 kg Physical Exam Const: COMMON NORMALS: no acute distress, patient oriented x3 and alert GENERAL APPEARANCE: cooperative and frail appearing NUTRITIONAL APPEARANCE: thin ORIENTATION/CONSCIOUSNESS: Yes awake HENMT: COMMON NORMALS: oropharynx normal Neck/C-Spine: COMMON NORMALS: no JVD Resp: COMMON NORMALS: normal respiratory effort and clear to auscultation bilaterally AUSCULTATION: clear to auscultation bilaterally Cardio: COMMON NORMALS: no JVD, regular rhythm, S1 normal heart sound present, S2 normal heart sound present and No murmurs present (Cardio) RHYTHM: regular rhythm HEART SOUNDS: S1 normal heart sound present and S2 normal heart sound present GI: COMMON NORMALS: Normal to inspection, nondistended, normoactive bowel sounds present, Soft to palpation and non-tender PALPATION: Yes Soft to palpation Extremity: COMMON NORMALS: no joint enlargement and no pedal edema Neuro: COMMON NORMALS: patient oriented x3 and moves all extremities SENSORIUM/ORIENTATION: Yes alert Skin: COMMON NORMALS: no rashes or lesions noted GENERAL SKIN EXAM: no rashes or lesions noted and erythema (palms -hypothenar and thenar eminence bilaterally, no skin breakdown, no dr) OTHER: Dry skin on the legs. Otherwise no rash. No oral lesions. No conjunctival changes. Urinary Catheter Management^: Valles: Cath Placed During This Visit: yes Reason for Continuing Indwelling Catheter: Acute Urinary Retention or Obstruction Urinary Catheter Date of Insertion: 01/29/21 Urinary Catheter Time of Insertion: 17:10 Data : 02/02/21 05:34 02/02/21 05:34 Micro: Microbiology 01/31/21 10:00 Parasite Antigen Panel - Final Stool 01/31/21 10:00 Enteric Pathogens (PCR) - Final Stool - Stool Aspirate 01/31/21 10:00 C.difficile Toxin B Gene (PCR) - Final Stool A&P Assessment and plan (1) Acute respiratory failure with hypoxia: Hypoxia worsened significantly overnight. Requiring higher percent FiO2 oxygen on high flow cannula. Repeat chest x-ray requested. I suspect perhaps could have superimposed chemical pneumonitis after episode of vomiting yesterday afternoon. So far without recurrence of vomiting. He is going light on oral intake today. Continue steroid. Continue empiric Levaquin. Continue nebs. Singulair. In case condition not improving consider adding anaerobic coverage. Continue treatment for radiation pneumonitis. Urine bacterial antigens unremarkable. COVID-19 PCR negative. Sputum culture so far uncollected. Pending additional fungal studies. Urine histoplasma antigen. PJP PCR. Fungitell. Status: Acute (2) Hypotension: Hypotension a little bit better. Continue to hold tamsulosin, gabapentin, metoprolol. Midodrine Every other day fludrocortisone. Continue prednisone. Discussed with him morning serum cortisol low, although may be suppressed secondary to steroid. Difficult to interpret. Does not appear to have been affected by prednisone. Continue steroids at this time. Does not appear to have adrenal hemorrhage on CT. Status: Acute (3) Acute anemia: Hemoglobin so far appears steady at around 7-7.5. Somewhat may be dilutional following small bolus on 01/31. Discussed with him Hemoccult is negative. Continue folic acid replacement. 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 Today also noted mild thrombocytopenia. Requested peripheral smear. Repeat haptoglobin elevated, acute phase reactant, LDH minutely elevated. Not suggestive of hemolysis. INR is normalized after supratherapeutic value on presentation. Currently slow rise after restarting warfarin. Received 1 unit PBC transfusion at presentation. Plasmic score low for TTP. Appears to have some hypoproliferation based on reticulocyte index. Noted folic acid deficiency. Continue folic acid replacement. Status: Acute (4) Total bilirubin, elevated: Resolving. Mild indirect bilirubin elevation. Study is overall not suggestive of hemolysis. Plasmic score low for TTP. Suspect possible mild indirect evaluation secondary to dehydration, poor oral intake. Unremarkable CT abdomen pelvis. Status: Acute (5) ST segment depression: No chest pain. Troponin series without suggestion of acute PA. Not suspecting acute PA, although may have underlying CAD, possibly symptomatic secondary to hypoxic respiratory failure with symptomatic anemia. PBC transfusion as above. Treat hypoxic respiratory failure as above. Limited TTE assessment with noted regional wall motion abnormality, but unchanged from prior echo in October. Would benefit from follow-up risk stratification with stress testing once more stable. Status: Acute (6) Interstitial lung disease: As above. Appears to overall have more acute process, however, cannot exclude also underlying ILD. Pulmonology assessment appreciated. Will need additional follow-up. Has history of emphysema, COPD. Used to follow with pulmonology in [place] at the time of diagnosis of pulmonary hypertension. This was diagnosed at the same time as valve replacement. Is on sildenafil. Says has not followed up since that time, however. Status: Acute (7) Nausea, vomiting and diarrhea: Episode afternoon of 02/01. Likely gastritis, esophagitis exacerbated by steroid. So far no additional vomiting. Continue PPI twice daily IV. Sucralfate due to esophagitis, gastritis, possibly exacerbated by steroids currently. Zofran as needed. Liquid diet for now. Diarrhea so far appears to have resolved. Stool studies unremarkable on infectious panel. Known esophagitis, gastritis, GERD, for which he is continued on a PPI at this time, additionally may be having diarrhea possibly also secondary to hyperthyroidism. Had EGD with noted esophagitis, gastritis just recently on 01/24. He does report history of diabetes in the past, does report peripheral neuropathy as well. A1c is 4.8. Consider additional assessment by gastric emptying study once he is more stable. Denies any odynophagia. Continues follow-up with Dr. Ryan for history of esophageal cancer. Status: Acute (8) Supratherapeutic INR: Was reversed on admission. Trial of ventilation been resumed with Lovenox, low-dose warfarin. Gradually rising INR. Status: Acute (9) Palmar erythema: Appears to be about the same or better today. Not bothering him. Not clear etiology of this. Midodrine was transiently held. Due to low blood pressures today, resuming again, however, if recurrence of symptoms, discontinue indefinitely. Also hold bupropion. Hold gabapentin. He reports some dry scaly skin on his legs. States saw some fluid leak out from under dry skin patch, although cannot tell me if had a blister. Does not appear to have blisters currently. Monitor. Status: Acute Additional A&P Information Amiodarone induced thyrotoxicosis, type II. Ultrasound without nodules or mass. Mild thyromegaly. Coarsened echotexture. Given additional concerns, including possible interstitial lung disease would be safer to discontinue amiodarone. Continue steroid. Reports history of diabetes, previously treated. A1c 4.8. Reports peripheral neuropathy. Esophageal cancer: Continue follow-up with Dr. Ryan Reported history of CAD with history of CABG, bioprosthetic mitral valve Chronic anticoagulation with warfarin Attestations Medical Necessity Statement*: Continue admission for assessment management of hypoxic respiratory failure with radiation pneumonitis, additional chemical pneumonitis, with gastritis, esophagitis, recurrent episodes of vomiting. Low blood pressures in the setting of suspected adrenal insufficiency. Coding Level of Care Code Acute Operations Specialist for [facility] Fwd Diagnoses Acute respiratory failure with hypoxia J96.01 Hypotension I95.9 Acute anemia D64.9 Total bilirubin, elevated R17 ST segment depression R94.31 Interstitial lung disease J84.9 Nausea, vomiting and diarrhea R11.2; R19.7 Supratherapeutic INR R79.1 Palmar erythema L53.8
[2021-02-02] MEDS: capsaicin 0.025% cream 60 gm 1 APPLIC TOPICAL (10:54)
[2021-02-02] MEDS: vancomycin 1,000 MG in sodium chloride 0.9% 250 ML 250 MG IV (13:18)
[2021-02-02] MEDS: HYDROcodone-acetaminophen 5-325 mg Tablet 1 TAB PO (13:38)
[2021-02-02] MEDS: LORazepam 2 mg/mL INJ 1 mL 0.5 MG IVP ×2 (13:49→22:04)
[2021-02-02] MEDS: piperacillin-tazobactam 3.375 GM in sodium chloride 0.9% (plus) 50 ML IV ×2 (15:37→20:46)
--- NOTE | 2021-02-02 16:21 | PC.NURSE ---
Report to Vale MILLER in the ICU at this time.
[2021-02-02] MEDS: sodium chloride 1 gm Tablet PO (18:07)
[2021-02-02] MEDS: morphine 4 mg/mL SDV 1 mL 2 MG IVP (20:30)
[2021-02-02] MEDS: montelukast sodium 10 mg Tablet PO (20:42)
[2021-02-02] MEDS: dexmedetomidine 400 MCG in sodium chloride 0.9% (100 ml) 100 ML IV (22:59)
[2021-02-02] MEDS: dexmedetomidine 400 MCG in sodium chloride 0.9% (100 ml) 100 ML 11.17 MCG IV (23:26)
--- NOTE | 2021-02-02 23:31 | PC.NURSE ---
Before the Precedex drip was started I talked with Dr. Serrano (Nurse Informatics Educator) who gave permission to start the drip at 0.7 mcg. The patient since the beginning of shift has been very anxious and has had a saturation that has been hovering in the mid 70's to the mid 80's. The patient has been displaying labored breathing. Ativan and morphine were given earlier and when respiratory tried to put the patient on BiPAP he would not allow it and took it off himself, and the same thing occurred when the non-rebreather was placed over the top of the HiFlo nasal cannula. It was approximately 15 minutes after the ativan was given, where respiratory tried to put the patient back on the BiPAP machine, but the patient again took the mask off. Dr. Serrano around 2324 came in to speak with the patient and explain that if he could not leave the BiPAP on, and he started desaturating, he would have to be intubated. I was in the room with Dr. Serrano during the discussion on intubation and witnessed the patient confirm that he understood what intubation was and gave the okay to be intubated if his circumstances got to that point.
[2021-02-02 23:41] LABS: ABG PCO2 32.4 mmHg (35-45); ABG PH Result 7.49 (7.35-7.45); Alveolar-Arterial Oxygen Gradi 80.4 mmHg (5-10); Arterial Blood Gas Hematocrit 26.7 % (42-52); Base Excess ABG 1.3 mmol/L (-2.0-2.0); Blood Gas Allen Test Pos; Blood Gas Operator Identificat JB; Blood Gas Sample Site Brachial, right; Blood Gas Sample Type Arterial; HCO3 ABG 24.6 mmol/L (22-26); HGB O2 Sat 83.1 % (95-100); Ionized Calcium Level - ABG 1.2 mmol/L (1.1-1.4); Methemoglobin 0.8 % (0.4-1.5); Oxygen Device HAG; Oxygen Saturation ABG 85.5; PO2 ABG 51.2 mmHg (80.0-100.0); Potassium Level - ABG 3.8 mmol/L (3.5-5.0); Total Hemoglobin 8.7 g/dL (14-18)
[2021-02-03] VITALS (31 sets, daily range): BP systolic 83–118; BP diastolic 52–71; PULSE 9–119; RESP 17–42; TEMP 36.6–37.1; O2SAT 78–108; BMI 19.0
[2021-02-03] MEDS: ipratropium-albuterol 3 mL Neb INHALATION ×4 (03:57→21:10)
[2021-02-03 04:05] LABS: Basophils % 0.1 %; Eosinophils % 0.1 %; Hematocrit 26.5 % (42.0-52.0); Hemoglobin 7.7 g/dL (11.7-16.6); Lymphocytes # 0.4 10^3/uL (0.8-4.8); Lymphocytes % 4.1 %; Mean Corpuscular HGB Conc 29.1 g/dL (30.0-36.0); Mean Corpuscular Hemoglobin 29.3 pg (28.0-34.0); Mean Corpuscular Volume 100.8 fL (80-94); Mean Platelet Volume 10.7 fL (7.4-10.4); Monocytes # 0.6 10^3/uL (0.2-0.9); Monocytes % 5.2 %; Neutrophils % 89.2 %; Nucleated Red Blood Cells % 0 %; Platelet Count 141 10^3/cmm (130-400); Red Blood Count 2.63 10^6/uL (4.1-5.3); Red Cell Distribution Width 17.2 % (12.1-15.1); White Blood Count 10.7 10^3/uL (4.0-10.0)
[2021-02-03 04:19] LABS: INR 1.59 (0.8-1.2)
[2021-02-03 04:43] LABS: Alanine Aminotransferase 38 U/L (0-41); Albumin Level 2.4 g/dL (3.5-5.2); Alkaline Phosphatase 99 IU/L (40-130); Anion Gap 13.9 (5-19); Aspartate Amino Transferase 30 U/L (0-40); Blood Urea Nitrogen 9 mg/dL (8-23); Calcium 7.8 mg/dL (8.5-10.5); Carbon Dioxide 25 mmol/L (22-29); Chloride 96 mmol/L (98-107); Globulin 2.1 g/dL (1.3-4.6); Glucose 96 mg/dL (65-115); Osmolality Calculated 271 mOsm/kg (285-295); Potassium 3.9 mmol/L (3.5-5.1); Sodium 131 mmol/L (136-145); Total Bilirubin 1.5 mg/dL (0.15-1.2); Total Protein 4.5 g/dL (6.6-8.7)
[2021-02-03 04:44] LABS: Glomerular Filtration Rate 1086.6 mL/min (90-130)
[2021-02-03] MEDS: pantoprazole 40 mg SDV IVP ×2 (04:58→16:41)
[2021-02-03] MEDS: vancomycin 1,000 MG in sodium chloride 0.9% 250 ML 250 MG IV ×2 (04:58→16:40)
[2021-02-03] MEDS: piperacillin-tazobactam 3.375 GM in sodium chloride 0.9% (plus) 50 ML IV ×3 (04:59→20:51)
[2021-02-03] MEDS: HYDROcodone-acetaminophen 5-325 mg Tablet 1 TAB PO ×2 (05:06→14:17)
--- NOTE | 2021-02-03 06:05 | PC.NURSE ---
Around 0200, the patient's blood pressure was getting low and the precedex was rapidly dropped to accommodate the hypotensive episode.
[2021-02-03] MEDS: aspirin 81 mg EC Tablet PO (07:01)
[2021-02-03] MEDS: ferrous sulfate EC 325 mg Tablet PO (07:01)
[2021-02-03] MEDS: metoclopramide 10 mg Tablet 5 MG PO ×4 (07:02→20:18)
[2021-02-03] MEDS: enoxaparin 60 mg/0.6 mL Syringe SUBCUT (07:02)
[2021-02-03] MEDS: levoFLOXacin 750 mg Tablet PO (07:02)
[2021-02-03] MEDS: fludrocortisone 0.1 mg Tablet PO (09:46)
[2021-02-03] MEDS: folic acid 1 mg Tablet PO ×2 (09:46→17:04)
[2021-02-03] MEDS: midodrine 5 mg TABLET 10 MG PO ×3 (09:46→20:18)
[2021-02-03] MEDS: duloxetine 30 mg Capsule PO (09:46)
[2021-02-03] MEDS: sodium chloride 1 gm Tablet PO ×2 (09:46→17:04)
[2021-02-03] MEDS: lidocaine 5% Patch 1 PATCH TOPICAL (09:46)
[2021-02-03] MEDS: sucralfate 1 gm Tablet PO ×3 (09:47→20:19)
[2021-02-03] MEDS: cyclobenzaprine 10 mg Tablet PO ×2 (09:55→18:08)
[2021-02-03 10:01] LABS: SARS Covid-2 Antigen Negative (Negative)
[2021-02-03] MEDS: morphine 4 mg/mL SDV 1 mL 2 MG IVP ×2 (10:23→20:17)
--- NOTE | 2021-02-03 13:36 | XRR_ITS ---
PROCEDURE INFORMATION: Exam: XR Chest Exam date and time: 02/03/2021 1:36 PM Age: 60 years old Clinical indication: Shortness of breath; Patient HX: Resp failure; Additional info: Respiratory failure TECHNIQUE: Imaging protocol: XR of the chest. Views: 1 view. COMPARISON: CR (CHEST, ) 02/02/2021 10:15 AM FINDINGS: Tubes, catheters and devices: Right chest port terminates in the cavoatrial junction. Lungs: Question sequela of right-sided pneumothorax measuring 9 mm along the mid aspect of the peripheral right lung versus artifact from skin crease. Diffuse interstitial thickening of the lungs again noted. Pleural spaces: See Lungs finding. Heart/Mediastinum: Unremarkable. No cardiomegaly. Bones/joints: Sternotomy wires noted. XR/XR chest 1V portable [id number] IMPRESSION: 1. Question right-sided pneumothorax versus artifact from skin crease. Would recommend dedicated chest CT for further evaluation. 2. Similar sequela of diffuse interstitial airspace disease in the lungs.
--- NOTE | 2021-02-03 13:38 | PM.PN ---
Subjective Subjective: Interval history: The patient was seen and examined. He is on high flow nasal cannula, 70 L, 100%. Saturation in the high 80s to low 90s. The patient appears to be comfortable but tachypneic. I had initially seen the patient in the ICU in the beginning of last week. My initial impression was that the patient was suffering from radiation pneumonitis however his symptoms had not gotten better with steroid. In fact his oxygen requirement continued to go up. The patient was brought down to ICU yesterday. A chest x-ray yesterday morning revealed worsening infiltrate. The infiltrate used to be predominantly in bilateral mid and lower lung zones. The x-ray yesterday revealed involvement of the upper lung zones as well. Medications: Reviewed: Yes Vitals/I&O/Wt Last Vital Signs Temp 98.6 F 02/03/21 04:00 Pulse 9 L 02/03/21 13:18 Resp 24 H 02/03/21 13:18 BP 93/53 02/02/21 16:00 Pulse Ox 92 02/03/21 13:18 02/02/21 02/03/21 02/03/21 22:59 06:59 14:59 Intake Total 170 / 900 336.99 / 1236.99 58.681 / 58.681 Output Total 150 / 475 425 / 900 Balance 20 / 425 -88.01 / 336.99 58.681 / 58.681 Weight last 48 hrs Weight 136 lb 9.6 oz Weight 135 lb 4.8 oz Physical Exam Narrative: EXAM NARRATIVE: General: Patient is awake alert and oriented, tachypneic Neck: No JVD Respiratory: Auscultation: Reduced breath sound bilaterally, no crackles wheezing or rhonchi Cardiovascular: Regular rate and rhythm, S1-S2 present, no murmur, no peripheral edema. Abdomen: Soft, nontender, nondistended, positive bowel sound Skin: No rash Neuro: Mental status is normal, no gross cranial nerve deficit, normal motor and coordination. Urinary Catheter Management^: Valles: Cath Placed During This Visit: yes Reason for Continuing Indwelling Catheter: Accurate Measurement of Urinary Output in Critically Ill Patients Urinary Catheter Date of Insertion: 01/29/21 Urinary Catheter Time of Insertion: 17:10 Data : 02/03/21 03:29 02/03/21 03:29 Micro: Microbiology 02/02/21 12:17 MRSA Culture - Final Nose Attestation for Other Data: I personally reviewed and interpreted the following: Other data: I have reviewed his laboratory, microbiologic and neurologic data A&P Assessment and plan (1) Acute respiratory failure with hypoxia: This is a 60-year-old gentleman who is presenting with acute hypoxic respiratory failure. CT scan of the chest revealed significant centrilobular emphysema. In addition, the patient has evidence of reticulation involving bilateral lower lobes. Given the temporal relationship, I had initially thought the patient was suffering from radiation pneumonitis. He was treated with Levaquin as well as systemic steroid therapy. However, the patient has not shown any progress rather is requiring more oxygen now. At this point, we have discontinued the steroid therapy. His antibiotic coverage has been increased. Currently the patient is on vancomycin, Zosyn and levofloxacin. Status: Acute (2) Interstitial lung disease: Patient has evidence of interstitial lung disease in addition to emphysema. He has an extensive history of smoking and had been smoking for about 40 years a pack a day. The patient is a current smoker as well. The differential diagnoses include radiation pneumonitis, desquamative interstitial pneumonia, atypical pneumonia, PCP pneumonia, amiodarone induced lung toxicity At this point, the patient needs a bronchoscopic evaluation. However, the patient would be likely need to be intubated for the procedure and will likely need to stay intubated. We will plan for this tomorrow. 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 The patient has low TSH, high T4 and a normal T3. Amiodarone prevents conversion of T4-T3 which would likely explain the normal T3 level. The diarrhea has resolved. His metoprolol is currently on hold because of borderline blood pressure. Ultrasound of the thyroid gland did not reveal multinodular goiter. Status: Acute (5) Anemia of chronic disease: The patient's anemia is likely from multifactorial causes. His iron profile is consistent with anemia of chronic disease. His B12 level is normal however he has folic acid deficiency. He is on folic acid supplementation. Status: Acute (6) Adenocarcinoma of esophagus: The patient has stage IIIb cancer of the esophagus. He has completed his chemoradiation therapy and following up with Dr. Ryan and Dr. Aldana. Status: Acute (7) History of mitral valve replacement with bioprosthetic valve: The patient has history of mitral valve replacement with bioprosthetic valve. I do not have any previous record. The echocardiogram did not reveal any significant worsening compared to October 2020. The patient does not seem to be volume overloaded at this time. He will be maintained on Lovenox at this time. Status: Acute Additional A&P Information The patient is ready for transfer to [facility] unit. Attestations Medical Necessity Statement*: Will defer to the primary team Coding Level of Care Code Acute Transport Specialist for [facility] Fwd Diagnoses Acute respiratory failure with hypoxia J96.01 Interstitial lung disease J84.9 Radiation pneumonitis J70.0 Amiodarone-induced hyperthyroidism E05.80; T46.2X5A Anemia of chronic disease D63.8 Adenocarcinoma of esophagus C15.9 History of mitral valve replacement with bioprosthetic valve Z95.3 Time Spent (min) 32
--- NOTE | 2021-02-03 14:42 | PC.RESP ---
RT Shift Note Frequent safety and respiratory rounds continue. Orders completed as indicated. Patient monitored pre and post treatments throughout shift. Patient [Did.] tolerate treatments appropriately. Condition [.DidNotChange]. Patient and/or order entry representative educated on respiratory treatment and medications. Patient and/or order entry representative [understood]. Will continue to monitor patient progress.
--- NOTE | 2021-02-03 16:30 | XRR_ITS ---
PROCEDURE INFORMATION: Exam: XR Chest Exam date and time: 02/03/2021 4:30 PM Age: 60 years old Clinical indication: Shortness of breath; Additional info: Possible pneumothorax TECHNIQUE: Imaging protocol: XR of the chest. Views: 1 view. COMPARISON: CR XR chest 1V portable [id number] 02/03/2021 2:18 PM FINDINGS: Lungs: Previously questioned linearity along the periphery of the right lung not seen on current exam. Interstitial thickening/opacities again noted throughout the lungs. Pleural spaces: Unremarkable. No pleural effusion. No pneumothorax. Heart/Mediastinum: Unremarkable. No cardiomegaly. Bones/joints: Visualized osseous structures are intact. XR/XR chest 1V portable [id number] IMPRESSION: Previously question linearly along the periphery of the right lung/pneumothorax not seen on current study. Otherwise, no significant interval change.
[2021-02-03] MEDS: NON-FORMULARY MEDICATION (Sildenafil (Pulm.Hypertension) 20 mg tablet) 10 EACH PO (16:44)
--- NOTE | 2021-02-03 17:17 | PC.NURSE ---
Attemoted to contact [email or web address], via [phone]. No answer with voice mail box not set up yet.
--- NOTE | 2021-02-03 17:20 | PC.NURSE ---
Christiano, son, returned call. Updated on no chest tubes today, Covid rapid test x2 negative. MRSA negative. Possible broncoscopy tomorrow. He can come in to visit his father. Christiano stated he will come by after work tomorrow, he does not get off work until after visiting hours are over today.
--- NOTE | 2021-02-03 19:19 | PC.NURSE ---
Shift summary: Pt rested in be throughout shift. PT deferred due to oxygenation needs today. He is on heated high flow 70 liters and 100%. He desats quickly with movement. He has received 2 doses of muscle relaxer, 1 dose of Morphine and 1 Hydrocodone for his comfort today. Precedex restarted this am, rate adjusted in response to comfort and VS. Pt has a port right chest, infuses easily. Pt has some difficulty swallowing pills, but manages if he goes very slow. Urine output of 475ml adequate. Frequent safety and comfort rounds continue. Orders and/or nursing care completed as indicated. Patient monitored for response to intervention and treatment(s). Education provided includes[ Flexeril, morphine]. Patient and/or food service sales representatives verbalized understanding. Will continue to monitor.
[2021-02-03] MEDS: capsaicin 0.025% cream 60 gm 1 APPLIC TOPICAL (20:17)
[2021-02-03] MEDS: montelukast sodium 10 mg Tablet PO (20:18)
--- NOTE | 2021-02-03 22:03 | PM.PN ---
Subjective Subjective: Interval history: States overall he is doing all right. Denies worsening shortness of breath with current oxygen support. No chest pain. No further vomiting. Feels like he could eat little bit today. Discussed with him regarding initial chest x-ray with concern for possible pneumothorax. Imaging repeated, no pneumothorax noted on repeat. Tomorrow possible bronchoscopy with BAL, possible biopsy, discussed with him and we touched on the fact that he may likely remain intubated with mechanical ventilation for some time at least. Vitals/I&O/Wt Last Vital Signs Temp 98.7 F 02/03/21 14:00 Pulse 102 H 02/03/21 21:16 Resp 20 H 02/03/21 21:15 BP 100/63 02/03/21 17:00 Pulse Ox 95 02/03/21 21:15 02/03/21 02/03/21 02/03/21 06:59 14:59 22:59 Intake Total 336.99 / 1236.99 58.681 / 58.681 807.146 / 865.827 Output Total 425 / 900 450 / 450 Balance -88.01 / 336.99 58.681 / 58.681 357.146 / 415.827 Weight last 48 hrs Weight 61.961 kg Weight 61.371 kg Physical Exam Const: COMMON NORMALS: no acute distress, patient oriented x3 and alert GENERAL APPEARANCE: cooperative and frail appearing NUTRITIONAL APPEARANCE: thin ORIENTATION/CONSCIOUSNESS: Yes awake HENMT: COMMON NORMALS: oropharynx normal Neck/C-Spine: COMMON NORMALS: no JVD Resp: COMMON NORMALS: normal respiratory effort and clear to auscultation bilaterally AUSCULTATION: clear to auscultation bilaterally Cardio: COMMON NORMALS: no JVD, regular rhythm, S1 normal heart sound present, S2 normal heart sound present and No murmurs present (Cardio) RHYTHM: regular rhythm HEART SOUNDS: S1 normal heart sound present and S2 normal heart sound present GI: COMMON NORMALS: Normal to inspection, nondistended, normoactive bowel sounds present, Soft to palpation and non-tender PALPATION: Yes Soft to palpation Extremity: COMMON NORMALS: no joint enlargement and no pedal edema Neuro: COMMON NORMALS: patient oriented x3 and moves all extremities SENSORIUM/ORIENTATION: Yes alert Skin: COMMON NORMALS: no rashes or lesions noted GENERAL SKIN EXAM: no rashes or lesions noted and erythema (palms -hypothenar and thenar eminence bilaterally, no skin breakdown, no dr) OTHER: Dry skin on the legs. Otherwise no rash. No oral lesions. No conjunctival changes. Urinary Catheter Management^: Valles: Cath Placed During This Visit: yes Reason for Continuing Indwelling Catheter: Accurate Measurement of Urinary Output in Critically Ill Patients Urinary Catheter Date of Insertion: 01/29/21 Urinary Catheter Time of Insertion: 17:10 Data : 02/03/21 03:29 02/03/21 03:29 Micro: Microbiology 02/02/21 12:17 MRSA Culture - Final Nose A&P Assessment and plan (1) Acute respiratory failure with hypoxia: Bronchoscopy is planned for tomorrow to allow additional evaluation due to persistently high oxygen requirements. Steroid has been discontinued. Antibiotic coverage broadened. Transferred to intensive care unit. Remains on heated high flow cannula 100%. Anticipate intubation tomorrow, with likely continued mechanical ventilatory support. Repeat rapid COVID-19 antigen negative. Was suspected of having radiation pneumonitis, possibly also, pneumonitis after vomiting. Lack of improvement with steroid. Centrilobular emphysema. Noted reticulation in bilateral lower lobes. Additional etiologies to be explored. COVID-19 PCR negative. Urine bacterial antigens unremarkable. Sputum culture so far uncollected. Pending urine histoplasma antigen. PJP PCR. Fungitell. Status: Acute (2) Hypotension: Hypotension with improvement. Continue to hold tamsulosin, gabapentin, metoprolol. Midodrine Every other day fludrocortisone. Prednisone was discontinued. Morning serum cortisol low, although may be suppressed secondary to steroid. Difficult to interpret. Does not appear to have been affected by prednisone. Continue steroids at this time. Does not appear to have adrenal hemorrhage on CT. Status: Acute (3) Acute anemia: Hemoglobin so far appears steady at around 7-7.5. Somewhat may be dilutional following small bolus on 01/31. Discussed with him Hemoccult is negative. Continue folic acid replacement. 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 Today also noted mild thrombocytopenia. Requested peripheral smear. Repeat haptoglobin elevated, acute phase reactant, LDH minutely elevated. Not suggestive of hemolysis. INR is normalized after supratherapeutic value on presentation. Warfarin held for bronchoscopy. Received 1 unit PBC transfusion at presentation. Plasmic score low for TTP. Appears to have some hypoproliferation based on reticulocyte index. Folic acid deficient. Check MMA. Status: Acute (4) Total bilirubin, elevated: Resolving. Mild indirect bilirubin elevation. Study is overall not suggestive of hemolysis. Plasmic score low for TTP. Suspect possible mild indirect evaluation secondary to dehydration, poor oral intake. Unremarkable CT abdomen pelvis. Status: Acute (5) ST segment depression: No chest pain. Troponin series without suggestion of acute [place]. Not suspecting acute [place], although may have underlying CAD, possibly symptomatic secondary to hypoxic respiratory failure with symptomatic anemia. PBC transfusion as above. Treat hypoxic respiratory failure as above. Limited TTE assessment with noted regional wall motion abnormality, but unchanged from prior echo in October. Would benefit from follow-up risk stratification with stress testing once more stable. Status: Acute (6) Interstitial lung disease: As above. Appears to overall have more acute process, however, cannot exclude also underlying ILD. Pulmonology assessment appreciated. Will need additional follow-up. Has history of emphysema, COPD. Used to follow with pulmonology in [place] at the time of diagnosis of pulmonary hypertension. This was diagnosed at the same time as valve replacement. Is on sildenafil. Says has not followed up since that time, however. Status: Acute (7) Nausea, vomiting and diarrhea: Episode afternoon of 02/01. Likely gastritis, esophagitis exacerbated by steroid. So far no additional vomiting. Continue PPI twice daily IV. Sucralfate due to esophagitis, gastritis, possibly exacerbated by steroids currently. Zofran as needed. Liquid diet for now. Diarrhea so far appears to have resolved. Stool studies unremarkable on infectious panel. Known esophagitis, gastritis, GERD, for which he is continued on a PPI at this time, additionally may be having diarrhea possibly also secondary to hyperthyroidism. Had EGD with noted esophagitis, gastritis just recently on 01/24. He does report history of diabetes in the past, does report peripheral neuropathy as well. A1c is 4.8. Consider additional assessment by gastric emptying study once he is more stable. Denies any odynophagia. Continues follow-up with Dr. Ryan for history of esophageal cancer. Status: Acute (8) Supratherapeutic INR: Was reversed on admission. Status: Acute (9) Palmar erythema: Not bothering him further. Not clear etiology of this. Midodrine was transiently held. No worsening with resumption. Also hold bupropion. Hold gabapentin. He reports some dry scaly skin on his legs. States saw some fluid leak out from under dry skin patch, although cannot tell me if had a blister. Does not appear to have blisters currently. Monitor. Status: Acute Additional A&P Information Amiodarone induced thyrotoxicosis, type II. Ultrasound without nodules or mass. Mild thyromegaly. Coarsened echotexture. Given additional concerns, including possible interstitial lung disease would be safer to discontinue amiodarone. Continue steroid. Reports history of diabetes, previously treated. A1c 4.8. Reports peripheral neuropathy. Esophageal cancer: Continue follow-up with Dr. Ryan Reported history of CAD with history of CABG, bioprosthetic mitral valve Chronic anticoagulation with warfarin. Currently anticoagulation held for procedure. Attestations Medical Necessity Statement*: Continue admission for assessment management of hypoxic respiratory failure with high oxygen requirement. 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
[2021-02-04] VITALS (87 sets, daily range): BP systolic 71–111; BP diastolic 45–70; PULSE 90–112; RESP 14–44; TEMP 36.4–36.8; O2SAT 80–99; BMI 19.5
[2021-02-04] MEDS: morphine 4 mg/mL SDV 1 mL 2 MG IVP ×5 (00:50→23:55)
[2021-02-04] MEDS: cyclobenzaprine 10 mg Tablet PO ×3 (00:56→18:02)
[2021-02-04 03:29] LABS: Eosinophils % 0.1 %; Hemoglobin 7.8 g/dL (11.7-16.6); Lymphocytes # 0.3 10^3/uL (0.8-4.8); Lymphocytes % 2.7 %; Mean Platelet Volume 11.2 fL (7.4-10.4); Monocytes # 0.6 10^3/uL (0.2-0.9); Monocytes % 6.2 %; Neutrophils # 8.56 10^3/uL (1.8-7.7); Neutrophils % 89.7 %; Nucleated Red Blood Cells % 0 %; Platelet Count 94 10^3/cmm (130-400); Red Cell Distribution Width 17.5 % (12.1-15.1); White Blood Count 9.5 10^3/uL (4.0-10.0)
[2021-02-04 03:47] LABS: INR 1.88 (0.8-1.2)
[2021-02-04 03:53] LABS: Alanine Aminotransferase 32 U/L (0-41); Albumin Level 1.9 g/dL (3.5-5.2); Alkaline Phosphatase 88 IU/L (40-130); Anion Gap 15.2 (5-19); Aspartate Amino Transferase 21 U/L (0-40); Blood Urea Nitrogen 11 mg/dL (8-23); Calcium 7.5 mg/dL (8.5-10.5); Carbon Dioxide 23 mmol/L (22-29); Chloride 100 mmol/L (98-107); Globulin 2.1 g/dL (1.3-4.6); Glomerular Filtration Rate 219.4 mL/min (90-130); Glucose 88 mg/dL (65-115); Osmolality Calculated 279 mOsm/kg (285-295); Potassium 3.2 mmol/L (3.5-5.1); Sodium 135 mmol/L (136-145); Total Bilirubin 1.4 mg/dL (0.15-1.2)
[2021-02-04 03:58] LABS: Vancomycin Trough 11.9 ug/mL (10-15)
[2021-02-04] MEDS: pantoprazole 40 mg SDV IVP ×2 (04:37→18:01)
[2021-02-04] MEDS: vancomycin 1,000 MG in sodium chloride 0.9% 250 ML 250 MG IV (04:37)
[2021-02-04] MEDS: HYDROcodone-acetaminophen 5-325 mg Tablet 1 TAB PO ×3 (04:38→22:12)
[2021-02-04] MEDS: levoFLOXacin 750 mg Tablet PO (05:36)
[2021-02-04] MEDS: ferrous sulfate EC 325 mg Tablet PO (05:36)
[2021-02-04] MEDS: aspirin 81 mg EC Tablet PO (05:36)
[2021-02-04] MEDS: potassium chloride premix 100 ML 50 MEQ IV (05:41)
[2021-02-04] MEDS: piperacillin-tazobactam 3.375 GM in sodium chloride 0.9% (plus) 100 ML IV (06:09)
[2021-02-04] MEDS: metoclopramide 10 mg Tablet 5 MG PO ×4 (06:46→20:47)
[2021-02-04] MEDS: lidocaine 5% Patch 1 PATCH TOPICAL (08:26)
[2021-02-04] MEDS: duloxetine 30 mg Capsule PO (08:27)
[2021-02-04] MEDS: sucralfate 1 gm Tablet PO ×2 (08:27→20:47)
[2021-02-04] MEDS: folic acid 1 mg Tablet PO ×2 (08:27→18:02)
[2021-02-04] MEDS: midodrine 5 mg TABLET 10 MG PO ×3 (08:27→21:59)
[2021-02-04] MEDS: ipratropium-albuterol 3 mL Neb INHALATION ×3 (09:31→21:01)
--- NOTE | 2021-02-04 09:59 | PC.CHAP ---
Pastoral Care Encounter/Spiritual Assessment Type of Contact [] Declined raw material planner visit [] Patient/Family/Request visit [] Outpatient visit [] Follow-up visit [] Physician referral [] Code/Alert [x] Routine visit [] Staff referral [] Actively dying [] Patient sleeping [] Family support [] [] Out of room [] Palliative care [] [] Receiving care in room [] Pre-surgical visit [] Trauma [] Long length of stay [x] ICU visit [] Other: Relational/Emotional Strength [] Patient feels connected with others/family/visitors/staff [] Distress [] Loneliness/isolation [] Abandonment Spirituality of Patient [] Person of Tiffanie [] Attends Synagogue of their [place]iff[place] [] Believes in Prayer [] Reads Bible or Gnosticist materials [] There are Spiritual issues to be addressed 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 Interventions [x] Prayer [] Active listening [] Non-anxious presence [] Spiritual/emotional support [] Crisis/trauma care [] Spiritual counseling [] Bereavement support [] Provided bereavement packet [] Provided Bible/devotional materials [] Provided toy/stuffed animal, coloring book to patient or family member [] Provided Communion [] Anointing/[place] [] Salvation [x] Completed spiritual assessment [] Other: Impact on Illness or Injury [] Angry [] Fearful [] Anxious [] Often cries [] Exhaustion [] Unable to work [] Unable to attend anabaptist [] Unable to walk/stand [] Unable to read [] Unable to drive [] Unable to eat/drink [] Unable to sleep [] Unable to be with family [] Patient intubated [] Other: Summary Time spent with patient
--- NOTE | 2021-02-04 10:28 | PM.PN ---
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 As a part of staging work-up he underwent CT scan of the chest abdomen and pelvis in May 2020. The CT scan of the chest at this time revealed centrilobular emphysema predominantly in bilateral upper lobes. There is very minimal reticulation in bilateral lower lobes.After that the patient underwent endoscopic ultrasound evaluation of the esophageal mass and was diagnosed with T2N1 disease. A PET scan revealed FDG avidity in the known esophageal cancer. In addition, the patient also had subcarinal, right paratracheal and subaortic lymph nodes that were FDG avid. He was diagnosed with stage IIIb disease. The patient was not considered a surgical candidate. He was treated with chemo and radiation therapy. His first cycle was in September which he had completed in October. The patient received concurrent chemoradiation therapy. His radiation therapy started on September 27 and continue till October 31. Patient also has history of smoking 1 pack a day for 40 years. Presented to ED on 01/16/[address] chest revealed bilateral reticulation and lower lobes. Upper GI endoscopy in January 24 revealed grade 1 erosion distal third of esophagus. Again presented to ED on 01/28/2021: Generalized weakness, evaluation showed patient elevated PT/INR, anemic. Underwent CT chest abdomen pelvis which ruled out PE, showed emphysema and evidence of interstitial lung disease in bilateral lower lobes. Patient has history of mitral valve replacement with bioprosthetic valve also had A. fib and had been on amiodarone since 2018 when the surgery was performed. Echo in October 2020 revealed ejection fraction 50% patient had grade 3 diastolic dysfunction and that time. Mild diffuse hypokinesis of septum and anteroseptal segments were noted. No significant wall abnormalities of mitral valve was noted. Limited echocardiogram during this admission did not reveal significant abnormalities. Blood work consistent with hyperthyroidism is likely responsible for his diarrhea and sinus tachycardia and possible weight loss. He was treated with p.o. steroids for possible radiation pneumonitis however his symptoms did not improve. In fact his oxygen requirement increased to 70 L 100% high flow nasal cannula and patient is saturating between 90 to 95%. Chest x-ray revealed worsening infiltrate. Antibiotics were broadened to vancomycin, Zosyn and levofloxacin. Patient is seen at bedside today morning and Saturating 94% on 70 L 100% FiO2 ABG on 70 L 100% FiO2 7.4 02/26/57/23/90% Labs and imaging reviewed Medications: Reviewed: Yes Vitals/I&O/Wt Last Vital Signs Temp 98.1 F 02/04/21 04:00 Pulse 102 H 02/04/21 09:33 Resp 22 H 02/04/21 09:32 BP 94/52 02/04/21 07:00 Pulse Ox 92 02/04/21 09:32 02/03/21 02/04/21 02/04/21 22:59 06:59 14:59 Intake Total 807.146 / 865.827 700 / 1565.827 Output Total 450 / 450 675 / 1125 Balance 357.146 / 415.827 25 / 440.827 Weight last 48 hrs Weight 139 lb 14.4 oz Weight 136 lb 9.6 oz Physical Exam Narrative: EXAM NARRATIVE: General: alert, NAD HEENT: conj clear, EOMI, PERRL, mmm, Neck: supple, no meningismus Heme: no cervical LAP Pulmonary: CTAB, no wheezing, rhonchi, crackles Cardiovascular: rrr, nl s1s2, no mrg Abdomen: soft, nt, nd, no r/g, bs+ Extremities: pulses +, no edema, no c/c : no CVA tenderness Skin: intact, no rash MSK: no back or neck pain Neurologic: grossly intact Urinary Catheter Management^: Valles: Cath Placed During This Visit: yes Reason for Continuing Indwelling Catheter: Accurate Measurement of Urinary Output in Critically Ill Patients Urinary Catheter Date of Insertion: 01/29/21 Urinary Catheter Time of Insertion: 17:10 Data : 02/04/21 03:03 02/04/21 03:03 Other Labs: Laboratory Results WBC 9.5 10^3/uL (4.0-10.0) 02/04/21 03:03 RBC 2.60 10^6/uL (4.1-5.3) L 02/04/21 03:03 Hgb 7.8 g/dL (11.7-16.6) L 02/04/21 03:03 Hct 26.0 % (42.0-52.0) L 02/04/21 03:03 MCV 100.0 fL (80-94) H 02/04/21 03:03 MCH 30.0 pg (28.0-34.0) 02/04/21 03:03 MCHC 30.0 g/dL (30.0-36.0) 02/04/21 03:03 RDW 17.5 % (12.1-15.1) H 02/04/21 03:03 Plt Count 94 10^3/cmm (130-400) L 02/04/21 03:03 MPV 11.2 fL (7.4-10.4) H 02/04/21 03:03 Neut % (Auto) 89.7 % 02/04/21 03:03 Lymph % (Auto) 2.7 % 02/04/21 03:03 Griggs % (Auto) 6.2 % 02/04/21 03:03 Eos % (Auto) 0.1 % 02/04/21 03:03 Baso % (Auto) 0.0 % 02/04/21 03:03 Reticulocyte % (Auto) 6.2 % (0.5-2.0) H 01/28/21 13:10 Neut # (Auto) 8.56 10^3/uL (1.8-7.7) H 02/04/21 03:03 Lymph # (Auto) 0.3 10^3/uL (0.8-4.8) L 02/04/21 03:03 Griggs # (Auto) 0.6 10^3/uL (0.2-0.9) 02/04/21 03:03 Eos # (Auto) 0.0 10^3/uL (0.0-0.8) 02/04/21 03:03 Baso # (Auto) 0.0 10^3/uL (0.0-0.1) 02/04/21 03:03 Nucleated RBC % (auto) 0 % 02/04/21 03:03 Nucleated RBCs # 0.0 /100WBC 02/04/21 03:03 ESR 60 mm/hr (0-10) H 01/31/21 05:17 Retic Production Index 3.72 01/28/21 13:10 Haptoglobin 263.0 mg/L (30-200) H 02/01/21 05:22 PT 22.10 SECONDS (12.1-14.9) H 02/04/21 03:03 INR 1.88 (0.8-1.2) H 02/04/21 03:03 Specimen Type Arterial 02/04/21 10:20 Sample Site Radial, left 02/04/21 10:20 ABG pH 7.48 (7.35-7.45) H 02/04/21 10:20 ABG pCO2 31.0 mmHg (35-45) L 02/04/21 10:20 ABG pO2 57.6 mmHg (80.0-100.0) L 02/04/21 10:20 ABG HCO3 23.2 mmol/L (22-26) 02/04/21 10:20 ABG O2 Saturation 90.4 02/04/21 10:20 ABG Base Excess 0.0 mmol/L (-2.0-2.0) 02/04/21 10:20 Mitul Test Pos 02/04/21 10:20 A-a O2 Gradient 79.8 mmHg (5-10) H 02/04/21 10:20 Hematocrit 23.4 % (42-52) L 02/04/21 10:20 Hgb O2 Saturation 87.5 % (95-100) L 02/04/21 10:20 Carboxyhemoglobin 2.2 %THgb (0.4-20.1) 02/04/21 10:20 Methemoglobin 1.1 % (0.4-1.5) 02/04/21 10:20 Total Hemoglobin 7.6 g/dL (14-18) L 02/04/21 10:20 Sodium 133.0 mmol/L (131-143) 02/04/21 10:20 Potassium 3.2 mmol/L (3.5-5.0) L 02/04/21 10:20 Glucose 83.0 mg/dL (70-115) 02/04/21 10:20 Ionized Calcium 1.2 mmol/L (1.1-1.4) 02/04/21 10:20 O2 Delivery Device Hag 02/04/21 10:20 O2 Liters/Min 65.0 % 02/04/21 10:20 FiO2 100.0 % 02/04/21 10:20 Specimen Drawn By Allyson 02/01/21 23:20 Addiction Specialist ID Carolyn 02/04/21 10:20 Blood Gas Notified Time 15min 02/01/21 23:20 Sodium 135 mmol/L (136-145) L 02/04/21 03:03 Potassium 3.2 mmol/L (3.5-5.1) L 02/04/21 03:03 Chloride 100 mmol/L (98-107) 02/04/21 03:03 Carbon Dioxide 23 mmol/L (22-29) 02/04/21 03:03 Anion Gap 15.2 (5-19) 02/04/21 03:03 BUN 11 mg/dL (8-23) 02/04/21 03:03 Creatinine 0.4 mg/dL (0.7-1.2) L 02/04/21 03:03 GFR Calculation 219.4 mL/min (90-130) H 02/04/21 03:03 Glucose 88 mg/dL (65-115) 02/04/21 03:03 Estimat Average Glucose 91 01/28/21 13:10 Hemoglobin A1c 4.8 % (4.0-6.0) 01/28/21 13:10 Calculated Osmolality 279 mOsm/kg (285-295) L 02/04/21 03:03 Lactic Acid 1.0 mmol/L (0.5-2.2) 01/28/21 13:10 Calcium 7.5 mg/dL (8.5-10.5) L 02/04/21 03:03 Iron 36 ug/dL (59-158) L 01/28/21 13:10 TIBC 139 mcg/dl 01/28/21 13:10 % Saturation 25.8 % (20-50) 01/28/21 13:10 Unsat Iron Binding 103 ug/dL (112-347) L 01/28/21 13:10 Ferritin 2365 ng/mL (30-400) H 01/28/21 13:10 Total Bilirubin 1.4 mg/dL (0.15-1.2) H 02/04/21 03:03 Direct Bilirubin 0.90 mg/dL (0.00-0.30) H 01/28/21 13:10 AST 21 U/L (0-40) 02/04/21 03:03 ALT 32 U/L (0-41) 02/04/21 03:03 Alkaline Phosphatase 88 IU/L (40-130) 02/04/21 03:03 Lactate Dehydrogenase 228 U/L (135-225) H 02/01/21 05:22 Troponin T Baseline 17 ng/L (0-15) H 01/28/21 13:10 Troponin T 120 Minute 17.23 ng/L (0-15) H 01/28/21 14:45 Delta Troponin T 0.23 ABS# (0-10) 01/28/21 14:45 Troponin T Hi Sens 6Hr 15.34 ng/L (0-15) H 01/28/21 19:39 Troponin T Hi Sens 6Hr Delta -1.66 ng/L (0-12) L 01/28/21 19:39 C-Reactive Protein 59.2 mg/L (0.0-4.9) H 01/31/21 05:17 Total Protein 4.0 g/dL (6.6-8.7) L 02/04/21 03:03 Albumin 1.9 g/dL (3.5-5.2) L 02/04/21 03:03 Globulin 2.1 g/dL (1.3-4.6) 02/04/21 03:03 Vitamin B12 1218 pg/mL (232-1245) 01/28/21 13:10 Folate 2.6 ng/mL (4.5-32.2) L 01/28/21 13:10 TSH 0.01 uIU/mL (0.27-4.20) L 01/29/21 08:05 Free T4 7.44 ng/dL (0.82-1.77) H 01/29/21 08:05 Thyroxine (T4) 19.4 mcg/dL (4.9-10.5) H 01/29/21 12:36 Free T3 3.4 PG/ML (2.0-4.4) 01/29/21 08:05 Random Cortisol 1.83 ug/dL (2.47-19.5) L 01/31/21 05:17 Urine Osmolality 647 mOsm/kg (50-1200) 01/30/21 07:30 Ur Random Sodium 10 mmol/L 01/30/21 08:18 Vancomycin Trough 11.9 ug/mL (10-15) 02/04/21 03:03 Nasal/Oral COVID-19 PCR Not detected 01/28/21 15:20 SARS-CoV-2 Ag (Rapid) Negative (Negative) 02/03/21 08:00 Blood Type O Negative 01/28/21 13:10 Rho(D) Type Negative / 0 01/28/21 13:10 Antibody Screen Negative 01/28/21 13:10 Crossmatch See Detail 01/28/21 13:10 Impressions Chest/Abdomen/Pelvis CT 01/28/21 14:21 IMPRESSION: 1. No acute inflammatory process in the abdomen or pelvis. 2. Additional findings as described above. Radiation Dose CTDIVOL = (mGy): DLP = 1192.8~1192.8 (mGy-cm) Thyroid Ultrasound 01/30/21 13:17 IMPRESSION: Mild thyromegaly with coarsened echotexture but no mass or nodule. Chest X-Ray 02/03/21 16:30 IMPRESSION: Previously question linearly along the periphery of the right lung/pneumothorax not seen on current study. Otherwise, no significant interval change. 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 Kyung Queen with past medical history of adenocarcinoma of esophagus-s/p chemoradiation completed in October 2020, bilateral upper lobe emphysema, lower lobe interstitial lung disease, pulmonary hypertension on sildenafil, LONNY noncompliant with CPAP, history of CAD s/p CABG and history of mitral valve replacement with a bioprosthetic valve, atrial fibrillation on amiodarone-amiodarone induced hyperthyroidism and possible interstitial lung disease,, admitted to ICU for hypoxic respiratory failure requiring . #Acute hypoxic respiratory failure in patient with underlying bilateral emphysema and interstitial lung disease - ?? PCP pneumoia #Chronic smoker with [id number] history-with COPD #Interstitial lung disease-s/p chemoradiation for esophageal cancer-likely radiation pneumonitis or medication induced amiodarone #Pulmonary hypertension on sildenafil 10 mg p.o. 3 times daily as outpatient #H/O LONNY noncompliant CPAP machine #History of coronary artery disease status post CABG, #Dysphagia -possible PEG placement #Adrenal insufficiency leading to hyponatremia #Amiodarone induced hyperthyroidism #Atrial fibrillation on chronic anticoagulation warfarin-held PIERCE in view of procedure -Patient is alert oriented and communicative -On 70 L 100% high flow nasal cannula-saturating 90 to 94% -ABG 7.4 8/57/20 3/90% on 70 L FIO2 100% -At high risk for intubation-explained patient that due to underlying severe COPD and interstitial lung disease it would be challenging to extubate him and he might end up having tracheostomy-he agreed if it needs to be done and wanted to discuss with his son. -Chest x-ray yesterday showed worsening infiltrates-broaden antibiotic coverage to vancomycin/Zosyn/levofloxacin -MRSA nares negative-I will DC vancomycin -Patient was on prednisone 60 mg p.o. daily for possible radiation pneumonitis-as there was no improvement-it was stopped; I will continue [address] patient on PCP prophylaxis -Continue DuoNeb nebulization every 6 hour scheduled -PCP PCR and beta D glucan are pending -Continue sildenafil 10 mg p.o. 3 times daily for pulmonary hypertension -Off amiodarone and currently on metoprolol 25 mg p.o. twice daily which was held due to low borderline blood pressure -Patient had recent EGD 01/16/2021 for dysphagia with history of esophageal cancer-no stricture appreciated during endoscopy but multiple ulcers and denuded esophageal mucosa was appreciated and patient was placed on lidocaine viscus 2% to help him with swallowing. -Patient is for possible PEG placement-anticoagulation held -Patient has anemia of chronic disease -I/O/N-last 24 hours 440 mL / +1.4 L since admission; K3.2 today-supplemented; patient has low blood pressures with maps around 60-we will hold off diuresis for today -Hyponatremia-on sodium chloride 1 g p.o. twice daily schedule-improving; serum osmolality 279, urine osmolality sent -Adrenal insufficiency, on fludrocortisone 0.1 mg p.o. every other day -Midodrine 10 mg p.o. 3 times daily -Sugars well controlled -Sucralfate 1 g p.o. 3 times daily and pantoprazole 40 mg IV push every 12 hours Overall prognosis: Guarded Code:Full Given his significant underlying pulmonary pathology-COPD/interstitial lung disease/pulmonary hypertension -currently being treated with antibiotics for possible superimposing infection, steroids for interstitial lung disease, nebulizations and high requirements of FiO2. Discussed in detail with patient that if he is respiratory status worsens-we had to intubate him and with underlying baseline lung disease-more than likely he will end up needing trach. Patient agreed and wanted to let his son know about it. Recommendations conveyed to hospitalist covering the patient, RN and RT as well. Attestations Medical Necessity Statement*: Acute hypoxic respiratory failure secondary to possible interstitial lung disease exacerbation/COPD exacerbation Time Spent in Patient Care: Greater than 35 minutes (>than 50% of time spent in counselling and/or direct pt care on unit). 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
[2021-02-04 10:31] LABS: ABG PH Result 7.48 (7.35-7.45); Alveolar-Arterial Oxygen Gradi 79.8 mmHg (5-10); Arterial Blood Gas Hematocrit 23.4 % (42-52); Blood Gas Allen Test Pos; Blood Gas Operator Identificat CAK; Blood Gas Sample Site Radial, left; Blood Gas Sample Type Arterial; Carboxyhemoglobin 2.2 %THgb (0.4-20.1); HCO3 ABG 23.2 mmol/L (22-26); HGB O2 Sat 87.5 % (95-100); Ionized Calcium Level - ABG 1.2 mmol/L (1.1-1.4); Methemoglobin 1.1 % (0.4-1.5); Oxygen Device HAG; Oxygen Saturation ABG 90.4; PO2 ABG 57.6 mmHg (80.0-100.0); Potassium Level - ABG 3.2 mmol/L (3.5-5.0); Total Hemoglobin 7.6 g/dL (14-18)
[2021-02-04] MEDS: piperacillin-tazobactam 3.375 GM in sodium chloride 0.9% (plus) 50 ML IV ×2 (13:49→20:51)
--- NOTE | 2021-02-04 14:14 | PM.PN ---
Subjective Subjective: Interval history: Kyung reports he feels like his breathing is doing okay today. Records reviewed. Medications: Reviewed: Yes Vitals/I&O/Wt Last Vital Signs Temp 98.1 F 02/04/21 04:00 Pulse 102 H 02/04/21 12:22 Resp 22 H 02/04/21 12:22 BP 94/52 02/04/21 07:00 Pulse Ox 90 02/04/21 12:22 02/03/21 02/04/21 02/04/21 22:59 06:59 14:59 Intake Total 807.146 / 865.827 700 / 1565.827 29.44 / 29.44 Output Total 450 / 450 675 / 1125 Balance 357.146 / 415.827 25 / 440.827 29.44 / 29.44 Weight last 48 hrs Weight 63.458 kg Weight 61.961 kg Physical Exam Narrative: EXAM NARRATIVE: General exam is a thin appearing male, who does not appear to be in respiratory distress. Neck is supple no lymphadenopathy thyromegaly Cardiovascular borderline tachycardic, regular Lungs coarse breath sounds at the bases Abdomen is soft with positive bowel sounds Extremities no cyanosis clubbing or edema Urinary Catheter Management^: Valles: Cath Placed During This Visit: yes Reason for Continuing Indwelling Catheter: Accurate Measurement of Urinary Output in Critically Ill Patients Urinary Catheter Date of Insertion: 01/29/21 Urinary Catheter Time of Insertion: 17:10 Data : 02/04/21 03:03 02/04/21 03:03 A&P Assessment and plan (1) Acute respiratory failure with hypoxia: Requiring heated high flow concern of pneumonia Currently on Zosyn and Levaquin. Vancomycin has been discontinued as MRSA PCR negative. Continue prednisone at 60 mg daily Await pneumocystis studies Currently on sildenafil for pulmonary hypertension Covid PCR negative Status: Acute (2) Hypotension: Holding medications could which could lower blood pressure Continue midodrine Currently on every other day fludrocortisone Note that random cortisol level was low. No adrenal hemorrhage on CT Status: Acute (3) Acute anemia: Hemoglobin stable but low. Multifactorial but consistent with anemia of chronic disease. Did receive 1 unit of blood on admission Status: Acute (4) Total bilirubin, elevated: Resolving Status: Acute (5) ST segment depression: No evidence of acute coronary ischemia Status: Acute (6) Interstitial lung disease: Pulmonary consultation appreciated Concern of radiation pneumonitis or medication induced Status: Acute (7) Nausea, vomiting and diarrhea: Consideration for PEG tube secondary to history of esophageal cancer and difficulty swallowing as well as nutrition status. Timing of this may be an issue as intubation might be required secondary to his current pulmonary status. Continue proton pump inhibitor Status: Acute (8) Supratherapeutic INR: Was reversed on admission. Coumadin held Status: Acute (9) Palmar erythema: No specific diagnosis Status: Acute Additional A&P Information Hyponatremia. Slow improvement on sodium chloride supplementation. Amiodarone induced thyrotoxicosis, type II. Ultrasound without nodules or mass. Amiodarone discontinued. Esophageal carcinoma. Followed by Dr. Ryan Reported history of CAD with history of CABG, bioprosthetic mitral valve History of atrial fibrillation. Currently heart rate controlled. Anticoagulation discontinued for possible procedure. Attestations Medical Necessity Statement*: Needs continued hospitalization in ICU secondary to severe respiratory failure requiring high flow oxygen Coding Level of Care Code Acute Director Furniture for [facility] Fwd Diagnoses Acute respiratory failure with hypoxia J96.01 Hypotension I95.9 Acute anemia D64.9 Total bilirubin, elevated R17 ST segment depression R94.31 Interstitial lung disease J84.9 Nausea, vomiting and diarrhea R11.2; R19.7 Supratherapeutic INR R79.1 Palmar erythema L53.8
[2021-02-04 17:32] LABS: Blood Urine 3+ (Negative); Glucose Urine UA Norm (Normal); Ketones Urine 2+ (Negative); Protein Urine 1+ (Negative); Urine Appearance Clear (CLEAR); Urine Color Yellow (Yellow); pH Urine 5 (5-7)
[2021-02-04 17:33] LABS: Bacteria Urine 2+ /hpf; Bilirubin Urine Neg (Negative); Leukocyte Esterase Urine Negative (Negative); Nitrate Urine Negative (Negative); Squamous Epithelial Cell Urine 0-4 /hpf (0-5); Urobilinogen Urine 1 mg/dL (Negative)
[2021-02-04] MEDS: NON-FORMULARY MEDICATION (Sildenafil (Pulm.Hypertension) 20 mg tablet) 10 EACH PO ×2 (18:02→20:52)
[2021-02-04] MEDS: sodium chloride 1 gm Tablet PO (18:02)
--- NOTE | 2021-02-04 19:17 | PC.NURSE ---
Shift summary: Pt rested in bed throughout shift. Pt in to work with pt, pt had very low tolerance and O2 sats decreased . Lung sounds have improved form yesterday, more air movement auscultated. He remains on Heated high flow, now at 65 liters and 95%. Port access changed out today per access time protocol. Levophed started at 2mcg/min, it is now infusing at 1mcg/min. To keep MAPs greater than [address] Datar. Precedex stopped, pt did not complain of any anxiety. Urine cultures and osmolality. PEG tube placements, oxygen needs and possible intubation discussed at Dr rounds Frequent safety and comfort rounds continue. Orders and/or nursing care completed as indicated. Patient monitored for response to intervention and treatment(s). Education provided includes Levophed, possible intubation. Patient and/or phlebotomy services representative verbalized understanding Will continue to monitor. ty done today.. Urine output of 430 ml this shift.
[2021-02-04] MEDS: montelukast sodium 10 mg Tablet PO (20:47)
[2021-02-05] VITALS (93 sets, daily range): BP systolic 76–131; BP diastolic 42–71; PULSE 54–122; RESP 13–37; TEMP 36.4–38.4; O2SAT 68–99; BMI 19.4
[2021-02-05 01:18] LABS: P. Jirovecii DNA QL PCR NOT DETECTED; P. Jirovecii DNA QL PCR Source SPUTUM
[2021-02-05] MEDS: capsaicin 0.025% cream 60 gm 1 APPLIC TOPICAL (01:57)
[2021-02-05] MEDS: ipratropium-albuterol 3 mL Neb INHALATION ×4 (02:58→20:27)
[2021-02-05] MEDS: morphine 4 mg/mL SDV 1 mL 2 MG IVP (03:59)
[2021-02-05] MEDS: pantoprazole 40 mg SDV IVP ×2 (05:56→18:50)
[2021-02-05] MEDS: piperacillin-tazobactam 3.375 GM in sodium chloride 0.9% (plus) 50 ML IV ×2 (06:12→15:58)
[2021-02-05] MEDS: metoclopramide 10 mg Tablet 5 MG PO ×2 (06:13→11:46)
[2021-02-05] MEDS: ferrous sulfate EC 325 mg Tablet PO (06:13)
[2021-02-05] MEDS: levoFLOXacin 750 mg Tablet PO (06:13)
[2021-02-05] MEDS: aspirin 81 mg EC Tablet PO (06:13)
[2021-02-05] MEDS: NON-FORMULARY MEDICATION (Sildenafil (Pulm.Hypertension) 20 mg tablet) 10 EACH PO (06:14)
[2021-02-05 06:32] LABS: Basophils % 0.1 %; Eosinophils % 0.4 %; Hematocrit 28.4 % (42.0-52.0); Hemoglobin 8.4 g/dL (11.7-16.6); Lymphocytes # 0.3 10^3/uL (0.8-4.8); Mean Corpuscular HGB Conc 29.6 g/dL (30.0-36.0); Mean Corpuscular Hemoglobin 29.5 pg (28.0-34.0); Mean Corpuscular Volume 99.6 fL (80-94); Mean Platelet Volume 10.7 fL (7.4-10.4); Monocytes # 0.7 10^3/uL (0.2-0.9); Monocytes % 7.4 %; Neutrophils % 86.9 %; Nucleated Red Blood Cells % 0.2 %; Platelet Count 91 10^3/cmm (130-400); Red Blood Count 2.85 10^6/uL (4.1-5.3); Red Cell Distribution Width 17.7 % (12.1-15.1); White Blood Count 9.4 10^3/uL (4.0-10.0)
[2021-02-05 07:00] LABS: Alanine Aminotransferase 26 U/L (0-41); Albumin Level 2.2 g/dL (3.5-5.2); Alkaline Phosphatase 103 IU/L (40-130); Aspartate Amino Transferase 12 U/L (0-40); Blood Urea Nitrogen 9 mg/dL (8-23); Calcium 7.6 mg/dL (8.5-10.5); Carbon Dioxide 21 mmol/L (22-29); Chloride 97 mmol/L (98-107); Globulin 2.2 g/dL (1.3-4.6); Glomerular Filtration Rate 488.3 mL/min (90-130); Glucose 102 mg/dL (65-115); Osmolality Calculated 279 mOsm/kg (285-295); Sodium 135 mmol/L (136-145); Total Bilirubin 1.6 mg/dL (0.15-1.2); Total Protein 4.4 g/dL (6.6-8.7)
[2021-02-05] MEDS: fludrocortisone 0.1 mg Tablet PO (09:29)
[2021-02-05] MEDS: folic acid 1 mg Tablet PO (09:29)
[2021-02-05] MEDS: duloxetine 30 mg Capsule PO (09:29)
[2021-02-05] MEDS: predniSONE 20 mg Tablet 60 MG PO (09:30)
[2021-02-05] MEDS: HYDROcodone-acetaminophen 5-325 mg Tablet 1 TAB PO (09:30)
[2021-02-05] MEDS: sodium chloride 1 gm Tablet PO (09:30)
[2021-02-05] MEDS: sucralfate 1 gm Tablet PO (09:30)
[2021-02-05] MEDS: midodrine 5 mg TABLET 10 MG PO (09:30)
[2021-02-05] MEDS: phenol oral Spray 177 mL 5 SPRAY MUCOUS MEM (09:37)
[2021-02-05] MEDS: lidocaine 5% Patch 1 PATCH TOPICAL (10:15)
[2021-02-05] MEDS: potassium chloride premix 100 ML 25 MEQ IV (10:16)
[2021-02-05] MEDS: potassium chloride premix 100 ML 10 MEQ IV (10:17)
--- NOTE | 2021-02-05 10:46 | PC.NURSE ---
0800 recd. resting quietly, resp. somewhat labored.
[2021-02-05] MEDS: potassium chloride premix 100 ML 50 MEQ IV (10:53)
--- NOTE | 2021-02-05 14:26 | PC.NUTR ---
Nutrition follow up: No PO intakes X 3 days per chart. If able to resume oral diet, recommend POLITICAL AIDE eval to determine appropriate texture, and Ensure plus supplement (at consistency per POLITICAL AIDE rec) with meals for additional kcal/protein. If unable to resume oral diet and PEG placed, would recommend Osmolite 1.2, beginning at 10 ml/hr, increasing by 10 ml/hr q 8 hrs to goal rate of 75 ml/hr, with 100 ml H2O flushes q 6 hrs, to provide 2160 kcal, 99 g protein, and 2076 ml H2O. If bolus feeding preferred, recommend 360 ml bolus 5x per day with 80 ml H2O flush per feeding. See full RD assessment for further details.
--- NOTE | 2021-02-05 14:29 | PC.NURSE ---
02 sat to 65%. requested supplemental oxygen, 100% nrb added.
[2021-02-05 14:32] LABS: Osmolality Urine 407 mOsm/kg (50-1200)
--- NOTE | 2021-02-05 15:10 | XR_ITS ---
WS: [id number] CHEST XRAY TECHNIQUE: Portable chest. CLINICAL INFORMATION: ET Tube Placement COMPARISON: None. FINDINGS: Endotracheal tube with tip above the eneida. Sternotomy. CABG. Right Port-A-Cath with tip i n SVC. Heart: Cardiomegaly. Lungs: Advanced chronic emphysematous changes. Small bilateral pleural effusions appear increased fro m previous. Bibasilar atelectasis. Diffuse interstitial infiltrates throughout both lungs. No focal c onsolidation. No visualized pneumothorax. Bones: Normal visualized bony structures. XR/XR chest 1V portable [id number] IMPRESSION: 1. Endotracheal tube with tip 5.2 cm above the eneida. 2. Small bilateral pleural pleural effusions with bibasilar atelectasis increa sed from previous. 3. Diffuse bilateral interstitial infiltrates are stable. No focal consolidati on.
[2021-02-05] MEDS: propofol 1,000 MG/100 ML INJ 7.6 MG IV (15:14)
--- NOTE | 2021-02-05 16:07 | PM.PN ---
Subjective Subjective: Interval history: Have visited with the patient this morning, and came back and talked briefly with the son. Patient had been intubated in the interim. Medications: Reviewed: Yes Vitals/I&O/Wt Last Vital Signs Temp 98.2 F 02/05/21 04:15 Pulse 102 H 02/05/21 15:30 Resp 16 02/05/21 15:29 BP 76/44 02/05/21 10:45 Pulse Ox 92 02/05/21 15:29 02/05/21 02/05/21 02/05/21 06:59 14:59 22:59 Intake Total 50 / 693.156 213.597 / 213.597 82.850 / 296.447 Output Total 550 / 980 Balance -500 / -286.844 213.597 / 213.597 82.850 / 296.447 Weight last 48 hrs Weight 63.304 kg Weight 63.458 kg Physical Exam Narrative: EXAM NARRATIVE: General exam intubated, no distress Neck is supple no lymphadenopathy thyromegaly Cardiovascular borderline tachycardic, regular Lungs coarse breath sounds at the bases Abdomen is soft with positive bowel sounds Extremities no cyanosis clubbing or edema Urinary Catheter Management^: Valles: Cath Placed During This Visit: yes Reason for Continuing Indwelling Catheter: Accurate Measurement of Urinary Output in Critically Ill Patients Urinary Catheter Date of Insertion: 01/29/21 Urinary Catheter Time of Insertion: 17:10 Data : 02/05/21 06:15 02/05/21 06:15 A&P Assessment and plan (1) Acute respiratory failure with hypoxia: Intubated. FiO2 requirement is 100% Concern of pneumonia Currently on Zosyn and Levaquin. Vancomycin has been discontinued as MRSA PCR negative. Continue prednisone at 60 mg daily Await pneumocystis studies Currently on sildenafil for pulmonary hypertension Covid PCR negative Status: Acute (2) Hypotension: Holding medications could which could lower blood pressure Placed on norepinephrine Currently on every other day fludrocortisone Note that random cortisol level was low. No adrenal hemorrhage on CT Status: Acute (3) Acute anemia: Hemoglobin stable but low. Multifactorial but consistent with anemia of chronic disease. Did receive 1 unit of blood on admission Status: Acute (4) Total bilirubin, elevated: Resolving Status: Acute (5) ST segment depression: No evidence of acute coronary ischemia Status: Acute (6) Interstitial lung disease: Pulmonary consultation appreciated Concern of radiation pneumonitis or medication induced Status: Acute (7) Nausea, vomiting and diarrhea: Consideration for PEG tube secondary to history of esophageal cancer and difficulty swallowing as well as nutrition status. Timing of this may be an issue as intubation might be required secondary to his current pulmonary status. Continue proton pump inhibitor Intubated today. PEG tube under consideration. Status: Acute (8) Supratherapeutic INR: Was reversed on admission. Coumadin held Status: Acute (9) Palmar erythema: No specific diagnosis Status: Acute Additional A&P Information Hypokalemia. Being supplemented. Check magnesium level. Hyponatremia. Significantly improved Amiodarone induced thyrotoxicosis, type II. Ultrasound without nodules or mass. Amiodarone discontinued. Esophageal carcinoma. Followed by Dr. Ryan Reported history of CAD with history of CABG, bioprosthetic mitral valve History of atrial fibrillation. Currently heart rate controlled. Anticoagulation discontinued for possible procedure. Attestations Medical Necessity Statement*: Needs continued hospital stay secondary respiratory failure requiring ventilatory support. Coding Level of Care Code Acute Pipe Caulker for Agueda Lacey Diagnoses Acute respiratory failure with hypoxia J96.01 Hypotension I95.9 Acute anemia D64.9 Total bilirubin, elevated R17 ST segment depression R94.31 Interstitial lung disease J84.9 Nausea, vomiting and diarrhea R11.2; R19.7 Supratherapeutic INR R79.1 Palmar erythema L53.8
[2021-02-05 16:32] LABS: Magnesium 1.6 mg/dL (1.7-2.3)
[2021-02-05 16:58] LABS: Alveolar-Arterial Oxygen Gradi 74.6 mmHg (5-10); Arterial Blood Gas Hematocrit 32.3 % (42-52); Blood Gas Allen Test Pos; Blood Gas Operator Identificat CAK; Blood Gas Sample Site Radial, left; Blood Gas Sample Type Arterial; HCO3 ABG 20.7 mmol/L (22-26); HGB O2 Sat 77.7 % (95-100); Ionized Calcium Level - ABG 1.3 mmol/L (1.1-1.4); Methemoglobin 0.8 % (0.4-1.5); Oxygen Device VENT; PO2 ABG 63.6 mmHg (80.0-100.0); Potassium Level - ABG 5.1 mmol/L (3.5-5.0); Total Hemoglobin 10.5 g/dL (14-18)
[2021-02-05] MEDS: hydrocortisone 100 mg/2 mL SDV 50 MG IVP (17:41)
--- NOTE | 2021-02-05 17:49 | PM.ACPR ---
Procedure/Consent Time out: Time Out Performed: Yes Consent: Consent for Procedure: Consent obtained from patient (Verbal), Risks & Benefits reviewed and Agrees to proceed with procedure Additional Consent Information: Also informed him next of kin son as per patient wishes and explained the risks of intubation and possibility of patient being vent dependent due to underlying emphysema, interstitial lung disease, pulmonary hypertension,. Patient Son verbalized understanding and agreed with the plan Procedure Narrative: Endotracheal Intubation Procedure Note: Indication for endotracheal intubation: Hypoxic respiratory failure Consent: The patient was in immediate danger, and required the procedure emergently, also to verbal consent as witnessed by the staff. Sedation: Etomidate 10, Versed 5, Paralytic: Rocuronium 50 Pressor: Phenylephrine 100 MCG Equipment: MAC View: Grade 1 Cricoid Pressure: No Number of attempts: 1 ETT location confirmed by colorimetric change, fogging of ET tube, bilateral breath sounds, chest x-ray. Arash DatarMD Pulm/Critical Care Medicine Acute Procedures Epistaxis Control: Time out performed: Yes
[2021-02-05 18:11] LABS: ABG PCO2 64.2 mmHg (35-45); ABG PH Result 7.12 (7.35-7.45)
[2021-02-05] MEDS: lactated ringers 500 ML 999 ML IV (18:20)
[2021-02-05] MEDS: rocuronium 10 mg/mL INJ 5mL 50 MG (18:31)
[2021-02-05] MEDS: phenylephrine 10 mg/ml SDV 1 mL (18:32)
[2021-02-05] MEDS: sodium chloride 0.9% (100 ml) 100 ML (18:34)
[2021-02-05] MEDS: magnesium sulfate premix 2 GM/50 ML PIGGYBACK IV (18:49)
[2021-02-05] MEDS: propofol 1,000 MG/100 ML INJ 3.8 MG IV (18:56)
--- NOTE | 2021-02-05 19:36 | PC.NURSE ---
1520 pt. was intubated after o2 sat dropped, on hi vee n c. and 100% nrb.
--- NOTE | 2021-02-05 20:13 | P.PN_ITS ---
Subjective Subjective: Interval history: Patient seen multiple times today at bedside Today morning patient was on 70 L 100% and saturating around 90% Discussed with Dr. Ryan, patient and patient's son and confirmed that patient was seen by Dr. Dinh in [place] and was told that he is not a surgical candidate due to his high FiO2 requirements with underlying pulmonary and cardiac conditions and that his family opted to go for chemoradiation.Same thing explained to surgeon Dr. Christianson and requested for PEG tube placement which might need at least a mild sedation and possible that patient might get intubated as he is already on 70 L 100%. Son wanted to come in the evening 6 PM after work to have goals of care discussion as given his underlying chronic pulmonary and cardiac conditions and esophageal cancer-given high FiO2 requirements-the chances of patient becoming vent dependent and ending up having tracheostomy and PEG tube and long-term facility care. Meanwhile in the afternoon patient desaturated to 60s and in addition to high flow 70 L 100% he was started on 15 L additional oxygen with which she was barely saturating low 80s. Informed son and discussed with patient-both agreed to proceed for intubation. Post intubation patient was started on fentanyl 25, propofol 10 but he decompensated and became significantly hypotensive requiring to increase Levophed to 20 M CG/hour and vasopressin 0.04. Started on hydrocortisone 50 mg every 6 hours. Given his grave prognosis, patient's son discussed with patient's and informed not to resuscitate if there is no meaningful outcome. Labs and imaging reviewed Medications: Reviewed: Yes Vitals/I&O/Wt Last Vital Signs Temp 98.2 F 02/05/21 04:15 Pulse 85 02/05/21 19:30 Resp 28 H 02/05/21 17:43 BP 100/44 02/05/21 19:30 Pulse Ox 81 L 02/05/21 19:30 02/05/21 02/05/21 02/05/21 06:59 14:59 22:59 Intake Total 50 / 693.156 213.597 / 213.597 814.761 / 1028.358 Output Total 550 / 980 300 / 300 Balance -500 / -286.844 213.597 / 213.597 514.761 / 728.358 Weight last 48 hrs Weight 139 lb 9 oz Weight 139 lb 14.4 oz Physical Exam Narrative: EXAM NARRATIVE: PHYSICAL EXAM: General: lying in bed, sedated and intubated. HEENT:NCAT, PERRLA, EOMI Neck: Supple Lungs: Clear, Heart: s1/s2, RRR Abd: soft, NT, ND, BS + Normoactive Extremities: No edema HOSPICE VOLUNTEER COORDINATOR: sedated and limited HOSPICE VOLUNTEER COORDINATOR exam possible. SKIN: no rash LDA: #Chemo-Port Urinary Catheter Management^: Valles: Cath Placed During This Visit: yes Reason for Continuing Indwelling Catheter: Accurate Measurement of Urinary Output in Critically Ill Patients Urinary Catheter Date of Insertion: 01/29/21 Urinary Catheter Time of Insertion: 17:10 Data : 02/05/21 06:15 02/05/21 06:15 Other Labs: Laboratory Results WBC 9.4 10^3/uL (4.0-10.0) 02/05/21 06:15 RBC 2.85 10^6/uL (4.1-5.3) L 02/05/21 06:15 Hgb 8.4 g/dL (11.7-16.6) L 02/05/21 06:15 Hct 28.4 % (42.0-52.0) L 02/05/21 06:15 MCV 99.6 fL (80-94) H 02/05/21 06:15 MCH 29.5 pg (28.0-34.0) 02/05/21 06:15 MCHC 29.6 g/dL (30.0-36.0) L 02/05/21 06:15 RDW 17.7 % (12.1-15.1) H 02/05/21 06:15 Plt Count 91 10^3/cmm (130-400) L 02/05/21 06:15 MPV 10.7 fL (7.4-10.4) H 02/05/21 06:15 Neut % (Auto) 86.9 % 02/05/21 06:15 Lymph % (Auto) 3.0 % 02/05/21 06:15 [place] % (Auto) 7.4 % 02/05/21 06:15 Eos % (Auto) 0.4 % 02/05/21 06:15 Baso % (Auto) 0.1 % 02/05/21 06:15 Reticulocyte % (Auto) 6.2 % (0.5-2.0) H 01/28/21 13:10 Neut # (Auto) 8.20 10^3/uL (1.8-7.7) H 02/05/21 06:15 Lymph # (Auto) 0.3 10^3/uL (0.8-4.8) L 02/05/21 06:15 [place] # (Auto) 0.7 10^3/uL (0.2-0.9) 02/05/21 06:15 Eos # (Auto) 0.0 10^3/uL (0.0-0.8) 02/05/21 06:15 Baso # (Auto) 0.0 10^3/uL (0.0-0.1) 02/05/21 06:15 Nucleated RBC % (auto) 0.2 % 02/05/21 06:15 Nucleated RBCs # 0.0 /100WBC 02/05/21 06:15 ESR 60 mm/hr (0-10) H 01/31/21 05:17 Retic Production Index 3.72 01/28/21 13:10 Haptoglobin 263.0 mg/L (30-200) H 02/01/21 05:22 PT 22.10 SECONDS (12.1-14.9) H 02/04/21 03:03 INR 1.88 (0.8-1.2) H 02/04/21 03:03 Specimen Type Arterial 02/05/21 16:47 Sample Site Radial, left 02/05/21 16:47 ABG pH 7.12 (7.35-7.45) L* 02/05/21 16:47 ABG pCO2 64.2 mmHg (35-45) H* 02/05/21 16:47 ABG pO2 63.6 mmHg (80.0-100.0) L 02/05/21 16:47 ABG HCO3 20.7 mmol/L (22-26) L 02/05/21 16:47 ABG O2 Saturation 80.0 02/05/21 16:47 ABG Base Excess -9.0 mmol/L (-2.0-2.0) L 02/05/21 16:47 Mitul Test Pos 02/05/21 16:47 A-a O2 Gradient 74.6 mmHg (5-10) H 02/05/21 16:47 Hematocrit 32.3 % (42-52) L 02/05/21 16:47 Hgb O2 Saturation 77.7 % (95-100) L 02/05/21 16:47 Carboxyhemoglobin 2.0 %THgb (0.4-20.1) 02/05/21 16:47 Methemoglobin 0.8 % (0.4-1.5) 02/05/21 16:47 Total Hemoglobin 10.5 g/dL (14-18) L 02/05/21 16:47 Sodium 136.0 mmol/L (131-143) 02/05/21 16:47 Potassium 5.1 mmol/L (3.5-5.0) H 02/05/21 16:47 Glucose 224.0 mg/dL (70-115) H 02/05/21 16:47 Ionized Calcium 1.3 mmol/L (1.1-1.4) 02/05/21 16:47 O2 Delivery Device Vent 02/05/21 16:47 O2 Liters/Min 65.0 % 02/04/21 10:20 FiO2 100.0 % 02/05/21 16:47 Tidal Volume 0.30 02/05/21 16:47 PEEP 8.0 cmH20 02/05/21 16:47 Specimen Drawn By Allyson 02/01/21 23:20 Jewel Oliving Machine Operator ID Carolyn 02/05/21 16:47 Blood Gas Notified Time 15min 02/01/21 23:20 Sodium 135 mmol/L (136-145) L 02/05/21 06:15 Potassium 3.0 mmol/L (3.5-5.1) L 02/05/21 06:15 Chloride 97 mmol/L (98-107) L 02/05/21 06:15 Carbon Dioxide 21 mmol/L (22-29) L 02/05/21 06:15 Anion Gap 20.0 (5-19) H 02/05/21 06:15 BUN 9 mg/dL (8-23) 02/05/21 06:15 Creatinine 0.2 mg/dL (0.7-1.2) L 02/05/21 06:15 GFR Calculation 488.3 mL/min (90-130) H 02/05/21 06:15 Glucose 102 mg/dL (65-115) 02/05/21 06:15 Estimat Average Glucose 91 01/28/21 13:10 Hemoglobin A1c 4.8 % (4.0-6.0) 01/28/21 13:10 Calculated Osmolality 279 mOsm/kg (285-295) L 02/05/21 06:15 Lactic Acid 1.0 mmol/L (0.5-2.2) 01/28/21 13:10 Calcium 7.6 mg/dL (8.5-10.5) L 02/05/21 06:15 Magnesium 1.6 mg/dL (1.7-2.3) L 02/05/21 06:15 Iron 36 ug/dL (59-158) L 01/28/21 13:10 TIBC 139 mcg/dl 01/28/21 13:10 % Saturation 25.8 % (20-50) 01/28/21 13:10 Unsat Iron Binding 103 ug/dL (112-347) L 01/28/21 13:10 Ferritin 2365 ng/mL (30-400) H 01/28/21 13:10 Total Bilirubin 1.6 mg/dL (0.15-1.2) H 02/05/21 06:15 Direct Bilirubin 0.90 mg/dL (0.00-0.30) H 01/28/21 13:10 AST 12 U/L (0-40) 02/05/21 06:15 ALT 26 U/L (0-41) 02/05/21 06:15 Alkaline Phosphatase 103 IU/L (40-130) 02/05/21 06:15 Lactate Dehydrogenase 228 U/L (135-225) H 02/01/21 05:22 Troponin T Baseline 17 ng/L (0-15) H 01/28/21 13:10 Troponin T 120 Minute 17.23 ng/L (0-15) H 01/28/21 14:45 Delta Troponin T 0.23 ABS# (0-10) 01/28/21 14:45 Troponin T Hi Sens 6Hr 15.34 ng/L (0-15) H 01/28/21 19:39 Troponin T Hi Sens 6Hr Delta -1.66 ng/L (0-12) L 01/28/21 19:39 C-Reactive Protein 59.2 mg/L (0.0-4.9) H 01/31/21 05:17 Total Protein 4.4 g/dL (6.6-8.7) L 02/05/21 06:15 Albumin 2.2 g/dL (3.5-5.2) L 02/05/21 06:15 Globulin 2.2 g/dL (1.3-4.6) 02/05/21 06:15 Vitamin B12 1218 pg/mL (232-1245) 01/28/21 13:10 Folate 2.6 ng/mL (4.5-32.2) L 01/28/21 13:10 Procalcitonin 0.40 ng/mL (0-0.5) 02/04/21 03:03 TSH 0.01 uIU/mL (0.27-4.20) L 01/29/21 08:05 Free T4 7.44 ng/dL (0.82-1.77) H 01/29/21 08:05 Thyroxine (T4) 19.4 mcg/dL (4.9-10.5) H 01/29/21 12:36 Free T3 3.4 PG/ML (2.0-4.4) 01/29/21 08:05 Random Cortisol 1.83 ug/dL (2.47-19.5) L 01/31/21 05:17 Urine Color Yellow (Yellow) 02/04/21 16:00 Urine Appearance Clear (CLEAR) 02/04/21 16:00 Urine pH 5 (5-7) 02/04/21 16:00 Ur Specific [place] 1.020 (1.005-1.030) 02/04/21 16:00 Urine Protein 1+ (Negative) H 02/04/21 16:00 Urine Glucose (UA) Norm (Normal) 02/04/21 16:00 Urine Ketones 2+ (Negative) H 02/04/21 16:00 Urine Blood 3+ (Negative) H 02/04/21 16:00 Urine Nitrate Negative (Negative) 02/04/21 16:00 Urine Bilirubin Neg (Negative) 02/04/21 16:00 Urine Urobilinogen 1 mg/dL (Negative) H 02/04/21 16:00 Ur Leukocyte Esterase Negative (Negative) 02/04/21 16:00 Urine RBC 10-15 /hpf (0-2) H 02/04/21 16:00 Urine WBC None /hpf (0-5) 02/04/21 16:00 Ur Squamous Epith Cells 0-4 /hpf (0-5) H 02/04/21 16:00 Amorphous Sediment Not Reportable 02/04/21 16:00 Urine Bacteria 2+ /hpf (NONE) H 02/04/21 16:00 Urine Osmolality 407 mOsm/kg (50-1200) 02/04/21 16:00 Ur Random Sodium 10 mmol/L 01/30/21 08:18 Vancomycin Trough 11.9 ug/mL (10-15) 02/04/21 03:03 Nasal/Oral COVID-19 PCR Not detected 01/28/21 15:20 Pneumocystis Source Sputum 01/30/21 19:05 Pneumocyst jiroveci PCR Not detected 01/30/21 19:05 SARS-CoV-2 Ag (Rapid) Negative (Negative) 02/03/21 08:00 Misc Test Reference See comment 01/28/21 07:45 Blood Type O Negative 01/28/21 13:10 Rho(D) Type Negative / 0 01/28/21 13:10 Antibody Screen Negative 01/28/21 13:10 Crossmatch See Detail 01/28/21 13:10 Impressions Chest/Abdomen/Pelvis CT 01/28/21 14:21 IMPRESSION: 1. No acute inflammatory process in the abdomen or pelvis. 2. Additional findings as described above. Radiation Dose CTDIVOL = (mGy): DLP = 1192.8~1192.8 (mGy-cm) Thyroid Ultrasound 01/30/21 13:17 IMPRESSION: Mild thyromegaly with coarsened echotexture but no mass or nodule. Chest X-Ray 02/05/21 15:10 IMPRESSION: 1. Endotracheal tube with tip 5.2 cm above the eneida. 2. Small bilateral pleural pleural effusions with bibasilar atelectasis increased from previous. 3. Diffuse bilateral interstitial infiltrates are stable. No focal co nsolidation. 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 Kyung Queen with past medical history of adenocarcinoma of esophagus-s/p chemoradiation completed in October 2020, bilateral upper lobe emphysema, lower lobe interstitial lung disease, pulmonary hypertension on sildenafil, LONNY noncompliant with CPAP, history of CAD s/p CABG and history of mitral valve replacement with a bioprosthetic valve, atrial fibrillation on amiodarone-amiodarone induced hyperthyroidism and possible interstitial lung disease,, admitted to ICU for hypoxic respiratory failure requiring . #Acute hypoxic respiratory failure in patient with underlying bilateral emphysema and interstitial lung disease - ?? PCP pneumoia #Chronic smoker with [id number] history-with COPD #Interstitial lung disease-s/p chemoradiation for esophageal cancer-likely ra diation pneumonitis or medication induced amiodarone #Pulmonary hypertension on sildenafil 10 mg p.o. 3 times daily as outpatient #H/O LONNY noncompliant CPAP machine #History of coronary artery disease status post CABG, #Dysphagia -possible PEG placement #Adrenal insufficiency leading to hyponatremia #Amiodarone induced hyperthyroidism #Atrial fibrillation on chronic anticoagulation warfarin-held PIERCE in view of procedure -Patient desaturated and-intubated and sedated-CMV 400/18/100%/8 saturating low 80% -Already explained patient and his next of kin that due to underlying severe CO PD, pulmonary hypertension and interstitial lung disease it would be challenging to extubate him and he might end up having tracheostomy -Based on patient wishes-family requested DO NOT RESUSCITATE if there is no meaningful recovery -Currently sedated with fentanyl 25, propofol 10, -On Levophed 20 and vasopressin 0.04 -Chest x-ray showed worsening infiltrates -currently on Zosyn and Levaquin -Sputum PCP PCR negative and beta D glucan are pending -I will broaden antibiotic coverage to vancomycin and cefepime; dc zosyn and levaquin (D7) -Also I will add empiric antifungal coverage as patient is critically ill -Plan is to do bronchoscopy and obtain BAL sample post intubation but his maps were in low 50s and patient is seen in A. fib RVR-I will defer bronchoscopy for tomorrow morning once patient is more stable -Endotracheal sputum sample to be sent for cultures -Patient was on prednisone 60 mg p.o. daily for possible radiation pneumonitis- as there was no improvement-it was stopped; -Continue DuoNeb nebulization every 6 hour scheduled -Continue sildenafil 10 mg p.o. 3 times daily for pulmonary hypertension -Patient had recent EGD 01/16/2021 for dysphagia with history of esophageal canc er-no stricture appreciated during endoscopy but multiple ulcers and denuded esophageal mucosa was appreciated and patient was placed on lidocaine viscus 2% to help him with swallowing. -Patient is for possible PEG placement-anticoagulation held -Patient has anemia of chronic disease -I/O/N-last 24 hours 440 mL / +1.1 L since admission; -K 3.0 KCL 60 MEQ supplemented -Hyponatremia-on sodium chloride 1 g p.o. twice daily schedule-improving -Adrenal insufficiency, -currently on hydrocortisone 50 mg every 6 hours -Midodrine 10 mg p.o. 3 times daily -Sugars well controlled -pantoprazole 40 mg IV push every 12 hours Overall prognosis: Very poor Family: Updated Code: DNR Given his significant underlying pulmonary pathology-COPD/interstitial lung disease/pulmonary hypertension -currently being treated with antibiotics for possible superimposing infection-hemodynamically unstable on 2 pressors, intubated and mechanically ventilated on 100% FiO2 still saturating below 80%. Discussed in detail with patient son about the poor prognosis. He verbalized understanding and wanted to do everything possible except resuscitation and will rediscuss goals of care when the patient condition turns futile. Recommendations conveyed to hospitalist covering the patient, RN and RT as well. Attestations Medical Necessity Statement*: Acute hypoxic respiratory failure secondary to possible interstitial lung disease exacerbation/COPD exacerbation Time Spent in Patient Care: Greater than 35 minutes (>than 50% of time spent in counselling and/or direct pt care on unit) . Critical Care Time: The high probability of a clinically significant, sudden or life threatening deterioration of the patient's [neurologic, respiratory, cardiac, renal,] system(s) required my full and direct attention, intervention and personal management. The critical care time is as shown. This time is in addition to time spent performing any reported procedures but includes the following: [x] Data and vital sign review and interpretation [x] Patient assessment, examination and intervention [x] Documentation [x] Medication orders and management Critical Care Time (min): 120 Other Attestations: Including goals of care discussion with patient and related with his son, time taken for intubation and close monitoring Coding Level of Care Code Established Pt Acute Shot Blast Equipment Operator for Chg Fwd Patient Type Established History Comprehensive Exam Comprehensive Medical Decision Making High Complexity Diagnoses Acute respiratory failure with hypoxia J96.01 Interstitial lung disease J84.9 Radiation pneumonitis J70.0 Amiodarone-induced hyperthyroidism E05.80; T46.2X5A Adenosquamous carcinoma of esophagus C15.9 Acute exacerbation of chronic obstructive pulmonary disease J44.1 Adrenal insufficiency E27.40 Hypokalemia E87.6 Pulmonary HTN I27.20 LONNY (obstructive sleep apnea) G47.33 History of mitral valve replacement with bioprosthetic valve Z95.3 Time Spent (min) 120
--- NOTE | 2021-02-05 20:30 | ECG_ITS ---
[facility] Test Date: 2021-02-05 Pat Name: Kyung Queen Department: Room: ICU09 Gender: Male Cashier Host/Hostess: : 1960 Requested By: Shannan Navarrete Order Number: [id number] Rosalie MD: Alexandria Mederos M.D. Measurements Intervals [place] Rate: 92 P: -56 MN: 183 QRS: -12 QRSD: 210 T: 128 QT: 474 QTc: 587 Interpretive Statements POSSIBLE ECTOPIC ATRIAL RHYTHM LEFT BUNDLE BRANCH BLOCK [120+ ms QRS DURATION, 80+ ms Q/S IN V1/V2, 85+ ms R IN I/aVL/V5/V6] Compared to ECG 01/29/2021 14:18:13 Ectopic atrial rhythm now present Left bundle-branch block now present Sinus tachycardia no longer present Short MN interval no longer present Right-axis deviation no longer present T-wave abnormality no longer present Possible ischemia no longer present Electronically Signed On 02-07-2021 10:02:35 CDT by Alexandria Mederos M.D. [id number]
[2021-02-05 20:47] LABS: Anion Gap 21.4 (5-19); Blood Urea Nitrogen 13 mg/dL (8-23); Calcium 7.7 mg/dL (8.5-10.5); Carbon Dioxide 20 mmol/L (22-29); Chloride 98 mmol/L (98-107); Glomerular Filtration Rate 219.4 mL/min (90-130); Glucose 243 mg/dL (65-115); Osmolality Calculated 286 mOsm/kg (285-295); Potassium 5.4 mmol/L (3.5-5.1); Sodium 134 mmol/L (136-145)
[2021-02-05] MEDS: cefepime 1,000 MG in sodium chloride 0.9% (plus) 100 ML 200 MG IV (21:31)
[2021-02-05 22:42] LABS: ABG PCO2 53.2 mmHg (35-45); Alveolar-Arterial Oxygen Gradi 75.3 mmHg (5-10); Arterial Blood Gas Hematocrit 30.5 % (42-52); Base Excess ABG -5.8 mmol/L (-2.0-2.0); Blood Gas Allen Test Pos; Blood Gas Operator Identificat GD; Blood Gas Sample Site Radial, left; Blood Gas Sample Type Arterial; Carboxyhemoglobin 1.5 %THgb (0.4-20.1); HCO3 ABG 21.9 mmol/L (22-26); HGB O2 Sat 86.7 % (95-100); Ionized Calcium Level - ABG 1.2 mmol/L (1.1-1.4); Methemoglobin 0.8 % (0.4-1.5); Oxygen Device VENT; Oxygen Saturation ABG 88.6; PO2 ABG 69.6 mmHg (80.0-100.0); Potassium Level - ABG 5.8 mmol/L (3.5-5.0); Total Hemoglobin 9.9 g/dL (14-18)
[2021-02-05 22:51] LABS: ABG PH Result 7.22 (7.35-7.45)
[2021-02-05] MEDS: acetaminophen 1,000 MG/100 ML PIGGYBACK 400 MG IV (22:55)
--- NOTE | 2021-02-05 22:55 | ECG_ITS ---
[facility] Test Date: 2021-02-05 Pat Name: Kyung Queen Department: Room: ICU09 Gender: Male Performance Management Consultant: : 1960 Requested By: Shannan Navarrete Order Number: [id number] Rosalie MD: Alexandria Mederos M.D. Measurements Intervals [place] Rate: 83 P: -62 [place]: 221 QRS: -52 QRSD: 226 T: 118 QT: 517 QTc: 610 Interpretive Statements SINUS RHYTHM WITH FIRST DEGREE AV BLOCK MARKED LEFT AXIS DEVIATION [QRS AXIS < -30] LEFT BUNDLE BRANCH BLOCK [120+ ms QRS DURATION, 80+ ms Q/S IN V1/V2, 85+ ms R IN I/aVL/V5/V6] INTERPRETATION BASED ON A DEFAULT AGE OF 40 YEARS Compared to ECG 02/05/2021 20:46:11 First degree AV block now present Left-axis deviation now present Ectopic atrial rhythm no longer present Electronically Signed On 02-07-2021 7:40:03 CDT by Alexandria Mederos M.D. [id number]
--- NOTE | 2021-02-05 23:50 | PC.NURSE ---
2315: Pt went into a rhythm change and becoming increasingly hypotensive regardless of increase in pressors. EKG completed. Hospitalist notified of patient's decline. Hospitalist stated that this decline was expected and due to patient's code status no interventions are warrented at this time. Family was notified. 23:29: Patient with family at bed side. Family wishes to use [facility]. [facility] notified and patient is not a candidate for donations and was released.
--- NOTE | 2021-02-05 23:52 | PC.NURSE ---
Called [facility] awaiting call back, spoke with Kierra Kasper at [phone].
--- NOTE | 2021-02-06 01:29 | PC.NURSE ---
75mL of Fentanyl was wasted and witnessed by Lacie Odom.
--- NOTE | 2021-02-06 01:31 | PC.NURSE ---
Wasted 75ml of Fentanyl with PAUL Mccullough.
--- NOTE | 2021-02-06 12:09 | PM.DDS ---
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 He had an underlying history of poor oral and trach, esophageal cancer, coronary disease with history of bioprosthetic mitral valve, anticoagulation with Coumadin. Coumadin was held and he was transfused 1 unit of packed red blood cell. There was concern on x-ray that he had had progression of chronic lung disease, interstitial lung disease. Pulmonary critical care was consulted. Covid PCR testing negative. Amiodarone was discontinued. He was placed on prednisone for concern of radiation pneumonitis. Empiric broad-spectrum antibiotics were also initiated. Echocardiogram was performed, which demonstrated no regional wall motion abnormality. Throughout his ICU course he had gradual development of hypotension requiring pressors. Vancomycin was discontinued as his MRSA PCR was negative. Every other day fludrocortisone was given secondary to a random cortisol level being low. No adrenal hemorrhage was noted on CT. Discussion of PEG tube placement for poor nutrition was undertaken. Overall, the patient's respiratory status worsened to the point intubation was needed on February 05. Following intubation respiratory status continued to decline as well as progressive hypotension. Despite multiple measures, with ventilatory changes as well as addition of other pressors no improvement occurred. Discussion with nutrition and dietetics instructor and family has been ongoing the entire hospital stay and as patient worsened he was made allow natural . Diagnosis at acute respiratory failure secondary to interstitial lung disease, etiology unknown. Possible radiation pneumonitis. Underlying COPD complicating clinical course along with underlying pulmonary hypertension. Additional Data Advance directives?: No Discharge Plan Discharge Patient Disposition: Condition: Stable Prescriptions: No Action tamsulosin 0.4 mg capsule 0.4 mg PO BID@0600,2200 RF: 0 albuterol sulfate 90 mcg/actuation aero powdr breath act w/sensor 1 inh INHALATION Q4H RF: 0 aspirin [Adult Low Dose Aspirin] 81 mg tablet,delayed release (DR/EC) 81 mg PO DAILY@0600 RF: 0 Stiolto Respimat 2.5-2.5 mcg/actuation mist 2 puff INHALATION DAILY@06 RF: 0 atorvastatin 80 mg tablet 40 mg PO DAILY RF: 0 montelukast 10 mg tablet 10 mg PO DAILY@2100 RF: 0 cyclobenzaprine 10 mg tablet 10 mg PO TID PRN (Reason: muscle spasm) Qty: 60 RF: 0 duloxetine [Cymbalta] 30 mg capsule,delayed release(DR/EC) 30 mg PO DAILY Qty: 30 RF: 0 ferrous sulfate 325 mg (65 mg iron) tablet 325 mg PO DAILY@0600 RF: 0 amiodarone 200 mg tablet 200 mg PO BID@0600,0 RF: 0 midodrine 5 mg tablet 5 mg PO TID RF: 0 hydrocodone-acetaminophen 10-325 mg tablet 1 tab PO Q6H PRN (Reason: pain) 30 Days Qty: 120 RF: 0 sucralfate [Carafate] 1 gram tablet 1 g PO TID 30 Days Qty: 90 RF: 2 warfarin 5 mg tablet See Rx Instructions .ROUTE .COMPLEX RF: 0 gabapentin 300 mg capsule 300 mg PO TID@, RF: 0 diltiazem HCl 180 mg capsule,extended release 24 hr 180 mg PO DAILY Qty: 30 RF: 0 sildenafil (pulm.hypertension) 20 mg tablet 10 mg PO TID@, Qty: 0 RF: 0 lidocaine HCl [Lidocaine Viscous] 2 % solution 1 applic mucous membrane Q8H PRN (Reason: pain) Qty: 100 RF: 3 amoxicillin 500 mg tablet 1,000 mg PO Q8H MDD see pharmacy comment RF: 0 pantoprazole 20 mg Tablet,Delayed Release (Dr/Ec) 20 mg PO DAILY RF: 0 bupropion HCl 150 mg Tablet Extended Release 24 Hr 150 mg PO DAILY RF: 0 Referrals: [facility] [Outside] DS Attestations Time Spent in /Discharge Care*: greater than 30 min Quality - AMI: AMI present?: No Quality - Stroke: CVA present?: No Quality - VTE: VTE present?: No Coding Level of Care Code Acute Respiratory Therapy Assistant for Chg Fwd Diagnoses Acute respiratory failure with hypoxia J96.01 Interstitial lung disease J84.9 Radiation pneumonitis J70.0 Amiodarone-induced hyperthyroidism E05.80; T46.2X5A Adenosquamous carcinoma of esophagus C15.9 Acute exacerbation of chronic obstructive pulmonary disease J44.1 Adrenal insufficiency E27.40 Hypokalemia E87.6 Pulmonary HTN I27.20 LONNY (obstructive sleep apnea) G47.33 History of mitral valve replacement with bioprosthetic valve Z95.3
[2021-02-06 20:38] LABS: Fungitell 1-3-B Glucan Assay <31 pg/mL; Interpretation NEGATIVE
[2021-02-08 02:13] LABS: Methylmalonic Acid 120 nmol/L (87-318)
== END 2021-02-05 23:29 | disposition expired | DRG 208 ==
LOC: ER 12:41 → ICU 16:12 → MEDSURG 01-30 17:52 → ICU 02-02 17:30
PROVIDERS: Hospitalist; Internal Medicine Critical Care Medicine; Internal Medicine Pulmonary Disease; Admitting Provider Internal Medicine; Emergency Provider Family Medicine; PCP Family Medicine; Visit Provider Internal Medicine
DX: J96.01 Acute respiratory failure with hypoxia (principal); J44.1 Chronic obstructive pulmonary disease with (acute) exacerbation; J70.0 Acute pulmonary manifestations due to radiation; E27.1 Primary adrenocortical insufficiency; E87.1 Hypo-osmolality and hyponatremia; C15.9 Malignant neoplasm of esophagus, unspecified; D63.8 Anemia in other chronic diseases classified elsewhere; E06.4 Drug-induced thyroiditis; K21.9 Gastro-esophageal reflux disease without esophagitis; I10 Essential (primary) hypertension; E78.5 Hyperlipidemia, unspecified; I27.20 Pulmonary hypertension, unspecified; E87.6 Hypokalemia; I25.10 Atherosclerotic heart disease of native coronary artery without angina pectoris; G47.33 Obstructive sleep apnea (adult) (pediatric); J84.89 Other specified interstitial pulmonary diseases; R19.7 Diarrhea, unspecified; I95.9 Hypotension, unspecified; R79.1 Abnormal coagulation profile; Z79.82 Long term (current) use of aspirin; Z79.52 Long term (current) use of systemic steroids; Z82.49 Family history of ischemic heart disease and other diseases of the circulatory system; Z95.1 Presence of aortocoronary bypass graft; Z86.010 Personal history of colon polyps; Z79.01 Long term (current) use of anticoagulants; Z83.3 Family history of diabetes mellitus; Z87.891 Personal history of nicotine dependence; Z95.5 Presence of coronary angioplasty implant and graft; Z98.52 Vasectomy status; Z95.4 Presence of other heart-valve replacement; Z20.822 Contact with and (suspected) exposure to COVID-19
CPT/HCPCS: 36415; 36430; 36591; 36600; 51702; 71045; 71275; 74177; 76536; 80048; 80051; 80053; 80202; 80500; 81001; 82248; 82274; 82330; 82533; 82607; 82728; 82746; 82805; 83010; 83036; 83540; 83550; 83605; 83615; 83630; 83735; 83921; 83935; 84145; 84300; 84436; 84439; 84443; 84481; 84484; 85014; 85025; 85045; 85610; 85651; 86140; 86403; 86850; 86900; 86920; 86927; 87385; 87426; 87449; 87493; 87506; 87635; 87641; 87798; 93005; 93308; 94002; 94640; 94660; 94799; 96372; 97110; 97162; 97530; 99285; C9113; J0692; J1650; J1720; J1940; J2060; J2270; J2370; J2405; J2543; J2704; J2930; J3010; J3370; J3430; J3465; J3475; J3480; J3490; J7050; J7512; J8597; P9016; P9017; P9047; Q9967